=== PATIENT | male | born 1960 | race African-American/Black ===

== ENCOUNTER 2019-03-28 14:50 | Inpatient (IN) ==
[2019-03-28 16:02] LABS: BASO# 0.05 X1000 (0.0-0.2); BASO% 0.3 % (0.0-0.8); EOS# 0.19 X1000 (0.0-0.7); EOS% 1.1 % (0.0-10.0); HEMATOCRIT 25.4 % (42.0-52.0); HEMOGLOBIN 8.5 g/dL (14.0-18.0); IMM GRAN# 0.13 X1000 (0.0-0.04); IMM GRAN% 0.8 % (0.0-0.5); LYMPH# 1.99 X1000 (1.2-3.4); LYMPH% 11.5 % (20.5-51.1); MCHC 33.5 g/dL (33-37); MCV 86.7 FL (81-99); MONO# 2.18 X1000 (0.11-0.59); MONO% 12.7 % (1.7-9.3); NEUT# 12.69 X1000 (1.4-6.5); NEUT% 73.6 % (42.2-75.2); PLT 163 X1000 (130-400); RBC 2.93 XMIL (4.7-6.1); RDW 16.9 % (11.5-14.5); WBC 17.23 X1000 (4.8-10.8)
[2019-03-28 16:07] LABS: INR 1.44; PROTIME 17.9 Seconds (11.0-16.0)
[2019-03-28 16:08] LABS: PTT 43.6 Seconds (22.3-41.8)
[2019-03-28 16:23] LABS: ALB/GLOB RATIO 0.5; ALBUMIN 2.4 g/dL (3.5-5.0); CALCIUM 8.2 mg/dL (8.8-10.2); CREATININE 2.6 mg/dL (0.7-1.2); POTASSIUM 3.9 mmol/L (3.5-5.1); TOTAL BILIRUBIN 4.07 mg/dL (0.20-1.00)
[2019-03-28] MEDS ORDERED: NS 1,000 ML IV ONE (16:36)
[2019-03-28 16:54] LABS: AMYLASE 28 U/L (20-200); LIPASE 11 U/L (13-60)
--- NOTE | 2019-03-28 17:18 | Diag Imaging Result Doc PS360 ---
EXAM: CT HEAD W/O CONTRAST HISTORY: AMS TECHNIQUE: CT head without contrast COMPARISON: None. FINDINGS: No parenchymal hemorrhage. No epidural or subdural hematoma. No subarachnoid hemorrhage. There are mild chronic microvascular ischemic changes. No mass identified on this noncontrasted exam. No hydrocephalus. No sinus opacification. IMPRESSION: 1.No hemorrhage 2.Chronic microvascular ischemic changes This exam was performed using automated exposure control, adjustment of mA or kV according to patient size, and/or use of iterative reconstruction technique. Electronically signed by Andre Toro 03/28/2019 5:16 PM
--- NOTE | 2019-03-28 17:27 | Diag Imaging Result Doc PS360 ---
CT ABDOMEN AND PELVIS WITHOUT CONTRAST HISTORY: AMS TECHNIQUE: CT abdomen and pelvis without contrast COMPARISON: None. FINDINGS: There is basilar atelectasis and pulmonary edema. Small hiatal hernia versus mild thickening to the wall of the distal esophagus. The gallbladder has been removed. There is a drain in the right upper quadrant. Hyperdense debris or tiny stones in the gallbladder fossa. Trace fluid about the liver. The spleen is enlarged. No inflammation about the pancreas. Normal adrenal glands. No renal stones. No hydronephrosis. Moderate atherosclerosis. No aortic aneurysm. No bowel obstruction. There are scattered colonic diverticula. Small to moderate amount of fluid in the paracolic gutters and pelvis. The urinary bladder is distended and appears normal. The prostate is not enlarged. Small pelvic nodes. There are also small para-aortic nodes. IMPRESSION: 1. Basilar atelectasis with pulmonary edema 2. Small hiatal hernia versus thickening to the distal esophagus 3. Cholecystectomy with a surgical drain in the right upper quadrant and debris or tiny stones in the gallbladder fossa. No abscess. 4. Splenomegaly 5. Colonic diverticulosis 6. Atherosclerosis 7. Small amount of fluid about the liver and spleen and in each paracolic gutter This exam was performed using automated exposure control, adjustment of mA or kV according to patient size, and/or use of iterative reconstruction technique. Electronically signed by Andre Toro 03/28/2019 5:25 PM
[2019-03-28 17:56] LABS: URINE SOURCE CATH
[2019-03-28 17:58] LABS: BILIRUBIN URINE MODERATE (NEGATIVE); BLOOD URINE NEGATIVE (NEGATIVE); COLOR YELLOW; GLUCOSE URINE NEGATIVE (NEGATIVE); KETONE URINE NEGATIVE (NEGATIVE); LEUKOCYTES URINE NEGATIVE (NEGATIVE); NITRITE URINE NEGATIVE (NEGATIVE); PH URINE 5.5; PROTEIN URINE 30 mg/dL (NEGATIVE); SP GRAVITY URINE 1.025; TURBIDITY URINE HAZY (CLEAR); UROBILINOGEN URINE >12 mg/dL (NORMAL)
--- NOTE | 2019-03-28 17:58 | PROVIDER DOCUMENTATION ---
This chart was entered by Maryuri Miranda Scribe, acting as scribe for Yang Olsen MD. HPI-Neurological Disorder - General Chief Complaint: Altered Mental Status Stated Complaint: AMS Time Seen by Provider: 03/28/19 15:30 Source: patient, family Allergies/Adverse Reactions: Patient Allergies Allergy/AdvReac Type Severity Reaction Status Date / Time No Known Allergies Allergy Verified 02/01/19 15:42 Home Medications: Home Medication List Medication Instructions Recorded Confirmed Last Taken Type Amlodipine [Norvasc] 5 mg PO DAILY 01/12/19 03/22/19 03/22/19 05:30 History Cyclobenzaprine [Flexeril] 10 mg PO BID 01/12/19 03/22/19 03/22/19 05:30 History Lisinopril [Zestril] 40 mg PO DAILY 01/12/19 03/22/19 03/22/19 05:30 History Metoprolol [Lopressor] 100 mg PO DAILY 01/12/19 03/22/19 03/22/19 05:30 History Spironolactone 25 mg PO DAILY 01/12/19 03/22/19 03/22/19 05:30 History Indomethacin [Indocin] 25 mg PO DAILY 02/10/19 03/22/19 03/22/19 05:30 History Dexlansoprazole [Dexilant] 60 mg PO DAILY 03/01/19 03/22/19 03/22/19 05:30 History Dicyclomine [Bentyl] 10 mg PO TID AC 03/01/19 03/22/19 03/22/19 05:30 History Hydrochlorothiazide 25 mg PO DAILY 03/01/19 03/22/19 03/22/19 05:30 History Hydrocodone/Acetaminophen [[place] 1 ea PO TID 03/01/19 03/22/19 03/22/19 05:30 History 7.5-325 Tablet] Isosorbide Mononitrate E.r. [Imdur] 30 mg PO DAILY 03/01/19 03/22/19 03/22/19 05:30 History Hydrocodone/Acetaminophen [[place] 1 ea PO Q6H PRN PRN #30 tab 03/22/19 Unknown Rx 10-325 Tablet] - History of Present Illness-Neuro Nature of Presenting Problem: 58 y/o male presents to ED with AMS onset last night. of pt is at bedside and reports he has been refusing po food and fluids. states he is unable to urinate and experiencing decreased ability to walk/stand. She reports he is "talking out of his head." states last bowel movement was yesterday. Pt denies chest pain. Pt reports SOB and abdominal pain. Pt is 6 days post op cholecystectomy. Pt is alert and oriented x 1. Severity: reports: moderate, severe Onset/Duration: reports: last night Timing: reports: still present Context: reports: other (AMS) Character of Altered Mental Status: reports: disoriented, confused, decreased responsiveness Any recent trauma/injury?: reports: none Character of Deficits: reports: decreased ability to stand, decreased ability to walk New weakness or altered sensation location:: reports: general (diffuse) Cognitive Baseline: alert, oriented x3 Gait Baseline: walks without assistance Associated Symptoms: reports: short of breath, decreased ability to walk or s tand, confusion, trouble walking, weakness, other (AMS; refusing po food and fluids; unable to urinate; abdominal pain). denies: chest pain Similar Symptoms Previously?: No Recently seen or treated by another doctor?: Yes (cholecystectomy 6 days ago) Review of Systems - Adult - REVIEW OF SYSTEMS - ADULT ROS:: limited per condition Constitutional: reports: other (AMS). denies: chills, fever Eyes: reports: no symptoms reported Ears, Nose, Mouth & Throat: reports: no symptoms reported Cardiovascular: denies: chest pain, palpitations Respiratory: reports: shortness of breath. denies: cough Gastrointestinal: reports: abdominal pain, poor appetite, other (refusing po food/fluids). denies: diarrhea, vomiting Genitourinary: reports: other (unable to urinate). denies: incontinence Musculoskeletal: reports: no symptoms reported Integumentary: reports: no symptoms reported Neurological: reports: other (AMS; decreased ability to walk/stand). denies: dizziness/vertigo, seizure Psychiatric: reports: no symptoms reported Endocrine: reports: no symptoms reported Hematologic/Lymphatic: reports: no symptoms reported Allergic/Immunologic: reports: no symptoms reported All Other Systems: Reviewed and Negative Past History - Adult - PAST MEDICAL HISTORY-ADULT Review of Records: reports: Old Records Reviewed, Nursing Assessment Review, M edications Reviewed Major Childhood Illnesses: reports: denies history Cardiovascular: reports: CAD, CHF, HTN, [place] Respiratory: reports: COPD, sleep apnea Gastrointestinal: reports: cancer (rectal) Obstetrical/Gynecological: reports: denies history Genitourinary: reports: denies history Musculoskeletal: reports: arthritis (gout), other (gout) Neurological: reports: denies history Endocrine/Immune: reports: denies history Other Conditions: reports: denies history - PRIOR SURGERIES/PROCEDURES Surgical/Procedure History: reports: recent surgery (cholecystectomy 6 days ago) , cholecystectomy - IMMUNIZATION STATUS Childhood Immunizations: See Nurse Assessment Flu Vaccine: See Nurse Assessment - FAMILY HISTORY Family History: reviewed, not pertinent - SOCIAL HISTORY Smoking: quit greater than 1 year Substance Use: none/never Alcohol Use Frequency: never Living Situation: family Physical Exam- Neurological - Physical Exam-Neuro Initial Vital Signs Reviewed: Yes General Appearance: alert, no apparent distress, slow to respond, other (altered; attempts to follow commands and answer questions; oriented x 1) Eye Exam: bilateral eye: normal inspection, PERRL, EOMI HENMT: normocephalic/atraumatic. negative: moist mucous membranes (dry) Head Injury: no evidence of injury Neck: non-tender, full range of motion Respiratory: chest non-tender, lungs clear, normal breath sounds Cardiovascular: tachycardia Abdominal Exam: soft, abnormal bowel sounds (decreased), distended, tenderness (diffuse), other (drain placed in RUQ; pt is 6 days post op cholecystectomy: skin surrounding incision healing good.) Extremity: normal range of motion, non-tender, pedal edema printing manager Exam: normal hearing, normal speech, PERRL Coordination/Gait: other (altered; attempts to follow commands and answer questions) Motor/Sensory: other (altered; attempts to follow commands and answer questions; oriented x 1) Neurologic: other (altered; attempts to follow commands and answer questions; oriented x 1) Integumentary: normal color, warm/dry Psych/Mental Status: other (altered; attempts to follow commands and answer questions; oriented x 1). negative: oriented x 3 Progress - PLAN OF CARE/RESULTS Progress/Plan/Lab Results: Vital Signs - 8 hr 03/28/19 15:01 03/28/19 15:03 03/28/19 15:10 Temperature 101.0 F H Pulse Rate 116 H 115 H 115 H Respiratory Rate 19 13 15 Blood Pressure 107/71 107/71 O2 Sat by Pulse Oximetry 89 L 89 L 03/28/19 15:15 03/28/19 15:30 03/28/19 15:38 Temperature Pulse Rate 113 H 114 H 116 H Respiratory Rate 13 13 17 Blood Pressure 139/72 O2 Sat by Pulse Oximetry 91 L 90 L 92 L 03/28/19 15:45 03/28/19 16:00 03/28/19 16:15 Temperature Pulse Rate 115 H 115 H 117 H Respiratory Rate 15 15 20 Blood Pressure 144/79 O2 Sat by Pulse Oximetry 93 L 97 97 03/28/19 16:30 Temperature Pulse Rate 115 H Respiratory Rate 15 Blood Pressure 151/78 O2 Sat by Pulse Oximetry 97 Laboratory Results - last 24 hr 03/28/19 03/28/19 03/28/19 15:34 15:34 15:34 WBC 17.23 H RBC 2.93 L Hgb 8.5 L Hct 25.4 L MCV 86.7 MCH 29.0 MCHC 33.5 RDW Std Deviation 16.9 H Plt Count 163 MPV Not Reportable Immature Gran % (Auto) 0.8 H Neut % (Auto) 73.6 Lymph % (Auto) 11.5 L [place] % (Auto) 12.7 H Eos % (Auto) 1.1 Baso % (Auto) 0.3 Immature Gran # (Auto) 0.13 H Neut # (Auto) 12.69 H Lymph # (Auto) 1.99 [place] # (Auto) 2.18 H Eos # (Auto) 0.19 Baso # (Auto) 0.05 PT 17.9 H INR 1.44 PTT (Actin FS) 43.6 H Sodium 140 Potassium 3.9 Chloride 105 Carbon Dioxide 17 L Anion Gap 18 BUN 66 H Creatinine 2.6 H Estimated GFR/1.73 m2 31 BUN/Creatinine Ratio 25 Glucose 108 H POC Glucose Calculated Osmolality 299 Calcium 8.2 L Total Bilirubin 4.07 H AST 22 ALT 11 Alkaline Phosphatase 162 H Ammonia Creatine Kinase 111 Troponin T Total Protein 7.0 Albumin 2.4 L Globulin 4.6 Albumin/Globulin Ratio 0.5 Amylase Lipase Plasma Lactate Urine Source Urine Color Urine Turbidity Urine pH Ur Specific [place] Urine Protein Ur Glucose (Stick) Ur Ketones (Stick) Urine Blood Urine Nitrite Urine Bilirubin Urobilinogen Dipstick Urine Leukocytes Urine WBC (Auto) Urine RBC (Auto) U Epithel Cells (Auto) Urine Bacteria (Auto) Urine Crystals Small Round Cells Urine Casts Urine Yeast-like Cells 03/28/19 03/28/19 03/28/19 15:34 15:34 15:34 WBC RBC Hgb Hct MCV MCH MCHC RDW Std Deviation Plt Count MPV Immature Gran % (Auto) Neut % (Auto) Lymph % (Auto) [place] % (Auto) Eos % (Auto) Baso % (Auto) Immature Gran # (Auto) Neut # (Auto) Lymph # (Auto) [place] # (Auto) Eos # (Auto) Baso # (Auto) PT INR PTT (Actin FS) Sodium Potassium Chloride Carbon Dioxide Anion Gap BUN Creatinine Estimated GFR/1.73 m2 BUN/Creatinine Ratio Glucose POC Glucose Calculated Osmolality Calcium Total Bilirubin AST ALT Alkaline Phosphatase Ammonia Creatine Kinase Troponin T < 0.010 Total Protein Albumin Globulin Albumin/Globulin Ratio Amylase 28 Lipase 11 L Plasma Lactate 1.6 Urine Source Urine Color Urine Turbidity Urine pH Ur Specific [place] Urine Protein Ur Glucose (Stick) Ur Ketones (Stick) Urine Blood Urine Nitrite Urine Bilirubin Urobilinogen Dipstick Urine Leukocytes Urine WBC (Auto) Urine RBC (Auto) U Epithel Cells (Auto) Urine Bacteria (Auto) Urine Crystals Small Round Cells Urine Casts Urine Yeast-like Cells 03/28/19 03/28/19 03/28/19 15:44 16:41 17:47 WBC RBC Hgb Hct MCV MCH MCHC RDW Std Deviation Plt Count MPV Immature Gran % (Auto) Neut % (Auto) Lymph % (Auto) [place] % (Auto) Eos % (Auto) Baso % (Auto) Immature Gran # (Auto) Neut # (Auto) Lymph # (Auto) [place] # (Auto) Eos # (Auto) Baso # (Auto) PT INR PTT (Actin FS) Sodium Potassium Chloride Carbon Dioxide Anion Gap BUN Creatinine Estimated GFR/1.73 m2 BUN/Creatinine Ratio Glucose POC Glucose 106 H Calculated Osmolality Calcium Total Bilirubin AST ALT Alkaline Phosphatase Ammonia 52 Creatine Kinase Troponin T Total Protein Albumin Globulin Albumin/Globulin Ratio Amylase Lipase Plasma Lactate Urine Source CATH Urine Color YELLOW Urine Turbidity HAZY Urine pH 5.5 Ur Specific [place] 1.025 Urine Protein 30 A Ur Glucose (Stick) NEGATIVE Ur Ketones (Stick) NEGATIVE Urine Blood NEGATIVE Urine Nitrite NEGATIVE Urine Bilirubin MODERATE A Urobilinogen Dipstick >12 A Urine Leukocytes NEGATIVE Urine WBC (Auto) <10 Urine RBC (Auto) 10-20 A U Epithel Cells (Auto) <10 Urine Bacteria (Auto) NEGATIVE Urine Crystals NONE SEEN Small Round Cells Not Reportable Urine Casts NONE SEEN Urine Yeast-like Cells NONE SEEN Orders Category Date Time Status Cardiac Monitoring DIRECTED Care 03/28/19 15:14 Active IV Insertion ORDERED Care 03/28/19 15:14 Completed Notify MD of + Sepsis Screen NOW Care 03/28/19 15:14 Active Notify Physician As Ordered Care 03/28/19 15:14 Active Nursing [Misc. NRSG Communication Order] DIRECTED Care 03/28/19 18:28 Active Nursing- MD Consult Request ROUTINE Care 03/28/19 18:25 Active Nursing- MD Consult Request ROUTINE Care 03/28/19 18:26 Active Physician/Provider Consults Routine Cons 03/28/19 18:24 Ordered Physician/Provider Consults Routine Cons 03/28/19 18:24 Ordered Physician/Provider Consults Routine Cons 03/28/19 18:25 Ordered Physician/Provider Consults Routine Cons 03/29/19 08:[address] ABDOMEN/PELVIS W/O CONTRAST [CT] Stat Exams 03/28/19 16:[address] HEAD W/O CONTRAST [CT] Stat Exams 03/28/19 16:00 Completed US ABDOMEN-COMPLETE [US] Routine Exams 03/28/19 18:26 Ordered cxr [CHEST-PORTABLE] [RAD] Routine Exams 03/29/19 06:00 Ordered AMMONIA [CHEM] Routine Lab 03/29/19 06:00 Ordered AMMONIA [CHEM] Stat Lab 03/28/19 16:41 Completed AMYLASE [CHEM] Stat Lab 03/28/19 15:34 Completed BLOOD CULTURE [BLDCUL] Stat Lab 03/28/19 16:28 Results CBC WITH DIFF [HEME] DAILY Lab 03/29/19 06:00 Ordered CBC WITH DIFF [HEME] DAILY Lab 03/30/19 06:00 Ordered CBC WITH DIFF [HEME] Routine Lab 03/28/19 22:00 Ordered CBC WITH DIFF [HEME] Stat Lab 03/28/19 15:34 Completed CK PROFILE [SP CHEM] Stat Lab 03/28/19 15:34 Completed COMPREHENSIVE METABOLIC PANEL [CHEM] Routine Lab 03/29/19 05:00 Ordered COMPREHENSIVE METABOLIC PANEL [CHEM] Stat Lab 03/28/19 15:34 Completed LACTATE, PLASMA [CHEM] Lab 03/28/19 18:15 Uncollected LACTATE, PLASMA [CHEM] Lab 03/28/19 21:15 Uncollected LACTATE, PLASMA [CHEM] Q3H Lab 03/28/19 15:34 Completed LIPASE [CHEM] Stat Lab 03/28/19 15:34 Completed PROTIME WITH INR [COAG] DAILY Lab 03/29/19 06:00 Ordered PROTIME WITH INR [COAG] DAILY Lab 03/30/19 06:00 Ordered PROTIME WITH INR [COAG] Stat Lab 03/28/19 15:34 Completed PTT [COAG] Stat Lab 03/28/19 15:34 Completed RENAL PROFILE [CHEM] Timed Lab 03/28/19 22:00 Ordered TROPONIN T Stat Lab 03/28/19 15:34 Completed URINALYSIS W/POSS RFLX CULT [URINALYSIS] Stat Lab 03/28/19 17:47 Completed URINE MANUAL MICROSCOPIC [URINALYSIS] Stat Lab 03/28/19 17:47 Completed 0.9% Sodium Chloride Inj [Ns] 1,000 ml Med 03/28/19 18:30 Ordered IV 125 mls/hr 0.9% Sodium Chloride Inj [Ns] 1,000 ml Med 03/28/19 16:36 Discontinued IV 999 mls/hr Ceftaroline Fosamil [Teflaro] 400 mg Med 03/28/19 18:15 Ordered 0.9% Sodium Chloride Inj [Ns] 250 ml IV Q12H Meropenem [Merrem] 500 mg Med 03/28/19 18:15 Ordered 0.9% Sodium Chloride Inj [Ns] 50 ml IV Q8H Morphine Med 03/28/19 18:31 Ordered 2 mg IV Q3H PRN PRN Pantoprazole [Protonix] Med 03/28/19 18:30 Ordered 40 mg IV Q12H Piperacillin/Tazobactam [Zosyn] 4.5 gm Med 03/28/19 18:10 Active 0.9% Sodium Chloride Inj [Ns] 100 ml IV NOW Sodium Chloride 0.9% Med 03/28/19 18:30 Ordered 10 ml INJ DIRECTED Oxygen Device Stat Oth 03/28/19 15:14 Completed Echo Spec/Color Doppler Routine Ther 03/28/19 18:12 Ordered Transfer/Admit Order [TRANSFER] Routine Transfer 03/28/19 18:34 Ordered Result Diagrams: 03/28/19 15:34 03/28/19 15:34 - EKG 1 Time of EKG reading by physician:: 16:31 EKG Read and Signed by:: Yang Olsen EKG Interpretation (*Must complete 3 of following elements*): Abnormal Rate: 114 Rhythm: Sinus tach [place]: left QRS: LBB IA Interval: normal ST Wave: normal - CT/MRI 1 CT Study: Abdomen, Pelvis Impression: See EMR Report ([facility] - [address] , [address], [place] [address] [facility] - [address] [place] [address] Department of Imaging Patient: BRITTNI SKAGGS Date: 03/28/19MR#: [id number] : 9ADM Status: REG ERAcct#: [id number] Age/Sex: 58/MRoom/Bed: Loc: ED Ordering Physician: Yang Olsen MD Family Physician: Armani Bender MD Reason for Procedure: AMS ___ Signed CT ABDOMEN AND PELVIS WITHOUT CONTRAST HISTORY: AMS TECHNIQUE: CT abdomen and pelvis without contrast COMPARISON: None. FINDINGS: There is basilar atelectasis and pulmonary edema. Small hiatal hernia versus mild thickening to the wall of the distal esophagus. The gallbladder has been removed. There is a drain in the right upper quadrant. Hyperdense debris or tiny stones in the gallbladder fossa. Trace fluid about the liver. The spleen is enlarged. No inflammation about the pancreas. Normal adrenal glands. No renal stones. No hydronephrosis. Moderate atherosclerosis. No aortic aneurysm. No bowel obstruction. There are scattered colonic diverticula. Small to moderate amount of fluid in the paracolic gutters and pelvis. The urinary bladder is distended and appears normal. The prostate is not enlarged. Small pelvic nodes. There are also small para-aortic nodes. IMPRESSION: 1. Basilar atelectasis with pulmonary edema 2. Small hiatal hernia versus thickening to the distal esophagus 3. Cholecystectomy with a surgical drain in the right upper quadrant and debris or tiny stones in the gallbladder fossa. No abscess. 4. Splenomegaly 5. Colonic diverticulosis 6. Atherosclerosis 7. Small amount of fluid about the liver and spleen and in each paracolic gutter This exam was performed using automated exposure control, adjustment of mA or kV according to patient size, and/or use of iterative reconstruction technique. Electronically signed by Andre Toro 03/28/2019 5:25 PM 03/28/19 1720 Interpreting Physician: Andre Toro MD Dictated Date/Time: 03/28/19 1713 cc: Yang Olsen MD; Armani Bender MD) 2 CT Study: Head Impression: See EMR Report ([facility] - [address] [place] [address] [address], [place] [address] [facility] - [address] [place] [address] Department of Imaging Patient: BRITTNI SKAGGS Date: 03/28/19#: [id number] : 9ADM Status: [facility]#: [id number] Age/Sex: 58/MRoom/Bed: Loc: ED Ordering Physician: Yang Olsen MD Family Physician: Armani Bender MD Reason for Procedure: AMS Signed EXAM: CT HEAD W/O CONTRAST HISTORY: AMS TECHNIQUE: CT head without contrast COMPARISON: None. FINDINGS: No parenchymal hemorrhage. No epidural or subdural hematoma. No subarachnoid hemorrhage. There are mild chronic microvascular ischemic changes. No mass identified on this noncontrasted exam. No hydrocephalus. No sinus opacification. IMPRESSION: 1.No hemorrhage 2.Chronic microvascular ischemic changes This exam was performed using automated exposure control, adjustment of mA or kV according to patient size, and/or use of iterative reconstruction technique. Electronically signed by Andre Toro 03/28/2019 5:16 PM 03/28/19 1716 Interpreting Physician: Andre Toro MD Dictated Date/Time: 03/28/19 1713 cc: Yang Olsen MD; Armani Bender MD) - CONSULTS/PCP/HOSPITALIST Notification #1 *Consult/PCP/Hospitalist*: NERIS Montes for hospitalist Time Discussed: 17:41 Reason/Comments: Acute renal failure, AMS, weakness, leukocytosis, hyperbilirubinemia Consult Disposition: Admit Departure - Departure Date of Disposition Decision: 03/28/19 Time of Disposition Decision: 17:41 DIAGNOSIS: Generalized weakness, Hyperbilirubinemia, Sepsis Acute renal failure Qualifiers: Acute renal failure type: unspecified Qualified Code(s): N17.9 - Acute kidney failure, unspecified Altered mental status Qualifiers: Altered mental status type: unspecified Qualified Code(s): R41.82 - Altered mental status, unspecified Leukocytosis Qualifiers: Leukocytosis type: unspecified Qualified Code(s): D72.829 - Elevated white blood cell count, unspecified Disposition: ADMITTED INPATIENT 09 Certified Medical Emergency: Emergent Condition: Stable Referrals and Follow-Ups: Armani Bender MD [Primary Care Provider] - - Critical Care Note This patient required my direct & personal management of CC.: No Attestation - Physician/ MAIKEL Attestation Patient care was provided by Advanced Practice Provider:: No The physician spent face to face time with patient:: Yes Advanced Practice Provider documentation review:: Supervising physician onsite and consulted in the evaluation and care of this patient. The physician did have a face to face encounter with the patient. This chart was documented by the indicated scribe, (Maryuri Miranda Scribe) and accurately reflects the services I performed and decisions made by me, Yang Olsen MD, as attested by the provider's signature.
[2019-03-28 18:00] LABS: UR EPITHELIAL CELLS <10 /HPF (<10); URINE BACTERIA NEGATIVE /HPF; URINE WBC <10 /HPF (<10)
[2019-03-28] MEDS ORDERED: ZOSYN 4.5 GM in NS 100 ML IV ONE (18:10)
[2019-03-28 18:16] LABS: URINE CASTS NONE SEEN; URINE CRYSTALS NONE SEEN; URINE YEAST NONE SEEN
[2019-03-28] MEDS: MORPHINE IV PRN ×2 (19:19→22:39)
[2019-03-28] MEDS: PROTONIX IV SCH (19:49)
--- NOTE | 2019-03-28 19:54 | HISTORY AND PHYSICAL ---
PRIMARY CARE PROVIDER: Armani Bender. ONCOLOGIST: Dr. Gaurav Jacobs. CHIEF COMPLAINT: Altered mental status, abdominal distention. HPI: This is a 58-year-old gentleman with a history of cirrhosis, squamous cell cancer of the anus, diabetes mellitus type 2, ischemic heart disease, who presents to the emergency room status post cholecystectomy with laparoscopic liver biopsy on 03/22/2019. He presented with his who stated that the patient has been refusing food and fluids for the last 3 days. She states when he came home from the hospital on Friday he was a little sore and Friday and Friday she was have to help him stand up but he was able to walk through the house, on Friday afternoon to morning he started attempting to drink a little fluid, by he had started refusing any of food and he was just taking sips of fluids, however he did take his medication with the sips of fluid. They denied any vomiting, any diarrhea or constipation, any fevers or chills. The patient has a WOODY drain in. The states that the drainage has not increased, when he 1st was discharged that it was a bile color that over the last 5 days it has been a thick secretions that are about tomato juice colored in fact she feels that the drainage has decreased some in the last 24 to 36 hours. During the day prior to coming to the emergency room he was unable to stand or walk and his speech has been garbled. PAST MEDICAL HISTORY: Ischemic heart disease, diabetes mellitus type 2 with hyperglycemia, squamous cell cancer of the anus, hypertension, sleep apnea, COPD. PAST SURGICAL HISTORY: Cholecystectomy. SOCIAL HISTORY: He drinks liquor 1 to 2 drinks it was daily up until the last few weeks. He has had none in the last 2 weeks. He is . He lives with his . He has children that are close by and active in his care. ALLERGIES: No known drug allergies. HOME MEDICATIONS: Allopurinol, Norvasc, Sharon, lisinopril, lorazepam, metoprolol, omeprazole, spironolactone, tramadol. REVIEW OF SYSTEMS: Unable to obtain from the patient due to his altered mental status. PHYSICAL EXAMINATION: GENERAL: This is a 58-year-old gentleman who is lying on the stretcher in the emergency room in mild distress. VITAL SIGNS: Blood pressure is 151/78 with a heart rate 115, respirations are 18 to 22, temperature is 101 degrees with O2 saturations 93 to 97 percent. HEENT: Head is normocephalic, atraumatic. Mucous membranes are moist. NECK: Supple with trachea midline. CARDIOVASCULAR: Regular rate and rhythm. He is tachycardic. S1 and S2 are appreciated. He has bilateral lower extremity edema with peripheral pulses palpable x4 extremities. PULMONARY: Breath sounds are clear with no increased work of breathing noted. Chest rises and falls symmetric with respiration. GASTROINTESTINAL: Abdomen distended with diffuse tenderness. He has decreased bowel sounds throughout. Has a right upper quadrant drain is intact, is draining tomato juice colored thick secretions. NEUROLOGIC: He is alert. He attempts to follow commands and he attempts to answer all questions although speech is garbled. He does not consistently answer yes and no. LABS: WBC is 17.2 with a hemoglobin of 8.5, hematocrit 25.4, platelets of 163,000. INR is 1.44, PT is 17.9 with a PTT of 43.6. Chemistry. Sodium is 140, potassium 3.9, BUN 66 with a creatinine of 2.6, glucose of 108. Total bilirubin is 4.07, ammonia is 52 with amylase of 28, lipase of 11. Urinalysis is pending. CT of the head reveals no hemorrhage, chronic microvascular ischemic changes. CT of the abdomen and pelvis reveals basilar atelectasis with pulmonary edema, small hiatal hernia versus thickening to the distal esophagus, cholecystectomy with a surgical drain in the right upper quadrant and debris or tiny stones in the gallbladder fossa. No abscess. Small amount of fluid about the liver and spleen in each pericolic gutter. ASSESSMENT AND PLAN: 1. Sepsis. Blood cultures have been obtained. Urine culture will be ordered, order culture from his Ghanshyam-Adorno drain and with antibiotic coverage of Merrem and Teflaro. 2. Status post cholecystectomy with liver biopsy on 03/22. We have notified Dr. Jan Jacob as he performed the procedure. 3. Acute kidney injury presumed secondary to dehydration and medication as the patient continued to take his hydrochlorothiazide, Indocin, spironolactone and lisinopril as prescribed all week. We will hold all these medications. Will rehydrate, repeat labs tonight and daily. We will renal dose any medications as appropriate. 4. Anal cancer aware. 5. Anemia. repeat labs tonight at o'clock and then again in the morning. 6. Hypertension aware. 7. Coronary artery disease status post myocardial infarction 5 years ago, aware. Order echocardiogram. 8. Chronic obstructive pulmonary disease. 9. Diabetes mellitus type 2. Be placed on pattern blood glucose with sliding scale insulin. admit the patient to ICU for close monitoring. Consult Dr. Bill aJcob and Dr. Golden Cuba in Gastroenterology. CBC, CMP, ammonia, PT, INR in the morning. echocardiogram and a abdominal ultrasound, CXR in the morning Further treatments pending hospital course. Patient was examined and plan was discussed with Dr. Espinoza. Dictated by NERIS Cabrera for Clive Beauchamp MD Addendum: Patient seen and examined by myself. Agree with NERIS note. It reflects my assessment and plan. Patient is being admitted for sepsis of unknown source at this time. Will start broad spectrum antibiotics and panculture him. Will also start IV fluids for GERDA. He may have hepatic encephalopathy so will provide Lactulose enemas. Will send him to ICU for better monitoring. cc: NERIS Cabrera MD [facility]
[2019-03-28] MEDS ORDERED: TYLENOL PR PRN (21:16)
[2019-03-28] MEDS: NS 1,000 ML IV SCH (21:40)
[2019-03-28] MEDS: MERREM 500 MG in NS 50 ML IV SCH (21:40)
[2019-03-28] MEDS: TEFLARO 400 MG in NS 250 ML IV SCH (21:41)
[2019-03-28] MEDS: HUMALOG SUBQ SCH (21:47)
[2019-03-28 22:24] LABS: BASO# 0.07 X1000 (0.0-0.2); BASO% 0.4 % (0.0-0.8); EOS# 0.12 X1000 (0.0-0.7); EOS% 0.6 % (0.0-10.0); HEMATOCRIT 25.4 % (42.0-52.0); HEMOGLOBIN 8.5 g/dL (14.0-18.0); IMM GRAN# 0.15 X1000 (0.0-0.04); IMM GRAN% 0.8 % (0.0-0.5); LYMPH# 2.27 X1000 (1.2-3.4); MCH 28.8 PG (27-31); MCHC 33.5 g/dL (33-37); MCV 86.1 FL (81-99); MONO# 2.35 X1000 (0.11-0.59); MONO% 12.4 % (1.7-9.3); MPV 12.7 FL (7.4-10.4); NEUT# 13.96 X1000 (1.4-6.5); NEUT% 73.8 % (42.2-75.2); PLT 192 X1000 (130-400); RBC 2.95 XMIL (4.7-6.1); RDW 17.1 % (11.5-14.5); WBC 18.92 X1000 (4.8-10.8)
[2019-03-28 22:40] LABS: ALBUMIN 2.2 g/dL (3.5-5.0); CALCIUM 8.4 mg/dL (8.8-10.2); CREATININE 2.2 mg/dL (0.7-1.2); LYMPHS 13 % (21-51); MONO 11 % (1-9); PHOSPHORUS 4.1 mg/dL (2.7-4.5); POTASSIUM 3.6 mmol/L (3.5-5.1); SEGS 76 % (42-75)
[2019-03-28 22:41] LABS: HYPOCHROM 1+
[2019-03-29] MEDS: MERREM 500 MG in NS 50 ML IV SCH ×3 (01:26→18:19)
[2019-03-29] MEDS: MORPHINE IV PRN ×6 (01:26→23:26)
[2019-03-29] MEDS: NS 1,000 ML IV SCH ×5 (03:56→20:05)
[2019-03-29] MEDS: TEFLARO 400 MG in NS 250 ML IV SCH (05:26)
[2019-03-29] MEDS: PROTONIX IV SCH ×3 (05:27→18:19)
--- NOTE | 2019-03-29 06:07 | Diag Imaging Result Doc PS360 ---
EXAM: CHEST-PORTABLE HISTORY: pulmonary edema TECHNIQUE: Single view COMPARISON: 02/02/2019 FINDINGS: Poor inspiratory effort. No cardiomegaly. Mild increased interstitial markings. No consolidation. Mild central vascular prominence. Tiny left effusion. No change in the right jugular portacatheter. No pneumothorax. IMPRESSION: Increased interstitial markings believed to be pulmonary fibrosis. Electronically signed by Andre Toro 03/29/2019 6:05 AM
[2019-03-29 06:20] LABS: INR 1.47; PROTIME 18.1 Seconds (11.0-16.0)
[2019-03-29 06:27] LABS: BASO# 0.02 X1000 (0.0-0.2); BASO% 0.1 % (0.0-0.8); EOS# 0.09 X1000 (0.0-0.7); EOS% 0.6 % (0.0-10.0); HEMATOCRIT 23.9 % (42.0-52.0); IMM GRAN# 0.11 X1000 (0.0-0.04); IMM GRAN% 0.7 % (0.0-0.5); LYMPH# 1.77 X1000 (1.2-3.4); MCH 28.9 PG (27-31); MCHC 33.5 g/dL (33-37); MCV 86.3 FL (81-99); MONO% 13.1 % (1.7-9.3); NEUT# 11.95 X1000 (1.4-6.5); NEUT% 74.5 % (42.2-75.2); PLT 165 X1000 (130-400); RBC 2.77 XMIL (4.7-6.1); RDW 16.9 % (11.5-14.5); WBC 16.04 X1000 (4.8-10.8)
[2019-03-29] MEDS: HUMALOG SUBQ SCH ×4 (06:42→21:25)
[2019-03-29 06:44] LABS: ALB/GLOB RATIO 0.4; ALBUMIN 2.1 g/dL (3.5-5.0); CALCIUM 8.2 mg/dL (8.8-10.2); CREATININE 1.8 mg/dL (0.7-1.2); POTASSIUM 3.6 mmol/L (3.5-5.1); TOTAL BILIRUBIN 3.84 mg/dL (0.20-1.00)
--- NOTE | 2019-03-29 07:31 | GENERAL SURGERY CONSULTATION ---
DATE: 03/29/2019 REQUESTING PHYSICIAN: Dr. Espinoza REASON FOR CONSULTATION: Abdominal distention. HISTORY OF PRESENT ILLNESS: A 58-year-old gentleman well known to me with a history of cirrhosis, squamous cell cancer of the anus, diabetes mellitus type 2, ischemic heart disease, and recent cholecystectomy done on the of last month by me, who is presenting with altered mental status and poor p.o. intake and distention. He was seen in the emergency department for this, had a CT scan that did not show any real acute issues. Intraabdominally he had some fluid but nothing dramatic. He has had a WOODY drain in that has not changed in color and is not bilious at this moment. He is feeling a little bit better, not having as much abdominal pain. He was admitted to the ICU. PAST MEDICAL HISTORY: Ischemic heart disease, diabetes mellitus type 2, squamous cell cancer of the anus, hypertension, sleep apnea, COPD, cirrhosis. PAST SURGICAL HISTORY: Includes port placement and cholecystectomy. SOCIAL HISTORY: Drinks liquor. ALLERGIES: None. HOME MEDICATIONS: Reviewed. FAMILY HISTORY: Reviewed with the patient and noncontributory. REVIEW OF SYSTEMS: Full 14 systems reviewed, negative except as specified in HPI. PHYSICAL EXAMINATION: Vital Signs: Patient is currently afebrile. He does have a tachycardia in the 1 teens. Blood pressure stable. General: No acute distress. More alert. male, looks stated age. HEENT: Normocephalic, atraumatic. Pupils equal, round, reactive to light. Some scleral icterus noted. Oropharynx benign. Neck: Supple. Trachea midline. Cardiovascular: Some tachycardia. Lungs: Grossly clear. Abdomen: Soft, but distended. No real peritoneal signs. WOODY drain has serosanguineous output. Extremities: Moves all extremities. Neurologic: Grossly intact. Skin: No signs of jaundice. Vascular: All extremities perfused. LABORATORY: White blood cell count 16, hematocrit 23, platelet count 165,000. Remainder of labs reviewed. His bilirubin is 4, which is down from previous times. Imaging reviewed and noted above. ASSESSMENT AND PLAN: A 58-year-old gentleman with abdominal distention and altered mental status. 1. Altered mental status: At this time, we will defer to the hospitalist. Workup is underway. CT scan of his head has been normal. 2. Abdominal distention, status post cholecystectomy. At this time, I do not think he has a bile leak. I do not think he has got any acute issues. We did drain some stones into his abdomen, which is likely where they are seen in the gallbladder fossa. The Ghanshyam-Adorno drain does not seem to suggest a bile leak or a significant amount of ascites fluid, but he might have some degree of decompensation from his cirrhosis. We will have gastrointestinal see him also in followup with their recommendations, but at this point we will continue to monitor. cc: Bill Jacob MD
--- NOTE | 2019-03-29 07:59 | EKG Report ---
Test Performed on : 03/28/2019 4:31:11 PM Test Reason : ED. NO EKG ORDER FOR MUSE Blood Pressure : / mmHG Vent. Rate : 114 BPM Atrial Rate : 114 BPM P-R Int : 142 ms QRS Dur : 146 ms QT Int : 372 ms P-R-T Axes : 044 -31 094 degrees QTc Int : 512 ms Sinus tachycardia. Left axis deviation Left bundle branch block Abnormal ECG When compared with ECG of 12-JAN-2019 14:01, T wave inversion no longer evident in Inferior leads Unconfirmed Result
[2019-03-29] MEDS ORDERED: VITAMIN K 10 MG in NS 50 ML IV ONE (11:10)
[2019-03-29] MEDS ORDERED: NS 500 ML IV ONE (12:51)
[2019-03-29] MEDS ORDERED: LOPRESSOR IV SCH (13:00)
[2019-03-29 13:02] LABS: HEMATOCRIT 25.9 % (42.0-52.0); HEMOGLOBIN 8.8 g/dL (14.0-18.0)
[2019-03-29] MEDS ORDERED: VANCOMYCIN IV PER PHARMACY MISC SCH (13:15)
--- NOTE | 2019-03-29 13:27 | EKG Report ---
Test Performed on : 03/29/2019 2:23:03 PM Test Reason : tachycardia Blood Pressure : / mmHG Vent. Rate : 130 BPM Atrial Rate : 130 BPM P-R Int : 112 ms QRS Dur : 144 ms QT Int : 370 ms P-R-T Axes : -18 -18 082 degrees QTc Int : 544 ms Sinus tachycardia. Left bundle branch block Abnormal ECG No previous ECGs available Unconfirmed Result
[2019-03-29] MEDS: LOPRESSOR PO SCH (13:34)
[2019-03-29] MEDS ORDERED: VANCOMYCIN 1,800 MG in NS 500 ML IV ONE (14:00)
[2019-03-29] MEDS ORDERED: LOPRESSOR IV PRN (14:45)
--- NOTE | 2019-03-29 14:51 | GASTROENTEROLOGY CONSULTATION ---
DATE: 03/29/2019 ATTENDING PHYSICIAN: Dr. Mcconnell. PRIMARY CARE DOCTOR: Dr. Bender. REASON FOR CONSULTATION: Liver cirrhosis, ascites, status post gallbladder removal 1 week ago. HISTORY OF PRESENT ILLNESS: Mr. Calixto is a 58-year-old male who was admitted on 03/28/2019 for abdominal distention. He had a history of alcoholism. He quit about 1 month ago. He had a recent gallbladder resection last Friday with Dr. Jacob. Postoperatively, he did well until about a few days ago when he started experiencing abdominal distention and altered mental status, poor oral intake, and was admitted to the hospital. He had imaging done on admission in the form of a CT scan of the abdomen and pelvis which showed bibasilar atelectasis and pulmonary edema. Small hiatal hernia versus mild thickening to the wall of the distal esophagus. The gallbladder has been removed. There is a drain in the right upper quadrant. Hyperdense debris or tiny stones in the gallbladder fossa. Trace fluid about the liver. The spleen is enlarged. No inflammation about the pancreas. Normal adrenal glands. No renal stones. No hydronephrosis. Moderate atherosclerosis. No aortic aneurysm. There are scattered colonic diverticula. There is small to moderate amount of fluid in the paracolic gutters and the pelvis. The urinary bladder is distended and appears normal. The prostate is not enlarged. Small pelvic nodes are noted. There are also small paraaortic nodes noted. The patient was seen by Dr. Jacob and he is following along. The WOODY drain in the right upper quadrant did not appear to have any significant amount of bile. I spoke to the patient's at bedside as well. The patient has a history of heavy alcoholism which he quit about a month ago. The patient had a liver biopsy done at the time of gallbladder resection which showed periportal chronic active inflammation with piecemeal necrosis grade 2/4, bridging fibrosis consistent with cirrhosis stage 4/4, and the gallbladder pathology showed cholelithiasis and chronic cholecystitis with mucosal erosion and early fibrosis. PAST MEDICAL HISTORY: Ischemic heart disease, type 2 diabetes, squamous cell cancer of the anus, hypertension, sleep apnea, COPD, liver cirrhosis, and gallstones. PAST SURGICAL HISTORY: Cholecystectomy, liver biopsy, attempted ERCP on 03/02/[address] Fisher. SOCIAL HISTORY: He drinks liquor, 1 to 2 drinks daily up until 1 month ago when he quit. He is . His is present at bedside. He has children who also participate in his care. ALLERGIES: No known drug allergies. MEDICATIONS: In the hospital include morphine, Tylenol, ceftaroline, Humalog, meropenem, normal saline at 125 mL per hour, Protonix, given a dose of vitamin K. He is currently NPO. REVIEW OF SYSTEMS: The patient denies any fevers, rigors, chills, chest pain, shortness of breath, dyspnea at rest. Denies any vomiting blood. Denies any blood in the stools. He does complain of abdominal discomfort and abdominal distention, and decreased p.o. intake. PHYSICAL EXAMINATION: Vital Signs: Temperature 98.7 degrees, pulse rate of 123, respiratory rate of 16, blood pressure 137/73, saturating 96% on room air. Body weight of 163 pounds, BMI 24.8 kg/m2. General Appearance: Moderately built, moderately nourished, lying in bed, in no acute distress. HEENT: Positive pallor. Positive icterus. Pupils equal, reactive to light. Neck: Supple. Abdomen: Distended. Positive ascites. Drain noted in the right upper quadrant, draining serosanguineous fluid. Tenderness in the periumbilical region. No rebound. Extremities: No cyanosis or clubbing. Neurologic: He is alert and answers some simple questions. LABS: His hemoglobin and hematocrit are 8 and 23.9, white count of 16.04, platelet count of 165,000, MCV of 86.3. INR 1.47, PT of 18.1, PTT of 43.6. Sodium of 139, potassium 3.6, chloride of 107, bicarb of 17, anion gap 15, BUN of 16, creatinine 1.8, glucose of 123, calcium is 8.2, phosphorus 4.1. Total bilirubin is 3.84, AST 22, ALT 9, alkaline phosphatase is 140, total protein is 7, albumin of 2.1, lipase of 11, lactate of 1.6, amylase of 28. Urinalysis is showing protein of 30, positive urobilinogen, 10-20 red cells. Blood culture x2 were drawn and are currently pending from yesterday. A CT scan is as described in the HPI. IMPRESSION AND PLAN: 1. Abdominal distention, likely secondary to ascites. 2. Alcoholic liver cirrhosis. Quit alcohol about 2 to 4 weeks ago. 3. History of anal cancer. 4. Small hiatal hernia. 5. Likely esophagitis and reflux disease. 6. Bibasilar atelectasis and pulmonary edema on CT scan. 7. Recent cholecystectomy a week ago with Dr. Jacob. 8. Liver biopsy done one week ago showed evidence of stage 4/4 liver cirrhosis and grade 2-4 of inflammation. 9. Splenomegaly. 10. Colonic diverticulosis. 11. Arthrosclerosis. 12. Anemia. 13. Coronary artery disease, status post myocardial infarction 5 years ago. 14. Chronic obstructive pulmonary disease. 15. Type 2 diabetes. 16. Acute kidney injury. 17. Altered mental status, need to rule out hepatic encephalopathy. RECOMMENDATIONS: 1. We will schedule him for ultrasound-guided paracentesis to evaluate for SBP and to give him some therapeutic relief. We will continue on empiric antibiotics for now. We will start him on Protonix twice daily for GI prophylaxis. The patient is anemic. We will transfuse 1 unit of packed cells if his hemoglobin falls below 7 g/dL. He has coagulopathy so we will give him one dose of vitamin K. Continue to follow him closely with serial abdominal exams. 2. He is on IV morphine for pain control and Tylenol as needed. Continue sliding scale and Humalog for diabetes control. 3. He may need a chronic liver disease workup as well as the patient has liver cirrhosis which is being attributed to alcoholism. Patient counseled to quit alcohol completely. 4. The patient's ammonia is normal. We will start him on lactulose for possible hepatic encephalopathy. 5. We will follow along. The above plans were discussed with the patient and family, and all questions were answered. I also spoke with the nursing staff and all questions were answered. Please call with any further questions. cc: MD Som Posadas MD Gregory S. Cheatham, MD Matthew L. Figh, MD
--- NOTE | 2019-03-29 15:09 | PROGRESS NOTE ---
DATE: 03/29/2019 SUBJECTIVE: The patient has no major complaints. He does not feel great though. OBJECTIVE: Vital Signs: Blood pressure is 137/73, heart rate of 123 (as far as up in the 130s, sinus), respiratory rate 16, temperature 98.7 degrees (had a temp last night of 101.1). PROBLEM LIST: 1. Fever, sepsis. Not really clear what this is. He is on Merrem and Teflaro, which is somewhat overlap in coverage for carbapenem and a fourth-generation cephalosporin, but I guess the Teflaro has some Staphylococcal coverage, maybe for soft tissue infections. All his cultures are negative. They did culture his Ghanshyam-Adorno drain, and that is still pending, and urine looked pretty clear. I do not have a great explanation for his tachycardia unless his hemoglobin and hematocrit have dropped. We will continue antibiotics, and follow up on culture. He does have some irritation around his Ghanshyam-Adorno site, and some whitish drainage which may be nonspecific. I agree with Dr. Reynaga pursuing ascites workup. He has got coverage for that right now. He also has a port, so I think we need to put him on vancomycin despite his renal insufficiency. If we do not have an answer, then I think the next thing will be an Infectious Disease consult. He has had a CT of the abdomen and pelvis, but he has not had a CT of the chest at this point. 2. Cirrhosis. Aware. Will continue to follow closely. Gastroenterology is involved. 3. Acute kidney injury. Will continue intravenous fluids, and monitor carefully because of his ability to retain water. 4. History of anal cancer. Will continue treatment and follow. 5. Disposition. Pending his clinical status. Tachycardia may be relative to multiple things, but one of the main things I think would be the sepsis. Additionally, he could have some concurrent issues, anxiety, developing fever, so we will look at that. He has also been off his Toprol, which is a usual medication for him. cc: Som Mcconnell MD
--- NOTE | 2019-03-29 15:51 | Diag Imaging Result Doc PS360 ---
US GB < RUQ (LIMITED) - 03/29/2019 INDICATION: distended abdomen TECHNIQUE: COMPARISON: CT from 03/28/2019 FINDINGS: There is a pre-existing peritoneal drainage catheter in the right abdomen. There is some trace ascites in the left abdomen. Drainage was not attempted. IMPRESSION: Trace ascites in the left abdomen. Drainage was not attempted. Electronically signed by Tl Irizarry 03/29/2019 3:49 PM
--- NOTE | 2019-03-29 16:04 | PROGRESS NOTE ---
DATE: 03/29/2019 Advance Directive Note I think Dr. Jacobs had talked to the patient about no code status but I think the and I think there was brother who had questions about that, because they were concerned about him, I guess making decisions. In any case they do want ventilator at this time and CPR but we had a lengthy discussion that he does have cirrhosis which apparently is a new diagnosis. We do not know how long he had cirrhosis, but his describes that he has been told he had fibrosis on his liver previously, and still, he drank alcohol up until about a month ago when he got his rectal cancer or anal cancer diagnosis. I think they understand the poor prognosis. I explained that if he deteriorates or does not look like he is turning around very quickly then I think we really do need to push a full DNR status knowing that his chances of recovery are very small and he has a terminal diagnosis of cirrhosis. I do not think he will be a transplant candidate in this setting of having rectal cancer at the same time and he is still drinking, so I think they understand a little bit more about his prognosis overall, but for the time being, he will be full code. We will get a palliative care consult as well. cc: Som Mcconnell MD
[2019-03-29] MEDS: ZOFRAN IV PRN ×2 (16:07→21:08)
--- NOTE | 2019-03-29 18:14 | HEMO/ONC CONSULTATION ---
DATE: 03/29/2019 REASON FOR CONSULTATION: This is a known patient of ours for the treatment of anal squamous cell carcinoma. HISTORY OF PRESENT ILLNESS: This is a 58-year-old male with a history of cirrhosis, squamous cell cancer of the anus, type 2 diabetes, ischemic heart disease. He presented to the ER per his , who states he has been refusing food and fluids for the last 3 days. She states since Friday he has been taking sips of fluid, but refusing any food. The patient was admitted just last week for a cholecystectomy and a liver biopsy. He had same-day surgery on the . He was discharged home, and the states that since being home he has continued to digress throughout the week. The patient has a WOODY drain in place. The states his drainage has not increased. She states yesterday prior to coming to the emergency room he was unable to stand or walk, and his speech has been garbled. Upon my assessment this morning, the patient was able to talk to me, answer questions, and was awake and aware. He denies any pain. PAST MEDICAL HISTORY: Ischemic heart disease, type 2 diabetes, anal squamous cell carcinoma, hypertension, sleep apnea, COPD. PAST SURGICAL HISTORY: Cholecystectomy. SOCIAL HISTORY: He drinks liquor 1 to 2 drinks normally daily, except for the last 2 weeks. ALLERGIES: No known drug allergies. HOME MEDICATIONS: Allopurinol, Norvasc, Rozel, lisinopril, lorazepam, metoprolol, omeprazole, spironolactone, tramadol. REVIEW OF SYSTEMS: Pertinent positives are noted in the HPI. PHYSICAL EXAMINATION: Vital Signs: Temperature 99.2 degrees, pulse rate 108, respiratory rate 18, blood pressure 139/84, O2 saturation 97% on room air. Pain score: He is in 0/10 pain. General: The patient is in no acute distress. HEENT: Sclerae are anicteric. PERRLA. Oral mucosa is normal. Cardiovascular: Tachycardic rate and rhythm. Normal S1, S2. No murmurs, rubs, or gallops noted. Respiratory: Breath sounds are clear to auscultation. Normal respiratory effort. Gastrointestinal: Abdomen is distended, taut. Decreased bowel sounds. Mild pain with palpation. Neurological: Awake and alert. Following commands. Answering questions appropriately. Extremities: No lower extremity edema noted. Skin: Warm, dry, and intact. LABORATORY: WBC 16.04, hemoglobin 8.8, hematocrit 25.9, platelet count 165,000. Alkaline phosphatase 142. RADIOLOGY: Abdominal ultrasound: Trace ascites left in the abdomen. The patient has pre- existing peritoneal drainage catheter in the right abdomen. Chest x-ray: Mild increased interstitial markings, tiny left effusion. Head CT: Chronic microvascular ischemic changes. ASSESSMENT AND PLAN: 1. Sepsis with AMS. Continue treatment per medical management. 2. Anal squamous cell carcinoma. Holding treatment until liver recovery. 3. Microcytic anemia. Patient is status post 1 dose IV Injectafer on 02/10/2019. His iron profile in the clinic on 03/26/2019 remained low. The patient also has a folate deficiency. We will replace. 4. Do Not Resuscitate status. Dr. Kelly had a long discussion with the patient and family, and they are agreeable to considering DNR. 5. Alcoholic liver disease Dictated by NERIS Stout for Gaurav Kelly MD As above. Tense ascitis - proceed with large volume paracentesis. He is not a candidate for chemoradiation until he improves from his liver standpoint. He has alcoholic cirrhosis. Recently LFT's worsened. He underwent cholecystectomy and liver biopsy. I discussed DNR with patient and his . They agreed with DNR. Gaurav kelly MD cc: Gaurav Kelly MD [facility]
--- NOTE | 2019-03-29 18:31 | Diag Imaging Result Doc PS360 ---
ABDOMEN FLAT/UPRIGHT - 03/29/2019 INDICATION: pain COMPARISON: None FINDINGS: There are some moderately abnormally gas-distended loops of small bowel. These measure up to 3.9 cm. There is constipation and mild rectal stool impaction. No free air. There are cholecystectomy clips. IMPRESSION: 1. Abnormal small bowel gas pattern. Partial small bowel obstruction is suggested. 2. Constipation with rectal stool impaction. Electronically signed by Tl Irizarry 03/29/2019 6:29 PM
--- NOTE | 2019-03-29 18:53 | ECHO REPORT ---
ORDER DATE: 03/28/2019 INTERPRETING PHYSICIAN: Dr. Tucker CLINICAL INDICATIONS: Ischemic heart disease. COPD. M-MODE MEASUREMENTS: Left ventricle end diastole: 4.5 cm. Left ventricle end systole: 3.5 cm. Posterior wall: 0.9 cm. Interventricular septum: 0.9 cm. Left atrium: 3.9 cm. Aortic diameter: 3.2 cm. SUMMARY OF 2-DIMENSIONAL IMAGIN. The left ventricular chamber appears to be enlarged. The patient is tachycardic. The study is very difficult. Optison was added to optimize visualization of the endocardium. There is atypical motion of the interventricular septum and I believe there is hypokinesis to akinesis of the apical septal portion of the left ventricle, consistent with a previous septal OR. Ejection fraction is probably in the order of 40% to 45%. If more accurate estimation is warranted, then the study should be repeated when the patient is not acutely ill. 2. Left atrium is probably at the upper limits of normal. 3. The aortic valve looks normal. Color flow mapping unremarkable. 4. Mitral valve showed mild degree of regurgitation. 5. Pulsed wave Doppler of mitral inflow showed fusion of the E and the A ratio. 6. The tricuspid valve shows mild to moderate degree of regurgitation. 7. Pulmonary pressure is estimated at 50 to 55 mmHg. The pulmonic valve is unremarkable. 8. There is no pericardial effusion, mass, and no thrombus. As I said, Optison was added to optimize visualization of endocardium. CONCLUSIONS: In summary, this study shows: 1. Enlargement of left ventricular chamber with impairment of the interventricular septum. Global ejection fraction in the range of 40% to 45%. The study is really suboptimal. 2. Mild degree of mitral and pulmonic regurgitation with mild to moderate degree of tricuspid regurgitation. 3. Unremarkable aortic valve. 4. Diastolic dysfunction is probably present. Mild enlargement of the left atrium is noted. Clinical correlation is recommended. cc: MD Clive Szymanski MD
[2019-03-29] MEDS ORDERED: FLEET MINERAL OIL ENEMA PR ONE (19:06)
[2019-03-29] MEDS ORDERED: LACTULOSE PO ONE (19:07)
[2019-03-29] MEDS: ICAR-C PO SCH (20:50)
[2019-03-29] MEDS: CULTURELLE PO SCH (20:50)
[2019-03-29] MEDS: DULCOLAX PR SCH (21:24)
[2019-03-30] MEDS: MERREM 500 MG in NS 50 ML IV SCH ×3 (01:17→17:38)
[2019-03-30] MEDS: MORPHINE IV PRN ×5 (02:08→21:18)
[2019-03-30] MEDS: ZOFRAN IV PRN ×2 (05:04→09:57)
[2019-03-30] MEDS: LACTULOSE PO SCH ×2 (05:04→17:38)
[2019-03-30 05:11] LABS: INR 1.33; PROTIME 16.7 Seconds (11.0-16.0)
[2019-03-30 05:14] LABS: BASO# 0.05 X1000 (0.0-0.2); BASO% 0.2 % (0.0-0.8); EOS# 0.04 X1000 (0.0-0.7); EOS% 0.2 % (0.0-10.0); HEMATOCRIT 28.9 % (42.0-52.0); HEMOGLOBIN 9.6 g/dL (14.0-18.0); IMM GRAN# 0.24 X1000 (0.0-0.04); IMM GRAN% 0.9 % (0.0-0.5); LYMPH# 1.83 X1000 (1.2-3.4); LYMPH% 7.2 % (20.5-51.1); MCH 28.4 PG (27-31); MCHC 33.2 g/dL (33-37); MCV 85.5 FL (81-99); MONO# 2.26 X1000 (0.11-0.59); MONO% 8.9 % (1.7-9.3); MPV 12.4 FL (7.4-10.4); NEUT# 20.92 X1000 (1.4-6.5); NEUT% 82.6 % (42.2-75.2); PLT 225 X1000 (130-400); RBC 3.38 XMIL (4.7-6.1); WBC 25.34 X1000 (4.8-10.8)
[2019-03-30 06:00] LABS: ALB/GLOB RATIO 0.4; ALBUMIN 2.2 g/dL (3.5-5.0); DIRECT BILIRUBIN 2.4 mg/dL (0.00-0.20); TOTAL BILIRUBIN 3.71 mg/dL (0.20-1.00); TOTAL PROTEIN 7.6 g/dL (6.3-8.3)
[2019-03-30 06:07] LABS: LYMPHS 4 % (21-51); SEGS 94 % (42-75)
[2019-03-30] MEDS: PROTONIX IV SCH ×2 (06:31→17:38)
[2019-03-30] MEDS: HUMALOG SUBQ SCH ×4 (06:33→21:20)
--- NOTE | 2019-03-30 08:31 | GENERAL SURGERY PROGRESS NOTE ---
DATE: 03/30/2019 SUBJECTIVE: The patient has been agitated through the night, per the nursing staff. OBJECTIVE: Vital Signs: The patient is currently afebrile. He has a tachycardia in the 110s. Blood pressure 159/87. General Examination: Somewhat altered and confused gentleman. Cardiovascular: Somewhat tachycardic. Lungs: Grossly clear. Abdomen: Distended but nontender. WOODY drain in place with only 30 mL recorded out. Laboratory: White blood cell count is up to 25, platelet count 225,000, hematocrit 28.9. INR is 1.33. Bilirubin is trending down. ASSESSMENT/PLAN: A 58-year-old gentleman with multiple medical comorbidities, squamous cell cancer of the anus, and recent cholecystectomy, now with altered mental status. 1. Altered mental status. At this time, it might be multifactorial and it could be related to his liver. He could have an acute decompensation of his liver function. We will continue supportive care. 2. Leukocytosis. At this time, he had a recent CT scan of his abdomen which really did not show an acute intra-abdominal process. I agree with antibiotics just to cover. He is on vancomycin and meropenem. 3. Recent cholecystectomy. At this time, a Ghanshyam-Adorno drain is in place and does not seem to have bilious output. We will continue to monitor him. cc: Bill Jacob MD
[2019-03-30] MEDS: NS 1,000 ML IV SCH (08:50)
[2019-03-30] MEDS ORDERED: NORVASC PO SCH (09:00)
[2019-03-30] MEDS: ICAR-C PO SCH ×2 (09:15→21:00)
[2019-03-30] MEDS: CULTURELLE PO SCH ×2 (09:15→21:00)
[2019-03-30] MEDS: CENTRUM SILVER PO SCH (09:15)
[2019-03-30] MEDS: FLOMAX PO SCH (09:15)
[2019-03-30] MEDS: IMDUR PO SCH (09:16)
[2019-03-30] MEDS: LOPRESSOR PO SCH (09:16)
[2019-03-30] MEDS: DULCOLAX PR SCH ×2 (09:17→21:00)
--- NOTE | 2019-03-30 09:58 | PROGRESS NOTE ---
DATE: 03/30/2019 SUBJECTIVE: The patient continues to be confused at times. Complains sometimes of abdominal pain. , who is at bedside, reports that he is not able to sleep. OBJECTIVE: Vital Signs: Temperature 97.8 degrees, heart rate 116, respiratory rate 17, blood pressure 136/78, O2 saturation 98% on room air. General: This is a chronically ill-appearing, 58- year-old, male, lying in bed in no acute distress. Cardiovascular: S1, S2 heard. Tachycardic, but no murmurs, gallops, or rubs noted. Respiratory: Clear bilaterally to auscultation. No work of breathing or using accessory muscles. Abdomen: Very distended and firm. I would say a little bit worse in comparing with admission 2 days ago. Bowel sounds are present, but decreased. He had a right upper quadrant drain that is intact. Extremities: No clubbing, cyanosis, or edema. Peripheral pulses present in both legs. Neurological: The patient is awake, alert, but gets confused sometimes. Sometimes his speech is garbled. He consistently answers yes or no to my questions. LABORATORY DATA: White cell count 25.35, hemoglobin 9.6, hematocrit 28.8, platelets 225,000. The BMP is still pending. ASSESSMENT AND PLAN: 1. Sepsis. The patient continues to be tachycardic, and white cell count continues to be elevated. So far, blood cultures are negative after 48 hours, and the culture from Ghanshyam- Adorno drain fluid is still pending. The patient continues to be on vancomycin and meropenem. I do not have any results of kidney function today. 2. Status post colectomy with liver biopsy on 03/22/2019. The patient has been evaluated by General Surgery. They do not think the patient is having any bile leaking. No surgical approach needed at this time. Unfortunately, this patient continues to have worsening abdominal distention. The abdomen is definitely more firm. Will continue to monitor. Will follow recommendations from General Surgery. 3. Acute kidney injury, most likely secondary to dehydration. That has been getting better since admission. His creatinine at admission was 2.2, 1.8 yesterday, and today it is still pending. Will continue to monitor. 4. Squamous cell carcinoma of the anus. That condition has been diagnosed recently like 1 to 2 months ago, but has not received any treatment. Dr. Jacobs from Oncology has been consulted, but they are not planning to start, of course, any treatment at this time because the patient is not a candidate. 5. Anemia of chronic disease. Hemoglobin is 9.6. Will continue to monitor. 6. Hypertension. Blood pressure is under control. Will continue with the same management. 7. Coronary artery disease, status post myocardial infarction 5 days ago. Will continue to monitor. Continue home medications. Echocardiogram has been ordered, and that showed ejection fraction reduced to the range of 40% to 45% with unremarkable aortic valve, possible diastolic dysfunction. 8. Diabetes mellitus type 2. Will continue with sliding scale insulin and Accu-Chek before meals and also at bedtime. 9. Disposition. At this point, I do not know why this patient's abdomen continues to get distended. We have ordered an abdominal ultrasound to do a paracenteses, but apparently they did not find enough ascitic fluid. At this point, will transfer this patient to our intermediate care unit in [facility]. Will monitor this patient closely. Gastroenterology and General Surgery are following this patient. cc: Clive Beauchamp MD
[2019-03-30 10:00] LABS: AGAP 13; ALBUMIN 2.2 g/dL (3.5-5.0); BUN 43 mg/dL (8-22); CALCIUM 8.1 mg/dL (8.8-10.2); CHLORIDE 112 mmol/L (98-107); COSMO 296; CREATININE 1.1 mg/dL (0.7-1.2); ESTIMATED GFR > 60; GLUCOSE 144 mg/dL (70-104); PHOSPHORUS 3.8 mg/dL (2.7-4.5); SODIUM 142 mmol/L (136-145); TCO2 17 mmol/L (25-35)
[2019-03-30 11:40] LABS: HEPATITIS PROFILE ACUTE SEE COMMENTS
[2019-03-30] MEDS ORDERED: VANCOMYCIN 1,800 MG in NS 250 ML IV ONE (12:00)
[2019-03-30] MEDS ORDERED: BLISTEX MEDICATED BERRY LIP BALM TOP PRN (12:27)
--- NOTE | 2019-03-30 12:30 | Diag Imaging Result Doc PS360 ---
CHEST-PORTABLE - 03/30/2019 INDICATION: NGT placement confirmation COMPARISON: 03/29/2019 FINDINGS: There is a nasogastric tube in good position in the stomach. IMPRESSION: Nasogastric tube in good position in the stomach. Electronically signed by Tl Irizarry 03/30/2019 12:28 PM
--- NOTE | 2019-03-30 13:40 | HEMO/ONC PROGRESS NOTE ---
DATE: 03/30/2019 SUBJECTIVE: The patient is awake and alert this morning. He is answering my questions better than yesterday. He states that his stomach hurts. His stomach continues to be significantly distended and taut. He states his WOODY drain is not draining very much. He seems to be slightly confused but willing to listen and follow commands. OBJECTIVE: Vital Signs: Temperature 98.7 degrees, pulse rate 116, respiratory rate 17, blood pressure 136/78, O2 saturation 98%, 10/10 abdominal pain. Physical Examination: General: This is a chronically ill-appearing, elderly gentleman in no acute distress. Cardiovascular: Normal S1, S2. Tachycardic rate and rhythm. No murmurs noted. Respiratory: Lungs are clear to auscultation. Normal respiratory effort. Abdomen: Very distended and firm. Painful to palpation. Decreased bowel sounds. WOODY drain to the upper right quadrant. Extremities: No lower extremity edema noted. Neurological: Awake and alert, but easily confused. Garbled speech. Moves all 4 extremities at will. Laboratory: WBCs 25.34, hemoglobin 9.6, hematocrit 28.9, platelet count 225,000, ANC 20.92. Creatinine 1.1. Bilirubin 3.71, alkaline phosphatase 172, albumin 2.2. Radiology: Chest x-ray shows nasogastric tube in good position. ASSESSMENT AND PLAN: 1. Sepsis with altered mental status. The patient continues to have confusion. It is most likely multifactorial and could be related to his liver, could be related to acute infectious process. WBC elevated. Consult ID. Continue supportive care per medical management. 2. Anal squamous cell carcinoma. We are holding treatment until liver recovery. 3. Microcytic anemia. The patient is status post one dose of intravenous iron on 02/10/2019. We will most likely infuse another dose of intravenous iron and replete his folic acid deficiency. 4. Leukocytosis. The patient's most recent CT scan does not show an acute intra-abdominal process. Antibiotics for coverage, vancomycin and meropenem. Consult ID. 5. Alcoholic liver disease. The patient is currently not a candidate for chemotherapy or radiation until he improves from his liver standpoint. Bilirubin is slightly decrease since cholecystectomy. Asked Dr. Jacob to follow. Continue medical management. 6. Rectal Impaction: Discussed with nurse regarding suppositories and enema. 7. Dehadration and Nutrition: Continue IVF. Start clinimix. Dictated by NERIS Stout for Gaurav Jacobs MD cc: Gaurav Jacobs MD [facility]
[2019-03-30] MEDS ORDERED: VANCOMYCIN 1,250 MG in NS 250 ML IV SCH (14:00)
[2019-03-30] MEDS ORDERED: FLEET MINERAL OIL ENEMA PR ONE (14:20)
[2019-03-30] MEDS: CLINIMIX E 4.25%-5% SOLUTION 1,000 ML IV SCH (15:31)
[2019-03-30] MEDS: MYCAMINE 100 MG in NS 100 ML IV SCH (17:15)
[2019-03-30] MEDS: LIPOSYN 20% 250 ML IV SCH (17:15)
[2019-03-30] MEDS: SODIUM CHLORIDE 0.9% INJ SCH (17:38)
--- NOTE | 2019-03-30 18:16 | GASTROENTEROLOGY PROGRESS NOTE ---
DATE: 03/30/2019 SUBJECTIVE: Mr. Calixto is a 58-year-old male lying in bed, and complained of abdominal pain. Family at the bedside. He was a little bit confused. OBJECTIVE: Vital signs: Temperature 98.7 degrees, pulse 113, respirations 16, blood pressure 152/60, oxygen saturation 98%. He is on room air. The patient's weight is 171, BMI is 26.2 kg/m2. General: He is alert, oriented x2, but has periods of confusion, in no acute distress. Abdomen is distended, firm, non tender Hypoactive bowel sounds heard in all 4 quadrants. HEENT: Pale conjunctivae, scleral icterus. PERRL. Neck is supple. Lungs: clear to auscultation. Cardiovascular: The patient is tachycardic. Extremities: No clubbing, no cyanosis, no edema. Pedal pulses 2+ present bilaterally. Neurologic: The patient is alert and oriented x2. LABORATORY DATA: WBCs 25.34, RBCs 3.38, hemoglobin 9.6, hematocrit 28.9, platelet count is 295,000. PT is 16.7, INR 1.33. Sodium 142, potassium 4.0, chloride 112, carbon dioxide 79, anion gap 13, BUN 43, creatinine 1.1, glucose 144, calcium 8.1, phosphorus 3.8, total bilirubin 3.71, AST 22, ALT 9, alkaline phosphatase 172, albumin 2.2. Hepatitis B surface antigen nonreactive. Hepatitis B core antigen and hepatitis profile was nonreactive. The patient's occult blood was positive. Blood culture showed no growth. DIAGNOSTIC DATA: Abdominal x-ray showed abnormal small bowel gas pattern; partial small-bowel obstruction is suggested. Constipation with rectal stool impaction. Abdominal ultrasound showed trace ascites in the left abdomen. Drainage was not attempted. Abdominal x-ray showed increased interstitial markings believed to be pulmonary fibrosis. IMPRESSION: Alcoholic liver cirrhosis Ascites Leukocytosis Postop Ileus Hx of anal cancer Esophagitis and reflux disease Type 2 diabetes GERDA AMS PLAN: Liver biopsy done 1 week ago showed evidence of stage IV liver cirrhosis and grade 2 inflammation. A paracentesis was ordered to evaluate for SBP, but not able to get any fluid out He is on Protonix for GI prophylaxis. The patient is receiving antibiotics vancomycin. He is on normal saline 75 mL per IV fluids. We have ordered an NG tube placement on low intermittent suction for his postoperative ileus. We will continue to monitor the patient's liver function tests, CBC, BMP, and follow the plan of care per PCP. This plan was discussed with Dr. Cuba. Please call us for any further questions or concerns. Dictated by NERIS Smallwood for Golden Cuba MD Physician Attestation I have seen and examined the patient. I have discussed and reviewed the the note by Etta CORDON and agree with findings and plan as documented. In brief, Mr. Dustin Calixto is a 58 year old man with recent diagnosis of rectal cancer who underwent lab cholecystectomy last week c/b sepsis, post-operative ileus, and decompensation of his ETOH cirrhosis with PSE, trace ascites, and worsening anemia. Spoke to surgery about removing WOODY drains as there has been minimal output and are nidus for infection. Also, recommended NGT decompression of ileus as patient has N/V with notably distended abdomen and pain. No BM or flatus in last 4 days. He does have mild PSE. If he has worsening, then recommend lactulose enemas. Continue broad spectrum antibiotics for presumable secondary peritonitis. Will follow with you. Please call with questions. MTDD
--- NOTE | 2019-03-30 19:59 | INFECTIOUS DISEASE CONSULT REP ---
DATE: 03/30/2019 CONCLUSION: The patient is status post cholecystectomy approximately a week ago. The patient has an increasing white blood cell count. The exact cause of this is uncertain to me. RECOMMENDATIONS: I have ordered a urine culture and placed the patient on micafungin. DISCUSSION: The patient unable to provide a history. Most of the history was taken from the patient's and the computer. As mentioned above, the patient had a cholecystectomy 1 week ago. Since that time he has had abdominal swelling, pain and fever. Also the patient's white blood cell count is increasing. Today the CBC had a white count of 25,340, hemoglobin 9.6, and platelet count 225,000. Creatinine is 1.1. GFR is greater than 60. Alkaline phosphatase is 172. Hepatitis panel is nonreactive. Urinalysis showed no white cells or bacteria. Blood cultures are negative. Ghanshyam-Adorno drainage culture is pending. X-ray of the abdomen showed possible small bowel obstruction. Ultrasound the gallbladder showed trace ascites. Abdominal CT scan showed bibasilar atelectasis, pulmonary edema, but no abscess. PAST MEDICAL HISTORY/REVIEW OF SYSTEMS: This was unobtainable from the patient. PREVIOUS HOSPITALIZATIONS AND OPERATIONS: Patient has had biopsies of his liver which was read as cirrhosis and also a biopsy from his rectum which showed the patient had cancer. The patient a year ago had incision and drainage of a rectal abscess. MEDICAL DISEASES: Positive for rectal cancer, cirrhosis of the liver, myocardial infarction, chronic obstructive pulmonary disease, sarcoidosis. INFECTIOUS DISEASE HISTORY: Negative for pneumonia and UTI. FAMILY HISTORY: The patient's did not know what illnesses the patient's family had. SOCIAL HISTORY: The patient is . The says that the patient stopped drinking alcohol years ago but in the chart it says that the patient is continually drinking alcohol. The patient stopped cigarette smoking years ago. He does not use illicit drugs. There are no pets at home. The patient is disabled. PHYSICAL EXAMINATION: Vital Signs: Temperature is 97.6 degrees, pulse 103, respirations 12, blood pressure 111/41. The patient is 5 feet 8 inches tall, weighs 172 pounds. General: This is an ill-appearing middle-aged male. He is in no acute distress. Head/eyes/ears/nose/throat: It was difficult for me to determine how well he could see or hear. I just got a small view of the patient's mouth. I did not see any white patches on the tongue. Neck: No meningismus. Lungs: Clear to auscultation. Cardiovascular: Heart rate is regular. Rectal: I did not see any purulence coming from the rectum. There was no odor. There was some liquid brownish stool that came out. A limited digital examination I did not feel any fluctuant areas or any hard masses. Neurologic: The patient was awake. When I would ask him questions he was unable to give an answer. He did follow request to move his extremities. There was no tremor. Thank you for the consult. cc: Shree Hagen MD
[2019-03-30] MEDS: HALDOL IV SCH (21:00)
[2019-03-31] MEDS: VANCOMYCIN 1 GM/NS 1 GM/250 ML IVPB IV SCH ×2 (00:36→14:59)
[2019-03-31] MEDS: MORPHINE IV PRN ×7 (00:36→22:22)
[2019-03-31] MEDS: MERREM 500 MG in NS 50 ML IV SCH ×3 (02:01→18:05)
[2019-03-31] MEDS: CLINIMIX E 4.25%-5% SOLUTION 1,000 ML IV SCH ×2 (05:32→18:47)
[2019-03-31] MEDS: PROTONIX IV SCH ×2 (05:33→18:05)
[2019-03-31 06:05] LABS: AGAP 5; ALB/GLOB RATIO 0.4; ALBUMIN 1.9 g/dL (3.5-5.0); ALKALINE PHOSPHATASE 115 U/L (32-122); BUN 45 mg/dL (8-22); CALCIUM 8.4 mg/dL (8.8-10.2); CHLORIDE 115 mmol/L (98-107); COSMO 301; CREATININE 1.2 mg/dL (0.7-1.2); ESTIMATED GFR > 60; GLUCOSE 151 mg/dL (70-104); GOT 17 U/L (10-34); GPT 8 U/L (10-44); POTASSIUM 3.5 mmol/L (3.5-5.1); SODIUM 144 mmol/L (136-145); TCO2 24 mmol/L (25-35); TOTAL BILIRUBIN 2.41 mg/dL (0.20-1.00); TOTAL PROTEIN 7.2 g/dL (6.3-8.3)
[2019-03-31] MEDS: HUMALOG SUBQ SCH ×4 (06:47→20:00)
[2019-03-31 07:22] LABS: BASO# 0.03 X1000 (0.0-0.2); BASO% 0.2 % (0.0-0.8); EOS# 0.22 X1000 (0.0-0.7); EOS% 1.4 % (0.0-10.0); HEMATOCRIT 25.8 % (42.0-52.0); HEMOGLOBIN 8.2 g/dL (14.0-18.0); IMM GRAN# 0.14 X1000 (0.0-0.04); IMM GRAN% 0.9 % (0.0-0.5); LYMPH# 1.67 X1000 (1.2-3.4); LYMPH% 10.4 % (20.5-51.1); MCH 28.1 PG (27-31); MCHC 31.8 g/dL (33-37); MCV 88.4 FL (81-99); MONO# 1.45 X1000 (0.11-0.59); NEUT# 12.52 X1000 (1.4-6.5); NEUT% 78.1 % (42.2-75.2); PLT 188 X1000 (130-400); RBC 2.92 XMIL (4.7-6.1); RDW 17.6 % (11.5-14.5); WBC 16.03 X1000 (4.8-10.8)
--- NOTE | 2019-03-31 07:45 | Diag Imaging Result Doc PS360 ---
EXAM: KUB ABDOMEN 03/31/2019 HISTORY: f/u ileus TECHNIQUE: KUB COMMENT: There is dilatation of multiple small bowel loops. There is some stool in the ascending colon. There is no evidence organomegaly or mass. There has been previous cholecystectomy. There is an NG tube with its tip in the stomach. IMPRESSION: Ileus versus partial small bowel obstruction. Electronically signed by Baltazar Dougherty 03/31/2019 7:42 AM
--- NOTE | 2019-03-31 08:07 | GENERAL SURGERY PROGRESS NOTE ---
DATE: 03/31/2019 SUBJECTIVE: The patient is a little more alert today, less confused. Nursing staff reports no major changes. OBJECTIVE: Vital Signs: The patient's current temperature is 97.9 degrees, pulse 113, blood pressure 199/67. General: More alert. Cardiovascular: Regular rate and rhythm. Lungs: Grossly clear. Abdomen: Distended. WOODY drain in place with minimal serosanguineous output. NG tube in place with almost 1500 mL out, looks bilious. LABORATORY DATA: Pending from this morning. Reviewed from yesterday. ASSESSMENT AND PLAN: A 58-year-old gentleman with multiple medical comorbidities, squamous cell cancer of the anus, and recent cholecystectomy, now with altered mental status and leukocytosis. 1. Altered mental status. At this time, it seems to be improved. It is likely multifactorial. Will continue to monitor. 2. Leukocytosis at this time. Labs are pending this morning, but his white blood cell count went up to 25. He is on antibiotics, and they have added antifungals. May need to consider repeat CT scan. He does have some gallstones that dropped out during the procedure, which could be a source of infection, but he is on appropriate antibiotics to cover this, and a drain is sitting in the area so that it probably would catch any abscess. 3. Recent cholecystectomy. At this time, Ghanshyam-Adorno drain is in place. It does not seem to have bilious output. We will keep in place for right now. cc: Bill Jacob MD
--- NOTE | 2019-03-31 08:49 | PROGRESS NOTE ---
DATE: 03/31/2019 SUBJECTIVE: The patient continues to be confused on and off. He reports that his abdominal pain is basically the same. He looks confused. He is not a good historian. According to nursing staff, the patient has been very restless. It looks like that is because of abdominal pain. OBJECTIVE: Vital Signs: Temperature 98.8 degrees, heart rate 114, respiratory rate 14, blood pressure 108/48, O2 saturation 96% on room air. General: This is a chronically ill-appearing, 58- year-old, male, lying in bed in no acute distress. Cardiovascular: S1, S2 heard. Tachycardic. Definitely more than yesterday, but no murmurs, gallops, or rubs noted. Respiratory: Clear bilaterally to auscultation. No work of breathing or using accessory muscles. Abdomen: Continues to be very distended and firm, a little bit better in comparing with yesterday. Bowel sounds are absent. He has a right upper quadrant drain that is intact. Extremities: No clubbing, cyanosis, or edema. Peripheral pulses present in both legs. Neurological: The patient is awake, but gets confused at times. Sometimes his speech continues to be garbled, and he constantly answered yes or no to my questions. Apparently, he moves all 4 extremities spontaneously. LABORATORY DATA: White cell count 16.03, hemoglobin 8.2, hematocrit 25.8, platelets 188,000. BMP reveals creatinine back to normal, chloride is 115, glucose 151, calcium 8.4. Total bilirubin 241, albumin 1.9. ASSESSMENT AND PLAN: 1. Sepsis of unknown source. The patient continues to be tachycardiac. Actually, heart rate is a little bit higher in comparing with yesterday. He has been in the range of 120s most of the time. White cell count started to get better. Microbiology reports the culture from Ghanshyam- Adorno drain fluid shows gram-negative rods. He is on good antibiotic coverage with meropenem. Two blood cultures from 03/28/2019 are negative. The urine culture that we have ordered yesterday is still pending. Dr. Hagen from Infectious Disease is following this patient. Will follow recommendations. 2. Status post colectomy with liver biopsy on 03/14/2019. The patient continues to be followed by General Surgery. Even though they think that there are no signs of bile leaking and they do not recommend any surgical approach at this time, they recommend to repeat the CT of the abdomen. Considering that his renal function is back to normal, will order a CT of the abdomen and pelvis with intravenous contrast and see what it shows. 3. Acute kidney injury secondary to dehydration. Resolved. 4. Squamous cell carcinoma of the anus. Condition, as we mentioned before, was diagnosed 1 to 1- 1/2 months ago. He has not received any treatment yet. He is not, of course, a candidate to receive any treatment from Oncology standpoint until this patient is more stable. 5. Anemia of chronic disease. Hemoglobin is 8.2 today. It has dropped 1 point. Will continue to monitor. There are no overt signs of gastrointestinal bleeding. 6. Hypertension. Blood pressure is in the range of 100 to 110. I do not think we need to restart any blood pressure medications yet. 7. Coronary artery disease, status post myocardial infarction 5 years ago. Will continue to monitor. The patient is not experiencing any chest pain. Will continue home medications. 8. Diabetes mellitus type 2. Will continue with sliding scale insulin and Accu-Cheks before meals and also at bedtime. 9. Disposition. As we mentioned before, after nasogastric tube placed yesterday, we have removed so far 15 to 20 mL. We are going to repeat the CT of the abdomen and pelvis, but this time with intravenous contrast because of improvement in renal function, and will see what it shows. The patient is going to P[facility] today. cc: Clive Beauchamp MD
[2019-03-31] MEDS: IMDUR PO SCH (09:46)
[2019-03-31] MEDS: LOPRESSOR PO SCH (09:46)
[2019-03-31] MEDS: FLOMAX PO SCH (09:46)
[2019-03-31] MEDS: CENTRUM SILVER PO SCH (09:46)
--- NOTE | 2019-03-31 10:18 | Diag Imaging Result Doc PS360 ---
EXAM: CT ABD/PELVIS W/IV CONT ONLY 03/31/2019 HISTORY: worsening abdominal distension TECHNIQUE: This exam was performed using automated exposure control, adjustment of mA or kV according to patient size, and/or use of iterative reconstruction technique. COMMENT: The current study is compared with the previous examination of 03/28/2019. There are platelike opacities in both lung bases. This is worsened in the right lower lobe most likely due to atelectasis. The opacities in the left lower lobe are not significantly changed and are probably fibrotic. There is an NG tube passing through the esophagus into the stomach. There is hepatosplenomegaly as there was previously. The spleen measures over 18.6 cm in AP dimension which is slightly increased from the 17.8 cm previously. There is a drain exiting the right abdominal wall with its tip in the anterior subhepatic space. This was also present at the time the previous study. There has been cholecystectomy. There is a fairly large amount of ascites present particularly in the flanks. The proximal small bowel is distended with multiple air-fluid levels. This is worse than on the previous examination. The colon is not distended. The distal small bowel is not distended. The transitional point would appear to be around image 117 of the arterial series slightly to the right of the midline anteriorly. There is some stool and gas in the colon. The aorta is not distended. The mesenteric and renal vessels appear to be patent. There are gastric varices. The kidneys are without evidence of hydronephrosis or mass. Pelvis: The dependent peritoneal surfaces enhance slightly and the possibility of peritonitis and/or peritoneal implants cannot be excluded. There is some stool in the distal colon and particularly in the rectum where there appears to be fecal impaction. The urinary bladder is not distended. There is a large amount of free fluid. The regional skeleton is stable in appearance. IMPRESSION: Increasing splenomegaly. Worsened ascites. Dilatation of the proximal small bowel which may be due to partial small bowel obstruction or ileus. Fecal impaction. The possibility of peritonitis cannot be excluded. Electronically signed by Baltazar Dougherty 03/31/2019 10:16 AM
--- NOTE | 2019-03-31 10:45 | HEMO/ONC PROGRESS NOTE ---
DATE: 03/31/2019 SUBJECTIVE: The patient is awake and alert this morning. His is helping him brush his teeth. The patient states that he is not particularly in pain but his stomach is very uncomfortable. It continues to be extremely distended and tight. He has an NG tube in place this morning. It appears to be suctioning green bile-like fluid. He appears to be answering questions appropriately and following commands. He denies any significant complaint, although he is aware that he has a fecal impaction and he is requesting to get up and walk around in order to help his bowels move. OBJECTIVE: Vital Signs: Temperature 98.8 degrees, pulse rate 114, respiratory rate 14, blood pressure 108/48, O2 saturation 96% on room air. He states he is in 8/10 abdominal pain. Physical Examination: General: This is a chronically ill-appearing gentleman in no acutendistress. HEENT: Sclerae are icteric. PERRLA. Oral mucosa is normal. Cardiovascular: Normal S1, S2. Heart rate and rhythm tachycardic and regular. Respiratory: Lung sounds are clear to auscultation. Normal respiratory effort. Abdomen: Very distended and firm, painful to palpation. Decreased to absent bowel sounds noted. WOODY drain to the upper right quadrant noted. Extremities: No lower extremity edema noted. Neurological: Awake and alert. Answers questions appropriately. Moves all 4 extremities at will. Laboratory: WBCs 16.03, hemoglobin 8.2, hematocrit 25.8, platelet count 198,000. Creatinine 1.2. Bilirubin 2.41, albumin of 1.9. Abdominal x-ray shows dilation of multiple small bowel loops, stool in the ascending colon, suggests ileus versus partial small bowel obstruction. Abdomen/Pelvis CT: Increasing splenomegaly at 18.6cm. Worsened ascites. Fecal impaction. Possible peritonitis. Dilatation of the proximal small bowel. ASSESSMENT AND PLAN: 1. Altered mental status. The patient's mental status has greatly improved. It is most likely due to infection. He has gram negative bacteria from the WOODY drain culture. WBCs have been elevated. Infectious disease has been consulted. Continue antibiotics and supportive care per medical management. 2. Anal squamous cell carcinoma. We are holding the patient's treatment until he has recovered from his liver disease. 3. Normocytic anemia. The patient is status post one dose intravenous iron on 02/10/2019. We are considering another dose of intravenous iron. We will replete his folic acid deficiency. Continuing to monitor at this time. 4. Leukocytosis. Continue antibiotics for coverage with vancomycin and meropenem. Consult infectious disease. CT from this morning reveals some finding suggestive of peritonitis. 5. Alcoholic liver disease. The patient is currently not a candidate for any chemotherapy or radiation until he is improved from his liver standpoint. Bilirubin has slightly decreased since his cholecystectomy. We have asked Dr. Jacob to continue to follow. Continue medical management. 6. Rectal impaction. Discussed this with the nursing staff regarding the suppositories and enema. The patient is requesting to get up and walk to help move his bowels. 7. Dehydration and nutrition. Continue intravenous fluids. Start Clinimix. Dictated by NERIS Stout for Gaurav Jacobs MD cc: Gaurav Jacobs MD MTDD
[2019-03-31] MEDS ORDERED: SODIUM CHLORIDE 0.9% 10 ML ONE (12:17)
--- NOTE | 2019-03-31 12:24 | INFECTIOUS DISEASE PROGRESS NO ---
DATE: 03/31/2019 PRESENT ILLNESS: The patient has leukocytosis following a cholecystectomy. MEDICATIONS: The patient is on vancomycin now for 2 days, meropenem now for 3 days, and micafungin for 1 day, which I started last night. PHYSICAL EXAMINATION: Vital Signs: Temperature is 98.8 degrees, pulse 126, respirations 16, blood pressure 90/30. General: This is an ill-appearing, middle-aged male. He does not appear to be in any acute distress today. Head, Eyes, Ears, Nose, and Throat: I was not able to get a good view of his mouth. I did not see any drainage from his nose or ears. Neck: The patient moved his neck without seeming to be having pain. Lungs: Clear to auscultation. Cardiovascular: Heart rate is regular. Abdomen: Soft but still distended. The patient has a WOODY drain in place. Neurologic: The patient is awake. He did talk but it was very difficult for me to understand what he was saying. He can move his extremities. LAB AND X-RAY: The patient's CBC shows a white count of 16,030, hemoglobin 8.2, platelet count 188,000. Creatinine is 1.2. GFR is greater than 60. Liver function studies are normal. Hepatitis panel was nonreactive. Culture from the patient's WOODY drain is growing a gram-negative radha. A urine culture is pending. Blood cultures are sterile. ASSESSMENT AND PLAN: The patient has leukocytosis following a cholecystectomy. I plan on continuing the patient's current antibiotics at this time. COMORBIDITIES: The patient has rectal cancer, cirrhosis of the liver, chronic obstructive pulmonary disease, and sarcoidosis. cc: Shree Hagen MD
[2019-03-31] MEDS: MYCAMINE 100 MG in NS 100 ML IV SCH (16:47)
[2019-03-31] MEDS: SODIUM CHLORIDE 0.9% INJ SCH (18:05)
[2019-03-31] MEDS: DULCOLAX PR SCH (18:06)
[2019-03-31] MEDS: LIPOSYN 20% 250 ML IV SCH (18:06)
--- NOTE | 2019-03-31 18:56 | GASTROENTEROLOGY PROGRESS NOTE ---
DATE: 03/31/2019 SUBJECTIVE: Mr. Calixto is a 58-year-old male lying in bed. He complained of feeling abdominal tightness and pain all over his abdomen. Family at the bedside. The patient knew who we was and where he was, he still is confused at times. OBJECTIVE: Vital Signs: Temperature 98.8 degrees, pulse is 100, respirations 15, blood pressure 128/51, oxygen saturation 96% on room air. The patient's weight is 170 pounds. BMI is 25.9 kg/m2. General: Patient is alert, oriented x3, and in no acute distress. HEENT: Pale conjunctivae. Sclerae anicteric. PERRL. Neck: Supple. Lungs: Clear to auscultation in the anterior guo. Cardiovascular: Patient is tachycardic. Abdomen: Abdomen is distended, hard, tender and hypoactive bowel sounds heard in all 4 quadrants. Extremities: No cyanosis, no clubbing, no edema. Pedal pulses 2+ present bilaterally. Neurologic: He is alert, oriented x2. IMAGING AND LABORATORY DATA: WBCs is 60.03, RBCs 2.92, hemoglobin 8.2, hematocrit 25.8, platelet count is 188,000. PT is 116.7, INR is 1.33. Sodium 144, potassium 3.5, chloride 115, carbon dioxide 24, anion gap 5, BUN 45, creatinine 1.2, glucose 151, calcium 8.4, total bilirubin is 2.41, AST 17, ALT 8, alkaline phosphatase is 115, albumin is 1.9. His hepatitis profile was nonreactive. MARCELINO screen with reflex A/B was negative. Abdomen and pelvis CT showed increasing splenomegaly, worsened ascites, dilation of the proximal small bowel which may be due to the partial small-bowel obstruction or ileus and fecal impaction with possibility of peritonitis. Abdominal x-ray showed ileus versus partial small bowel obstruction. Chest x-ray showed nasogastric tube in good position in the stomach. IMPRESSION AND PLAN: 1. Alcoholic liver cirrhosis. 2. Ascites. 3. Leukocytosis. 4. Postoperative ileus. 5. History of rectal cancer. 6. Esophagitis and reflux disease. 7. Type 2 diabetes. 8. GERDA 9. Hepatic encephalopathy PLAN: Liver biopsy that was done 1 week ago showed evidence of stage IV liver cirrhosis and stage II inflammation. The patient is currently having NG tube for ileus decompression. Output from the NG tube was 945 ml. The patient is still complaining of nausea, vomiting and abdominal pain. He has denied any bowel movements for the last 3 to 4 days. The patient is on broad-spectrum antibiotic Merrem and vancomycin for presumable secondary peritonitis. He is on Clinimix and Lipids for his for his nutrition. He is on gastrointestinal prophylaxis, Protonix 40 mg twice a day. We will continue to monitor patient's CBC, BMP, and follow the plan of care per primary care physician. The patient has mild PSE, if it worsens, we will start him on lactulose enemas. This plan was discussed with Dr. Cuba. Please call us for any further questions or concerns. Dictated by NERIS Smallwood for Golden Cuba MD Physician Attestation I have seen and examined the patient. I have discussed and reviewed the the note by Etta CORDON and agree with findings and plan as documented. MTDMynor
[2019-03-31] MEDS: HALDOL IV SCH (20:00)
[2019-03-31] MEDS ORDERED: MELATONIN PO ONE (22:52)
[2019-04-01] MEDS: MORPHINE IV PRN ×3 (01:39→10:29)
[2019-04-01] MEDS: VANCOMYCIN 1 GM/NS 1 GM/250 ML IVPB IV SCH (01:59)
[2019-04-01] MEDS: MERREM 500 MG in NS 50 ML IV SCH ×2 (01:59→08:24)
[2019-04-01] MEDS: HUMALOG SUBQ SCH ×4 (06:06→21:28)
[2019-04-01 06:13] LABS: BASO# 0.03 X1000 (0.0-0.2); BASO% 0.2 % (0.0-0.8); EOS# 0.24 X1000 (0.0-0.7); EOS% 1.5 % (0.0-10.0); HEMATOCRIT 26.1 % (42.0-52.0); HEMOGLOBIN 8.3 g/dL (14.0-18.0); IMM GRAN# 0.16 X1000 (0.0-0.04); LYMPH# 1.61 X1000 (1.2-3.4); LYMPH% 10.3 % (20.5-51.1); MCH 28.3 PG (27-31); MCHC 31.8 g/dL (33-37); MCV 89.1 FL (81-99); MPV 12.7 FL (7.4-10.4); NEUT# 12.19 X1000 (1.4-6.5); PLT 186 X1000 (130-400); RBC 2.93 XMIL (4.7-6.1); RDW 17.9 % (11.5-14.5); WBC 15.63 X1000 (4.8-10.8)
[2019-04-01 06:28] LABS: AGAP 13; ALB/GLOB RATIO 0.4; ALBUMIN 1.9 g/dL (3.5-5.0); ALKALINE PHOSPHATASE 115 U/L (32-122); BUN 42 mg/dL (8-22); CALCIUM 8.6 mg/dL (8.8-10.2); CHLORIDE 115 mmol/L (98-107); COSMO 301; CREATININE 1.2 mg/dL (0.7-1.2); ESTIMATED GFR > 60; GLUCOSE 129 mg/dL (70-104); GOT 21 U/L (10-34); GPT 9 U/L (10-44); POTASSIUM 3.6 mmol/L (3.5-5.1); SODIUM 145 mmol/L (136-145); TCO2 17 mmol/L (25-35); TOTAL BILIRUBIN 2.82 mg/dL (0.20-1.00); TOTAL PROTEIN 7.3 g/dL (6.3-8.3)
[2019-04-01 06:40] LABS: LYMPHS 10 % (21-51); SEGS 78 % (42-75)
[2019-04-01] MEDS: PROTONIX IV SCH ×2 (08:24→21:03)
[2019-04-01] MEDS: CENTRUM SILVER PO SCH (08:25)
[2019-04-01] MEDS: FLOMAX PO SCH (08:25)
[2019-04-01] MEDS: LOPRESSOR PO SCH (08:25)
[2019-04-01] MEDS: IMDUR PO SCH (08:25)
[2019-04-01] MEDS: DULCOLAX PR SCH ×4 (08:26→23:43)
--- NOTE | 2019-04-01 10:05 | PROGRESS NOTE ---
DATE: 04/01/2019 SUBJECTIVE: The patient reports feeling fine. Confused on and off. is at bedside. Reports he is not sleeping at night. OBJECTIVE: Vital Signs: Temperature 99.2 degrees, heart rate 127, respiratory 18 blood pressure 140/60, O2 saturation 95% on room air. General Examination: This is a chronically ill- appearing, 58-year-old male, lying in bed, in no acute distress. Cardiovascular: S1, S2 heard. Tachycardic. No murmurs, gallops, or rubs. Respiratory: Clear bilaterally to auscultation. No work of breathing or using accessory muscles. Abdomen: Soft. A little bit less distended. Bowel sounds present but distant. No organomegaly noted. Extremities: No clubbing, cyanosis, or edema. Peripheral pulses present. Neurologic: Patient is awake, but he is confused. Moves 4 extremities spontaneously. His speech is sometimes garbled. LABORATORY DATA: White cell count 15.3, hemoglobin 8.3, hematocrit 26.1, platelets 186,000. BMP remarkable for chloride 115, BUN 42, normal creatinine 1.2. Bilirubin 2.8. ASSESSMENT AND PLAN: 1. Sepsis. Probably the source of this infection is the E. coli that we have isolated from Ghanshyam-Adorno drain. Dr. Hagen is following this patient. They are planning to stop vancomycin and meropenem and start this patient on ceftriaxone. Considering that this patient started getting better with Micafungin we will continue with the same management. 2. Status post colectomy with liver biopsy on 03/14/2019. General Surgery following this patient. They do not think that this patient needs any surgical intervention at this time. 3. Acute kidney injury secondary to that condition resolved. 4. Squamous cell carcinoma of the anus. Oncology is following this patient. Of course, he is not a candidate to receive any treatment. 5. Anemia of chronic disease. Hemoglobin is stable. We will continue to monitor. 6. Hypertension. Blood pressure is under control. We will continue to monitor. 7. Coronary artery disease status post myocardial infarction 5 years ago. We will continue home medications. He is not complaining of any chest pain. 8. Disposition. As we mentioned before, we will continue with NG tube. We will continue with continue with Clinimix. Yesterday the CT of the abdomen shows large amount of ascites so will are going to do a diagnostic and therapeutic paracentesis. cc: Cilve Beauchamp MD MTDD
[2019-04-01] MEDS: SOLU-MEDROL IV SCH ×2 (10:28→17:01)
[2019-04-01] MEDS: ROCEPHIN 2 GM in NS 50 ML IV SCH (10:28)
--- NOTE | 2019-04-01 10:42 | Diag Imaging Result Doc PS360 ---
US ABD PARACENTESIS W S/I - 04/01/2019 INDICATION: large ascites noted in CT abdomen COMPARISON: None FINDINGS: The preprocedural scan showed complex ascites with multiple internal septations. The risks and benefits of the procedure were discussed with the patient. All questions were answered. Written and verbal consent was obtained. Ultrasound scanning demonstrated ascites. Overlying skin was prepped and draped in sterile fashion. Local anesthesia was achieved with injection of 10 cc 1% lidocaine. The paracentesis catheter was advanced until the return of ascites fluid. 1.6 L of dark radha fluid was aspirated. The catheter was withdrawn intact. There was still a significant amount of ascites that cannot be aspirated due to its multiloculated character. There were no known complications. IMPRESSION: Technically successful ultrasound-guided paracentesis with no known complications. Electronically signed by Bola Humphries 04/01/2019 10:40 AM
--- NOTE | 2019-04-01 10:49 | GENERAL SURGERY PROGRESS NOTE ---
DATE: 04/01/2019 SUBJECTIVE: Patient seems to be doing okay. He did have a CT scan done yesterday which showed increasing splenomegaly, worsening ascites, fecal impaction and what appeared to be ileus. They could not rule out peritonitis though on the CT scan. His WOODY drain does not have much output. OBJECTIVE: Vital signs: Patient is currently afebrile. He has a tachycardia in the 130s reported. Blood pressure remained stable. General exam: No acute distress. Cardiovascular: Some tachycardia. Lungs: Grossly clear. Abdomen: More protuberant. WOODY drain with old blood stripped and not a significant amount came out. He has had very minimal output in the last several days. I removed it. NG tube in place with significant output. LABORATORY: Currently pending, but his white blood cell count yesterday decreased. ASSESSMENT AND PLAN: A 58-year-old gentleman with multiple medical comorbidities, squamous cell cancer of the anus and recent cholecystectomy, now with altered mental status and leukocytosis. 1. Altered mental status. At this time seems to be improved, but was likely multifactorial. 2. Leukocytosis. At this time, recent CT scan did not show any obvious abscess intra- abdominally, but they could not rule out peritonitis. He does have worsening ascites. So far, he has had nothing grow in his cultures, except his Ghanshyam-Adorno drain had some gram- negative rods. He is on appropriate antibiotics. We removed his Ghanshyam-Adorno drain because I think it was clotted off. At this time, agree with continued antibiotics and coverage. 3. Small bowel obstruction at this time. Continue nasogastric tube. 4. Recent cholecystectomy. At this time, Ghanshyam-Adorno drain did not have any bilious output; removed it without complication. cc: Bill Jacob MD
--- NOTE | 2019-04-01 13:28 | HEMO/ONC PROGRESS NOTE ---
DATE: 04/01/2019 SUBJECTIVE: The patient is awake this morning. He appears more comfortable. He is currently out of the ICU, and on the floor. His and another family member are at bedside. He states he does feel better. His abdomen distention has decreased some. His NG tube is continuing to suction. His WOODY drain was removed this morning. The patient states he is wanting help getting up out of the bed this morning. No other complaints. OBJECTIVE: Vital Signs: Temperature 99.4 degrees, pulse rate 127, respiratory rate 18, blood pressure 140/60, O2 saturation 91% on room air. He is in 0/10 pain. General: This is a chronically-ill gentleman in no acute distress. HEENT: Sclerae are icteric. PERRLA. Oral mucosa is normal. Cardiovascular: Normal S1, S2. Heart rate and rhythm regular. Respiratory: Lung sounds are clear to auscultation. Normal respiratory effort. Abdomen: Remains distended, but softer. Tender to palpation. Decreased to absent bowel sounds noted. Dressing over previous WOODY drain site. Extremities: No lower extremity noted. Neurological: Awake and alert. Answers yes/no questions appropriately. Moves all 4 extremities at will. LABORATORY DATA: WBCs 15.63, hemoglobin 8.3, hematocrit 26.1, platelet count 186,000. Total bilirubin 2.82. Creatinine 1.2. Alkaline phosphate 115. ASSESSMENT AND PLAN: 1. Altered mental status. The patient's mental status does wax and wane according to the nursing staff. However, it has improved since his first day here. Most likely due to infection. He has gram-negative bacteria from the Ghanshyam-Adorno drain culture, which has grown Escherichia coli. White blood cells are elevated. Infectious Disease has been consulted. Continue antibiotics and supportive care per medical management. 2. Anal squamous cell carcinoma. We are holding the patient's treatment until he has recovered. 3. Normocytic anemia. We are continuing to monitor. 4. Leukocytosis. Continue antibiotic coverage as directed per Infectious Disease. 5. Alcoholic liver disease. The patient is currently not a candidate for any chemotherapy or radiation until he improves from his liver standpoint. Bilirubin is slightly decreased since his cholecystectomy. Dr. Jacob is following. Continue medical management. The patient had a paracentesis this morning, in which 1.6 liters of dark radha fluid was aspirated. Awaiting cultures. 6. Rectal impaction. We ordered suppositories 3 times a day. As of yesterday, the patient is requesting help to get up and walk around to help move his bowels. 7. Dehydration and nutrition. Continue intravenous fluids. Start Clinimix. 8. Deep venous thrombosis prophylaxis. Please get the patient up out of bed 3 times a day. Have Physical Therapy help get the patient up as necessary. Dictated by NERIS Stout for Gaurav Jacobs MD cc: Gaurav Jacobs MD
[2019-04-01 13:32] LABS: ALBUMIN BODY FLUID 1.3 g/dL; AMYLASE BODY FLUID 9 U/L; TOTAL PROT BODY FLUID 3.4 g/dL
[2019-04-01 13:35] LABS: BODY FLUID SOURCE PERITONEAL FLUID; WBC BF 43 /cumm
[2019-04-01 13:50] LABS: MONOS 23 %; POLYS 77 %
[2019-04-01] MEDS: LIPOSYN 20% 250 ML IV SCH (13:59)
[2019-04-01] MEDS: CLINIMIX E 4.25%-5% SOLUTION 1,000 ML IV SCH (14:01)
--- NOTE | 2019-04-01 14:07 | INFECTIOUS DISEASE PROGRESS NO ---
DATE: 04/01/2019 PRESENT ILLNESS: The patient had leukocytosis following cholecystectomy. He has a drain in place in his abdomen and culture from the drain grew E coli, so the patient may have an element of limited peritonitis as well. Yesterday, the patient was started on micafungin because of increasing white blood cell count, and today the white blood cell count is coming down. This may mean that the patient has a fungal infection somewhere. MEDICATION: The patient is on Rocephin and micafungin. PHYSICAL EXAMINATION: Vital Signs: Temperature is 99.4 degrees, pulse 127, respirations 18, blood pressure 140/60. General: This is an ill-appearing, middle-aged male. He is in no acute distress. Head/eyes/ears/nose/throat: He can hear my spoken words and see near objects. I did not see any white patches in his mouth. Neck: No pain with movement. Lungs: Clear to auscultation. Cardiovascular: Heart rate is regular. Abdomen: Distended and soft, and the patient said it was not painful to light palpation. The patient had a Ghanshyam- Adorno drain in his abdomen, but that was removed this morning. Neurologic: The patient is awake. He can move his extremities. There is no tremor. He was speaking much better today, and I could understand what he was saying. LAB AND X-RAY: CBC shows a white count of 15,630, hemoglobin 8.3, and platelet count 186,000. Creatinine is 1.2. GFR is greater than 60. Bilirubin is 2.82. Hepatitis panel is nonreactive. Culture from the Ghanshyam-Adorno drain grew E coli. ASSESSMENT AND PLAN: Patient has leukocytosis which may be secondary to a limited area of peritonitis where the Ghanshyam-Adorno drain was which grew Escherichia coli. I think it is also possible that the patient has some type of fungal infection because after he was placed on micafungin his white blood cell count came down a little bit. I have discontinued meropenem and vancomycin and started instead Rocephin to cover the Escherichia coli isolated from the Ghanshyam- Adorno drain. COMORBIDITIES: The patient has rectal cancer, cirrhosis of the liver, chronic obstructive pulmonary disease, and sarcoidosis. cc: MD MACO Ugalde
[2019-04-01] MEDS: MYCAMINE 100 MG in NS 100 ML IV SCH (17:01)
--- NOTE | 2019-04-01 19:23 | GASTROENTEROLOGY PROGRESS NOTE ---
DATE: 04/01/2019 ATTENDING PHYSICIAN: Dr. Espinoza. PRIMARY DOCTOR: Dr. Bender. SUBJECTIVE: Patient resting in bed. I spoke to the patient's son and his at bedside. The patient just came for paracentesis today. He had 1.6 L of dark radha fluid aspirated. He was noted to have a significant amount of ascites still present in the abdomen, which could not be aspirated due to its multiloculated character. This is per the radiology report. He has an NG tube in place. OBJECTIVE: Vital signs: Temperature 99.4, pulse rate of 127, respiratory of 18, blood pressure 140/60, saturating 94% room air. Body weight of 168 pounds 9 ounces. BMI 25.6 kg. GENERAL: Moderately built, moderately nourished, lying in bed, in no acute distress.HEENT: Positive pallor. Positive NG tube. Positive icterus. Neck: Supple. Abdomen: Distended slightly less than before because he had a recent paracentesis. Discomfort in the periumbilical region. No rebound or guarding. Extremities: No cyanosis, clubbing. Neurologic: He is alert awake oriented x3. LABS: Hemoglobin and hematocrit are 8.3 and 26.1. White count is 15.63 platelet count 186. Sodium is 145, potassium 3.8, chloride 115, bicarb of 79, BUN of 42, creatinine 1.2, glucose of 129. Calcium is 8.6. Total bilirubin is 2.82. AST 21, ALT 9, alkaline phosphatase 115. Total protein 7.3, albumin 1.9. Ceruloplasmin level is 40.5. MARCELINO is negative. Antimitochondrial antibody is less than 0.1. Hepatitis panel is nonreactive. Blood cultures were negative 48 hours from 03/28/2019. Urine culture showed no growth from 03/28/2019. Stool was Hemoccult positive on 03/30/2019. ASSESSMENT: 1. Alcoholic liver cirrhosis. 2. Ascites. 3. Leukocytosis. 4. Postoperative ileus. 5. History of anal cancer. 6. Esophagitis and reflux disease. 7. Type 2 diabetes. 8. Hepatic encephalopathy causing altered mental status among other factors like sepsis. This is improving. 9. Acute kidney injury which is improving. 10. Anemia. 11. Jaundice. Negative chronic liver disease workup. PLAN: The patient is getting antibiotics with ceftriaxone per Dr. Hagen. The patient grew E coli in the WOODY drain from the site of previous surgery. The patient has liver cirrhosis on the liver biopsy, which was discussed with the patient and family at bedside. The patient quit alcohol a month ago. The patient has been following with Oncology as an outpatient for a history of squamous cell carcinoma of the anus his. He is anemic. Will need to watch hematocrit and transfuse as needed. He is on morphine for pain control. He will continue on Dulcolax 3 times daily per the primary care team. He is receiving Clinimix for nutrition support. He has an NG tube in place for upper abdominal distention. We may have to consider hepatic encephalopathy for altered mental status., and we may start him on lactulose and help titrate to having 3 bowel movements in 24 hours. We will follow along. The above plans were discussed with the patient and family at bedside. All questions answered. Please call with any further questions. Also ordered the fluid studies from the ascitic fluid tap today. cc: MD Armani Posadas MD Naveen T. Lobo, MD Cesar Garcia-Rodriguez, MD MTDD
[2019-04-01] MEDS: ATIVAN IV SCH (21:03)
[2019-04-01] MEDS: SODIUM CHLORIDE 0.9% INJ SCH (21:03)
[2019-04-01] MEDS: LACTULOSE PO SCH (21:03)
[2019-04-01] MEDS: HALDOL IV SCH (23:43)
[2019-04-02] MEDS: CLINIMIX E 4.25%-5% SOLUTION 1,000 ML IV SCH ×3 (00:43→16:27)
[2019-04-02] MEDS: HALDOL IV SCH ×2 (00:50→21:59)
[2019-04-02] MEDS: SOLU-MEDROL IV SCH ×3 (01:12→16:33)
[2019-04-02] MEDS: MORPHINE IV PRN ×4 (03:51→21:56)
[2019-04-02] MEDS ORDERED: ATIVAN IV PRN (04:14)
[2019-04-02 06:01] LABS: BASO# 0.01 X1000 (0.0-0.2); BASO% 0.1 % (0.0-0.8); EOS# 0.01 X1000 (0.0-0.7); EOS% 0.1 % (0.0-10.0); HEMATOCRIT 24.1 % (42.0-52.0); HEMOGLOBIN 7.7 g/dL (14.0-18.0); IMM GRAN# 0.08 X1000 (0.0-0.04); IMM GRAN% 0.6 % (0.0-0.5); LYMPH# 0.66 X1000 (1.2-3.4); LYMPH% 5.3 % (20.5-51.1); MCH 28.3 PG (27-31); MCV 88.6 FL (81-99); MONO# 0.36 X1000 (0.11-0.59); MONO% 2.9 % (1.7-9.3); NEUT# 11.42 X1000 (1.4-6.5); PLT 146 X1000 (130-400); RBC 2.72 XMIL (4.7-6.1); RDW 17.3 % (11.5-14.5); WBC 12.54 X1000 (4.8-10.8)
[2019-04-02 06:29] LABS: AGAP 12; ALB/GLOB RATIO 0.4; ALBUMIN 2.1 g/dL (3.5-5.0); ALKALINE PHOSPHATASE 106 U/L (32-122); BUN 41 mg/dL (8-22); CALCIUM 8.8 mg/dL (8.8-10.2); CHLORIDE 115 mmol/L (98-107); COSMO 304; CREATININE 0.9 mg/dL (0.7-1.2); ESTIMATED GFR > 60; GLUCOSE 221 mg/dL (70-104); GOT 20 U/L (10-34); GPT 9 U/L (10-44); SODIUM 144 mmol/L (136-145); TCO2 17 mmol/L (25-35); TOTAL BILIRUBIN 2.43 mg/dL (0.20-1.00); TOTAL PROTEIN 7.3 g/dL (6.3-8.3)
[2019-04-02] MEDS: HUMALOG SUBQ SCH ×4 (06:38→21:56)
--- NOTE | 2019-04-02 07:10 | GENERAL SURGERY PROGRESS NOTE ---
DATE: 04/02/2019 SUBJECTIVE: Patient is resting. Reviewed notes from other providers. He did have a paracentesis yesterday, and they got 1.6 L off, but apparently is pretty loculated. He has been doing okay. OBJECTIVE: Vital Signs: Patient is currently afebrile with pulse 114, and blood pressure 136/67. General: Resting comfortably. Cardiovascular: Some mild tachycardia. Lungs: Grossly clear. Abdomen: Distended but essentially unchanged. LABORATORY: Pending for this morning. ASSESSMENT AND PLAN: A 58-year-old gentleman with multiple medical comorbidities, squamous cell cancer of the anus and recent cholecystectomy now with altered mental status and leukocytosis. 1. Altered mental status at this time seems to be improved, but is most likely multifactorial. 2. Leukocytosis. At this time, we will continue to monitor. He is on antibiotics. His labs from this morning are pending. 3. Small bowel obstruction versus ileus. At this time, continue nasogastric tube decompression. He still having some drainage, but he has had a bowel movement. 4. Recent cholecystectomy. At this time, Ghanshyam-Adorno drain has been removed. We will continue to monitor. cc: Bill Jacob MD
[2019-04-02] MEDS: LOPRESSOR PO SCH (09:07)
[2019-04-02] MEDS: CENTRUM SILVER PO SCH (09:07)
[2019-04-02] MEDS: FLOMAX PO SCH (09:07)
[2019-04-02] MEDS: LACTULOSE PO SCH (09:07)
[2019-04-02] MEDS: IMDUR PO SCH (09:08)
[2019-04-02] MEDS: DULCOLAX PR SCH (09:08)
[2019-04-02] MEDS: SODIUM CHLORIDE 0.9% INJ SCH (09:08)
[2019-04-02] MEDS: PROTONIX IV SCH ×2 (09:08→21:59)
[2019-04-02] MEDS: ROCEPHIN 2 GM in NS 50 ML IV SCH (09:13)
--- NOTE | 2019-04-02 11:30 | PROGRESS NOTE ---
DATE: 04/02/2019 SUBJECTIVE: The patient continues to be confused at times. is at bedside, reports that he is still confused. OBJECTIVE: Vital Signs: Temperature 98.0 degrees, heart rate 109, respiratory 16, blood pressure 139/69, and O2 saturation 94% on room air. General: This is a chronically ill-appearing 58-year- old male lying in bed in no acute distress. Cardiovascular: S1, S2 heard. No murmurs, gallops, or rubs. Regular rate and rhythm. Respiratory: Clear bilaterally to auscultation. No work of breathing or using accessory muscles. Abdomen: Soft. A little bit less distended in comparing with yesterday. Bowel sounds present but distant. No organomegaly noted. Extremities: No clubbing, cyanosis, or edema. Peripheral pulses present in both legs. Neurological: Patient is awake, but continues to be confused. Moves 4 extremities spontaneously. His speech is sometimes garbled. LABORATORY DATA: White cell count 12.54, hemoglobin 7.7, hematocrit 24.1, and platelets 146,000. BMP that shows chloride 115. Creatinine 0.9. Glucose 221. Bilirubin 243. ASSESSMENT AND PLAN: 1. Sepsis secondary to Escherichia coli. That is what we found in the Ghanshyam Adorno drain. That has been removed by Dr. Jacob from General Surgery. At this point, this patient is on ceftriaxone day #2 of the treatment. Patient is also on micafungin. White cell count continues to improve so we will continue with the same management. As we mentioned before, general surgery and ID following this patient. 2. Status post cholecystectomy with liver biopsy. General Surgery following this patient. 3. Ileus. Patient continues to be with NG tube. That tube is still removing some drainage. We will continue to monitor. 4. Hepatic encephalopathy. At this point, patient is not able to get anything by mouth. So, we will provide lactulose enema, and we will see if that helps. 5. Acute kidney injury secondary to dehydration. That condition is completely resolved. 6. Squamous cell carcinoma of the anus. Oncology following this patient, but because of his current comorbidities he is not a candidate for any active treatment for that condition. 7. Anemia of chronic disease. Hemoglobin is dropping some. If he reaches 7 or below, we will transfuse 1 unit of blood. 8. Hypertension. Blood pressure is under control. We will continue to monitor. 9. Coronary artery disease. Stable, not complaining of any chest pain. We will continue with home medications. 10. Disposition. As we mentioned before, we will continue with NG tube. Yesterday, we were able to remove 1.6 L of ascitic fluid. Preliminary result did not show any infection. At this point, we will continue to monitor this patient closely. 11. Nutritional status. We will continue with Clinimix for this patient because he is not able to eat by himself. cc: Clive Beauchamp MD
--- NOTE | 2019-04-02 15:30 | GASTROENTEROLOGY PROGRESS NOTE ---
DATE: 04/02/2019 SUBJECTIVE: Mr. Calixto is a 58-year-old male resting in bed. Family at the bedside. He is alert, oriented x3, and in no acute distress. OBJECTIVE: Temperature 98.0 degrees, pulse 109, respirations 16, blood pressure 139/69, oxygen saturation 94%. He is on room air. His weight is 166 pounds. BMI is 25.1 kg/m2. General: He is alert, oriented x3, and in no acute distress. HEENT: Pale conjunctivae, sclerae icteric. PERRL. Neck is supple. Lungs: Clear to auscultation. Cardiovascular: The patient is tachycardic. Abdomen: Distended, firm, tender. Hypoactive bowel sounds heard in all 4 quadrants. His WOODY drain has been removed, and dressing is intact. There were few smaller dressings where the paracentesis was done yesterday, it was dry and intact. Extremities: No clubbing, no cyanosis, no edema noted. Pedal pulses 2+ present bilaterally. Neurological: Alert, oriented x3. LABORATORY DATA: WBCs 12.54, RBCs 2.72, hemoglobin is 7.7, hematocrit is 24.1, platelet count is 146,000. PT 16.7, INR 1.3, sodium 144, potassium 4.0, chloride 115, carbon dioxide 17, anion gap 12, BUN 41, creatinine 0.9, glucose 46, calcium 8.8, total bilirubin 2.43, AST 20, ALT is 9, alkaline phosphatase is 106. The patient's peritoneal fluid showed WBCs of 43, polynuclear WBC 77, mononuclear WBC 23, total protein is 3.4, albumin 1.3. Fluid amylase is 9. His MARCELINO screen was negative. Antimitochondrial AB was negative and his antismooth muscle AB was negative. Hepatitis profile was nonreactive. Peritoneal fluid MARCELINO culture showed no anaerobes noted and routine culture showed no growth. ASSESSMENT AND PLAN: Alcoholic liver cirrhosis Ascites Leukocytosis Postop Ileus History of anal cancer Esophagitis/Reflux disease Hepatic encephalopathy Anemia Jaundice Type 2 diabetes GERDA PLAN: Patient's liver disease workup was negative. The patient is currently getting antibiotics Rocephin per Infectious Disease for Ecoli and antifungal Mycamine for fungus infection in the WOODY drain from the previous surgery. He has alcoholic liver cirrhosis and he states that he quit alcohol a month ago. He has been followed by oncologists for squamous cell carcinoma of the anus. The patient is anemic. His hemoglobin and hematocrit today was 7.7 and 24.1. He is currently on a bowel regimen Dulcolax 3 times a day for the PCP. The patient is currently receiving lactulose 30 ml, hold the lactulose for bowel movements more than 3 in 24 hours He is receiving Clinimix for nutrition. His NG tube was taken out and he is currently on clear liquids, we will advance as tolerated. We will continue to monitor his CBC, BMP, and follow the plan of care for PCP, oncologist and ID. This plan was discussed with Dr. Cuba. Please call us for any further questions. Dictated by NERIS Smallwood for Golden Cuba MD Physician Attestation I have seen and examined the patient. I have discussed and reviewed the the note by Etta CORDON and agree with findings and plan as documented. In brief, Mr. Calixto is a 58 year old man with rectal cancer who was admitted with newly decompensated ETOH cirrhosis with ascites and PSE in setting of recent CCY, post-operative ileus, and secondary peritonitis with E coli. Diagnostic paracentesis showed low PMNs. However, patient has been on abx. PSE has improved with lactulose and supportive care. No further N/V. Patient has an appetite. Will d/c NGT and start clear liquid diet. Appreciate surgery recs. Will follow with you. MACO
--- NOTE | 2019-04-02 15:30 | INFECTIOUS DISEASE PROGRESS NO ---
DATE: 04/02/2019 PRESENT ILLNESS: Mr. Calixto had a leukocytosis status post cholecystectomy. The WOODY drain grew an Escherichia coli. It appears that he may have a fungal infection somewhere as well, because his white count has improved after the addition of micafungin. There may be an element of peritonitis as well. MEDICATIONS: He is receiving Rocephin 2 g IV every 24 hours and micafungin 100 mg IV every 24 hours. PHYSICAL EXAMINATION: Vital Signs: Temperature is 98 degrees, pulse rate 109, respiratory rate 16, blood pressure 139/69, O2 saturation 94% on room air. General: This is a chronically ill- appearing middle-aged male. He is lying in bed, currently in no acute distress. HEENT: Atraumatic, normocephalic. Oral mucous membranes are pink and moist. Conjunctivae are pale. There is an NG tube in place to low intermittent suction putting out quite a bit of clear green fluid. Neck: Supple. Trachea is midline. There is an NG tube in place. Cardiovascular: Heart rate and rhythm are regular and fast. Sinus tachycardia on the monitor, with a systolic murmur. Respiratory: Lung sounds are clear to auscultation bilaterally. No work of breathing is noted. Abdomen: Protuberant and soft with multiple dressings in place. Extremely tender and bowel sounds are active. Neurologic: He is awake, alert, and appropriate, able to follow commands with generalized weakness noted to his extremities. LABORATORY AND X-RAY: Today his white count is 12.54, hemoglobin 7.7, platelet count 146,000, creatinine is 0.9. Estimated GFR is greater than 60. Total bilirubin is 2.43. AST 20, ALT 9, alkaline phosphatase 106. Peritoneal fluid has cultures pending. Previously there was an Escherichia coli in the WOODY drain fluid. No imaging reports today. ASSESSMENT AND PLAN: Mr. Calixto is being treated for a leukocytosis status post cholecystectomy. He is receiving Rocephin for the Escherichia coli that grew in his Ghanshyam-Adorno drain, which we will continue. We also think that there may be a fungal infection somewhere because he has improved since the addition of micafungin, which we will continue. We will await the results of the peritoneal fluid cultures. We are awaiting the results of the peritoneal fluid. These plans have been discussed with and recommended by Dr. Hagen. COMORBIDITIES: For the patient include anal cancer, cirrhosis of the liver, COPD, and sarcoidosis. Dictated by NERIS Harper for Shree Hagen MD cc: Shree Hagen MD MTDD
[2019-04-02] MEDS: LIPOSYN 20% 250 ML IV SCH (16:27)
[2019-04-02] MEDS: MYCAMINE 100 MG in NS 100 ML IV SCH (16:33)
--- NOTE | 2019-04-02 21:06 | HEMO/ONC PROGRESS NOTE ---
DATE: 04/02/2019 SUBJECTIVE: The patient is resting in bed this morning with family members at bedside. He appears much more comfortable. Today it is obvious that his abdomen is less distended and softer. He states he feels much better. He was able to have a bowel movement yesterday, which relieved a lot of uncomfortableness. He continues to have an NG tube in place. It is suctioning clear greenish fluid. The patient states he did try to get up out of bed yesterday, but it made him very tired and he felt too weak to walk, but he is willing to try again today. The patient has requested to advance his diet from more than ice chips. OBJECTIVE: Vital signs: Temperature 97.6 degrees, pulse rate 91, respiratory rate 18, blood pressure 117/60, O2 saturation 97% on room air. He has an 8/10 pain to his leg and foot. General: This is a chronically ill-appearing gentleman in no acute distress.HEENT: Sclerae are icteric. PERRLA. Oral mucosa is normal. Cardiovascular: Normal S1, S2. Heart rate and rhythm are regular, although fast. Respiratory: Lungs are clear to auscultation. Normal respiratory effort. Abdomen remains slightly distended, much softer. Slightly tender to palpation in the upper quadrants. Decreased bowel sounds, but definitely audible. Extremities: No lower extremity edema noted. Neurological: Awake and alert. Answers questions appropriately. Moves all 4 extremities at will. LABORATORY DATA: WBCs 12.54, hemoglobin 7.7, hematocrit 24.1, platelet count 146,000. Creatinine 0.9, bilirubin 2.43, albumin 2.1. ASSESSMENT AND PLAN: 1. Sepsis with altered mental status. The patient's mental status is very much improving. This is most likely due to infection with Escherichia coli from the Ghanshyam-Adorno drain culture. White blood cells have been elevated. Infectious Disease is on board. Continue antibiotics and supportive care per medical management. 2. Anal squamous cell carcinoma. We are holding the patient's treatment until he is recovered. 3. Normocytic anemia. We are continuing to monitor. 4. Alcoholic liver disease. Bilirubin remains slightly decreased since his cholecystectomy but still elevated. Dr. Jacob is following. Continue medical management. The patient has improved since his paracentesis. We are awaiting cultures from the fluid. 6. Rectal impaction. The patient was ordered suppository 3 times a day. We understand he has had a bowel movement. Continue to assist to help him continue to evacuate his bowels. 7. Dehydration and nutrition. Continue intravenous fluid. Continue Clinimix. 8. Deep venous thrombosis prophylaxis. Please get the patient up out of bed 3 times a day, have Physical Therapy help as needed. Dictated by NERIS Stout for Gaurav Jacobs MD cc: Gaurav Jacobs MD [facility]
[2019-04-02] MEDS: ATIVAN IV SCH (21:59)
[2019-04-03] MEDS: SOLU-MEDROL IV SCH ×3 (00:30→16:24)
[2019-04-03] MEDS: CLINIMIX E 4.25%-5% SOLUTION 1,000 ML IV SCH ×5 (00:31→21:45)
[2019-04-03 06:13] LABS: AGAP 11; ALB/GLOB RATIO 0.4; ALBUMIN 2.1 g/dL (3.5-5.0); ALKALINE PHOSPHATASE 118 U/L (32-122); BUN 44 mg/dL (8-22); CALCIUM 8.8 mg/dL (8.8-10.2); CHLORIDE 110 mmol/L (98-107); COSMO 296; CREATININE 0.8 mg/dL (0.7-1.2); ESTIMATED GFR > 60; GLUCOSE 222 mg/dL (70-104); GOT 25 U/L (10-34); GPT 13 U/L (10-44); POTASSIUM 4.2 mmol/L (3.5-5.1); SODIUM 139 mmol/L (136-145); TCO2 18 mmol/L (25-35); TOTAL PROTEIN 7.1 g/dL (6.3-8.3)
[2019-04-03 06:31] LABS: IMM GRAN# 0.06 X1000 (0.0-0.04); IMM GRAN% 0.5 % (0.0-0.5); LYMPH# 0.54 X1000 (1.2-3.4); LYMPH% 4.6 % (20.5-51.1); MCH 28.3 PG (27-31); MCV 88.3 FL (81-99); MONO# 0.38 X1000 (0.11-0.59); MONO% 3.3 % (1.7-9.3); NEUT# 10.68 X1000 (1.4-6.5); NEUT% 91.6 % (42.2-75.2); PLT 171 X1000 (130-400); RBC 2.83 XMIL (4.7-6.1); RDW 17.3 % (11.5-14.5); WBC 11.66 X1000 (4.8-10.8)
[2019-04-03] MEDS: HUMALOG SUBQ SCH ×4 (06:31→21:02)
[2019-04-03] MEDS: MORPHINE IV PRN ×4 (06:31→19:42)
[2019-04-03 07:40] LABS: BANDS 2 % (0-1); LYMPHS 16 % (21-51); SEGS 82 % (42-75)
[2019-04-03] MEDS: PROTONIX IV SCH ×2 (08:07→21:02)
[2019-04-03] MEDS: FLOMAX PO SCH (08:07)
[2019-04-03] MEDS: IMDUR PO SCH (08:07)
[2019-04-03] MEDS: CENTRUM SILVER PO SCH (08:07)
[2019-04-03] MEDS: ROCEPHIN 2 GM in NS 50 ML IV SCH (08:07)
[2019-04-03] MEDS: LOPRESSOR PO SCH (08:07)
[2019-04-03] MEDS: XIFAXAN PO SCH ×2 (09:32→21:02)
--- NOTE | 2019-04-03 13:52 | PROGRESS NOTE ---
DATE: 04/03/2019 Dustin Calixto is status post laparoscopic cholecystectomy per Dr. Jacob. He seems to be doing well status post cholecystectomy. He is still on clear liquid diet secondary to ileus. His NG tube is removed. He has had a bowel movement. His abdomen is mostly soft. PLAN: I agree with advancing his diet. He is up out of bed this morning and clinically looks like he is improving. His heart rate is 94 to 107, blood pressure 134/69, O2 saturation 100%. He is afebrile. His white blood cell count is trending towards normal. It is 11.6, hematocrit is 25%. BUN and creatinine are 44 and 0.8. Liver function tests are almost normal. His total bilirubin is coming down. It is 1.9. His AST and ALT is normal. His trocar sites are healing well. cc: Jazlyn Gorman MD
--- NOTE | 2019-04-03 14:53 | PROGRESS NOTE ---
DATE: 04/03/2019 SUBJECTIVE: The patient reports feeling fine. He is more awake and alert. Sitting in the chair. NG tube has been removed yesterday. Definitely mentation is much better. OBJECTIVE: Vital Signs: Temperature 97.9 degrees, heart rate 107, respiratory rate 16, blood pressure 134/69, O2 saturation 100% on room air. General Examination: This is a chronically ill-appearing, 58-year-old male, lying in bed, in no acute distress. Cardiovascular: S1, S2 heard. No murmurs, gallops, or rubs. Regular rate and rhythm. Respiratory: Clear bilaterally to auscultation. No work of breathing or using accessory muscles. Abdomen: Soft. Definitely less distended in comparing with yesterday. Bowel sounds present but distant. No organomegaly noted. Extremities: No clubbing, cyanosis, or edema. Peripheral pulses present in both legs. Neurological: Patient is awake, alert, more alert. Moves 4 extremities spontaneously. His speech is much better. He is coherent. LABORATORY DATA: White cell count 11.66, hemoglobin 8.0, hematocrit 25.0, platelets 171,000 with BMP that is normal. Glucose 222. The total bilirubin 1.9. ASSESSMENT AND PLAN: 1. This is secondary to Escherichia coli found in Ghanshyam-Adorno drain. We will continue with ceftriaxone day #3 for the treatment. Patient is on micafungin. Antibiotics have been directed by Dr. Shree Hagen, who is monitoring this patient. White cell count is almost back to normal. So, we will continue with the same management. 2. Status post colectomy with liver biopsy. Patient being followed by General Surgery. The patient is stable. NG tube has been removed. We will continue to monitor. 3. Hepatic encephalopathy, much better today. I think at this point we will add rifaximin to continue treating this condition. 4. Acute kidney injury secondary to dehydration. That condition is completely resolved. 5. Squamous cell carcinoma of the anus. Oncology is following this patient but the patient is not going to receive any active treatment for that condition. 6. Anemia of chronic disease. The hemoglobin is stable at 8.0 today so we will continue to monitor CBC. 7. Coronary artery disease. Stable, not complaining of any chest pain. 8. Nutritional status. Patient is on Clinimix. We will try GI soft diet today so we will continue with clear liquid diet and he tolerated, will advance diet as tolerated. 9. Disposition. Will continue to monitor this patient in [facility]. He is definitely getting better. cc: Clive Beauchamp MD MTDD
[2019-04-03] MEDS: MYCAMINE 100 MG in NS 100 ML IV SCH (16:24)
[2019-04-03] MEDS: LIPOSYN 20% 250 ML IV SCH (17:26)
[2019-04-03] MEDS: ATIVAN IV SCH (21:02)
[2019-04-03] MEDS: HALDOL IV SCH (21:40)
--- NOTE | 2019-04-03 22:37 | GASTROENTEROLOGY PROGRESS NOTE ---
DATE: 04/03/2019 ATTENDING PHYSICIAN: Dr. Espinoza. PRIMARY CARE DOCTOR: Dr. Bender. SUBJECTIVE: Patient resting in bed. He is feeling better today, his NG tube has been removed. He is eating slightly better. He had bowel movement which were initially hard and formed but now they are becoming softer. He denies any fevers, rigors or chills. Denies any nausea, vomiting today. VITALS: Temperature 97.8 degrees, pulse of 70, respiratory rate 18, blood pressure 127/70, saturating 100% room air, body weight of 167 pounds 2 ounces, BMI 25.4 kg meter square. Moderate built lying in bed in no acuteHEENT: Pale conjunctivae. Mild icterus. Pupils equal, reactive to light. Neck: Supple. Abdomen: Protuberant, mild distention noted, mild discomfort epigastric and periumbilical region. No rebound, no guarding. Extremities: No cyanosis, clubbing. Neuro: He is alert, awake, oriented. LAB: Hemoglobin and hematocrit is 8 and 25, white count of 11.66, platelet count of 171,000. Sodium 129, potassium 4.2, chloride 110, bicarb of 18, anion gap 11, BUN of 44, creatinine 1, glucose of 222, calcium is 8.8, total bilirubin is 1.9, AST 25, ALT 13, alkaline phosphatase 118, total protein 7, albumin of 2.1. Peritoneal fluid was drawn on 04/01 which showed white cells of 43% neutrophils or poly nuclear white cells 77%, albumin of 1.3. SAAG was less than 1.1 suggesting ?peritonitis. The patient has recent cholecystectomy. Peritoneal culture show no anaerobes. WOODY drain culture grew E coli. IMPRESSION AND PLAN: 1. Alcoholic liver cirrhosis. 2. Ascites. 3. Leukocytosis. 4. Postoperative ileus. 5. Recent cholecystectomy 2 weeks ago. 6. Reflux disease . 7. Hepatic encephalopathy. 8. Anemia. 9. Jaundice. 10. Type 2 diabetes. 11. Acute kidney injury. 12. ?Secondary peritonitis. RECOMMENDATIONS: Patient currently continue antibiotics per ID team. He has been on Rocephin and micafungin per Dr. Hagen. He was also started on Xifaxan 550 mg p.o. b.i.d. for hepatic encephalopathy. He continues on pain control with morphine. He is on TPN for malnutrition. He is on sliding scale Humalog for diabetes, continues on Protonix twice daily for GI prophylaxis and chronic anemia in the setting of liver disease. He is also receiving multivitamins daily for anemia. Patient quit alcohol about a month ago. We will continue to follow his liver enzymes and other labs. The patient also has a history of anal cancer. He follows up with oncologist Dr. Jacobs. Above plan discussed with patient and family and all questions answered. Please call us with any further questions. cc: MD Dr. Alexis Bertrand
[2019-04-04] MEDS: SOLU-MEDROL IV SCH ×3 (00:50→17:39)
[2019-04-04] MEDS: MORPHINE IV PRN ×5 (05:28→21:47)
[2019-04-04 06:21] LABS: HEMATOCRIT 25.9 % (42.0-52.0); HEMOGLOBIN 8.4 g/dL (14.0-18.0); IMM GRAN# 0.03 X1000 (0.0-0.04); IMM GRAN% 0.4 % (0.0-0.5); LYMPH# 0.47 X1000 (1.2-3.4); MCH 28.4 PG (27-31); MCHC 32.4 g/dL (33-37); MCV 87.5 FL (81-99); MONO# 0.28 X1000 (0.11-0.59); MONO% 3.6 % (1.7-9.3); NEUT# 7.01 X1000 (1.4-6.5); PLT 183 X1000 (130-400); RBC 2.96 XMIL (4.7-6.1); RDW 16.8 % (11.5-14.5); WBC 7.79 X1000 (4.8-10.8)
[2019-04-04] MEDS: HUMALOG SUBQ SCH ×4 (06:41→21:29)
[2019-04-04 06:51] LABS: AGAP 11; ALB/GLOB RATIO 0.5; ALBUMIN 2.4 g/dL (3.5-5.0); ALKALINE PHOSPHATASE 136 U/L (32-122); BUN 40 mg/dL (8-22); CHLORIDE 106 mmol/L (98-107); COSMO 291; CREATININE 0.8 mg/dL (0.7-1.2); ESTIMATED GFR > 60; GLUCOSE 291 mg/dL (70-104); GOT 25 U/L (10-34); GPT 20 U/L (10-44); SODIUM 135 mmol/L (136-145); TCO2 18 mmol/L (25-35); TOTAL BILIRUBIN 1.96 mg/dL (0.20-1.00); TOTAL PROTEIN 7.3 g/dL (6.3-8.3)
[2019-04-04 07:07] LABS: BANDS 2 % (0-1); LYMPHS 2 % (21-51); MONO 2 % (1-9); SEGS 94 % (42-75)
[2019-04-04] MEDS: LOPRESSOR PO SCH (08:34)
[2019-04-04] MEDS: IMDUR PO SCH (08:34)
[2019-04-04] MEDS: PROTONIX IV SCH ×2 (08:34→21:30)
[2019-04-04] MEDS: FLOMAX PO SCH (08:34)
[2019-04-04] MEDS: CENTRUM SILVER PO SCH (08:35)
[2019-04-04] MEDS: XIFAXAN PO SCH ×2 (08:35→21:36)
--- NOTE | 2019-04-04 08:37 | PROGRESS NOTE ---
DATE: 04/04/2019 SUBJECTIVE: The patient is noted to be more alert and awake. He reports feeling fine. OBJECTIVE: Vital Signs: Temperature 97.4 degrees, heart rate 90, respiratory rate 16, blood pressure 136/84, O2 saturation 100% on room air. General Examination: This is a chronically ill- appearing, 58-year-old, male, lying in bed, in no acute distress. Cardiovascular Examination: S1 and S2 heard. No murmurs, gallops, or rubs. Regular rate and rhythm. Respiratory Examination: Clear bilaterally to auscultation. No work of breathing or using accessory muscles. Abdomen: Soft. Definitely less distended in comparing with yesterday. Bowel sounds present but distant. No organomegaly noted. Extremities: No clubbing, cyanosis, or edema. Peripheral pulses present in both legs. Neurological Examination: The patient is alert and oriented x3. Moves 4 extremities. Laboratory Data: White cell count 7.79, hemoglobin 8.4, hematocrit 25.9, platelets 183,000. Normal BMP. Total bilirubin 1.96. ASSESSMENT AND PLAN: 1. Sepsis secondary to Escherichia coli found in Ghanshyam-Adorno drain. Today is day #4 of ceftriaxone. The patient is also on micafungin. Dr. Hagen from infectious disease started antibiotics. White cell count is completely back to normal today. We will continue with the same management. 2. Status post colectomy with liver biopsy. Patient is stable. The patient is being followed by general surgery. We will continue to monitor. 3. Hepatic encephalopathy. We will continue with lactulose and rifaximin. I think this condition is resolved. 4. Acute kidney injury secondary to dehydration, resolved. 5. Squamous cell carcinoma of the anus. Oncology is following this patient but he has not a candidate for any active treatment for that condition yet. 6. Anemia of chronic disease. Hemoglobin today is 8.4. We will continue to monitor. 7. Coronary artery disease, stable. Not complaining of any chest pain. We will continue with home medications. 8. Nutritional status. The patient is on a gastrointestinal soft diet. If he can tolerate it, we will stop Clinimix. 9. Disposition. I think this patient is much more stable so will transfer him out of the [facility] today. cc: Clive Beauchamp MD
--- NOTE | 2019-04-04 09:07 | GENERAL SURGERY PROGRESS NOTE ---
DATE: 04/04/2019 SUBJECTIVE: Doing well. He is tolerating a diet. No fevers. OBJECTIVE: Pulse 90, blood pressure 136/84. LABORATORY DATA: I reviewed his labs. White count is normal hematocrit 25 creatinine 0.8. His bilirubin is trending down to 1.96. AST and ALT about the same. Alkaline phosphatase is mildly elevated. ASSESSMENT AND PLAN: A 58-year-old gentleman status post lap cholecystectomy by Dr. Garcia. Abdomen is soft. His incisions are intact. He is tolerating a diet. We will begin to continue advancing this and out of bed and physical therapy. cc: Delgado Thibodeaux MD
[2019-04-04] MEDS ORDERED: LACTULOSE PO SCH (09:30)
--- NOTE | 2019-04-04 11:53 | GASTROENTEROLOGY PROGRESS NOTE ---
DATE: 04/04/2019 SUBJECTIVE: Patient resting in bed. He is feeling better. He denies any new complaints. PHYSICAL EXAMINATION: Vitals: Temp 97.4 degrees, pulse of 90, respiratory 16, blood pressure 136/84, saturating 100% on room air. Body weight of 169 pounds 1 ounces. BMI 25.7. General: Lying in bed, in no acute distress. HEENT: Positive pallor, mild icterus. Pupils equal, react to light. Neck: Supple. Abdomen: Mildly protuberant, mild distention noted. No guarding. No rebound. Mild discomfort in the abdomen. Extremities: No cyanosis, clubbing. Neurologic: Alert, awake, oriented. DIAGNOSTIC DATA: H H is 8.4 and 25.9, white count of 7.79, platelet count of 183,000. Sodium 139, potassium 4, chloride 106, bicarb of 18, anion gap 11, BUN of 40, creatinine 0.8, glucose of 291. Calcium 7.4, total bilirubin is 1.96, AST 25, ALT 20, alkaline phosphatase 136, total protein 7.3, albumin of 2.4. REVIEW OF SYSTEMS: Denies any fevers, rigors, or chills. Denies any nausea, vomiting, vomiting blood, or passing blood in the stools. IMPRESSION AND PLAN: 1. Alcoholic liver cirrhosis. 2. Ascites. 3. Leukocytosis. 4. Postoperative ileus which is improving. 5. Recent cholecystectomy 2 weeks ago. 6. Escherichia coli sepsis which is improving with antibiotics. 7. Reflux disease. 8. Hepatic encephalopathy. 9. Anemia. 10. Jaundice, improving. 11. Type 2 diabetes. 12. Acute kidney injury. RECOMMENDATIONS: 1. We will continue antibiotics per the ID team. We will continue Xifaxan 550 mg p.o. b.i.d. We will start on lactulose 30 mL p.o. b.i.d. to help move his bowels. He will continue on sliding-scale Humalog for diabetes. He is on TPN for malnutrition. Continue on Protonix twice daily for GI prophylaxis. For chronic anemia in the setting of liver disease, he is also receiving centrum silver once daily for anemia. The patient quit alcohol about a month ago. I encourage complete alcohol abstinence with the patient. 2. Above plan discussed with the patient and the family members, and all questions were answered. Please call us with any further questions. cc: MD Clive Posadas MD Gregory S. Cheatham, MD MTDD
[2019-04-04] MEDS: CLINIMIX E 4.25%-5% SOLUTION 1,000 ML IV SCH ×2 (12:51→16:25)
[2019-04-04 13:26] LABS: CALCIUM 9.9 mg/dL (8.8-10.2)
[2019-04-04] MEDS: LIPOSYN 20% 250 ML IV SCH (16:25)
[2019-04-04] MEDS: MYCAMINE 100 MG in NS 100 ML IV SCH (17:30)
[2019-04-04] MEDS: ROCEPHIN 2 GM in NS 50 ML IV SCH (18:46)
[2019-04-04] MEDS: HALDOL IV SCH (21:30)
[2019-04-04] MEDS: ATIVAN IV SCH (21:30)
[2019-04-05] MEDS: SOLU-MEDROL IV SCH ×2 (01:13→09:32)
[2019-04-05] MEDS: MORPHINE IV PRN ×2 (01:47→06:10)
[2019-04-05] MEDS: CLINIMIX E 4.25%-5% SOLUTION 1,000 ML IV SCH (01:48)
[2019-04-05 05:40] LABS: HEMATOCRIT 24.8 % (42.0-52.0); IMM GRAN# 0.02 X1000 (0.0-0.04); IMM GRAN% 0.3 % (0.0-0.5); LYMPH# 0.43 X1000 (1.2-3.4); LYMPH% 6.1 % (20.5-51.1); MCHC 32.3 g/dL (33-37); MCV 86.7 FL (81-99); MONO# 0.34 X1000 (0.11-0.59); MONO% 4.8 % (1.7-9.3); NEUT# 6.23 X1000 (1.4-6.5); NEUT% 88.8 % (42.2-75.2); PLT 161 X1000 (130-400); RBC 2.86 XMIL (4.7-6.1); RDW 16.4 % (11.5-14.5); WBC 7.02 X1000 (4.8-10.8)
[2019-04-05 05:44] LABS: AGAP 8; ALB/GLOB RATIO 0.5; ALBUMIN 2.3 g/dL (3.5-5.0); ALKALINE PHOSPHATASE 133 U/L (32-122); BUN 34 mg/dL (8-22); CALCIUM 8.3 mg/dL (8.8-10.2); CHLORIDE 103 mmol/L (98-107); COSMO 276; CREATININE 0.7 mg/dL (0.7-1.2); ESTIMATED GFR > 60; GLUCOSE 233 mg/dL (70-104); GOT 25 U/L (10-34); GPT 23 U/L (10-44); POTASSIUM 4.6 mmol/L (3.5-5.1); SODIUM 130 mmol/L (136-145); TCO2 19 mmol/L (25-35); TOTAL BILIRUBIN 1.75 mg/dL (0.20-1.00); TOTAL PROTEIN 6.7 g/dL (6.3-8.3)
[2019-04-05] MEDS: HUMALOG SUBQ SCH ×2 (06:03→12:20)
--- NOTE | 2019-04-05 06:40 | GENERAL SURGERY PROGRESS NOTE ---
DATE: 04/05/2019 SUBJECTIVE: Patient seems to be more alert. OBJECTIVE: Vital signs: Patient is currently afebrile. His vital signs are stable. General: No acute distress. Cardiovascular: Regular rate and rhythm. Lungs: Grossly clear. Abdomen: Soft, and somewhat distended, but essentially the same. LABORATORY: White blood cell count is normal. Hematocrit 24.8 and platelet count 161,000. ASSESSMENT AND PLAN: A 58-year-old gentleman with multiple medical comorbidities, squamous cell cancer of the anus, recent cholecystectomy, now with altered mental status and leukocytosis. 1. Altered mental status at this time improved, and is likely multifactorial. 2. Leukocytosis. At this time seems to be improving. He is on antibiotics. 3. Small bowel obstruction versus ileus. He seems to be improving from this and also having bowel movements. 4. Recent cholecystectomy. At this time, he is doing well. We will continue to monitor. cc: Bill Jacob MD
[2019-04-05 06:57] LABS: LYMPHS 6 % (21-51); MONO 2 % (1-9); SEGS 92 % (42-75)
[2019-04-05 06:58] LABS: ANISOCYTOSIS 1+; MICROCYTOSIS 1+
--- NOTE | 2019-04-05 07:08 | INFECTIOUS DISEASE PROGRESS NO ---
DATE: 04/05/2019 PRESENT ILLNESS: The patient, post cholecystectomy, had leukocytosis, and a culture from the drain that was in the abdomen grew Escherichia coli. Therefore, I think that the patient had a limited peritonitis. Repeat peritoneal fluid culture, which was obtained after the Ghanshyam-Adorno drainage, was sterile. The patient seemed to improve when he was put on micafungin. Therefore, I think the patient may well have had a fungal infection possibly in the abdomen that did not grow out. MEDICATIONS: Currently, the patient is on a combination of Rocephin and micafungin. PHYSICAL EXAMINATION: Vital Signs: Temperature is 98.3 degrees, pulse 86, respirations 17, blood pressure 129/70. General: This is an ill-appearing, middle-aged male. He is in no acute distress. HEENT: He can hear my spoken words and see near objects. I did not see any white patches in his mouth. Neck: No pain with movement. Lungs: Clear to auscultation. Cardiovascular: Heart rate is regular. Abdomen: Soft and not tender to light palpation. The patient's drain is out. Both incisions are intact. Neurologic: The patient is alert. He can move his extremities. There is no tremor. IMAGING AND LABORATORY DATA: There is no new radiographic study. The patient's CBC shows a white count of 7020, hemoglobin 8, and platelet count 161,000. Creatinine is 0.7, GFR is greater than 60, alkaline phosphatase is 133. ASSESSMENT AND PLAN: The patient had postoperatively leukocytosis, which I think was due to a limited peritonitis from Escherichia coli and possibly a fungus that did not grow out. For now, I am going to continue the patient's Rocephin and micafungin, but if the patient is going to go home, I could switch him over to a combination of Keflex 500 mg by mouth every 8 hours and fluconazole 400 mg by mouth daily, both for an additional week. COMORBIDITIES: Include the following: Rectal cancer, cirrhosis of the liver, chronic obstructive pulmonary disease, and sarcoidosis. cc: Shree Hagen MD
[2019-04-05 08:35] VITALS: BP 138/63
[2019-04-05] MEDS: PROTONIX IV SCH (09:31)
[2019-04-05] MEDS: FLOMAX PO SCH (09:32)
[2019-04-05] MEDS: CENTRUM SILVER PO SCH (09:32)
[2019-04-05] MEDS: XIFAXAN PO SCH (09:32)
[2019-04-05] MEDS: IMDUR PO SCH (09:32)
[2019-04-05] MEDS: LOPRESSOR PO SCH (09:32)
--- NOTE | 2019-04-05 10:20 | GASTROENTEROLOGY PROGRESS NOTE ---
DATE: 04/05/2019 SUBJECTIVE: Mr. Calixto 58-year-old male sitting in bed. Family at the bedside. He has denied any nausea, vomiting. He has not had a bowel movement today, but he did have one yesterday, and he stated that he was feeling much, much better. OBJECTIVE: Vital Signs: Temperature 97.6 degrees, pulse 95, respirations 13, blood pressure 138/63, oxygen saturation 100% on room air. The patient's weight is 170. BMI is 25.9 kg/m2. General: He is alert, oriented x3, and in no acute distress. HEENT: Pale conjunctivae. Mild icterus. SYDNI. Neck: Supple. Abdomen: Mildly protuberant. Mild distention. Generalized abdominal tenderness. Hypoactive Bowel sounds heard in all 4 quadrants. Extremities: No cyanosis, no clubbing, no edema. Pedal pulses 2+ present bilaterally. Neurologic: Alert and oriented x3. LABORATORY DATA: WBC 7.02, RBC 2.86, hemoglobin 8.0, hematocrit is 24.8, platelet count is 161,000. Sodium 130, potassium 4.6, chloride 103, carbon dioxide 19, anion gap 8, BUN 34, creatinine 0.7, glucose 233, total bilirubin 1.75, AST 25, ALT 23, alkaline phosphatase 133, albumin 2.3. IMPRESSION AND PLAN: Alcoholic liver cirrhosis Ascites Sepsis Anemia Hepatic encephalopathy GERD Post operative ileus Jaundice Type II diabetes GERDA PLAN: The patient is on Rocephin antibiotics as per the Infectious Disease team for his sepsis. The patient is on Xifaxan 550 mg twice a day for his hepatic encephalopathy. He is receiving Clinimix and lipids for his nutrition. We will continue with Protonix twice a day and for his anemia, he is receiving Centrum Silver once a day. The patient is on clear liquid diet will advance as tolerated per PCP. Patient is receiving insulin on a sliding scale per PCP. We will continue to monitor patient's CBC and BMP and follow the plan of care for PCP, surgeon, infectious disease team and oncologist. This plan was discussed with Dr. Reynaga. Please call us for any further questions or concerns. Dictated by NERIS Smallwood for Bob Reynaga MD cc: Bob Reynaga MD I have seen and examined the patient myself. I agree with the above plan of care. I have discussed the above with the patient and all questions were answered. Please call us with any further questions. MACO
--- NOTE | 2019-04-05 14:16 | HEMO/ONC PROGRESS NOTE ---
DATE: 04/05/2019 SUBJECTIVE: The patient reports that he is feeling better. He is eager to go home. Bowels are moving normally. He denies any abdominal pain. He has been out of bed in a chair. He has been tolerating advanced diet well. OBJECTIVE: Vital Signs: Temperature 97.6 degrees, pulse 95, blood pressure 138/63. Eyes: EOMI. PERRLA. Anicteric. Mucous membranes are moist. Cardiac Exam: Regular rate and rhythm. Normal S1, S2. Chest is clear to auscultation. Abdomen is soft, protuberant, nontender without hepatosplenomegaly. Extremities: No cyanosis, clubbing, edema. LABORATORY DATA: White count 7.0, hemoglobin 8, platelets 161. BUN 34, creatinine 0.7. Bilirubin 1.75, AST 25, ALT 23, alkaline phosphatase 133. ASSESSMENT AND PLAN: 1. Anal squamous cell carcinoma: The patient has recovered nicely from his hospitalization. He is okay for discharge from my standpoint. I plan to see him back in a week to re-evaluate him for chemoradiotherapy. 2. Cirrhosis of the liver. 3. Elevated LFTs status post cholecystectomy: His LFT and bilirubin elevations have much improved since cholecystectomy. 4. Peritonitis with Escherichia coli infection, possibly fungal infection: Appreciate Dr. Hagen' input. With antibiotics, he has significantly improved over the last 4 to 5 days. His plans are to send him out on Keflex and fluconazole for an additional week. 5. Stool impaction: This has resolved. Patient has been advised regarding bowel regimen. 6. Anemia: This was multifactorial. He is status post IV iron x1 in the clinic. We will reevaluate this and give him IV iron if needed. He is also on folic acid daily. cc: Gaurav Jacobs MD
[2019-04-05] MEDS ORDERED: LIPOSYN 20% 500 ML IV SCH (15:00)
--- NOTE | 2019-04-07 07:44 | DISCHARGE SUMMARY ---
ADMISSION DATE: 03/28/2019 DISCHARGE DATE: 04/05/2019 ADMISSION DIAGNOSES: 1. Sepsis. 2. Abdominal distention in a patient who is status post cholecystectomy with liver biopsy on 03/22/2019. 3. Altered mental status. 4. Acute kidney injury, presumed secondary to dehydration and continued use of medications. 5. Anal squamous cell carcinoma. 6. Anemia. 7. Hypertension. 8. History of coronary artery disease. 9. Chronic obstructive pulmonary disease. 10. Diabetes mellitus type 2. DISCHARGE DIAGNOSES: 1. Sepsis secondary to Escherichia coli found in Ghanshyam-Adorno drain. 2. Status post cholecystectomy with liver biopsy. 3. Hepatic encephalopathy, resolved. 4. Acute kidney injury, resolved. 5. Squamous cell carcinoma of the anus. Oncology is following, but the patient is not a candidate for treatment at this time. 6. Anemia of chronic disease. 7. Coronary artery disease, stable. 8. Cirrhosis of the liver. CONSULTS: 1. Dr. Bill Jacob, General Surgery. 2. Dr. Bob Reynaga, Gastroenterology. 3. Dr. Golden [place]. 4. Dr. Gaurav Jacobs. 5. Dr. Shree Hagen. DIAGNOSTICS: 1. On 03/28/2019, CT of the abdomen and pelvis revealed bilateral atelectasis with pulmonary edema, small hiatal hernia, cholecystectomy with a surgical drain in the right upper quadrant with debris or tiny stones in the gallbladder fossa. No abscess, splenomegaly, colonic diverticulosis, atherosclerosis, a small amount of fluid about the liver and spleen and in each pericolic gutter. 2. On 03/28/2019, CT of the head revealed no hemorrhage, chronic microvascular ischemic changes. 3. On 03/28/2019, echocardiogram revealed enlargement of the left ventricular chamber, with impairment of the interventricular septum, global ejection fraction in the range of 40% to 45%, mild degree of mitral and pulmonic regurgitation with [id number] degree of tricuspid regurgitation, unremarkable aortic valve, diastolic dysfunction is probably present, mild enlargement of the left atrium is noted. 4. On 03/29/2019, chest x-ray revealed increased interstitial markings, believed to be pulmonary fibrosis. 5. On 03/29/2019, abdominal ultrasound revealed trace ascites in the left abdomen. 6. On 03/29/2019, abdominal x-ray: Abnormal small gas pattern, partial small- bowel obstruction is suggested, constipation with rectal stool impaction. 7. On 03/30/2019, chest x-ray reveals NG tube in good position in the stomach. 8. On 03/31/2019, abdominal x-ray: Ileus versus partial small-bowel obstruction. 9. On 03/31/2019, CT of the abdomen and pelvis with IV contrast reveals increasing splenomegaly, worsened ascites, dilatation of the proximal small bowel, which may be due to partial small- bowel obstruction or ileus, fecal impaction, the possibility of peritonitis cannot be excluded. 10. On 04/01/2019, ultrasound-guided paracentesis: Technically successful ultrasound-guided paracentesis with no known complications, with return of 1.6 L of dark radha fluid aspirated. MICROBIOLOGY: 1. WOODY drainage revealed ESBL-negative Escherichia coli. 2. Blood cultures x2 revealed no growth after 5 days. 3. Stool was positive for occult blood. 4. Urine culture revealed no growth. 5. Peritoneal fluid status post paracentesis, culture revealed no growth, no anaerobes isolated on the final day. HOSPITAL COURSE: Mr. Calixto presented to the emergency room with family members approximately a week postop from a laparoscopic cholecystectomy and liver biopsy. He was found to be septic. WOODY drainage ultimately grew out ESBL-negative Escherichia coli. He was initially placed on Merrem and vancomycin. Once cultures returned, he was placed on Rocephin. His white count peaked at 25. He was placed on micafungin along with antibiotics. White count did start to normalize, and on the day of discharge, white count is 7. He was found to be in acute kidney injury with a creatinine of 2.6. It was noted that Mr. Calixto had very little oral intake during the week he was home after surgery. He did continue to take his Lisinopril, colchicine, hydrochlorothiazide, spironolactone as directed. These medicines were held. He was rehydrated, medications were renally dosed, and creatinine did return back to normal, being 0.7 on the day of discharge. He does have a history of squamous cell anal cancer. Dr. Jacobs followed the patient during the hospitalization. The plan is for the patient to follow up a week after discharge with Dr. Jacobs for re-evaluation and to discuss chemoradiation. He was initially placed on pattern blood glucose with sliding scale insulin to cover his blood sugars, and prior to discharge, they were in the 170 to 200 range. In regards to hepatic encephalopathy, he was given lactulose and rifaximin, and this did resolve. He was placed on Clinimix initially as his nutrition status was very poor. Once he started improving, he was placed on Ensure Clear, and advanced to a GI soft diet, which he did tolerate. He did have a stool impaction and a partial small-bowel obstruction. With bowel regimen, this was relieved. Initially, it was discussed that the patient would go to rehab, although as he improved, it was decided that the patient would be discharged home with home health. On 04/04/2019, he was able to walk 420 feet with a gait belt, and thankfully he is ready to be discharged home with family members with [facility]. DISCHARGE VITAL SIGNS: Blood pressure is 138/63, with a heart rate of 90, respirations are 16, temperature 97.6 degrees oral, with room air saturations 100%. DISCHARGE PHYSICAL EXAMINATION: Cardiovascular: Regular rate and rhythm. S1 and S2 appreciated. Extremities: He has no lower extremity edema. Calves are nontender bilaterally, with peripheral pulses palpable x4 extremities. Pulmonary: Breath sounds are clear. No increased work of breathing noted. Chest rises and falls symmetric with respiration. Gastrointestinal: Abdomen is soft, protuberant, nontender, with no hepatosplenomegaly, with bowel sounds in all 4 quadrants. Neurologic: He is alert and oriented x3. DISCHARGE FOLLOWUP: 1. Dr. Gaurav Jacobs, 04/12/2019 at 3:[address] Bill Jacob as previously scheduled. 3. Dr. Shree Hagen, 04/19/2019 at 9:[address] Armani Bender, 04/13/2019 at 9 a.m. DISPOSITION: He is being discharged home in stable condition with family members with [facility] in stable condition. TIME SPENT: This is a greater than 30-minute discharge. DISCHARGE INSTRUCTIONS: He was instructed to call to be seen sooner or return to the ER for any syncope, dizziness, chest pain, palpitations, shortness of breath, cough, temperature greater than 101, any chills, any nausea, vomiting, diarrhea, constipation, black or bloody vomitus or stools, any increasing abdominal distention, abdominal pain, any purulent or bloody drainage from his WOODY site, any foul-smelling drainage from his WOODY site or his previous surgical incision, or for any questions or concerns that they may have. DISCHARGE MEDICATIONS: 1. Ambien 10 mg p.o. at bedtime. 2. Flomax 0.4 p.o. daily. 3. Spironolactone 25 mg p.o. daily. 4. Prilosec 40 mg p.o. daily. 5. Morphine sulfate 15 mg p.o. every 6 hours. 6. Lopressor 100 mg p.o. daily. 7. Medrol Dosepak as directed. 8. Lisinopril 40 mg p.o. daily. 9. Imdur 30 mg p.o. daily. 10. Napavine 10 every 6 hours p.r.n. pain, #30 prescription given with no refills. 11. Hydrochlorothiazide 25 mg p.o. daily. 12. Flexeril 10 mg p.o. t.i.d. 13. Colchicine 0.6 p.o. as directed. 14. Norvasc 5 mg p.o. daily. 15. Ventolin inhaler 2 puffs p.r.n. wheezing. Dictated by NERIS Cabrera for Clive Beauchamp MD cc: NERIS Cabrera MD [facility]
== END 2019-04-05 13:15 | disposition home health service (06) | DRG 871 ==
LOC: SUPCPDRO → ED 14:50 → ICU 20:28 → SUATTDRO 20:28 → 2N 03-31 11:50 → 1N 04-04 10:57
PROVIDERS: ATTEND Internal Medicine

== ENCOUNTER 2019-04-16 11:18 | Inpatient (IN) ==
[2019-04-16 12:29] LABS: INR 1.21
[2019-04-16 12:30] LABS: PTT 43.7 Seconds (22.3-41.8)
[2019-04-16 12:33] LABS: BASO# 0.04 X1000 (0.0-0.2); BASO% 0.3 % (0.0-0.8); RDW 18.7 % (11.5-14.5)
[2019-04-16 12:35] LABS: AGAP 11; ALBUMIN 2.2 g/dL (3.5-5.0); ALKALINE PHOSPHATASE 372 U/L (32-122); BUN 22 mg/dL (8-22); CALCIUM 8.5 mg/dL (8.8-10.2); CHLORIDE 109 mmol/L (98-107); COSMO 281; CREATININE 1.1 mg/dL (0.7-1.2); ESTIMATED GFR > 60; GLUCOSE 139 mg/dL (70-104); GOT 29 U/L (10-34); GPT 22 U/L (10-44); MAGNESIUM 1.2 mg/dL (1.5-2.7); POTASSIUM 4.1 mmol/L (3.5-5.1); SODIUM 138 mmol/L (136-145); TCO2 18 mmol/L (25-35); TOTAL PROTEIN 6.9 g/dL (6.3-8.3)
[2019-04-16 12:37] LABS: INFLUENZA A NEGATIVE (NEGATIVE); INFLUENZA B NEGATIVE (NEGATIVE)
--- NOTE | 2019-04-16 12:44 | Diag Imaging Result Doc PS360 ---
EXAM: CHEST-PORTABLE HISTORY: SOB, TACHYCARDIA TECHNIQUE: Single view of the chest was performed portably. COMPARISON: 03/30/2019 FINDINGS: There is a right-sided portacatheter. There are coarse interstitial markings similar to prior studies. This been a suboptimal inspiratory result. The cardiomediastinal silhouette is within normal limits. No effusion is identified. IMPRESSION: Essentially stable coarse interstitial opacities likely related to fibrosis. No acute cardiopulmonary abnormality is identified. Electronically signed by Neyda Del Rio 04/16/2019 12:42 PM
[2019-04-16 12:50] LABS: EOS% 0.7 % (0.0-10.0); HEMATOCRIT 26.9 % (42.0-52.0); HEMOGLOBIN 8.8 g/dL (14.0-18.0); IMM GRAN# 0.07 X1000 (0.0-0.04); IMM GRAN% 0.5 % (0.0-0.5); LYMPH# 2.58 X1000 (1.2-3.4); LYMPH% 17.9 % (20.5-51.1); MCH 28.5 PG (27-31); MCHC 32.7 g/dL (33-37); MCV 87.1 FL (81-99); MONO% 12.5 % (1.7-9.3); NEUT# 9.85 X1000 (1.4-6.5); NEUT% 68.1 % (42.2-75.2); PLT 79 X1000 (130-400); RBC 3.09 XMIL (4.7-6.1); WBC 14.44 X1000 (4.8-10.8)
[2019-04-16 14:11] LABS: URINE SOURCE CLEAN CATCH
[2019-04-16 14:13] LABS: BILIRUBIN URINE SMALL (NEGATIVE); BLOOD URINE NEGATIVE (NEGATIVE); COLOR YELLOW; GLUCOSE URINE NEGATIVE (NEGATIVE); KETONE URINE NEGATIVE (NEGATIVE); LEUKOCYTES URINE MODERATE (NEGATIVE); NITRITE URINE NEGATIVE (NEGATIVE); PH URINE 6.5; PROTEIN URINE TRACE mg/dL (NEGATIVE); SP GRAVITY URINE 1.022; TURBIDITY URINE HAZY (CLEAR); UROBILINOGEN URINE 8 mg/dL (NORMAL)
[2019-04-16 14:19] LABS: URINE BACTERIA 1+ /HPF; URINE RBC <10 /HPF (<10)
[2019-04-16 14:23] LABS: UR AMPHETAMINES QUAL NONE DETECTED (NONE DETECT); UR BARBITUATES QUAL NONE DETECTED (NONE DETECT); UR BENZODIAZEPIN QUAL NONE DETECTED (NONE DETECT); UR OPIATES QUAL PRESUMPTIVE POSITIVE (NONE DETECT); UR TCA QUAL PRESUMPTIVE POSITIVE (NONE DETECT)
[2019-04-16 14:24] LABS: UR CANNABINOIDS QUAL NONE DETECTED (NONE DETECT); UR COCAINE QUAL NONE DETECTED (NONE DETECT); UR METHADONE QUAL NONE DETECTED (NONE DETECT); UR METHAMPHETAMINE QUAL NONE DETECTED (NONE DETECT); UR OXYCODONE QUAL NONE DETECTED (NONE DETECT); UR PCP QUAL NONE DETECTED (NONE DETECT); UR PROPOXYPHENE QUAL NONE DETECTED (NONE DETECT)
--- NOTE | 2019-04-16 14:38 | EKG Report ---
Test Performed on : 04/16/2019 1:16:46 PM Test Reason : TACHYCARDA Blood Pressure : / mmHG Vent. Rate : 104 BPM Atrial Rate : 104 BPM P-R Int : 142 ms QRS Dur : 140 ms QT Int : 386 ms P-R-T Axes : 048 -32 087 degrees QTc Int : 507 ms Sinus tachycardia. Left axis deviation Left bundle branch block Abnormal ECG When compared with ECG of 29-MAR-2019 14:23, No significant change was found Unconfirmed Result
[2019-04-16] MEDS ORDERED: ZOSYN 4.5 GM in NS 100 ML IV ONE (14:42)
[2019-04-16] MEDS ORDERED: VANCOMYCIN 1 GM/NS 1 GM/250 ML IVPB IV ONE ×2 (14:42→17:00)
--- NOTE | 2019-04-16 15:43 | PROVIDER DOCUMENTATION ---
This chart was entered by Kayce Morales Scribe, acting as scribe for Toni Jin MD. HPI-General Adult - General Chief Complaint: Fever Stated Complaint: FEVER, SENT BY DR. BENDER Time Seen by Provider: 04/16/19 11:43 Source: patient Allergies/Adverse Reactions: Patient Allergies Allergy/AdvReac Type Severity Reaction Status Date / Time No Known Allergies Allergy Verified 04/16/19 13:08 Home Medications: Home Medication List Medication Instructions Recorded Confirmed Last Taken Type Amlodipine [Norvasc] 5 mg PO DAILY 01/12/19 03/28/19 03/22/19 05:30 History Cyclobenzaprine [Flexeril] 10 mg PO TID 01/12/19 03/28/19 03/22/19 05:30 History Lisinopril [Zestril] 40 mg PO DAILY 01/12/19 03/28/19 03/22/19 05:30 History Metoprolol [Lopressor] 100 mg PO DAILY 01/12/19 03/28/19 03/22/19 05:30 History Spironolactone 25 mg PO DAILY 01/12/19 03/28/19 03/22/19 05:30 History Hydrochlorothiazide 25 mg PO DAILY 03/01/19 03/28/19 03/22/19 05:30 History Isosorbide Mononitrate E.r. [Imdur] 30 mg PO DAILY 03/01/19 03/28/19 03/22/19 05 :30 History Albuterol Sulfate Inhaler 2 puff INH PRN PRN 03/28/19 03/28/19 Unknown History [Ventolin Hfa] Colchicine 0.6 mg PO 4XDAY 03/28/19 03/28/19 Unknown History Omeprazole [Prilosec] 40 mg PO DAILY 03/28/19 03/28/19 Unknown History Tamsulosin HCl [Flomax] 0.4 mg PO DAILY 03/28/19 03/28/19 Unknown History Zolpidem [Ambien] 10 mg PO HS 03/28/19 03/28/19 Unknown History Morphine Sulfate 15 mg PO Q6H 03/31/19 03/31/19 Unknown History Hydrocodone/Acetaminophen [[place] 1 tab PO Q6H PRN PRN #30 tab 04/05/19 Unknown Rx 10-325 Tablet] Methylprednisolone [Medrol Dosepak] 4 mg PO DIRECTED #1 pkg 04/05/19 Unknown Rx - History of Present Illness -Gen Adult Nature of Presenting Problems: Patient is a 58 year old male who presents with fever. Reports being seen at Dr. Bender's office prior to arrival and was informed to come to [place]. Denies shortness of breath and chest pain. Family states patient had his gallbladder removed two weeks ago. Family reports being diagnosed with cirrhosis after having gallbladder removed. Location of Pain/Injury: reports: none Quality of Pain: reports: none Severity: reports: mild Onset/Duration: reports: gradual Timing: reports: still present Context/Activities at Onset: reports: light activity Associated Symptoms: reports: fever/chills (fever) Similar Symptoms Previously?: Yes Recently seen or treated by another doctor?: Yes Review of Systems - Adult - REVIEW OF SYSTEMS - ADULT ROS:: ROS per family Constitutional: reports: see HPI, fever. denies: chills, fatique Eyes: reports: no symptoms reported Ears, Nose, Mouth & Throat: reports: no symptoms reported Cardiovascular: reports: no symptoms reported Respiratory: reports: no symptoms reported Gastrointestinal: reports: no symptoms reported Genitourinary: reports: no symptoms reported Musculoskeletal: reports: no symptoms reported Integumentary: reports: no symptoms reported Neurological: reports: no symptoms reported Psychiatric: reports: no symptoms reported Endocrine: reports: no symptoms reported Hematologic/Lymphatic: reports: no symptoms reported Allergic/Immunologic: reports: no symptoms reported All Other Systems: Reviewed and Negative Past History - Adult - PAST MEDICAL HISTORY-ADULT Review of Records: reports: Old Records Reviewed, Nursing Assessment Review, Medications Reviewed, Social history reviewed & non-contributory. Major Childhood Illnesses: reports: denies history Cardiovascular: reports: CAD, CHF, HTN, [place] Respiratory: reports: COPD, sleep apnea Gastrointestinal: reports: cancer (rectal), liver disease Obstetrical/Gynecological: reports: denies history Genitourinary: reports: denies history Musculoskeletal: reports: arthritis (gout), other (gout) Neurological: reports: denies history Psychiatric: reports: denies history Endocrine/Immune: reports: denies history Other Conditions: reports: denies history - PRIOR SURGERIES/PROCEDURES Surgical/Procedure History: reports: recent surgery (cholecystectomy 6 days ago) , cholecystectomy - IMMUNIZATION STATUS Childhood Immunizations: See Nurse Assessment Flu Vaccine: See Nurse Assessment - FAMILY HISTORY Family History: reviewed, not pertinent - SOCIAL HISTORY Smoking: cigarettes (former) Substance Use: denies Living Situation: family Physical Exam-General - PHYSICAL EXAM-ADULT Initial Vital Signs Reviewed: Yes - CONSTITUTIONAL General Appearance: alert, no apparent distress. negative: lethargic - EYES Eyes: scleral icterus. negative: subconjunctival hemorrhage, sunken eyes - HEAD, EARS, NOSE, MOUTH & THROAT HENMT: normocephalic/atraumatic, moist mucous membranes. negative: angioedema - RESPIRATORY Respiratory: chest non-tender, rales (right base). negative: respiratory distress, increased rate - CARDIOVASCULAR Cardiovascular: normal peripheral pulses, tachycardia. negative: systolic murmur - GASTROINTESTINAL (ABDOMEN) Abdominal Exam: non tender, soft, distended (moderate ascites). negative: rigid - MUSCULOSKELETAL Extremity: non-tender, normal inspection. negative: pedal edema - SKIN Integumentary: normal color, normal turgor, warm/dry. negative: diaphoresis - NEUROLOGIC Neurologic: grossly normal. negative: aphasia, facial droop - PSYCHIATRIC Psych/Mental Status: normal mood/affect, oriented x 3. negative: disheveled Progress - PLAN OF CARE/RESULTS Progress/Plan/Lab Results: Vital Signs - 8 hr 04/16/19 11:25 Temperature 99.2 F Pulse Rate 108 H Respiratory Rate 20 Blood Pressure 119/80 O2 Sat by Pulse Oximetry 96 Result Diagrams: 04/16/19 11:52 04/16/19 11:52 - EKG 1 Time of EKG reading by physician:: 13:16 EKG Read and Signed by:: Toni Jin EKG Interpretation (*Must complete 3 of following elements*): Abnormal Rate: 104 Rhythm: sinus tachycardia [place]: left QRS: LBB [place] Interval: normal Comments: abnormal ECG - XRAY 1 XRAY Study: Chest Impression: See EMR Report ( EXAM: CHEST-PORTABLE HISTORY: SOB, TACHYCARDIA TECHNIQUE: Single view of the chest was performed portably. COMPARISON: 03/30/2019 FINDINGS: There is a right-sided portacatheter. There are coarse interstitial markings similar to prior studies. This been a suboptimal inspiratory result. The cardiomediastinal silhouette is within normal limits. No effusion is identified. IMPRESSION: Essentially stable coarse interstitial opacities likely related to fibrosis. No acute cardiopulmonary abnormality is identified. Electronically signed by Neyda Del Rio 04/16/2019 12:42 PM 04/16/19 1242 Interpreting Physician: Neyda Del Rio MD Dictated Date/Time: 04/16/19 1239 cc: Toni Jin MD; Armani Bender MD) - CONSULTS/PCP/HOSPITALIST Notification #1 *Consult/PCP/Hospitalist*: DR BENDER Time Discussed: 15:21 Consult Disposition: Admit Departure - Departure Date of Disposition Decision: 04/16/19 Time of Disposition Decision: 15:38 DIAGNOSIS: Hypomagnesemia, Leukocytosis, unspecified, Anemia, Hyperammonemia, UTI (urinary tract infection), Weakness, Ascites of liver, Cirrhosis of liver Disposition: ADMITTED INPATIENT 09 Certified Medical Emergency: Emergent Condition: Stable Referrals and Follow-Ups: Armani Bender MD [Primary Care Provider] - - Critical Care Note This patient required my direct & personal management of CC.: No Attestation - Physician/ MAIKEL Attestation The physician spent face to face time with patient:: Yes Advanced Practice Provider documentation review:: Supervising physician onsite and consulted in the evaluation and care of this patient. The physician did have a face to face encounter with the patient. This chart was documented by the indicated scribe, (Kayce Morales Scribe) and ac curately reflects the services I performed and decisions made by me, Toni Jin MD, as attested by the provider's signature.
[2019-04-16] MEDS ORDERED: VANCOMYCIN IV PER PHARMACY MISC SCH (16:15)
[2019-04-16] MEDS ORDERED: M.V.I.-12 10 ML, FOLIC ACID 1 MG, MAGNESIUM SULFATE 1 GM, THIAMINE 100 MG in NS 1,000 ML IV ONE (16:15)
[2019-04-16] MEDS ORDERED: MAGNESIUM SULFATE 2 GM/S.W.I. 2 GM/50 ML IVPB IV ONE (16:15)
[2019-04-16] MEDS: TYLENOL PO PRN (16:26)
[2019-04-16] MEDS: NS 1,000 ML IV SCH (16:30)
--- NOTE | 2019-04-16 18:05 | Diag Imaging Result Doc PS360 ---
EXAM: CT ABD/PELVIS W/IV CONT ONLY INDICATION: distention/fever TECHNIQUE: This exam was performed using automated exposure control, adjustment of mA or kV according to patient size, and/or use of iterative reconstruction technique. COMPARISON: 03/31/2019 FINDINGS: Fibrosis and/or atelectasis at the lung bases is essentially stable. There are stable calcified pleural plaques at both lung bases. There has been a prior cholecystectomy. The liver exhibits a vaguely nodular contour suggesting cirrhosis. There is stable splenomegaly. Moderate to large volume ascites is similar to the previous study. The adrenal glands and kidneys are stable and essentially unremarkable. The urinary bladder is unremarkable. There are multiple distended loops of small bowel with air-fluid levels that are suspicious for obstruction. This is similar but slightly less severe previous study. The distal small bowel is collapsed. The transition point is probably at midline or in the left lower quadrant. The GI tract is stable, otherwise. IMPRESSION: 1.Multiple distended loops of small bowel that are similar but probably slightly less extensive than the previous study suggesting obstruction. 2.Ascites that is similar to the previous study. 3.Evidence of cirrhosis and splenomegaly, stable. 4.Other incidental/nonacute findings detailed above. Electronically signed by Bola Humphries 04/16/2019 6:03 PM
[2019-04-16] MEDS ORDERED: NORCO-10 PO ONE (18:09)
[2019-04-16] MEDS: ZOSYN 3.375 GM in NS 50 ML IV SCH (21:30)
[2019-04-16] MEDS: NORCO-10 PO PRN (22:16)
[2019-04-17] MEDS: ZOSYN 3.375 GM in NS 50 ML IV SCH ×4 (03:27→20:59)
[2019-04-17] MEDS: NS 1,000 ML IV SCH ×2 (05:46→23:26)
[2019-04-17] MEDS: NORCO-10 PO PRN ×2 (05:49→11:07)
[2019-04-17 07:03] LABS: HEMATOCRIT 23.5 % (42.0-52.0); HEMOGLOBIN 7.7 g/dL (14.0-18.0); MCH 28.4 PG (27-31); MCHC 32.8 g/dL (33-37); MCV 86.7 FL (81-99); PLT 107 X1000 (130-400); RBC 2.71 XMIL (4.7-6.1); RDW 18.4 % (11.5-14.5); WBC 18.62 X1000 (4.8-10.8)
[2019-04-17 07:08] LABS: AGAP 10; CHLORIDE 109 mmol/L (98-107); SODIUM 135 mmol/L (136-145); TCO2 16 mmol/L (25-35)
[2019-04-17 07:09] LABS: ALBUMIN 1.8 g/dL (3.5-5.0); ALKALINE PHOSPHATASE 295 U/L (32-122); BUN 21 mg/dL (8-22); COSMO 274; CREATININE 1.1 mg/dL (0.7-1.2); ESTIMATED GFR > 60; GLUCOSE 118 mg/dL (70-104); GOT 21 U/L (10-34); GPT 16 U/L (10-44); MAGNESIUM 1.6 mg/dL (1.5-2.7)
[2019-04-17] MEDS ORDERED: M.V.I.-12 10 ML, FOLIC ACID 1 MG, MAGNESIUM SULFATE 1 GM, THIAMINE 100 MG in NS 1,000 ML IV ONE (10:00)
[2019-04-17] MEDS: ZOFRAN IV PRN (11:08)
[2019-04-17] MEDS: OXY IR PO PRN ×2 (14:35→20:55)
[2019-04-17] MEDS: VANCOMYCIN 1,750 MG in NS 250 ML IV SCH (16:41)
[2019-04-18] MEDS: OXY IR PO PRN ×4 (02:33→18:19)
[2019-04-18] MEDS: ZOSYN 3.375 GM in NS 50 ML IV SCH ×2 (02:34→08:43)
[2019-04-18 06:23] LABS: HEMATOCRIT 23.7 % (42.0-52.0); HEMOGLOBIN 7.4 g/dL (14.0-18.0); MCH 26.9 PG (27-31); MCHC 31.2 g/dL (33-37); MCV 86.2 FL (81-99); PLT 107 X1000 (130-400); RBC 2.75 XMIL (4.7-6.1); RDW 18.5 % (11.5-14.5); WBC 22.51 X1000 (4.8-10.8)
[2019-04-18 06:41] LABS: AGAP 9; ALBUMIN 1.9 g/dL (3.5-5.0); ALKALINE PHOSPHATASE 250 U/L (32-122); BUN 20 mg/dL (8-22); CALCIUM 8.1 mg/dL (8.8-10.2); CHLORIDE 110 mmol/L (98-107); COSMO 275; CREATININE 1.2 mg/dL (0.7-1.2); ESTIMATED GFR > 60; GLUCOSE 138 mg/dL (70-104); GOT 16 U/L (10-34); GPT 14 U/L (10-44); MAGNESIUM 1.7 mg/dL (1.5-2.7); POTASSIUM 3.9 mmol/L (3.5-5.1); SODIUM 135 mmol/L (136-145); TCO2 16 mmol/L (25-35)
--- NOTE | 2019-04-18 09:40 | PROGRESS NOTE ---
DATE: 04/17/2019 SUBJECTIVE: Patient notes that he still feels terrible. He is still having some abdominal pain but overall does think he is feeling better than yesterday. PHYSICAL EXAMINATION: Vital Signs: Reviewed: Temp 99.3 degrees, pulse 104, respiratory rate 18, BP 124/61. General: Patient is awake, alert. He is in no respiratory distress. He is much more alert and oriented today than he was yesterday. HEENT: Normocephalic. Neck: Supple. Cardiovascular: Regular rate. Chest: Clear. Abdomen: Distended diffusely but minimal tenderness. No guarding. No rebound. Extremities: Moves all extremities. No edema. Neurologic: No focal changes. ASSESSMENT: 1. Leukocytosis. 2. Cirrhosis. 3. Diffuse pain. 4. Anemia of chronic disease. 5. Hypertension. PLAN: We will continue patient in the hospital. Certainly appears that he may have a urinary tract infection. We are going to continue him on his home medications. We will stop his Ivor and switch to OxyIR to get rid of Tylenol. We will see if this helps his pain any better. He does not appear to have peritonitis at the moment, although his abdomen is distended, it is diffusely minimally tender. He does have a leukocytosis of unknown origin. Blood cultures urine cultures are currently pending. We will continue antibiotic. cc: Armani Bender MD
[2019-04-18] MEDS ORDERED: NS 500 ML IV ONE (10:31)
[2019-04-18] MEDS: MERREM 1 GM in NS 50 ML IV SCH ×2 (10:51→18:36)
[2019-04-18] MEDS: IMDUR PO SCH (10:52)
[2019-04-18] MEDS: PRINIVIL PO SCH (10:52)
--- NOTE | 2019-04-18 11:15 | PROGRESS NOTE ---
DATE: 04/18/2019 CHIEF COMPLAINT: Fever. HISTORY OF PRESENT ILLNESS: Patient is a 58-year-old male who presents to the hospital with fever of unknown origin. Notes he has had a small cough but denies any real shortness of breath. Denies any chest pains, palpitations. He did have his gallbladder removed approximately 2 weeks ago and has been doing well from that since but during his gallbladder surgery, he was diagnosed with cirrhosis. He does have a long-standing history of alcohol ingestion, although he has denied this over the past. He does note that he has not drank since his gallbladder surgery. Denies any dysuria or frequency. Denies coughing, congestion. Denies diarrhea. Denies any skin rashes. ALLERGIES: No known drug allergies. MEDICATIONS: Norvasc 5, Flexeril 10, Zestril 40, Lopressor 100, spironolactone 25, hydrochlorothiazide 25, Imdur 30, colchicine as needed, Flomax 0.4, omeprazole 40, and [place]. PAST MEDICAL HISTORY: Significant for known coronary artery disease, hypertension, congestive heart failure. He has had an [place] in the past. He has a history of sleep apnea. He has been diagnosed with COPD in the past. Has a history of rectal cancer. Has recently been diagnosed with cirrhosis, chronic history of alcoholism, history of gout, chronic pain. He has recently undergone cholecystectomy in the past 1 to 2 weeks. FAMILY HISTORY: Noncontributory. REVIEW OF SYSTEMS: As noted above. He has had fever last night and today. Denies any chest pain, palpitations. Denies dysuria, frequency, or urgency. Does note that his abdomen is a little more swollen than usual. Denies recent constipation, melena, hematochezia, dysuria, frequency, or urgency. Denies any skin rashes. Does not check his weight on any regular basis. Has not been drinking for the past 2 weeks. SOCIAL HISTORY: Long history of smoking, long history of alcoholism. He is and lives at home. PHYSICAL EXAMINATION: Vital Signs: Reviewed. Temperature 99.2 degrees, pulse 108, respiratory rate 20, BP 119/80, saturation 96% on room air. General: Patient is awake, alert. He is in no current respiratory distress. He is confused at times, has difficulty answering questions and following commands. HEENT: Normocephalic. Neck: Supple. Cardiovascular: Regular rate. No murmurs. Chest: Clear and nonlabored. Abdomen: Soft, although tender minimally. He has mild distention. Extremities: Moves all extremities. Neurologic: Moves all extremities well. He has no focal changes other than confusion. LABS: White count is 24, hemoglobin and hematocrit 8 and 26, platelets are 79,000. Glucose 139. Chest x-ray effectively unchanged. CT scan pending. ASSESSMENT: 1. Hypomagnesemia. 2. Leukocytosis. 3. Anemia. 4. Presumed urinary tract infection. 5. Ascites, chronic. 6. Cirrhosis, chronic. 7. Hypertension. PLAN: We are going to admit the patient to the hospital. Place him on antibiotics, fluids, replace his magnesium. Follow his ammonia levels. Check blood and urine cultures. Further orders as needed. cc: Armani Bender MD
[2019-04-18] MEDS: NS 1,000 ML IV SCH (12:30)
--- NOTE | 2019-04-18 13:44 | Diag Imaging Result Doc PS360 ---
EXAM: KUB ABDOMEN INDICATION: distention TECHNIQUE: 2 views COMPARISON: 03/31/2019 FINDINGS: There are multiple gas-distended loops of small bowel that are suspicious for obstruction. However, it is not as severe as the previous plain radiograph. No free abdominal gas is identified given the limitations of a supine radiograph. The abdomen is stable, otherwise. IMPRESSION: Gas-distended loops of small bowel as described that are not as extensive as the previous study. Electronically signed by Bola Humphries 04/18/2019 1:41 PM
--- NOTE | 2019-04-18 14:21 | PROGRESS NOTE ---
DATE: 04/18/2019 SUBJECTIVE: The patient notes he is feeling a little bit better this morning. Still having abdominal pain. Still some nausea, generally weak. Notes that he had fever yesterday. PHYSICAL EXAMINATION: Vital Signs: Reviewed: T-max 100 degrees, T current 99.2 degrees, pulse 104, respiratory rate 20, blood pressure 124/60. General: Patient is somewhat ill-appearing, although in no respiratory distress. He is awake, alert, oriented. HEENT: Normocephalic. Neck: Supple. Cardiovascular: Regular rate. Chest: Clear, nonlabored. Abdomen: Soft, diffusely minimally tender, positive distended. No fluid wave. Positive bowel sounds, although decreased. LABORATORY DATA: Albumin 1.9, total bilirubin 3.5 WBC is 22, hemoglobin and hematocrit 7 and 23, platelets 107,000. ASSESSMENT: 1. Urinary tract infection. Urine is growing gram-negative rods, yet to be determined. We will switch to [place] in case he has extended spectrum Beta lactamase positive given the fact that his white count is continuing to elevate, although thankfully his fever has declined. His bilirubin has increased as well, hopefully this is more due to infection than obstruction. If it continues to increase tomorrow, he may need an magnetic resonance cholangiopancreatography although this cannot be done on the weekend. 2. Leukocytosis. 3. Hyperbilirubinemia. 4. Severe protein-calorie malnutrition. 5. Cirrhosis. 6. Chronic history of alcoholism. 7. Known coronary artery disease. 8. Congestive heart failure. 9. Chronic obstructive pulmonary disease. 10. Rectal cancer. PLAN: As noted above we are going to change his antibiotics. Continue clear liquids and advance as tolerated. Recheck his labs in the a.m. May need an MRCP if it continues. If his bilirubin continues to elevate. Unfortunately, he is quite ill chronically. Discussed with he and his this fact. Discussed that I am not sure how well his liver is going to hold out. We stopped his Tylenol, change him to Oxy IR and will follow. TIME SPENT: Thirty-five minutes spent in total. cc: Armani Bender MD
[2019-04-18] MEDS: TYLENOL PO PRN (18:28)
[2019-04-19] MEDS: MERREM 1 GM in NS 50 ML IV SCH ×3 (00:30→16:30)
[2019-04-19] MEDS ORDERED: VANCOMYCIN 1 GM/NS 1 GM/250 ML IVPB IV ONE (01:30)
[2019-04-19] MEDS: OXY IR PO PRN ×5 (02:25→22:15)
[2019-04-19] MEDS ORDERED: VANCOMYCIN 500 MG/NS 500 MG/100 ML IVPB IV ONE (02:30)
[2019-04-19] MEDS: VANCOMYCIN 1,750 MG in NS 250 ML IV SCH (04:30)
[2019-04-19] MEDS: NS 1,000 ML IV SCH ×3 (04:31→16:21)
[2019-04-19 06:14] LABS: HEMATOCRIT 24.1 % (42.0-52.0); HEMOGLOBIN 7.7 g/dL (14.0-18.0); MCH 27.9 PG (27-31); MCV 87.3 FL (81-99); PLT 101 X1000 (130-400); RBC 2.76 XMIL (4.7-6.1); RDW 17.5 % (11.5-14.5); WBC 16.88 X1000 (4.8-10.8)
[2019-04-19 06:20] LABS: AGAP 9; ALKALINE PHOSPHATASE 217 U/L (32-122); BUN 22 mg/dL (8-22); CALCIUM 8.1 mg/dL (8.8-10.2); CHLORIDE 111 mmol/L (98-107); COSMO 278; CREATININE 1.1 mg/dL (0.7-1.2); ESTIMATED GFR > 60; GLUCOSE 116 mg/dL (70-104); GOT 19 U/L (10-34); GPT 13 U/L (10-44); MAGNESIUM 1.8 mg/dL (1.5-2.7); POTASSIUM 3.8 mmol/L (3.5-5.1); SODIUM 137 mmol/L (136-145); TCO2 17 mmol/L (25-35); TOTAL PROTEIN 5.9 g/dL (6.3-8.3)
[2019-04-19] MEDS: LOPRESSOR PO SCH ×3 (08:47→20:34)
[2019-04-19] MEDS: IMDUR PO SCH (08:49)
[2019-04-19] MEDS: PRINIVIL PO SCH (08:49)
[2019-04-19] MEDS: ALDACTONE PO SCH (11:01)
--- NOTE | 2019-04-19 14:25 | Diag Imaging Result Doc PS360 ---
EXAM: MRI MRCP (ABD W/O CONTRAST) - 04/19/2019 HISTORY: elevated t bili TECHNIQUE: MRCP without contrast. Axial and 3-D MIP images are obtained. COMPARISON: 02/25/2019 FINDINGS: There is limited detail which apparently relates to artifact from motion. The common bile/hepatic duct and visualized central intrahepatic radicles show no discrete abnormality. The gallbladder is not well evaluated due to the limited detail. There are lobulated liver contours and splenomegaly noted, which may relate to chronic hepatocellular disease/cirrhosis with portal hypertension. IMPRESSION: Limited detail, apparently due to artifacts from motion. No discrete biliary ductal abnormality. Electronically signed by Gregory Akhtar 04/19/2019 2:23 PM
[2019-04-19] MEDS: TYLENOL PO PRN (19:39)
[2019-04-19] MEDS: ZOFRAN IV PRN (19:39)
[2019-04-20] MEDS ORDERED: VANCOMYCIN 1,750 MG in NS 250 ML IV SCH ×2 (01:00→02:00)
[2019-04-20] MEDS: NS 1,000 ML IV SCH ×3 (02:30→18:44)
[2019-04-20] MEDS: MERREM 1 GM in NS 50 ML IV SCH ×2 (02:31→08:39)
[2019-04-20] MEDS: OXY IR PO PRN ×2 (03:39→20:31)
[2019-04-20] MEDS: PRINIVIL PO SCH (08:27)
[2019-04-20] MEDS: IMDUR PO SCH (08:28)
[2019-04-20] MEDS: LOPRESSOR PO SCH ×2 (08:28→20:31)
[2019-04-20] MEDS: ALDACTONE PO SCH (08:28)
--- NOTE | 2019-04-20 11:26 | Diag Imaging Result Doc PS360 ---
CHEST-PORTABLE - 04/20/2019 INDICATION: NG tube placement COMPARISON: 04/06/2019 FINDINGS: Stable right chest port in good position. There is a new nasogastric tube in good position the stomach. Lung volumes remain severely low. Stable ill-defined infiltrates mainly in the left lung base. Heart size remains top normal. No new abnormalities. IMPRESSION: Good nasogastric tube placement. Electronically signed by Tl Irizarry 04/20/2019 11:24 AM
[2019-04-20] MEDS ORDERED: MORPHINE ONE (12:57)
--- NOTE | 2019-04-20 14:05 | HEMO/ONC CONSULTATION ---
DATE: 04/20/2019 REASON FOR CONSULTATION: This is a known patient of ours for the treatment of anal squamous cell carcinoma. 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 He states he has a small cough but denies shortness of breath, chest pain or palpitations. He is approximately 3 weeks out from a cholecystectomy. He was diagnosed with cirrhosis at that admission. He was then readmitted for leukocytosis and peritonitis. The patient has a long history of alcohol abuse. Since his last hospital admission on 03/28/2019, he states he has not had a drink since. He denies any dysuria or frequency. He denies nausea, vomiting, diarrhea. PAST MEDICAL HISTORY: Ischemic heart disease, type 2 diabetes, squamous cell carcinoma of the anus, hypertension, sleep apnea, COPD and liver cirrhosis. PAST SURGICAL HISTORY: Cholecystectomy. SOCIAL HISTORY: He drank 1 to 2 drinks of liquor daily, stopped approximately the beginning of March. ALLERGIES: No known drug allergies. HOME MEDICATIONS: Allopurinol, Norvasc, [place], lisinopril, lorazepam, metoprolol, omeprazole, spironolactone, tramadol. REVIEW OF SYSTEMS: Pertinent positives are noted in the HPI. All other review of systems are negative. PHYSICAL EXAMINATION: Vital Signs: Temperature 98.1 degrees, pulse rate 115, respiratory rate 19, blood pressure 121/61, O2 saturation 98% on room air. He is in 7/10 abdominal pain. His temperature max in the last 12 hours is 100.4 degrees. General: The patient does not appear in any acute distress. HEENT: Icterus noted. PERRLA. Oral mucosa normal. Cardiovascular: Normal S1, S2. Heart rate and rhythm regular. Respiratory: Chest is clear to auscultation. Normal respiratory effort. Abdomen: Somewhat soft, distended and tender to bilateral lower quadrants. Bowel sounds are hyperactive. Extremities: No lower extremity edema noted. Neurological: He was awake and alert at the time of my exam. His states there has been some confusion. Follows commands appropriately at this time. LABORATORY DATA: No labs drawn today. Yesterday's labs, 16.88, hemoglobin 7.7, hematocrit 24.1, platelet count 101,000. Sodium 137, potassium 138, creatinine 1.1, calcium 8.1, bilirubin 3.8, alkaline phosphatase 217. Urine with leukocytes. RADIOLOGY: Chest x-ray shows nasogastric tube in good place. Abdominal x-ray shows gas distended loops of small bowel as described that are not as extensive as the previous exam. There are multiple gas distended loops of small bowel that are suspicious for obstruction. Abdominal CT and pelvis CT: 1. Multiple distended loops of small bowel that are similar but probably slightly less extensive than the previous. 2. Ascites, that is similar to previous study. 3. Evidence of cirrhosis and splenomegaly. ASSESSMENT AND PLAN: 1. Anal squamous cell carcinoma. The patient's treatments are still on hold as the patient is recovering from his cholecystectomy on most recent hospitalization for peritonitis. We were hoping to start it next week Friday. We will continue to hold therapy until the patient feels he is strong enough to initiate therapy. 2. Alcoholic cirrhosis and splenomegaly. We are aware. 3. Normocytic anemia. We are aware. The patient is status post 1 dose of IV Injectafer on 02/10/2019. The patient also has a folate deficiency. He is on replacement. 4. Urinary tract infection and leukocytosis and recent peritonitis. The patient culture shows Enterobacter aerogenes and Pseudomonas aeruginosa. Dr. Hagen knows him well. Consult placed. 5. Anorexia and weight loss. When patient is able to the eat, he needs protein shakes added to his daily meals. He has been encouraged to monitor calories and attempt adequate calorie intake daily. He needs to continue exercises while in the hospital. Dictated by NERIS Stout for Gaurav Jacobs MD cc: MD Armani Magana MD [facility]ENTERMynor
[2019-04-20 15:17] LABS: INR 1.33; PROTIME 16.7 Seconds (11.0-16.0)
[2019-04-20 15:18] LABS: AGAP 10; ALB/GLOB RATIO 0.5; ALBUMIN 1.9 g/dL (3.5-5.0); ALKALINE PHOSPHATASE 200 U/L (32-122); BUN 20 mg/dL (8-22); CALCIUM 7.8 mg/dL (8.8-10.2); CHLORIDE 108 mmol/L (98-107); CK PROFILE 10 U/L (24-204); COSMO 276; CREATININE 0.9 mg/dL (0.7-1.2); ESTIMATED GFR > 60; GLUCOSE 117 mg/dL (70-104); GOT 15 U/L (10-34); GPT 10 U/L (10-44); PTT 46.8 Seconds (22.3-41.8); SODIUM 136 mmol/L (136-145); TCO2 18 mmol/L (25-35); TOTAL BILIRUBIN 2.62 mg/dL (0.20-1.00); TOTAL PROTEIN 5.9 g/dL (6.3-8.3)
[2019-04-20 15:23] LABS: BASO# 0.03 X1000 (0.0-0.2); BASO% 0.2 % (0.0-0.8); EOS# 0.21 X1000 (0.0-0.7); EOS% 1.5 % (0.0-10.0); HEMOGLOBIN 8.2 g/dL (14.0-18.0); LYMPH# 2.17 X1000 (1.2-3.4); LYMPH% 15.4 % (20.5-51.1); MCH 29.3 PG (27-31); MCHC 32.8 g/dL (33-37); MCV 89.3 FL (81-99); MONO# 1.33 X1000 (0.11-0.59); MONO% 9.4 % (1.7-9.3); NEUT# 10.35 X1000 (1.4-6.5); NEUT% 73.5 % (42.2-75.2); PLT 116 X1000 (130-400); RDW 17.6 % (11.5-14.5); WBC 14.09 X1000 (4.8-10.8)
[2019-04-20] MEDS: MAXIPIME 2 GM in NS 100 ML IV SCH (15:41)
[2019-04-20 15:42] LABS: URINE SOURCE CLEAN CATCH
[2019-04-20 15:48] LABS: LARGE PLATELETS 2+; LYMPHS 8 % (21-51); SEGS 92 % (42-75)
[2019-04-20 15:57] LABS: BILIRUBIN URINE SMALL (NEGATIVE); BLOOD URINE NEGATIVE (NEGATIVE); COLOR YELLOW; GLUCOSE URINE NEGATIVE (NEGATIVE); KETONE URINE TRACE mg/dL (NEGATIVE); LEUKOCYTES URINE NEGATIVE (NEGATIVE); NITRITE URINE NEGATIVE (NEGATIVE); PROTEIN URINE 30 mg/dL (NEGATIVE); SP GRAVITY URINE 1.026; TURBIDITY URINE HAZY (CLEAR); UROBILINOGEN URINE 4 mg/dL (NORMAL)
[2019-04-20 16:04] LABS: UR EPITHELIAL CELLS <10 /HPF (<10); URINE BACTERIA NEGATIVE /HPF; URINE RBC <10 /HPF (<10); URINE WBC <10 /HPF (<10)
[2019-04-20] MEDS ORDERED: MERREM 1 GM in NS 50 ML IV SCH (17:30)
--- NOTE | 2019-04-20 17:39 | PROGRESS NOTE ---
DATE: 04/20/2019 SUBJECTIVE: This patient is lying in bed. He is complaining of abdominal pain but a little bit better after placing the NG tube down with suction. Gastroenterology Department evaluated this patient. Probably we need to get a paracenteses done and this has been already ordered by Gastroenterology Department. All of his p.o. medications will be on hold because of the NG tube and I have placed this patient on morphine 1 to 2 mg every 4 hours. We will try to use morphine, but not that much, and I explained to him and answered all of his questions. On the other hand, we discussed his advanced directive in front of his . He is completely awake, alert, and oriented x3. After discussing the whole situation and even though this patient has a history of rectal cancer, COPD, CHF, coronary artery disease, liver cirrhosis, he has decided to go ahead and be a full code. The at the bedside and agrees with that. We discussed his advanced directives for about 15 minutes. OBJECTIVE: Vital Signs: Temperature 98.1 degrees, pulse 115, respiratory rate 19, blood pressure 121/61, oxygen saturation 98 on room air. HEENT: Head normocephalic. No trauma. PERRLA. Neck: Supple. I can see some JVD. Central trachea. Chest: Coarse breath sounds at the bases with some crepitus. Mild rales. Abdomen: Distended. It is not soft. No signs of peritoneal irritation, but he does have ascites. Extremities: No clubbing. No cyanosis. Neurological: The patient is alert and oriented x3. No focal deficits. LABORATORY: Pending lab work today. ASSESSMENT AND PLAN: 1. Abdominal distention, which is probably related to an ileus. He does have some bowel sounds but decreased. An NG tube with suction has been placed. We will continue to monitor and we will follow the recommendations of Gastroenterology Department. 2. Rectal cancer. Followed by Dr. Jacobs, who has recommended an evaluation by Infectious Disease Department. 3. Urinary tract infection with Enterobacter and Pseudomonas. I will continue for now with the same management. Infectious Disease Department is about to see the patient. He has leukocytosis. 4. Severe protein calorie malnutrition. Aware. Hopefully, we will restart his diet once he is able to tolerate it. 5. Liver cirrhosis with elevated alkaline phosphatase and bilirubin. Will monitor for now. He will get hopefully a paracentesis done today. 6. History of alcoholism. Aware. 7. History of coronary artery disease and congestive heart failure. Aware. I believe his last echocardiogram was done recently on 03/28/2019. That showed an ejection fraction of 40 to 45% with enlargement of the left ventricular chamber and impairment of the interventricular septum. Also, he does have some pulmonary hypertension with an estimated pulmonary pressure of 50 to 55 mmHg. 8. History of chronic obstructive pulmonary disease. Aware. cc: MD Armani June MD
[2019-04-20] MEDS: MORPHINE IV PRN ×2 (18:07→22:19)
--- NOTE | 2019-04-20 18:20 | Diag Imaging Result Doc PS360 ---
US ABD PARACENTESIS W S/I - 04/20/2019 INDICATION: evaluate for ascites r/o SBP COMPARISON: MRI abdomen 04/19/2019 FINDINGS: The risks and benefits of the procedure were discussed with the patient. All questions were answered. Written and verbal consent was obtained. Ultrasound scanning demonstrated highly complex, septated ascites. Overlying skin was prepped and draped in sterile fashion. Anesthesia was achieved with injection of 10 cc 1% lidocaine. The paracentesis catheter was advanced until the return of ascites fluid. 1 L was aspirated. The catheter was withdrawn intact. The patient reported no symptoms from the procedure. IMPRESSION: Successful and uncomplicated ultrasound-guided paracentesis. Highly complex, echogenic, septated ascites. Electronically signed by Tl Irizarry 04/20/2019 6:18 PM
--- NOTE | 2019-04-20 18:35 | GASTROENTEROLOGY CONSULTATION ---
DATE: 04/20/2019 REASON FOR THE CONSULT: Elevated bilirubin and cirrhosis. HISTORY OF PRESENT ILLNESS: Mr. Calixto is a 58-year-old male with a history of cirrhosis, squamous cell cancer of the anus, diabetes mellitus, ischemic heart disease, status post cholecystectomy with laparoscopic liver biopsy, which was done on 03/22/2019. The patient was recently discharged from the hospital in March. The patient is back in the hospital with complaints of abdominal pain and distention and has been stating that the patient is refusing to eat. The patient has denied any vomiting, diarrhea, or constipation, or any fever, chills, shortness of breath, but he does complain of nausea and abdominal distention. Patient has a bandage on his right abdomen, stated that he had a tube taken out. PAST MEDICAL HISTORY: Ischemic heart disease, type 2 diabetes, squamous cell cancer of the anus, hypertension, sleep apnea, COPD, liver cirrhosis, GERD and GERDA. PAST SURGICAL HISTORY: Cholecystectomy, liver biopsy, attempted ERCP by Dr. Fisher and postop ileus. SOCIAL HISTORY: The patient used to drink alcohol 1 to 2 drinks daily until he was admitted last time in the hospital. He has done that for the last 2 weeks. He is . He lives with his . He has children that are close by and active in taking care of him. ALLERGIES: He has denied any allergies. HOME MEDICATIONS: Amlodipine 5 mg daily, Flexeril 10 mg 3 times a day, lisinopril 40 mg daily, metoprolol 100 mg daily, spironolactone 25 mg daily, hydrochlorothiazide 25 mg daily, isosorbide mononitrate 30 mg daily, albuterol sulfate 2 puffs p.r.n., colchicine 0.6 mg 4 times a day, omeprazole 40 mg daily, Flomax 0.4 mg daily, hydrocodone/acetaminophen 10/325 one tablet every 6 hours as needed for pain. REVIEW OF SYSTEMS: As per HPI. Otherwise, 12 point review of system is negative. PHYSICAL EXAMINATION: Vital Signs: Temperature 98.1, pulse 115, respirations 19, blood pressure 121/61, oxygen saturation 98% on room air. The patient's weight is 184 pounds. BMI is 29.9 kg/m2. General: He is alert, oriented x3, and in no acute distress. HEENT: Pale conjunctivae. Positive icterus. Pupils PERRL. Neck: Supple. Lungs: Diminished breath sounds heard in the anterior guo. Cardiovascular: The patient is tachycardic. Abdomen: Distended, tender. Hypoactive bowel sounds heard in all 4 quadrants. Extremities: No clubbing. No cyanosis. No edema. Pedal pulses 2+, present. Neurologic: He is alert, oriented x3. Nonfocal. Cranial nerves 2-12 grossly intact. LABORATORY DATA: WBCs 16.88, RBC 2.76, hemoglobin 7.7, platelet count 101,000. Sodium 137, potassium 3.8, chloride 111, carbon dioxide 17, anion gap 9, BUN 22, creatinine 1.1, glucose 116, calcium 8.1, magnesium 1.8. Total bilirubin 3.80, AST 19, ALT 13, alkaline phosphatase 217. Chest x-ray has shown good nasogastric tube placement. MRCP on 04/19/2019 showed limited details apparently due to artifacts from the motion. No discrete bilateral ductal abnormality. Abdomen x- ray showed gas distended loops of small bowel as described that are not as extensive as the previous study. Abdomen and pelvis CT showed multiple distended loops of small bowel that are similar, but probably slightly less extensive than the previous study, suggesting obstruction, ascites that is similar to the previous study, evidence of cirrhosis and splenomegaly and other. IMPRESSION AND PLAN: 1. Abdominal distention secondary to ascites. 2. Alcoholic liver cirrhosis. 3. History of anal cancer. 4. Acute kidney injury. 5. Anemia. 6. Hypertension. 7. Chronic obstructive pulmonary disease. 8. Diabetes type 2. 9. Coronary artery disease, status post myocardial infraction 5 years ago. 10. Recent cholecystectomy, status post cholecystectomy. PLAN: Mr. Calixto is a 58 year old male, who presented to the hospital with abdominal pain and distention, GI has been consulted for elevated bilirubin and cirrhosis. dThe patient is currently n.p.o. An NG tube has been placed for stomach decompression. We have ordered an ultrasound-guided abdominal paracentesis and will check the fluid for cell count with differential and culture. The patient's urine culture on 04/14 had shown that he has Enterobacter aerogenes and Pseudomonas aeruginosa. The patient is currently on MVI fluid at 150 mL, normal saline at 75 mL. He is on antiemetic, Zofran for his nausea and vomiting. Patient is currently on antibiotics, Merrem and vancomycin. We will continue to monitor the patient's CBC, BMP and awaiting the results of the ultrasound-guided paracentesis with fluid culture. This plan was discussed with Dr. Cuba. Thank you for your consult. Please call us for any further questions or concerns. Dictated by NERIS Smallwood for Golden Cuba MD cc: Armani Bender MD Physician Attestation I have seen and examined the patient. I have discussed and reviewed the note by Etta CORDON and agree with findings and plan as documented. In brief, Mr. Calixto is a 58 year old man with rectal cancer was recently hospitalized with newly decompensated ETOH cirrhosis with ascites and PSE in setting of post-operative ileus and secondary E coli peritonitis who represents with abdominal pain, distension, fever, and confusion found to have leukocytosis from UTI. He has been having some NBNB emesis. His abdomen is distended, tense, and tympanic concerning for obstruction vs ileus. Will make NPO and NGT for decompression and obtain diagnostic paracentesis. ID and oncology are following. On abx per ID. MRCP was negative for biliary obstruction. His abnormal LFTs are secondary to his underlying decompensated cirrhosis. Anemia; stable. No overt bleeding. Will follow with you. Please call with questions. MTDD
--- NOTE | 2019-04-20 21:03 | INFECTIOUS DISEASE PROGRESS NO ---
DATE: 04/20/2019 HISTORY OF PRESENT ILLNESS: Mr. Calixto was treated on his last admission for a postop leukocytosis, and grew Escherichia coli from his abdomen, and possibly a fungus that did not actually grow out, but he did improve on micafungin and Rocephin. On this admission, he has been found to have a urinary tract infection with Enterobacter and Pseudomonas growing as well as a leukocytosis and fever. He may have another abdominal origin of infection at this point. MEDICATIONS: He has been receiving vancomycin and meropenem, both of which we will stop today. PHYSICAL EXAMINATION: Vital Signs: Temperature 98.1, pulse rate 115, respiratory rate 19, blood pressure 121/61, O2 saturation 98% on room air. General: This is a [id number], middle-aged gentleman. He is lying in the bed currently in no acute distress. HEENT: Atraumatic, normocephalic. Oral mucous membranes are pink and moist. Sclerae are icteric. Conjunctivae are pale. There is an NG tube to the right naris, set to low intermittent suction. Respiratory: Lung sounds are clear in the upper lobes and right middle lobe. Diminished in the bases. No work of breathing is noted. Cardiovascular: Heart rate is regular and fast. He is not on a monitor at this time. Abdomen: Firm and protuberant. Bowel sounds are audible. There is a small wound to the right upper quadrant with a pink wound bed, which I believe is from the previous WOODY drain. Integumentary: Skin is warm and dry. There are other areas of eschar noted to the abdomen from his previous surgery, and 1+ pretibial edema noted bilaterally. There is a right chest Port-A-Cath site which is free from edema, erythema or drainage. LABORATORY AND X-RAY: Today his white count is 16.88, hemoglobin 7.7, platelet count 101,000. Creatinine is 1.1. Estimated GFR is greater than 60. His urine culture grew an Enterobacter and a Pseudomonas. Chest x-ray today shows stable ill-defined infiltrates to the left lung base. These were previously associated with fibrosis. ASSESSMENT AND PLAN: Mr. Calixto has been readmitted to the hospital for a leukocytosis with urinary tract infection. There may possibly be an abdominal origin of infection as well. It looks as though a paracentesis has been planned. We will add on cytology to be done. We have discontinued vancomycin and meropenem and are starting him on cefepime 2 g IV every 8 hours which will cover the Enterobacter and the Pseudomonas. We will also follow along the cultures and other tests on the paracentesis fluid. These plans have been discussed with and recommended by Dr. Hagen. COMORBIDITIES: Anal squamous cell carcinoma, anemia of chronic disease, coronary artery disease, cirrhosis of the liver, and ascites. Dictated by NERIS Harper for Shree Hagen MD cc: MD Armani Ugalde MD MTDD
[2019-04-21] MEDS: MORPHINE IV PRN ×6 (01:43→21:17)
[2019-04-21] MEDS: ZOFRAN IV PRN ×2 (01:43→09:36)
[2019-04-21] MEDS: NS 1,000 ML IV SCH (04:55)
[2019-04-21] MEDS: MAXIPIME 2 GM in NS 100 ML IV SCH ×5 (06:18→22:42)
[2019-04-21 07:40] LABS: AGAP 12; ALB/GLOB RATIO 0.4; ALBUMIN 1.7 g/dL (3.5-5.0); ALKALINE PHOSPHATASE 199 U/L (32-122); BUN 22 mg/dL (8-22); CHLORIDE 108 mmol/L (98-107); COSMO 283; CREATININE 0.8 mg/dL (0.7-1.2); ESTIMATED GFR > 60; GLUCOSE 105 mg/dL (70-104); GOT 17 U/L (10-34); GPT 10 U/L (10-44); SODIUM 140 mmol/L (136-145); TCO2 20 mmol/L (25-35); TOTAL BILIRUBIN 2.24 mg/dL (0.20-1.00)
[2019-04-21 07:49] LABS: MAGNESIUM 1.8 mg/dL (1.5-2.7); PHOSPHORUS 3.5 mg/dL (2.7-4.5)
[2019-04-21 07:53] LABS: BASO# 0.03 X1000 (0.0-0.2); BASO% 0.2 % (0.0-0.8); EOS# 0.14 X1000 (0.0-0.7); EOS% 1.1 % (0.0-10.0); HEMATOCRIT 24.1 % (42.0-52.0); HEMOGLOBIN 7.6 g/dL (14.0-18.0); IMM GRAN# 0.04 X1000 (0.0-0.04); IMM GRAN% 0.3 % (0.0-0.5); LYMPH# 2.42 X1000 (1.2-3.4); LYMPH% 18.9 % (20.5-51.1); MCH 27.6 PG (27-31); MCHC 31.5 g/dL (33-37); MCV 87.6 FL (81-99); MONO# 1.47 X1000 (0.11-0.59); MONO% 11.5 % (1.7-9.3); MPV 11.9 FL (7.4-10.4); NEUT# 8.69 X1000 (1.4-6.5); PLT 133 X1000 (130-400); RBC 2.75 XMIL (4.7-6.1); RDW 17.4 % (11.5-14.5); WBC 12.79 X1000 (4.8-10.8)
[2019-04-21] MEDS ORDERED: MISC. PHARMACY COMMUNICATION SCH (09:30)
[2019-04-21] MEDS ORDERED: ALBUMIN 25% IV ONE (10:10)
--- NOTE | 2019-04-21 10:40 | Diag Imaging Result Doc PS360 ---
KUB ABDOMEN - 04/21/2019 INDICATION: Cirrhosis and ascites COMPARISON: 04/18/2019 FINDINGS: There is mild constipation with mild rectal stool impaction. There are several abnormally distended small bowel loops stable from prior. No free air. IMPRESSION: Abnormally distended small bowel loops consistent with ileus or partial obstruction. Constipation with mild rectal stool impaction. Electronically signed by Tl Irizarry 04/21/2019 10:38 AM
[2019-04-21] MEDS: IMDUR PO SCH ×2 (10:53→15:18)
[2019-04-21] MEDS: LOPRESSOR PO SCH ×2 (10:53→19:07)
[2019-04-21] MEDS: PRINIVIL PO SCH ×2 (10:53→15:19)
[2019-04-21] MEDS: NON-FORMULARY BULK MED PR SCH ×2 (10:54→21:57)
[2019-04-21] MEDS: LOPRESSOR IV SCH ×3 (12:00→22:37)
--- NOTE | 2019-04-21 12:07 | HEMO/ONC PROGRESS NOTE ---
DATE: 04/21/2019 SUBJECTIVE: The patient is lying in bed this morning. His is helping him get cleaned up for the day prior to eating breakfast. He states that he does feel better than he did yesterday. He states he has some abdominal pain, but it has felt much better since placing the NG tube. He does have complaints of the NG tube making his throat sore. He otherwise has no complaints. He had a good night's sleep. OBJECTIVE: Vital Signs: Temperature 98.3 degrees, pulse rate 120, respiratory rate 16, blood pressure 124/60, O2 saturation 97% on room air. He is in about 5/10 abdominal pain. General: This is a chronically ill-appearing male in no acute distress. HEENT: Icterus is present. PERRLA. Oral mucosa is dry. NG tube in place. Cardiovascular: Normal S1, S2. Heart rate and rhythm is regular. Respiratory: Lungs are clear to auscultation, although diminished toward the bases. Normal respiratory effort. Gastrointestinal: Abdomen is distended, but still malleable. Slight tenderness to palpation. Bowel sounds are audible. Extremities: No lower extremity edema noted. Neurological: Awake and alert. Answers questions appropriately. LABORATORY DATA: WBCs 12.79, hemoglobin 7.6, hematocrit 24.1, platelet count 133,000. Creatinine 0.8, calcium 8.0, bilirubin 2.24, alkaline phosphatase 199. RADIOLOGY: Abdominal x-ray shows abnormally distended bowel loops consistent with ileus or partial obstruction, constipation with mild rectal stool impaction. ASSESSMENT AND PLAN: 1. Anal squamous cell carcinoma. The patient's treatments are still on hold as the patient is recovering from his cholecystectomy and hospitalization for peritonitis. We were hoping to start it next week, but may have to hold it again due to this hospitalization. 2. Alcoholic cirrhosis and splenomegaly. Will continue to monitor. 3. Normocytic anemia. We are aware. The patient is status post 1 dose of intravenous iron on 02/10/2019. He also has a folate deficiency. He is on replacement. 4. Urinary tract infection. The patient's culture shows Enterobacter aerogenes and Pseudomonas aeruginosa. Dr. Hagen is following. 5. Anorexia and weight loss. When the patient is able to eat, we will need to add protein shakes to his daily meals. He is encouraged to monitor calories and attempt an adequate calorie intake daily. He also needs to continue exercise and move about his room as allowed. 6.Possible Ileus versus Small bowel obstruction: NG tube has helped the patients pain and distention. Surgery is following. 7. Recent Cholecystectomy and peritonitis. Dictated by NERIS Stout for Gaurav Jacobs MD cc: MD Armani Magana MD [facility]
--- NOTE | 2019-04-21 12:11 | GASTROENTEROLOGY PROGRESS NOTE ---
DATE: 04/21/2019 SUBJECTIVE: Mr. Calixto is 58-year-old male, he is resting in bed, family at the bedside. The patient is alert and oriented x2. He is complaining about his abdominal pain but did mention that he is feeling a little better than yesterday.. The patient had 2 bowel movements yesterday but not today. He is having NG tube on intermittent suction, so far the fluid from the NG tube drainage is 1500 mL. OBJECTIVE: Vital Signs: Temperature 98.3 degrees, pulse is 120, respirations 16, blood pressure 124/60, oxygen saturation 97%. He is on room air. The patient's weight is 184 pounds. BMI is 24, 29.9 kg/m2. General: He is alert, oriented x2, and in no acute distress. HEENT: Pale conjunctivae. Positive icterus. PERRL. Neck: Supple. Lungs: Diminished breath sounds heard in the anterior guo. Cardiovascular: The patient is tachycardic. Abdomen: Nondistended, nontender, hypoactive bowel sounds heard in all 4 quadrants. Extremities: No clubbing, no cyanosis. Generalized edema noted in bilaterally. Pedal pulses 1+ present. Neurologic: He is alert and oriented x2. LABORATORY DATA: WBC is 12.79, RBC 2.75, hemoglobin 7.6, hematocrit 24.1, platelet count 133,000. PT 16.7, INR 1.33, sodium 140, potassium 4.0, chloride 108, carbon dioxide 20, anion gap 12, BUN 22, creatinine 0.8, glucose 105, calcium 8.0, phosphorus 3.5, magnesium 1.8, total bilirubin 2.24, AST 17, ALT 18, alkaline phosphatase 199, albumin 1.7. Urinalysis showed protein of 30, trace of ketones, and a small amount of bilirubin. MICROBIOLOGY: His urine culture on 04/16 was positive for Enterobacter aerogenes and Pseudomonas aeruginosa. IMPRESSION AND PLAN: Abdominal distention secondary to ascites Alcoholic liver cirrhosis History of anal cancer Acute Kidney Injury Anemia Malnutrition Hypertension COPD Diabetes type II CAD s/p ND S/P cholecystectomy PLAN: Mr. Calixto is a 58-year-old male who presented to the hospital with abdominal pain and distention. GI is following him for his cirrhosis and ascites. The patient is currently n.p.o. and has an NG tube on low intermittent suction, so far it has drained almost 1500 mL as documented. An ultrasound-guided abdominal paracentesis was done on 04/20/19, awaiting the results of the ascitic fluid. We ordered a KUB of the abdomen and it showed abnormally distended small bowel loops consistent with ileus or partial obstruction. Constipation with mild rectal stool impaction. Patient is getting lactulose enemas BID, we will hold it if he has >3 BM in 24 hour period.. Will order another KUB for tomorrow morning to find out the status of his constipation, rectal impaction and bowel obstruction. The patient is receiving antibiotic Maxipime for his UTI per ID. He is currently on IV fluids 75 mL and he is also receiving the MVI fluid at 150 mL. We have also ordered Albumin 50 gm one time dose. A copper tapper consult has been ordered for his malnutrition. . We will continue to monitor the patient and follow the plan of care per PCP. This plan was discussed with Dr. Cuba. Please call us for any further questions or concerns. Dictated by NERIS Smallwood for Golden Cuba MD cc: Armani Bender MD Physician Attestation I have seen and examined the patient. I have discussed and reviewed the note by Etta CORDON and agree with findings and plan as documented. In brief, Mr. Calixto is a 58 year old man with rectal cancer was recently hospitalized with newly decompensated ETOH cirrhosis with ascites and PSE in setting of post-operative ileus and secondary E coli peritonitis who represents with abdominal pain, distension, fever, and confusion found to have leukocytosis from UTI. He had NGT placed for decompression of ileus vs partial SBO. He has had 1500mL of bilious fluid suctioned in last 24 hours. Tmax 100.0. Patient had paracentesis with 1L removed; there was no fluid sent off for studies or culture unfortunately. Recommend nutrition consultation for clinimix for given protein calorie malnutrition and lactulose enemas for confusion. Continue abx as per ID. He is anemic; no overt bleeding. Will follow with you. Please call with questions. MTDD
--- NOTE | 2019-04-21 17:02 | PROGRESS NOTE ---
DATE: 04/21/2019 SUBJECTIVE: The patient is lying comfortably in bed. He seems to be feeling better. As per report, one liter of fluid has been removed with a successful and uncomplicated ultrasound guided paracentesis. Also, as per the nurse report, more than 2.5 liters of fluid has been removed with the NG tube. OBJECTIVE: Vital Signs: Temperature 98.3 degrees, pulse 120, respiratory rate 16, blood pressure 124/60, oxygen saturation 97 on room air. HEENT: Head normocephalic. No trauma. PERRLA. Neck: Supple. No JVD. No masses. Central trachea. Chest: Coarse breath sounds at the bases with some crepitus. Mild rales. Abdomen: Distended. It is not soft. No signs of peritoneal irritation, but he does have ascites. Extremities: No clubbing. No cyanosis. Some edema. Neurological: The patient is sleepy but arousable. He is following commands. No focal deficits but generalized weakness. LABORATORY: WBC 12.7, hemoglobin 7.6, hematocrit 24.1, platelets 133,000. Sodium 140, potassium 4, chloride 108, bicarbonate 20, BUN 22, creatinine 0.8, glucose 105, calcium 8, albumin 1.7. ASSESSMENT AND PLAN: 1. Abdominal distention, likely related to an ileus. Also, we have an abdomen and pelvis, chest x-ray that showed constipation with mild rectal stool impaction. Also, abnormally distended small bowel loops consistent with ileus or partial obstruction. Gastroenterology Department is following this patient. We gave him an enema. Let us see how he does with that. 2. Rectal cancer. Followed by Dr. Jacobs. 3. Urinary tract infection with Enterobacter and Pseudomonas. Continue with antibiotics per Infectious Disease Department. 4. Severe protein calorie malnutrition. Aware. Hopefully, we will restart his diet once he is able to tolerate it. 5. Liver cirrhosis with elevated alkaline phosphatase and bilirubin. Will monitor for now. 6. History of alcoholism. Aware. 7. History of coronary artery disease and congestive heart failure. Aware. Last echocardiogram was done recently on 03/28/2019. That showed an ejection fraction of 40 to 45% with enlargement of the left ventricular chamber and impairment of the interventricular septum. Also, he does have some pulmonary hypertension with an estimated pulmonary pressure of 50 to 55 mmHg. 8. History of chronic obstructive pulmonary disease. Aware. cc: MD Armani June MD
--- NOTE | 2019-04-21 17:50 | INFECTIOUS DISEASE PROGRESS NO ---
DATE: 04/21/2019 PRESENT ILLNESS: The patient has an Enterobacter and Pseudomonas urinary tract infection. MEDICATIONS: The patient is on cefepime. This is day 1 of treatment with that agent. PHYSICAL EXAMINATION: Vital Signs: Temperature is 98.3 degrees, pulse 120, respirations 16, blood pressure is 124/60. General: This is a chronically ill-appearing, middle-aged male. He is in no acute distress. Head, eyes, ears, nose, and throat: He can hear my spoken words and see near objects. There are no white patches on his tongue. He does have an NG tube in place. Neck: No meningismus. Lungs: Clear to auscultation. Cardiovascular: Regular heart rate. Abdomen: Firm and protuberant. It was not tender to light palpation. The patient has on the abdomen some wounds. None of them purulent and they look like they are clearing up well. Neurologic: The patient is alert. He is able to ambulate. There is no tremor. Thorax: The patient has a Port-A- Cath present on the right side. The site is not swollen or purulent. DIAGNOSTIC STUDIES: X-ray of the abdomen shows several distended bowel loops, which is compatible with bowel obstruction. Creatinine is 0.8 GFR is greater than 60. CBC shows a white count of 12,740, hemoglobin 7.6, and platelet count 133,000. As mentioned earlier, the patient's urine grew Enterobacter and Pseudomonas. ASSESSMENT AND PLAN: The patient has a urinary tract infection which I am treating with cefepime. I am going to continue cefepime. The patient's white count is coming down. COMORBIDITIES: The patient has anal carcinoma, anemia of chronic disease, coronary artery disease, and cirrhosis of the liver with an associated ascites. cc: MD Armani Ugalde MD
[2019-04-22] MEDS: MORPHINE IV PRN ×4 (01:51→20:48)
[2019-04-22] MEDS: MAXIPIME 2 GM in NS 100 ML IV SCH ×3 (06:50→20:48)
[2019-04-22 07:29] LABS: BASO# 0.03 X1000 (0.0-0.2); BASO% 0.3 % (0.0-0.8); EOS# 0.17 X1000 (0.0-0.7); EOS% 1.5 % (0.0-10.0); HEMATOCRIT 22.9 % (42.0-52.0); HEMOGLOBIN 7.2 g/dL (14.0-18.0); IMM GRAN# 0.03 X1000 (0.0-0.04); IMM GRAN% 0.3 % (0.0-0.5); LYMPH# 1.91 X1000 (1.2-3.4); LYMPH% 17.1 % (20.5-51.1); MCH 27.8 PG (27-31); MCHC 31.4 g/dL (33-37); MCV 88.4 FL (81-99); MONO% 11.6 % (1.7-9.3); NEUT# 7.74 X1000 (1.4-6.5); NEUT% 69.2 % (42.2-75.2); PLT 134 X1000 (130-400); RBC 2.59 XMIL (4.7-6.1); RDW 17.5 % (11.5-14.5); WBC 11.18 X1000 (4.8-10.8)
[2019-04-22 07:41] LABS: AGAP 15; ALB/GLOB RATIO 0.5; ALBUMIN 2.1 g/dL (3.5-5.0); ALKALINE PHOSPHATASE 162 U/L (32-122); BUN 21 mg/dL (8-22); CALCIUM 8.2 mg/dL (8.8-10.2); CHLORIDE 109 mmol/L (98-107); COSMO 286; CREATININE 0.9 mg/dL (0.7-1.2); ESTIMATED GFR > 60; GLUCOSE 92 mg/dL (70-104); GOT 16 U/L (10-34); GPT 8 U/L (10-44); POTASSIUM 3.5 mmol/L (3.5-5.1); SODIUM 142 mmol/L (136-145); TCO2 18 mmol/L (25-35); TOTAL BILIRUBIN 2.09 mg/dL (0.20-1.00); TOTAL PROTEIN 6.2 g/dL (6.3-8.3)
[2019-04-22 07:54] LABS: LYMPHS 18 % (21-51); MONO 2 % (1-9); SEGS 78 % (42-75)
[2019-04-22] MEDS: PRINIVIL PO SCH (08:20)
[2019-04-22] MEDS: IMDUR PO SCH (08:20)
--- NOTE | 2019-04-22 09:04 | Diag Imaging Result Doc PS360 ---
EXAM: KUB ABDOMEN HISTORY: Constipation, impaction partial obstruction. TECHNIQUE: Single view COMPARISON: 04/21/2019 FINDINGS: Air distended loops of small bowel remain. There is stool in colon. No organomegaly. The gallbladder has been removed. IMPRESSION: Persistent ileus or partial obstruction. Electronically signed by Andre Toro 04/22/2019 9:02 AM
[2019-04-22] MEDS ORDERED: NS 500 ML IV ONE (09:08)
[2019-04-22] MEDS: NON-FORMULARY BULK MED PR SCH ×2 (10:26→22:30)
[2019-04-22] MEDS: CLINIMIX E 4.25%-5% SOLUTION 1,000 ML IV SCH (10:26)
[2019-04-22] MEDS: LOPRESSOR IV SCH (12:07)
--- NOTE | 2019-04-22 13:03 | PROGRESS NOTE ---
DATE: 04/22/2019 SUBJECTIVE: This patient is lying comfortably in bed. He seems to be feeling better. He is still complaining of abdominal pain and his abdomen is still distended. Gastroenterology department has recommended to give him another enema, also start this patient on Clinimix. He received some albumin yesterday. His albumin level today input is a bit better but still low. OBJECTIVE: Vital Signs: Temperature 98.1 degrees, pulse 125, respiratory rate 16, blood pressure 137/64, oxygen saturation 96 on room air. HEENT: Head normocephalic, no trauma PERRLA. Neck: Supple. No JVD. No masses. Central trachea. Chest: Coarse breath sounds at the bases with some crepitus. Abdomen: Distended, is not soft. He does have some mild bowel sounds. No does have some ascites as well and generalized pain. Extremities: No clubbing, no cyanosis, some edema. Neurological: The patient is awake, alert. He is following commands. Generalized weakness. LABORATORY: WBC 11.1, hemoglobin 7.2, hematocrit 22.9, platelets 134,000. Sodium 142, potassium 3.5, chloride 109, bicarbonate 18, BUN 21, creatinine 0.9, glucose 92, calcium 8.2, AST 16, ALT 8, alkaline phosphatase 162, albumin 2.1. ASSESSMENT AND PLAN: 1. Abdominal distention, likely related to ileus. Gastroenterology Department on board. Apparently, he had a bowel movement yesterday and he has been getting enemas. We will continue following the recommendations of Gastroenterology Department and Dr. Jacobs. 2. Rectal cancer followed by Dr. Jacobs. 3. Urinary tract infection with Enterobacter and Pseudomonas. Continue with antibiotics per Infectious Disease Department. 4. Severe protein calorie malnutrition, aware. Today we have started this patient on Clinimix. 5. Liver cirrhosis with elevated alkaline phosphatase and bilirubin. We will monitor for now. 6. History of alcoholism. Aware. 7. History of coronary artery disease and congestive heart failure. Aware. Last echocardiogram was done recently on 03/28/2019 and showed an ejection fraction of 40 to 45 percent with enlargement of the left ventricular chamber and impairment of the interventricular septum. He also have pulmonary hypertension with a pulmonary arterial pressure estimated at 50 to 55 mmHg. 8. History of chronic obstructive pulmonary disease, aware. 9. Anemia, he will be transfused today. cc: MD Armani June MD
--- NOTE | 2019-04-22 17:07 | HISTORY AND PHYSICAL ---
CHIEF COMPLAINT: Fever. HISTORY OF PRESENT ILLNESS: The patient is a 58-year-old male who presented to the ER with a complaint of fever. He has recently been diagnosed with rectal cancer, ascites, and cirrhosis. He has recently undergone cholecystectomy. The patient denies any true abdominal pain. He has had a decreased oral intake, but denies any nausea, vomiting. Currently denies dysuria, frequency. Denies constipation, melena, hematochezia. ALLERGIES: No known drug allergies. MEDICATIONS: Norvasc 5, Flexeril, Zestril 40, Lopressor 100, spironolactone 25, hydrochlorothiazide 25, Imdur 30, Ventolin, Ambien 10, morphine. REVIEW OF SYSTEMS: Somewhat difficult to obtain from Mr. Calixto as he is somewhat confused, does not answer questions appropriately. His brother is in the room and notes that he has been confused for the past couple of days. Brother, however, denies any fever prior to yesterday. He denies any knowledge of GI or issues otherwise. PAST MEDICAL HISTORY: Significant for known coronary artery disease, congestive heart failure, hypertension, COPD, history of sleep apnea, recently diagnosed with rectal cancer, recently diagnosed with cirrhosis and ascites, history of gout, chronic pain. SURGICAL HISTORY: He has had a cholecystectomy approximately a week ago. FAMILY HISTORY: Noncontributory. SOCIAL HISTORY: He does have a long history of smoking. He has just recently stopped drinking alcohol, which apparently he was drinking daily and rather heavily. PHYSICAL EXAMINATION: VITAL SIGNS: Reviewed. Temp 99.2 degrees, pulse 108, respiratory 20, BP 119/80, saturating 96% on room air. GENERAL: Patient is awake. Currently in no respiratory distress. He is somewhat confused. Does not answer questions appropriately. HEENT: Normocephalic. NECK: Supple. CARDIOVASCULAR: Regular rate. CHEST: Clear and unlabored. ABDOMEN: Soft, distended but appears nontender. No fluid wave. Decreased but present bowel sounds. EXTREMITIES: Moves all extremities. No edema. NEUROLOGIC: No focal neurological changes. SKIN: Warm and dry. No rashes. ASSESSMENT: 1. Fever. 2. Anemia. 3. Cirrhosis with ascites. 4. Hypomagnesemia. 5. Hyperalbuminemia, which is likely causing his acute metabolic encephalopathy. 6. Urinary tract infection. 7. Rectal cancer. PLAN: We are going to continue patient in the hospital. Continue to follow his symptoms. Further orders as needed. Will place him on antibiotics, lactulose, IV fluids, and will follow. cc: Armani Bender MD
[2019-04-22] MEDS: ZOFRAN IV PRN (20:48)
--- NOTE | 2019-04-22 22:14 | PROVIDER PROGRESS NOTE ---
Progress Note S: No acute overnight events. +BMs. Continued nausea and abdominal distension. Afebrile. Last Vital Signs Temp 99.9 F H 04/22/19 20:13 Pulse 121 H 04/22/19 20:13 Resp 18 04/22/19 20:13 BP 157/77 04/22/19 20:13 Pulse Ox 98 04/22/19 20:13 Height 5 ft 6 in Weight 185 lb GEN: awake, alert, NAD HEENT: NGT in place, MMM, EOMI, anicteric NECK: supple, no JVD PULM: CTAB anteriorly CARDS: tachycardic, regular ABD: distended, tympanic, BS hypoactive, mild diffuse TTP throughout EXT: no cce NEURO: mild asterixis 04/22/19 04/22/19 04/22/19 05:59 07:00 07:00 WBC 11.18 H Hgb 7.2 L Plt Count 134 Sodium 142 Potassium 3.5 Chloride 109 H Carbon Dioxide 18 L BUN 21 Creatinine 0.9 POC Glucose 93 Total Bilirubin 2.09 H AST 16 ALT 8 L Alkaline Phosphatase 162 H Total Protein 6.2 L Albumin 2.1 L A/P: Mr. Calixto is a 58 year old man with rectal cancer was recently hospitalized with newly decompensated ETOH cirrhosis with ascites and PSE in the setting of post-operative ileus and secondary E coli peritonitis who represents with abdominal pain, distension, fever, and confusion found to have leukocytosis from UTI. He had NGT placed for decompression of ileus vs partial SBO. He has had copious amount of fluid removed via NGT. He has become progressively anemic without overt GI bleeding. Will transfuse 1 unit pRBC and repeat KUB. Will start Clinimix as well. If no improvement today, then will obtain CT A/B to reassess ileus vs evolving obstruction. His labs continue to improve. He remains tachycardic. # Decompensated ETOH cirrhosis - Cirrhosis: LFTs slightly improved - Ascites: s/p LVP with about 1L removed - PSE: receiving lactulose enemas; improved - EV screening: EGD in 02/2019; no overt GI bleeding - HCC screening: no hepatoma on imaging - OLT: not a candidate for liver transplant given malignancy # Ileus: persistent - KUB - continue NGT decompression - IVFs, correcting lytes - minimize constipating medications # Sepsis 2/2 to UTI +/- peritonitis - on abx per ID # Anemia: slightly worse today - transfusing 1 unit, transfuse prn goal hgb 7-8 - avoid blood thinners/NSAIDs - PPI once daily # Severe protein calorie malnutrition - starting clinimix Will follow with you. Please call with questions
[2019-04-23] MEDS: LOPRESSOR IV SCH ×2 (01:18→11:51)
[2019-04-23] MEDS: MORPHINE IV PRN ×2 (01:19→05:43)
[2019-04-23] MEDS: MAXIPIME 2 GM in NS 100 ML IV SCH ×3 (01:19→17:00)
[2019-04-23] MEDS: ZOFRAN IV PRN ×2 (01:19→05:43)
[2019-04-23 07:12] LABS: BASO# 0.03 X1000 (0.0-0.2); BASO% 0.3 % (0.0-0.8); EOS# 0.19 X1000 (0.0-0.7); EOS% 1.6 % (0.0-10.0); HEMATOCRIT 26.6 % (42.0-52.0); HEMOGLOBIN 8.6 g/dL (14.0-18.0); IMM GRAN# 0.03 X1000 (0.0-0.04); IMM GRAN% 0.3 % (0.0-0.5); LYMPH% 16.4 % (20.5-51.1); MCH 27.9 PG (27-31); MCHC 32.3 g/dL (33-37); MCV 86.4 FL (81-99); MONO% 12.1 % (1.7-9.3); MPV 12.1 FL (7.4-10.4); NEUT# 8.06 X1000 (1.4-6.5); NEUT% 69.3 % (42.2-75.2); PLT 146 X1000 (130-400); RBC 3.08 XMIL (4.7-6.1); RDW 16.7 % (11.5-14.5); WBC 11.61 X1000 (4.8-10.8)
--- NOTE | 2019-04-23 07:25 | Diag Imaging Result Doc PS360 ---
EXAM: CHEST/ABD TUBE PLACEMENT HISTORY: tube placement TECHNIQUE: Chest abdomen single view COMPARISON: 04/22/2019 FINDINGS: Interval placement of a nasogastric tube. This overlies the esophagus and stomach. There continue to be air distended loops of small bowel in the abdomen. The gallbladder has been removed. IMPRESSION: Nasogastric tube appears to be within the stomach Electronically signed by Andre Toro 04/23/2019 7:22 AM
[2019-04-23 07:27] LABS: AGAP 10; ALB/GLOB RATIO 0.4; ALKALINE PHOSPHATASE 157 U/L (32-122); BUN 22 mg/dL (8-22); CALCIUM 8.2 mg/dL (8.8-10.2); CHLORIDE 108 mmol/L (98-107); COSMO 284; CREATININE 0.8 mg/dL (0.7-1.2); ESTIMATED GFR > 60; GLUCOSE 154 mg/dL (70-104); GOT 17 U/L (10-34); GPT 8 U/L (10-44); POTASSIUM 3.4 mmol/L (3.5-5.1); SODIUM 139 mmol/L (136-145); TCO2 21 mmol/L (25-35); TOTAL BILIRUBIN 2.36 mg/dL (0.20-1.00); TOTAL PROTEIN 6.5 g/dL (6.3-8.3)
[2019-04-23 09:18] LABS: LYMPHS 8 % (21-51); SEGS 90 % (42-75)
[2019-04-23] MEDS: IMDUR PO SCH (09:29)
[2019-04-23] MEDS: OXY IR PO PRN ×3 (09:29→20:55)
[2019-04-23] MEDS: PRINIVIL PO SCH (09:30)
--- NOTE | 2019-04-23 09:33 | INFECTIOUS DISEASE PROGRESS NO ---
DATE: 04/23/2019 PRESENT ILLNESS: The patient has a Pseudomonas and Enterobacter urinary tract infection. MEDICATIONS: This is day 3 of treatment with cefepime. PHYSICAL EXAMINATION: Vital Signs: Earlier temperature was 100.3 degrees, now it is 98 degrees, pulse 126, respirations 18, blood pressure 143/79. General: This is a chronically ill-appearing, middle-aged male. He is in no acute distress. Head, eyes, ears, nose, and throat: He can hear my spoken words and see near objects. I did not see any white coating to the patient's tongue. The patient has a nasogastric tube in place. Neck: No pain with movement of the neck. Lungs: Clear to auscultation. Cardiovascular: Regular heart rate. Abdomen: Protuberant. The laparoscopic cholecystectomy incisions are healing well. The one in the middle near the umbilicus is slightly erythematous. The abdomen is also protuberant and there may be ascites present. Neurologic: The patient is awake. He can move his extremities. There is no tremor. LAB AND X-RAY: [place] [id number], hemoglobin 8.6, and platelet count 146,000. Creatinine 0.8, GFR is greater than 60. Bilirubin is 2.36, alkaline phosphatase is 157. Urine is growing Enterobacter and Pseudomonas. Blood culture is negative. ASSESSMENT AND PLAN: Patient has a urinary tract infection for which I plan on continuing cefepime. COMORBIDITIES: Anal carcinoma, anemia of chronic disease, coronary artery disease, cirrhosis of the liver along with ascites. cc: MD Armani Ugalde MD
[2019-04-23] MEDS: NON-FORMULARY BULK MED PR SCH (10:18)
[2019-04-23] MEDS ORDERED: POTASSIUM CHLORIDE 40 MEQ/SWI 40 MEQ/100 ML IVPB IV ONE (11:02)
--- NOTE | 2019-04-23 11:25 | PROVIDER PROGRESS NOTE ---
Progress Note S: NGT came out overnight and had to be replaced. He reports nausea and persistent abdominal distension. +BMs that are nonbloody. +flatus. No CP or SOB. His mental status has improved. O: Last Vital Signs Temp 98 F 04/23/19 07:46 Pulse 126 H 04/23/19 07:46 Resp 18 04/23/19 07:46 BP 143/79 04/23/19 07:46 Pulse Ox 93 L 04/23/19 07:46 Height 5 ft 6 in Weight 185 lb GEN: awake, alert, NAD HEENT: NGT in place, MMM, EOMI, anicteric NECK: supple, no JVD PULM: CTAB anteriorly CARDS: tachycardic, regular ABD: distended, tympanic, BS hypoactive, mild diffuse TTP throughout EXT: no cce NEURO: nonfocal; no asterixis 04/23/19 04/23/19 06:45 06:45 WBC 11.61 H Hgb 8.6 L D Plt Count 146 Sodium 139 Potassium 3.4 L Chloride 108 H Carbon Dioxide 21 L BUN 22 Creatinine 0.8 Glucose 154 H D Total Bilirubin 2.36 H AST 17 ALT 8 L Alkaline Phosphatase 157 H Total Protein 6.5 Albumin 2.0 L A/P: Mr. Calixto is a 58 year old man with rectal cancer was recently hospitalized with newly decompensated ETOH cirrhosis with ascites and PSE in the setting of post-operative ileus and secondary E coli peritonitis who represents with sepsis from UTI. He was also noted to have ileus vs partial bowel obstruction being treated with NGT decompression. Serial KUBs showed persistent SB bowel distension with stool in the colon. He has been receiving enemas well as lactulose [place]. We will repeat CT A/P W/O today since last was done 04/16 to reassess ileus. His hgb increased appropriately with transfusion and LFTs are stable. He remains tachycardic. WBC count is stable. He is on cefepime for UTI as per ID recommendations. Renal function preserved. # Decompensated ETOH cirrhosis - Cirrhosis: LFTs slightly improved - Ascites: s/p LVP with about 1L removed - PSE: improved; transition lactulose enemas to PO lactulose 30mL BID - EV screening: EGD in 02/2019; no overt GI bleeding - HCC screening: no hepatoma on imaging - OLT: not a candidate for liver transplant given malignancy # Ileus: persistent - CT today - continue NGT decompression - IVFs, correcting lytes - minimize constipating medications # Sepsis 2/2 to UTI +/- peritonitis - on abx per ID # Anemia: improved with transfusion - trending H/H, transfuse prn goal hgb 7-8 - avoid blood thinners/NSAIDs - ordered PPI once daily # Severe protein calorie malnutrition - continue clinimix - appreciate Nutrition recs Will follow with you. Please call with questions
[2019-04-23] MEDS ORDERED: ATIVAN IV ONE (11:28)
[2019-04-23] MEDS: PROTONIX IV SCH (11:51)
--- NOTE | 2019-04-23 12:55 | Diag Imaging Result Doc PS360 ---
EXAM: CT ABDOMEN/PELVIS W/O CONTRAST HISTORY: r/o obstruction. being treated for ileus TECHNIQUE: CT abdomen and pelvis without contrast COMPARISON: 04/16/2019 FINDINGS: The gallbladder has been removed. The spleen is enlarged measuring at least 7.9 x 16.7 x 16.2 cm. No focal hepatic normality identified on this noncontrasted exam. No inflammation about the pancreas. Normal adrenal glands. No renal stones. No hydronephrosis. Moderate atherosclerosis. Moderate ascites remains. A nasogastric tube enters the stomach. There are multiple dilated loops of small bowel filled with air and fluid. There is also stool within the proximal and mid colon. The urinary bladder is only mildly distended. The prostate is not enlarged. IMPRESSION: 1.Persistent small bowel obstruction as well as constipation 2.Cirrhosis with splenomegaly and ascites similar to the prior exam 3.Cholecystectomy 4.Prominent atherosclerosis This exam was performed using automated exposure control, adjustment of mA or kV according to patient size, and/or use of iterative reconstruction technique. Electronically signed by Andre Toro 04/23/2019 12:52 PM
--- NOTE | 2019-04-23 12:59 | Diag Imaging Result Doc PS360 ---
EXAM: CHEST/ABD TUBE PLACEMENT HISTORY: NG tube placement TECHNIQUE: Chest abdomen single view COMPARISON: 4:52 AM FINDINGS: The nasogastric tube overlies the esophagus and stomach. Dilated small bowel loops persist. Electronically signed by Andre Toro 04/23/2019 12:56 PM
--- NOTE | 2019-04-23 14:29 | PROGRESS NOTE ---
DATE: 04/23/2019 SUBJECTIVE: The patient is resting comfortably in bed. Apparently, he had a really tough night, but now he is sleeping. No big changes compared with yesterday. We will continue with the same management. OBJECTIVE: Vital Signs: Temperature 99.8 degrees, pulse 127, respiratory rate 16, blood pressure 147/73, oxygen saturation 94% on room air. HEENT: Head normocephalic, no trauma. PERRLA. Neck: Supple. No JVD. No masses. Central trachea. Chest: Coarse breath sounds at the bases with some crepitus. Abdomen: Distended, is not soft. He does have some bowel sounds, mild, ascites, as well as generalized pain. Extremities: Some edema. No clubbing. Neurological examination: At this moment, this patient is sleepy. LABORATORY DATA: WBC 11.6, hemoglobin 8.6, hematocrit 26.6, platelets 146,000. Sodium 139, potassium 3.4, chloride 108, bicarbonate 21, BUN 22, creatinine 0.8, glucose 154, calcium 8.2. Total bilirubin 2.3, AST 17, ALT 8, alkaline phosphatase 157, albumin 2. ASSESSMENT AND PLAN: 1. Abdominal distention, likely related to ileus. Gastroenterology Department on board. We will continue with the same management. I will continue following their recommendations. We just did a CT scan of the abdomen and pelvis that showed a persistent small bowel obstruction, as well as constipation, cirrhosis with splenomegaly and ascites similar to the prior exam, cholecystectomy, and prominent atherosclerosis. 2. Rectal cancer. Followed by Dr. Jacobs. 3. Urinary tract infection with Enterobacter and Pseudomonas. Continue antibiotics per Infectious Disease Department. 4. Severe protein-calorie malnutrition. Aware. 5. Liver cirrhosis with elevated alkaline phosphatase and bilirubin. Aware 6. History of alcoholism. Aware. 7. History of coronary artery disease and congestive heart failure. Last echocardiogram done recently on 03/28/2019, showed an ejection fraction of 40 to 45 percent with enlargement of the left ventricular chamber and impairment of the interventricular septum. He also have pulmonary hypertension with a pulmonary arterial pressure estimated at 50 to 55 mmHg. 8. History of chronic obstructive pulmonary disease. Aware. 9. Anemia. We will continue to monitor. He has been transfused with a couple units of PRBCs. The hemoglobin is 8.6, which is stable. cc: MD Armani June MD
[2019-04-23] MEDS: LACTULOSE PO SCH (20:49)
[2019-04-23] MEDS: CLINIMIX E 4.25%-5% SOLUTION 1,000 ML IV SCH (20:55)
[2019-04-24] MEDS: LOPRESSOR IV SCH (01:36)
[2019-04-24] MEDS: MAXIPIME 2 GM in NS 100 ML IV SCH ×3 (01:37→15:32)
[2019-04-24] MEDS: OXY IR PO PRN ×4 (01:59→21:31)
[2019-04-24] MEDS: TYLENOL PO PRN ×2 (01:59→21:32)
[2019-04-24 07:32] LABS: BASO# 0.06 X1000 (0.0-0.2); BASO% 0.4 % (0.0-0.8); EOS# 0.19 X1000 (0.0-0.7); EOS% 1.4 % (0.0-10.0); HEMATOCRIT 29.1 % (42.0-52.0); HEMOGLOBIN 9.2 g/dL (14.0-18.0); IMM GRAN# 0.04 X1000 (0.0-0.04); IMM GRAN% 0.3 % (0.0-0.5); LYMPH# 2.58 X1000 (1.2-3.4); LYMPH% 18.3 % (20.5-51.1); MCH 27.5 PG (27-31); MCHC 31.6 g/dL (33-37); MCV 86.9 FL (81-99); MONO# 1.85 X1000 (0.11-0.59); MONO% 13.2 % (1.7-9.3); MPV 12.7 FL (7.4-10.4); NEUT# 9.34 X1000 (1.4-6.5); NEUT% 66.4 % (42.2-75.2); PLT 191 X1000 (130-400); RBC 3.35 XMIL (4.7-6.1); RDW 16.8 % (11.5-14.5); WBC 14.06 X1000 (4.8-10.8)
[2019-04-24 07:55] LABS: AGAP 9; ALB/GLOB RATIO 0.4; ALBUMIN 2.1 g/dL (3.5-5.0); ALKALINE PHOSPHATASE 160 U/L (32-122); BUN 22 mg/dL (8-22); CALCIUM 8.8 mg/dL (8.8-10.2); CHLORIDE 105 mmol/L (98-107); COSMO 276; CREATININE 0.8 mg/dL (0.7-1.2); ESTIMATED GFR > 60; GLUCOSE 136 mg/dL (70-104); GOT 22 U/L (10-34); GPT 9 U/L (10-44); MAGNESIUM 1.6 mg/dL (1.5-2.7); PHOSPHORUS 2.7 mg/dL (2.7-4.5); POTASSIUM 3.5 mmol/L (3.5-5.1); SODIUM 135 mmol/L (136-145); TCO2 21 mmol/L (25-35); TOTAL BILIRUBIN 2.42 mg/dL (0.20-1.00); TOTAL PROTEIN 7.1 g/dL (6.3-8.3)
[2019-04-24] MEDS: LACTULOSE PO SCH ×2 (08:53→21:32)
[2019-04-24] MEDS: IMDUR PO SCH (08:53)
[2019-04-24] MEDS: PRINIVIL PO SCH (08:54)
[2019-04-24 08:55] LABS: EOS 1 % (1-10); LYMPHS 18 % (21-51); MONO 12 % (1-9); SEGS 69 % (42-75)
[2019-04-24] MEDS: LOPRESSOR PO SCH ×2 (09:59→21:32)
--- NOTE | 2019-04-24 11:35 | PROGRESS NOTE ---
DATE: 04/24/2019 SUBJECTIVE: No changes compared with yesterday. This patient is resting in bed. He is still complaining of abdominal pain, though he still has the NG tube. Yesterday we did a CT scan of the abdomen and pelvis that showed a persistent small-bowel obstruction as well as constipation. I discussed the case briefly with Gastroenterology Department and we have decided to consult Surgery to see if they have any other approach and/or opinion. Also showed cirrhosis with splenomegaly and ascites, similar to the prior exam, cholecystectomy and prominent atherosclerosis. OBJECTIVE: Vital Signs: Temperature 98.9 degrees, pulse 129, respiratory rate 20, blood pressure 145/78, oxygen saturation 96 on room air. HEENT: Head normocephalic, no trauma. PERRLA. Neck: Supple. No JVD. No masses. Central trachea. Chest: Coarse breath sounds at the bases with some crepitus. Abdomen: Distended, is not soft. He does have some bowel sounds, mild ascites and generalized pain. Extremities: Edema. No clubbing, no cyanosis. Neurological: The patient is awake, alert. He is oriented and following commands. LABORATORY DATA: WBC 14, hemoglobin 9.2, hematocrit 29.1, platelets 191,000. Sodium 135, potassium 3.5, chloride 105, bicarbonate 21, BUN 22, creatinine 0.8, glucose 136, calcium 8.8. ASSESSMENT AND PLAN: 1. Abdominal distention, likely related to ileus versus small-bowel obstruction, Gastroenterology Department following this patient. He has an NG tube in place with suction. Surgery Department has been consulted today. 2. Rectal cancer, followed by Dr. Jacobs. 3. Urinary tract infection with Enterobacter and Pseudomonas. Continue with antibiotics per Infectious Disease Department. 4. Severe protein calorie malnutrition. Aware. 5. Liver cirrhosis with elevated alkaline phosphatase and bilirubin. Aware. 6. History of alcoholism. Aware. 7. History of coronary artery disease and congestive heart failure. Echocardiogram done recently on 03/28/2019 showed an ejection fraction of 40 to 45 percent with enlargement of the left ventricular chamber and impairment of the interventricular septum. He also has pulmonary hypertension with a pulmonary arterial pressure estimated at 50 to 55 mmHg. 8. History of chronic obstructive pulmonary disease. Aware. 9. Anemia. We will continue to monitor. He has been transfused with a couple units of PRBCs and the hemoglobin has been more stable. cc: MD Armani June MD
[2019-04-24] MEDS: CLINIMIX E 4.25%-5% SOLUTION 1,000 ML IV SCH (13:40)
--- NOTE | 2019-04-24 14:26 | GENERAL SURGERY CONSULTATION ---
DATE: 04/24/2019 CHIEF COMPLAINT: Abdominal distention. REASON FOR CONSULTATION: Possible bowel obstruction. HISTORY OF PRESENT ILLNESS: This is a 58-year-old gentleman, patient of Dr. Jacob. He has anal verge squamous cell carcinoma and he is status post cholecystectomy. He was readmitted on 04/16/2019, has been at [place]. He has cirrhosis and ascites and has had an NG tube in for presumed ileus versus bowel obstruction for several days. NG tube showed persistence of this. He was transferred to [facility] and I was consulted. The patient has had liquid stools. He denies any abdominal pain. No vomiting. NG tube is in place. MEDICAL HISTORY: As noted in his HPI but also includes ischemic heart disease, diabetes, hypertension, sleep apnea, COPD, cirrhosis, GERD, acute kidney injury. SURGICAL HISTORY: He has had a recent laparoscopic cholecystectomy with liver biopsy, attempted ERCP and a rectal examination under anesthesia. SOCIAL HISTORY: Does drink. He smokes. He has attentive family. MEDICATIONS: Reviewed. REVIEW OF SYSTEMS: A 10-point review of systems is negative other than what is mentioned the HPI. FAMILY HISTORY: Reviewed and noncontributory. PHYSICAL EXAMINATION: Vital signs: Low-grade fever of 100.3 degrees, pulse 64, blood pressure 130/78, oxygen saturation 97%. General: He is an alert, chronically ill-appearing gentleman. HEENT: There is no scleral icterus but he has an NG tube in place. Cardiovascular: Normal rate. Pulmonary: No increased work of breathing. Abdomen: Protuberant, it is soft, it is nontender. His incisions are intact. Rectal: Examination shows an anal verge ulcerative skin lesion, but there is no stenosis and no evidence of distal obstruction. No palpable impacted stool. Peripheral vascular: No lower extremity edema. Psychiatric: Appropriate mood and affect. Neurologic: Generalized weakness. LABORATORY DATA: White count is 14, hematocrit 29. Creatinine is 0.8. ASSESSMENT AND PLAN: This is a 58-year-old gentleman. He has ascites. He has some dilated bowel, but he has inspissated stool noted throughout his colon. Doubtful that he has an obstruction given his history, but he is quite distended. I suspect the majority of this is colonic dilation as well as ascites. We will get a small-bowel follow-through study via his NG tube today and based off this, we will determine further management. He would be very high risk for any open exploratory laparotomy. cc: MD Armani Aponte MD
[2019-04-24] MEDS: PROTONIX IV SCH (15:32)
--- NOTE | 2019-04-24 16:48 | Diag Imaging Result Doc PS360 ---
EXAM: SMALL BOWEL SERIES ONLY - 04/24/2019 HISTORY: possible sbo TECHNIQUE: Portable small bowel series COMPARISON: 04/23/2019 CT abdomen/pelvis FINDINGS: There is gaseous small bowel distention on the combine driver view. There is gas visible in nondistended colon and rectum on the combine driver view. There is slow small bowel transit. The contrast reaches the mid small bowel by the three hour image, which is the final obtained image. There is no contrast passage into the distal most small bowel at three hours. IMPRESSION: Slow small bowel transit, with the contrast reaching the mid small bowel by the three hour image. Electronically signed by Gregory Akhtar 04/24/2019 4:45 PM
--- NOTE | 2019-04-24 22:52 | PROVIDER PROGRESS NOTE ---
Progress Note S: No acute overnight events. The patient continues to have bowel distension. He is passing flatus and small bowel movements. +nausea, no vomiting. Afebrile. O: Last Vital Signs Temp 101.0 F H 04/24/19 20:00 Pulse 124 H 04/24/19 20:00 Resp 16 04/24/19 16:18 BP 140/81 04/24/19 20:00 Pulse Ox 96 04/24/19 20:00 Height 5 ft 6 in Weight 185 lb GEN: awake, alert, NAD HEENT: NGT in place, MMM, EOMI, anicteric NECK: supple, no JVD PULM: CTAB anteriorly CARDS: tachycardic, regular ABD: distended, tympanic, BS hypoactive, mild diffuse TTP throughout EXT: no cce NEURO: nonfocal; no asterixis 04/24/19 04/24/19 06:55 06:55 WBC 14.06 H Hgb 9.2 L Plt Count 191 D Sodium 135 L Potassium 3.5 Chloride 105 Carbon Dioxide 21 L BUN 22 Creatinine 0.8 Glucose 136 H Total Bilirubin 2.42 H AST 22 ALT 9 L Alkaline Phosphatase 160 H Total Protein 7.[address] IMPRESSION: 1.Persistent small bowel obstruction as well as constipation 2.Cirrhosis with splenomegaly and ascites similar to the prior exam 3.Cholecystectomy 4.Prominent atherosclerosis A/P: Mr. Calixto is a 58 year old man with rectal cancer was recently hospitalized with newly decompensated ETOH cirrhosis with ascites and PSE in the setting of post-operative ileus and secondary E coli peritonitis who represents with sepsis from UTI. He was also noted to have ileus vs partial bowel obstruction being treated with NGT decompression. Serial KUBs showed persistent SB bowel distension with stool in the colon. CT shows persistently dilated SB and stool in the colon. He is febrile. Surgery consulted given persistent findings of obstruction on CT. # Decompensated ETOH cirrhosis - Cirrhosis: LFTs slightly improved - Ascites: s/p LVP with about 1L removed - PSE: improved; transitioned lactulose enemas to PO 30mL BID - EV screening: EGD in 02/2019; no overt GI bleeding - HCC screening: no hepatoma on imaging - OLT: not a candidate for liver transplant given malignancy # Ileus: persistent - continue NGT decompression - IVFs, correcting lytes - minimize constipating medications - f/u surgery recs # Sepsis 2/2 to UTI +/- peritonitis; febrile - on abx per ID # Anemia: improved with transfusion - trending H/H, transfuse prn goal hgb 7-8 - avoid blood thinners/NSAIDs - cont PPI once daily # Severe protein calorie malnutrition - continue clinimix - appreciate Nutrition recs Will follow with you. Please call with questions
[2019-04-25] MEDS: MAXIPIME 2 GM in NS 100 ML IV SCH ×3 (00:06→16:39)
[2019-04-25] MEDS: CLINIMIX E 4.25%-5% SOLUTION 1,000 ML IV SCH ×2 (05:16→16:34)
--- NOTE | 2019-04-25 06:11 | Diag Imaging Result Doc PS360 ---
EXAM: KUB ABDOMEN HISTORY: Small bowel follow through series TECHNIQUE: Single view COMPARISON: 04/24/2019 FINDINGS: There is oral contrast in the small bowel as well as the colon. Small bowel loops are mildly distended. Normal appearing colon. No organomegaly. Nasogastric tube overlies the stomach. Surgical clips in the right upper quadrant. IMPRESSION: No complete bowel obstruction. Possible partial small bowel obstruction. Electronically signed by Andre Toro 04/25/2019 6:08 AM
[2019-04-25 07:04] LABS: BASO# 0.04 X1000 (0.0-0.2); BASO% 0.3 % (0.0-0.8); EOS# 0.28 X1000 (0.0-0.7); EOS% 2.1 % (0.0-10.0); HEMATOCRIT 26.8 % (42.0-52.0); HEMOGLOBIN 8.4 g/dL (14.0-18.0); IMM GRAN# 0.05 X1000 (0.0-0.04); IMM GRAN% 0.4 % (0.0-0.5); LYMPH# 2.06 X1000 (1.2-3.4); LYMPH% 15.6 % (20.5-51.1); MCH 27.3 PG (27-31); MCHC 31.3 g/dL (33-37); MONO# 1.86 X1000 (0.11-0.59); MONO% 14.1 % (1.7-9.3); MPV 12.1 FL (7.4-10.4); NEUT# 8.91 X1000 (1.4-6.5); NEUT% 67.5 % (42.2-75.2); PLT 207 X1000 (130-400); RBC 3.08 XMIL (4.7-6.1); RDW 16.6 % (11.5-14.5)
[2019-04-25 07:23] LABS: ANISOCYTOSIS OCCASIONAL; EOS 1 % (1-10); LYMPHS 8 % (21-51); MONO 10 % (1-9); SEGS 79 % (42-75)
[2019-04-25 07:29] LABS: AGAP 8; ALB/GLOB RATIO 0.4; ALKALINE PHOSPHATASE 144 U/L (32-122); BUN 25 mg/dL (8-22); CALCIUM 8.5 mg/dL (8.8-10.2); CHLORIDE 104 mmol/L (98-107); COSMO 275; CREATININE 0.8 mg/dL (0.7-1.2); ESTIMATED GFR > 60; GLUCOSE 133 mg/dL (70-104); GOT 20 U/L (10-34); GPT 8 U/L (10-44); MAGNESIUM 1.6 mg/dL (1.5-2.7); PHOSPHORUS 2.8 mg/dL (2.7-4.5); POTASSIUM 3.6 mmol/L (3.5-5.1); SODIUM 134 mmol/L (136-145); TCO2 22 mmol/L (25-35); TOTAL BILIRUBIN 2.15 mg/dL (0.20-1.00); TOTAL PROTEIN 6.6 g/dL (6.3-8.3)
--- NOTE | 2019-04-25 09:10 | INFECTIOUS DISEASE PROGRESS NO ---
DATE: 04/25/2019 PRESENT ILLNESS: The patient has a Pseudomonas and Enterobacter urinary tract infection. MEDICATIONS: This is the 5 of treatment with cefepime. PHYSICAL EXAMINATION: Vital Signs: Temperature is 99.6 degrees but earlier it was 100, pulse is 110, respirations 12, blood pressure 125/64. General: This is an ill- appearing, middle-aged male. He is in no acute distress. Head, Eyes, Ears, Nose, and Throat: He can hear my spoken words and see near objects. He has a nasogastric tube in place. He does not have any white patches in his mouth. Neck: No pain with movement. Lungs: Clear to auscultation. Cardiovascular: Heart rate is rapid and regular. Abdomen: Somewhat protuberant. The incisions for his laparoscopic cholecystectomy are not purulent. There is a little bit of erythema in the middle one. Neurologic: The patient is alert. He can move his extremities. There is no tremor. Thorax: The patient has a right upper chest Port-A-Cath. The site is not purulent or tender. LAB AND X-RAY: CBC shows a white count that is down to 13,200, hemoglobin 8.4, platelet count 207,000. Creatinine is 0.8. GFR is greater than 60. Alkaline phosphatase is 144. Urine culture grew Enterobacter and Pseudomonas. Blood cultures are negative. X-ray of the abdomen showed possible partial small bowel obstruction. The patient is status post laparoscopic cholecystectomy and liver biopsy. ASSESSMENT AND PLAN: The patient has a urinary tract infection, which I plan on continuing with cefepime. COMORBIDITIES: Anal carcinoma, anemia of chronic disease, coronary artery disease, cirrhosis of the liver with ascites. cc: MD Armani Ugalde MD [facility]
[2019-04-25] MEDS: OXY IR PO PRN ×3 (10:00→20:58)
[2019-04-25] MEDS: LOPRESSOR PO SCH ×2 (10:05→20:56)
[2019-04-25] MEDS: IMDUR PO SCH (10:05)
[2019-04-25] MEDS: LACTULOSE PO SCH ×2 (10:05→20:54)
[2019-04-25] MEDS: PRINIVIL PO SCH (10:06)
--- NOTE | 2019-04-25 13:38 | PROGRESS NOTE ---
DATE: 04/25/2019 SUBJECTIVE: This patient seems to be feeling better today. He is complaining still of abdominal pain, but his NG tube has been removed, and he has been placed on a liquid diet. So far, he had 4 bowel movements between yesterday night and today per the patient and the family member. He seems to be doing better. Let us see how he does with the diet. OBJECTIVE: Vital Signs: Temperature 99.6 degrees, pulse 105, respiratory rate 18, blood pressure 173/62, oxygen saturation 97% on room air. HEENT: Head normocephalic. No trauma. PERRLA. Neck: Supple. No JVD. No masses. Central trachea. Chest: Coarse breath sounds at the bases with some crepitus. Abdomen: Distended. It is not soft. He does have some bowel sounds. Mild ascites and generalized pain. Extremities: He has some edema. No clubbing. No cyanosis. Neurological: The patient is awake. He is alert. He is following commands. LABORATORY DATA: WBC 13, hemoglobin 8.4, hematocrit 26.8, platelets 207,000. Sodium 134, potassium 3.4, chloride 104, bicarbonate 22, BUN 25, creatinine 0.8, glucose 133, calcium 8.5. AST 20, ALT 8, alkaline phosphatase 144, albumin 2. ASSESSMENT AND PLAN: 1. Abdominal distention, likely related to ileus versus small-bowel obstruction. We did a small bowel series that showed a slow small bowel transit with the contrast reaching the mid small bowel by the 3-hour image. He has been placed on a liquid diet. I have requested also Physical Therapy and Occupational Therapy to evaluate this patient. I will continue with the same management for now. 2. Rectal cancer. Followed by Dr. Jacobs. 3. Urinary tract infection with Enterobacter and Pseudomonas. Continue with antibiotics per Infectious Disease Department. 4. Severe protein calorie malnutrition. Aware. 5. Liver cirrhosis with alkaline phosphatase and bilirubin elevated. Aware. 6. History of alcoholism. Aware. 7. History of coronary artery disease and congestive heart failure. Echocardiogram done recently on 03/28/2019 showed an ejection fraction of 40% to 45% with enlargement of the left ventricular chamber, and impairment of the interventricular septum. He also has pulmonary hypertension with a pulmonary arterial pressure estimated at 50 to 55 mmHg. 8. History of chronic obstructive pulmonary disease. Aware. 9. Anemia. Will continue to monitor. He has been transfused with a couple units of packed red blood cells before, and the hemoglobin and hematocrit have been stable for now. cc: MD Armani June MD
--- NOTE | 2019-04-25 14:46 | GENERAL SURGERY PROGRESS NOTE ---
DATE: 04/25/2019 SUBJECTIVE: Feels okay. NG tube output has been minimal. He has had several bowel movements overnight. OBJECTIVE: Vital Signs: Low-grade fever, pulse in the low 100s, blood pressure 173/62. General: He is alert. Cardiovascular: Normal rate. Abdomen: Protuberant, but soft, nontender. IMAGING AND LABORATORY DATA: White count is down to 13, hematocrit 36. Creatinine 0.8. A small- bowel follow-through showed passage of contrast in the colon by this morning, but it is relatively slow transit. ASSESSMENT AND PLAN: This is a gentleman with most likely an ileus. He has had several bowel movements. Will remove his nasogastric tube. Would go slowly advancing his diet going forward. Would continue with enemas below, and stool softeners from above. cc: MD Armani Aponte MD
[2019-04-25] MEDS: PROTONIX IV SCH (16:34)
--- NOTE | 2019-04-26 00:03 | PROVIDER PROGRESS NOTE ---
Progress Note GI Progress Note 04/25/2019 S: SBFT shows contrast within the colon. NGT was removed. He reports significant improvement with NGT removal and has had multiple bowel movements some with solid stool. No rectal bleeding or melena. No vomiting. Some mild nausea and continued distension. O: Last Vital Signs Temp 99.2 F 04/26/19 00:00 Pulse 105 H 04/26/19 00:00 Resp 18 04/26/19 00:00 BP 128/66 04/26/19 00:00 Pulse Ox 96 04/26/19 00:00 Height 5 ft 6 in Weight 185 lb GEN: awake, alert, NAD HEENT: MMM, EOMI, anicteric NECK: supple, no JVD PULM: CTAB anteriorly CARDS: tachycardic, regular ABD: distended, tympanic, BS hypoactive, mild diffuse TTP throughout EXT: no cce NEURO: nonfocal; no asterixis LABS A/P: Mr. Calixto is a 58 year old man with rectal cancer was recently hospitalized with newly decompensated ETOH cirrhosis with ascites and PSE in the setting of post-operative ileus and secondary E coli peritonitis who represents with sepsis from UTI. He was also noted to have ileus vs partial bowel obstruction s/p NGT decompression. He is having bowel movements. Will start him on low sodium clear liquids. # Decompensated ETOH cirrhosis - Cirrhosis: LFTs stable - Ascites: s/p LVP with about 1L removed - PSE: improved; continue lactuloase PO 30mL BID, titrate for 2-3 BMs daily, hold for >4 BM - EV screening: EGD in 02/2019; no overt GI bleeding - HCC screening: no hepatoma on imaging - OLT: not a candidate for liver transplant given malignancy # Ileus: s/p NGT decompression - IVFs, correcting lytes - minimize constipating medications - f/u surgery recs # Sepsis 2/2 to UTI +/- peritonitis; febrile - on abx per ID # Anemia: improved with transfusion - trending H/H, transfuse prn goal hgb 7-8 - avoid blood thinners/NSAIDs - cont PPI once daily # Severe protein calorie malnutrition - continue clinimix - appreciate Nutrition recs Will follow with you. Please call with questions
[2019-04-26] MEDS: MAXIPIME 2 GM in NS 100 ML IV SCH ×3 (00:31→17:29)
[2019-04-26] MEDS: OXY IR PO PRN ×3 (02:01→21:39)
[2019-04-26 08:12] LABS: BASO# 0.06 X1000 (0.0-0.2); BASO% 0.4 % (0.0-0.8); EOS# 0.22 X1000 (0.0-0.7); EOS% 1.6 % (0.0-10.0); HEMATOCRIT 26.8 % (42.0-52.0); HEMOGLOBIN 8.4 g/dL (14.0-18.0); IMM GRAN# 0.04 X1000 (0.0-0.04); IMM GRAN% 0.3 % (0.0-0.5); LYMPH# 2.76 X1000 (1.2-3.4); LYMPH% 20.4 % (20.5-51.1); MCH 27.4 PG (27-31); MCHC 31.3 g/dL (33-37); MCV 87.3 FL (81-99); MONO% 15.5 % (1.7-9.3); MPV 12.5 FL (7.4-10.4); NEUT# 8.36 X1000 (1.4-6.5); NEUT% 61.8 % (42.2-75.2); PLT 234 X1000 (130-400); RBC 3.07 XMIL (4.7-6.1); RDW 16.5 % (11.5-14.5); WBC 13.54 X1000 (4.8-10.8)
[2019-04-26 08:32] LABS: AGAP 10; ALB/GLOB RATIO 0.4; ALBUMIN 2.1 g/dL (3.5-5.0); ALKALINE PHOSPHATASE 173 U/L (32-122); BUN 24 mg/dL (8-22); CALCIUM 8.8 mg/dL (8.8-10.2); CHLORIDE 106 mmol/L (98-107); COSMO 279; CREATININE 0.8 mg/dL (0.7-1.2); ESTIMATED GFR > 60; GLUCOSE 125 mg/dL (70-104); GOT 22 U/L (10-34); GPT 8 U/L (10-44); POTASSIUM 3.7 mmol/L (3.5-5.1); SODIUM 137 mmol/L (136-145); TCO2 21 mmol/L (25-35); TOTAL PROTEIN 7.1 g/dL (6.3-8.3)
[2019-04-26 08:35] LABS: LYMPHS 12 % (21-51); MONO 9 % (1-9); SEGS 79 % (42-75)
[2019-04-26] MEDS: CLINIMIX E 4.25%-5% SOLUTION 1,000 ML IV SCH (08:35)
[2019-04-26] MEDS: LOPRESSOR PO SCH ×2 (08:36→21:39)
[2019-04-26] MEDS: LACTULOSE PO SCH ×2 (08:36→21:39)
[2019-04-26] MEDS: PRINIVIL PO SCH (08:36)
[2019-04-26] MEDS: IMDUR PO SCH (08:36)
[2019-04-26 10:03] LABS: INR 1.66; PROTIME 19.9 Seconds (11.0-16.0)
[2019-04-26 10:04] LABS: PTT 51.3 Seconds (22.3-41.8)
--- NOTE | 2019-04-26 11:11 | GASTROENTEROLOGY PROGRESS NOTE ---
DATE: 04/26/2019 SUBJECTIVE: Mr. Calixto is a 58-year-old male. He was sitting on the side of the bed having his breakfast. Family at the bedside. The patient has denied any nausea or vomiting. The patient had 2 bowel movements yesterday; he has denied any today. OBJECTIVE: Vital Signs: Temperature 99.0 degrees, pulse 110, respirations 20, blood pressure 129/65, oxygen saturation 98% on room air. His weight is 184 pounds. BMI is 29.9 kg/m2. General: He is alert, oriented x3, in no acute distress. HEENT: Pale conjunctivae. Mild icterus. PERRL. Neck: Supple. Lungs: Clear to auscultation in the anterior and posterior guo. Cardiovascular: Patient is tachycardic. Abdomen: Distended, nontender, firm. Hypoactive bowel sounds heard in all 4 quadrants. Extremities: No clubbing, no cyanosis, no edema. Pedal pulses 2+ and present bilaterally. Neurologic: Alert and oriented x3. LABS AND X-RAYS: WBC is 13.54, RBCs 3.0, hemoglobin is 8.4, hematocrit is 26.8, platelet count is 234. Sodium 137, potassium 3.7, chloride 106 carbon dioxide 21, anion gap 10. BUN 24, creatinine 0.8, glucose 125, calcium 8.8, total bilirubin 1.90. AST 22, ALT 8, alkaline phos 173, albumin is 2.1. Abdominal x-ray on 04/25 showed no complete bowel obstruction, possible partial small-bowel obstruction. IMPRESSION AND PLAN: Decompensated alcoholic cirrhosis with ascites Ileus s/p NG tube decompression Sepsis Anemia Severe malnutrition Hepatic encephalopathy History of anal cancer being followed by Dr Jacobs. GERDA COPD Diabetes type II PLAN: Mr Calixto is a 58-year-old male, who has decompensated alcoholic cirrhosis with ascites. His NG tube has been removed. The patient is on clear liquid diet, and he was able to tolerate his diet well. The patient's abdomen is firm and distended. We have ordered an ultrasound-guided paracentesis. We have ordered the labs, PT, PTT, and INR. If the INR is <1.5 we will go ahead with the paracentesis. The patient's hemoglobin today is 8.4 and hematocrit is 26.8. The patient is currently receiving Clinimix for his nutrition. He is on GI prophylaxis of Protonix 40 mg IV daily. The patient is also on lactulose 30 mL p.o. twice a day. The patient is receiving vitamin K 10 mg IV daily for 3 days to help treat coagulopathy. He will receive his 1st dose today. We will continue to monitor his CBC, PT and INR and follow the plan of care per PCP. This plan was discussed with Dr. Reynaga. Please call us for any further questions or concerns. Dictated by NERIS Smallwood for Bob Reynaga MD cc: MD Armani Posadas MD I have seen and examined the patient myself and I agree with the above plan of care. I have discussed the above with the patient and family at bedside and all questions were answered. Please call us with any further questions. MTDMynor
[2019-04-26] MEDS: VITAMIN K 10 MG in NS 50 ML IV SCH (11:24)
--- NOTE | 2019-04-26 13:11 | HEMO/ONC PROGRESS NOTE ---
DATE: 04/26/2019 SUBJECTIVE: The patient is lying in bed on his side this morning. He has family at bedside. He states that he does feel better. He does continue to have bowel distention that is discomforting. However, he is passing flatus and has bowel movements. He denies any nausea. He states he slept fairly well. He currently does not have an NG tube in place. OBJECTIVE: Vital Signs: Temperature 98.5 degrees, pulse 103, respiratory rate 20, blood pressure 132/60, O2 saturation 98% on room air, T-max 100 degrees. He is in 0/10 pain. Physical Examination: General: He appears in no acute distress. HEENT: Sclerae are mildly icteric. PERRLA. Oral mucosa is normal. Cardiovascular: Normal S1, S2. Heart rate and rhythm normal. Respiratory: Lungs are clear to auscultation, although somewhat diminished. Slight crepitus at the bases noted. Normal respiratory effort. Gastrointestinal: Abdomen is significantly distended and tight. Mild tenderness to deep palpation. Extremities: No lower extremity edema noted. Neurological: Awake and alert. Answers questions appropriately. Laboratory: WBCs 13.54, hemoglobin 8.4, hematocrit 26.8, platelet count 234,000, ANC 8.36. PT 19.9, PTT 51.3, INR 1.6. Total bilirubin 1.9. Radiology: Abdominal x-ray shows partial small bowel obstruction. ASSESSMENT AND PLAN: 1. Abdominal distention, most likely related to ileus versus small bowel obstruction. He is continuing to be on a clear liquid diet. He is tolerating this well. Surgery and gastroenterology are following. 2. Anal squamous cell carcinoma. The patient's treatment has yet to be begun. They are waiting for him to recover from his cholecystectomy and hospitalization for peritonitis. We hope to begin his treatment upon discharge from hospital. 3. Alcoholic cirrhosis and splenomegaly. Alkaline phosphatase and bilirubin levels are slightly elevated. We are aware and are monitoring. 4. Normocytic anemia. We are aware. The patient is status post 1 dose of intravenous iron. He also has a folate deficiency. We are replacing. 5. Anorexia and weight loss. The patient is having some difficulty with appetite. He is on a clear liquid diet at this time. When he is able, he needs to have protein shakes added. 6. Recent cholecystectomy and peritonitis. Dictated by NERIS Stout for Gaurav Jacobs MD Patient seen and examined. As above. Patients urine tract infection and treated by Dr. Hagen. Appreciate help. His abdominal distention persists. He is passing gas and reports that he is having bowel movements. Surgery/GI following. Awaiting recovery from this, so that we can start therapy for his anal squamous cell carcinoma. Gaurav Jacobs M.D. cc: MD Armani Magana MD [facility]
--- NOTE | 2019-04-26 15:51 | PROGRESS NOTE ---
DATE: 04/26/2019 SUBJECTIVE: This patient seems to be feeling better. He is still complaining of abdominal pain and his abdomen is still distended and firm, his NG tube has been removed already and he is tolerating his diet, gastroenterology department has suggested to perform a paracentesis tomorrow but the INR is slightly elevated. They have placed this patient on vitamin K, I have requested a new INR and he can go he if the INR is stable around 100.5. OBJECTIVE: Vital Signs: Temperature 98.5 degrees, pulse 110, respiratory rate 20, blood pressure 129/65, oxygen saturation 98 on room air. HEENT: Head normocephalic, no trauma. PERRLA. Neck: Supple. No JVD. No masses. Central trachea. Chest: Coarse breath sounds at the bases with some crepitus. Abdomen: Distended, is firm, he does have some bowel sounds, he has generalized pain. Extremities: He has some edema, no clubbing, no cyanosis. Neurological: The patient is awake, he is alert, he is following commands. LABORATORY: WBC 13.5, hemoglobin 8.4, hematocrit 26.8, platelet 234,000. Sodium 137, potassium 3.7, chloride 106, bicarbonate 21, BUN 24, creatinine 0.8, glucose 125, calcium 8.8, AST 22, ALT 8, alkaline phosphatase 173, albumin 2.1. ASSESSMENT AND PLAN: 1. Abdominal distention likely secondary to ileus versus small bowel obstruction, I do believe this is getting better. He is having bowel movements. Nasogastric tube has been removed. He has been placed on a diet. We will continue with same management, gastroenterology department has requested an ultrasound-guided paracentesis hopefully tomorrow if the INR is around 1.5 or less. 2. Rectal cancer followed by Dr. Jacobs. 3. Urinary tract infection with Enterobacter and Pseudomonas, continue with antibiotics per infectious disease department. 4. Severe protein calorie malnutrition, aware. 5. Liver cirrhosis with alkaline phosphatase and bilirubin elevated, aware. 6. History of alcoholism, aware. 7. History of coronary artery disease and congestive heart failure, echocardiogram done recently on 03/28/2019 showed an ejection fraction of 40 to 45 percent with enlargement of the left ventricular chamber and impairment of the interventricular septum. He also has pulmonary hypertension with a pulmonary arterial pressure estimated at 50 to 55 mmHg. 8. History of chronic obstructive pulmonary disease aware. 9. Anemia. Will continue to monitor. He has been transfused with a couple units of packed red blood cells before, his hemoglobin, hematocrit has been more stable now. 10. This patient is full code. cc: MD Armani June MD
[2019-04-26] MEDS: SODIUM CHLORIDE 0.9% INJ SCH (17:29)
[2019-04-26] MEDS: PROTONIX IV SCH (17:29)
--- NOTE | 2019-04-26 19:57 | INFECTIOUS DISEASE PROGRESS NO ---
DATE: 04/26/2019 PRESENT ILLNESS: The patient has a Pseudomonas and Enterobacter urinary tract infection. The patient has been having leukocytosis, and I suspect there is something more than just a urinary tract infection causing it. MEDICATIONS: This is the 6th day of treatment with cefepime. PHYSICAL EXAMINATION: Vital Signs: Temperature is 98.5 degrees, pulse 110, respirations 20, blood pressure is 129/65. General: This is an ill appearing, cachectic, middle-aged male. He is in no acute distress. Head, eyes, ears, nose, and throat: He can hear my spoken words and see near objects. He does not have any white coating of his tongue. NG tube has been removed. Neck: No pain with movement. Lungs: Clear to auscultation. Cardiovascular: Regular heart rate. Abdomen: Much more protuberant today. There was no tenderness. The patient's laparoscopic incisions are not purulent or coming apart. Neurologic: The patient is alert. He is able to walk. He does not have a tremor. Thorax: The patient has a right upper chest Port-A-Cath. The site is not purulent or swollen. LAB AND X-RAY: CBC shows a white count of 13,540, hemoglobin 8.4, platelet count 234,000. Creatinine is 0.8. GFR is greater than 60. Alkaline phosphatase is 172. Urine grew Enterobacter and Pseudomonas. Pathology of the gallbladder showed chronic cholecystitis. The liver biopsy showed cirrhosis of the liver and inflammation of the liver. ASSESSMENT AND PLAN: The patient has a urinary tract infection. For now, I am going to continue cefepime. The patient is to have a paracentesis performed tomorrow, and I am going to go ahead and order that cultures of the peritoneal fluid be obtained as well as a cell count and cytology. COMORBIDITIES: The patient has an anal carcinoma, anemia of chronic disease, coronary artery disease, cirrhosis of the liver with ascites. cc: MD Armani Ugalde MD
--- NOTE | 2019-04-26 21:34 | GENERAL SURGERY PROGRESS NOTE ---
DATE: 04/26/2019 SUBJECTIVE: Patient seems to be doing okay. Family reports he has had bowel movements. He is NPO for potential paracentesis for tomorrow. OBJECTIVE: Vital Signs: Patient's current temperature is 100.1 degrees. Remainder of vital signs appear to be stable. General: No acute distress. Cardiovascular: Regular rate and rhythm. Lungs: Grossly clear. Abdomen: Protuberant. Some mild tenderness. ASSESSMENT AND PLAN: A 58-year-old gentleman with small bowel obstruction versus ileus with multiple medical comorbidities. Small bowel obstruction versus ileus. I think this time it is improving. I think the paracentesis will help him. We will follow up with the results of the paracentesis. cc: MD Armani Soliz MD
[2019-04-27] MEDS: MAXIPIME 2 GM in NS 100 ML IV SCH ×3 (00:46→16:45)
[2019-04-27] MEDS: CLINIMIX E 4.25%-5% SOLUTION 1,000 ML IV SCH (00:47)
[2019-04-27 08:10] LABS: BASO# 0.06 X1000 (0.0-0.2); BASO% 0.5 % (0.0-0.8); EOS# 0.23 X1000 (0.0-0.7); EOS% 1.8 % (0.0-10.0); HEMATOCRIT 25.8 % (42.0-52.0); HEMOGLOBIN 8.1 g/dL (14.0-18.0); IMM GRAN# 0.06 X1000 (0.0-0.04); IMM GRAN% 0.5 % (0.0-0.5); LYMPH# 2.37 X1000 (1.2-3.4); LYMPH% 18.4 % (20.5-51.1); MCH 27.4 PG (27-31); MCHC 31.4 g/dL (33-37); MCV 87.2 FL (81-99); MONO# 2.04 X1000 (0.11-0.59); MONO% 15.9 % (1.7-9.3); MPV 12.8 FL (7.4-10.4); NEUT# 8.11 X1000 (1.4-6.5); NEUT% 62.9 % (42.2-75.2); PLT 222 X1000 (130-400); RBC 2.96 XMIL (4.7-6.1); RDW 16.2 % (11.5-14.5); WBC 12.87 X1000 (4.8-10.8)
[2019-04-27 08:18] LABS: AGAP 10; ALB/GLOB RATIO 0.4; ALBUMIN 1.9 g/dL (3.5-5.0); ALKALINE PHOSPHATASE 213 U/L (32-122); BUN 21 mg/dL (8-22); CALCIUM 8.3 mg/dL (8.8-10.2); CHLORIDE 104 mmol/L (98-107); COSMO 272; CREATININE 0.7 mg/dL (0.7-1.2); ESTIMATED GFR > 60; GLUCOSE 121 mg/dL (70-104); GOT 20 U/L (10-34); GPT 8 U/L (10-44); INR 1.52; MAGNESIUM 1.6 mg/dL (1.5-2.7); PHOSPHORUS 2.4 mg/dL (2.7-4.5); POTASSIUM 3.5 mmol/L (3.5-5.1); PROTIME 18.6 Seconds (11.0-16.0); SODIUM 134 mmol/L (136-145); TCO2 20 mmol/L (25-35); TOTAL BILIRUBIN 1.86 mg/dL (0.20-1.00)
[2019-04-27] MEDS: VITAMIN K 10 MG in NS 50 ML IV SCH (09:15)
[2019-04-27] MEDS: LOPRESSOR PO SCH ×2 (09:17→21:27)
[2019-04-27] MEDS: IMDUR PO SCH (09:17)
[2019-04-27] MEDS: LACTULOSE PO SCH ×2 (09:17→21:27)
[2019-04-27] MEDS: PRINIVIL PO SCH (09:18)
[2019-04-27] MEDS: OXY IR PO PRN ×3 (10:03→23:11)
--- NOTE | 2019-04-27 11:13 | GENERAL SURGERY PROGRESS NOTE ---
DATE: 04/27/2019 SUBJECTIVE: Patient seems to be doing okay. He is still having bowel movements. OBJECTIVE: Vital Signs: Patient is currently afebrile. His vital signs are stable. General: No acute distress. Cardiovascular: Regular rate and rhythm. Lungs: Grossly clear. Abdomen: Soft, protuberant. ASSESSMENT AND PLAN: A 58-year-old gentleman with ileus versus bowel obstruction and multiple medical comorbidities. Small bowel obstruction versus ileus. At this time, I believe it is improving if not all the way resolved. I agree with paracentesis if his INR is acceptable. cc: MD Armani Soliz MD
[2019-04-27] MEDS: SODIUM CHLORIDE 0.9% INJ SCH (11:30)
[2019-04-27] MEDS: PROTONIX IV SCH (11:30)
--- NOTE | 2019-04-27 11:56 | Diag Imaging Result Doc PS360 ---
US ABD PARACENTESIS W S/I - 04/27/2019 INDICATION: alcoholic cirrhosis, ascites, abdominal distention COMPARISON: 04/01/2019 FINDINGS: Once again, ultrasound scanning demonstrates highly complex, septated, echogenic ascites. No free-flowing ascites. The largest pocket remains in the left lower quadrant. This pocket was successfully drained. Only about 300 mL was removed. The catheter was withdrawn intact. The patient reported no symptoms from the procedure. IMPRESSION: Once again, there is highly septated, complex ascites. There is actually only a small amount of this septated ascites overall. Percutaneous drainage is not feasible. Other techniques recommended. Electronically signed by Tl Irizarry 04/27/2019 11:54 AM
--- NOTE | 2019-04-27 12:21 | GASTROENTEROLOGY PROGRESS NOTE ---
DATE: 04/27/2019 SUBJECTIVE: Mr. Calixto is a 58-year-old, -[place] male. He was resting in bed. Family at the bedside. The patient has denied any nausea or vomiting today. He did have one bowel movement today. OBJECTIVE: Vital Signs: Temperature 98.9 degrees, pulse is 113, respirations 20, blood pressure 130/64, oxygen saturation is 96% on room air. His weight is 184 pounds. BMI is 29.9 kg/m2. General: He is alert, oriented x2, and in no acute distress. HEENT: Pale conjunctivae. Mild icterus. PERRL. Neck: Supple. Lungs: Clear to auscultation in the anterior guo. Cardiovascular: The patient is tachycardic. Abdomen: Distended, tender, firm. Hypoactive bowel sounds heard in all 4 quadrants. Extremities: No clubbing, no cyanosis, no edema. Pedal pulses 2+ present bilaterally. Neurologic: He is alert and oriented x2. Labs: WBCs of 12.87, RBCs 2.96, hemoglobin 8.1, hematocrit is 25.8, platelet count is 222,000. Coagulation: PT is 18.6, INR is 1.52. Sodium 134, potassium 3.5, chloride is 104, carbon dioxide 20, anion gap 10, BUN 21, creatinine 0.7, glucose 121, calcium 8.3, phosphorus 2.4, magnesium 1.6. Total bilirubin is 0.86, AST 20, ALT 8, alkaline phosphatase 23, albumin 1.9. IMPRESSION: 1. Decompensated alcoholic cirrhosis with ascites. 2. Ileus, s/p nasogastric tube decompression. 3. Sepsis. 4. Anemia. 5. Severe malnutrition. 6. Hepatic encephalopathy. 7. History of anal cancer, followed by Dr. Jacobs. 8. Acute kidney injury. 9. Chronic obstructive pulmonary disease. 10. Diabetes type 2. PLAN: Mr. Calixto is a 58-year-old, -[place] male who has decompensated alcoholic cirrhosis with ascites. The patient's abdomen is firm and distended. We have ordered an ultrasound-guided paracentesis today and it showed small amount septated ascites fluid. 300 mls of fluid was removed. Percutaneous drainage was not feasible. The patient is currently receiving Clinimix for his nutrition. He is on GI prophylaxis with Protonix 40 mg IV. He is also on lactulose 30 mg p.o. twice a day and we have also started him on vitamin K x3 days to treat his coagulopathy. We will order a KUB for tomorrow morning. We will continue to monitor his CBCs, PT, and INR, and follow the plan of care per PCP. This plan was discussed with Dr. Cuba. Please call us for any further questions or concerns. Dictated by NERIS Smallwood for Golden Cuba MD Physician Attestation I have seen and examined the patient. I have discussed and reviewed the note by Etta CORDON and agree with findings and plan as documented. Awaiting diagnostic paracentesis. Continue supportive care. cc: Armani Bender MD MTDD
--- NOTE | 2019-04-27 12:32 | HEMO/ONC PROGRESS NOTE ---
DATE: 04/27/2019 SUBJECTIVE: The patient appears to be doing better this morning. He is continuing to have bowel movements and feeling well. He is going to have a paracentesis today. He had a good night's rest. OBJECTIVE: Vital Signs: Temperature 98.9 degrees, pulse rate 113, respiratory rate 20, blood pressure 130/64, O2 saturation 96% on room air. He is in 7/10 abdominal pain. General: The patient is in no acute distress. HEENT: Sclerae are mildly icteric. PERRLA. Oral mucosa is normal. Cardiovascular: Normal S1, S2. Heart rate and rhythm is tachycardic. Respiratory: Lungs are clear to auscultation, although somewhat diminished at the bases. Normal respiratory effort. Gastrointestinal: Abdomen is significantly distended and tight. Mild tenderness to palpation. Extremities: No lower extremity edema noted. Neurological: Awake, alert, and oriented. Answers questions appropriately. No focal motor deficits noted. LABORATORY DATA: WBCs 12.87, hemoglobin 8.1, hematocrit 25.8, platelet count 222,000. PT 18.6, PTT 51.6. Sodium 134, total bilirubin 1.86, alkaline phosphatase 213. RADIOLOGY PROCEDURES: The patient had a paracentesis earlier this morning. Ultrasound scanning demonstrates highly complex, septated, echogenic ascites. No free flowing ascites. There were 300 mL removed from 1 pocket successfully. The patient tolerated the procedure well. ASSESSMENT AND PLAN: 1. Abdominal distention, most likely related to ileus versus small-bowel obstruction. The patient remains on a clear liquid diet. The patient had paracentesis performed today, which he tolerated well. We will review pathology for fluid. Patient is having bowel movements and passing gas. 2. Anal squamous cell carcinoma. The patient's treatment remains on hold while he is recovering from this hospitalization. 3. Alcoholic cirrhosis and splenomegaly. Alkaline phosphatase and bilirubin levels remain elevated. We are continuing to monitor. 4. Normocytic anemia. We are aware. The patient is receiving folic acid replacement. We may consider an iron infusion. 5. Anorexia and weight loss. The patient is having some difficulty with appetite. He is currently on a clear liquid diet. We will add the Ensure Clear to his diet when he is able to eat. He will need to have protein shakes added. 6. Recent cholecystectomy and peritonitis. Dictated by NERIS Stout for Gaurav Jacobs MD Patient seen and examined. As above. Patient is sitting in chair. He reports of good bowel movement. His abdominal distention is partly due to ascites and partly due to bowel distention. Paracentesis was attempted on ultrasound however multiple pockets were noted and only 300 mL was removed. Patient denies abdominal pain. Continue to advance diet as tolerated. Hopefully he will make recovery and we can consider therapy for his anal cancer. Gaurav Jacobs M.D. [facility]
[2019-04-27] MEDS ORDERED: VISINE OPH DROPS BOTH EYES PRN (12:45)
[2019-04-27 13:51] LABS: BODY FLUID SOURCE ASCETIC FLUID; WBC BF 3663 /cumm
[2019-04-27 13:53] LABS: MONOS 10 %; POLYS 90 %
[2019-04-27 14:17] LABS: ALBUMIN BODY FLUID 1.1 g/dL; TOTAL PROT BODY FLUID 3.5 g/dL
--- NOTE | 2019-04-27 17:20 | PROGRESS NOTE ---
DATE: 04/27/2019 SUBJECTIVE: Patient reports that he eating better. He did well with clear liquid diet and he wants to try something more consistent so we are going to try GI soft diet. He had a paracenteses and they removed 300 mL of ascitic fluid. OBJECTIVE: Vital Signs: Temperature 98.9 degrees, heart rate 113, respiratory rate 20, blood pressure 130/64, O2 saturation 96% on room air. General: This is a chronically ill-appearing, 58- year-old male, lying in bed, in no acute distress. Cardiovascular: S1, S2 heard. No murmurs, gallops, or rubs. Regular rate and rhythm. Respiratory: Coarse breath sounds noted in both pulmonary bases. Patient not using any accessory muscles or having work of breathing. Abdomen: Distended, firm. He does bowel sounds. Extremities: No clubbing, cyanosis, or edema. Peripheral pulses present in both legs. Neurological: Patient is alert and oriented x3. Moves 4 extremities. LABORATORY DATA: White cell count 12.97, hemoglobin 8.1 hematocrit 25.8, platelets 222,000. INR 1.52 and BMP that reveals potassium 134, normal creatinine, glucose 121, total bilirubin 1.36. ASSESSMENT AND PLAN: 1. Abdominal distention secondary to ileus versus small-bowel obstruction. Clinically, I think this patient is doing good. General surgeon think that this patient is getting better. He is having bowel movements. He is eating his clear liquid diet. Actually, he requests to have something more consistent so I am going to change to gastrointestinal soft diet. Nasogastric tube has been removed 3 days ago. At this time, we were able only to remove 300 mL of ascitic fluid because it looks like this ascites is complex loculated ascites in any case, we will continue to monitor. 2. Rectal cancer not a candidate for any treatment according to Dr. Jacobs until his medical condition resolved. 3. Urinary tract infection with Enterobacter Pseudomonas. Patient receiving IV antibiotics as per Infectious Disease. In this case, is cefepime. 4. Liver cirrhosis. Aware. Patient is to have home secondary to alcohol consumption. That condition is stable. We have done a paracentesis today. We will continue with current management. 5. History of coronary artery disease and congestive heart failure. At this point, patient is asymptomatic not having any chest pain. We will continue to monitor. 6. History of chronic obstructive pulmonary disease. Patient is not on any exacerbation. We will continue to monitor. 7. Anemia of chronic disease. Hemoglobin is stable. We will continue to monitor. DISPOSITION: I think if this patient starts tolerating diet very well, then I think he can be discharged in the next 24 to 48 hours. cc: MD Armani Mendez MD
--- NOTE | 2019-04-27 21:19 | INFECTIOUS DISEASE PROGRESS NO ---
DATE: 04/27/2019 PRESENT ILLNESS: The patient has a Pseudomonas and Enterobacter urinary tract infection. MEDICATIONS: This is the 9th day of treatment with cefepime. PHYSICAL EXAMINATION: Vital Signs: Temperature is 98.9 degrees, pulse 113, respirations 20, blood pressure 130/64. General: This is an ill-appearing, cachectic middle-aged male. He is in no acute distress, however. Head/eyes/ears/nose/throat: He can hear my spoken words and see near objects. Neck: No pain with movement. Lungs: Clear to auscultation. Cardiovascular: Regular heart rate. Abdomen: Still very protuberant today and slightly tender. The site where a paracentesis was performed has a dressing on it. Neurologic: The patient is awake. He can move his extremities. There is no tremor. Thorax: The patient has a Port-A-Cath present on the right side. The site is not purulent or bleeding. Neurologic: Patient is alert. He can move his extremities. There is no tremor. LAB AND X-RAY: The patient had a paracentesis performed today, but there are no results from it. CBC shows a white count of 12,870, hemoglobin 8.1, platelet count 222,000. Creatinine is 0.7. GFR is greater than 60, alkaline phosphatase is 213. DIAGNOSTICS: Patient this morning had a abdominal paracentesis, 300 of mL of fluid was obtained and tests have been ordered, but the results are not yet back. ASSESSMENT AND PLAN: Patient has urinary tract infection. He also has ascites, which could be due to his anal carcinoma or the patient possibly could have an infection. COMORBIDITIES: Anal carcinoma, anemia of chronic disease, cirrhosis of the liver with ascites, and coronary artery disease. cc: MD Armani Ugalde MD
[2019-04-28] MEDS: MAXIPIME 2 GM in NS 100 ML IV SCH ×4 (00:40→23:11)
[2019-04-28] MEDS: OXY IR PO PRN ×4 (05:04→23:11)
[2019-04-28] MEDS: PRINIVIL PO SCH (08:44)
[2019-04-28] MEDS: LOPRESSOR PO SCH ×2 (08:45→20:38)
[2019-04-28] MEDS: FOLIC ACID PO SCH (08:45)
[2019-04-28] MEDS: IMDUR PO SCH (08:45)
[2019-04-28] MEDS: LACTULOSE PO SCH ×2 (08:45→20:38)
[2019-04-28] MEDS: VITAMIN K 10 MG in NS 50 ML IV SCH (08:45)
--- NOTE | 2019-04-28 10:21 | Diag Imaging Result Doc PS360 ---
EXAM: KUB ABDOMEN HISTORY: Cirrhosis and ascites TECHNIQUE: Single view COMPARISON: 04/25/2019 FINDINGS: Air-filled loops of small bowel and colon. Oral contrast has passed through the small bowel and colon and is no longer present No organomegaly. No foreign body. No abnormal calcifications. Moderate atherosclerosis. IMPRESSION: Negative exam Electronically signed by Andre Toro 04/28/2019 10:19 AM
[2019-04-28] MEDS: PROTONIX IV SCH (11:12)
[2019-04-28] MEDS: SODIUM CHLORIDE 0.9% INJ SCH (11:12)
--- NOTE | 2019-04-28 11:31 | GASTROENTEROLOGY PROGRESS NOTE ---
DATE: 04/28/2019 SUBJECTIVE: Mr. Calixto is a 58-year-old male, who is resting in bed, family at the bedside. He has denied any nausea, vomiting or abdominal pain. OBJECTIVE: Vital Signs: Temperature 98.4 degrees, pulse 96, respirations 15, blood pressure 125/58, oxygen saturation 98% on room air. The patient's weight is 184 pounds. BMI is 29.9 kg/m2. General: He is alert, oriented x3, and in no acute distress. HEENT: Pale conjunctivae. Mild icterus. PERRL. Neck: Supple. Lungs: Clear to auscultation in the anterior guo. Cardiovascular: Regular rate and rhythm. Abdomen: Distended, firm, nontender. Hypoactive bowel sounds heard in all 4 quadrants. Extremities: No clubbing, no cyanosis. 2+ pitting edema in the lower extremities. Neurologic: He is alert, oriented x3. LABORATORY DATA: WBCs 12.87, RBC 2.96, hemoglobin 8.1, hematocrit 25.8, platelet count is 220,000. PT 18.6, INR 1.5. Sodium 134, potassium 3.5, chloride 104, carbon dioxide 20, anion gap 10. BUN 21, creatinine 0.7, glucose 121, calcium 8.3, phosphorus 2.4, magnesium 1.6, total bilirubin 8.86. AST 20, ALT 8, alkaline phos 213. WBCs from the ascitic fluid was 3663, polynuclear WBCs 190, mononuclear WBCs were 10. Fluid protein 3.5 and fluid albumin 1.1. IMAGING STUDIES: Abdominal x-ray was negative. IMPRESSION AND PLAN: Decompensated alcoholic cirrhosis with ascites Ileus s/p nasogastric decompression Sepsis Anemia Severe malnutrition Hepatic encephalopathy History of anal cancer Acute Kidney Injury COPD Type II diabetes UTI PLAN: Mr. Calixto is a 58-year-old male with decompensated alcoholic cirrhosis with ascites. The patient's abdomen is firm and distended. The paracentesis was done yesterday, which showed small amount of septated ascitic fluid, 300 mL of fluid was removed. Percutaneous drainage was not feasible. The patient is on GI prophylaxis, Protonix 40 mg daily. The patient is also receiving lactulose 30 mL p.o., and is getting vitamin K IV for his coagulopathy. Patient has +2 pitting edema, we have started him on Lasix 40 mg PO daily. .He is on antibiotic Maxipime for his UTI per ID. We will continue to monitor his CBCs and BMPs, and follow the plan of care per PCP. This plan was discussed with Dr. Cuba. Please call us for any further questions or concerns. Dictated by NERIS Smallwood for Golden Cuba MD cc: Armani Bender MD Physician Attestation I have seen and examined the patient. I have discussed and reviewed the note by Etta CORDON and agree with findings and plan as documented. Paracentesis showed persistent peritonitis likely from loculated ascites and secondary to recent surgery. Will await cultures and get ID to assist with antibiotic mgmt. He is having worsening LE edema. Continue lasix PO. He continues to remain distended with ileus. No PSE or GI bleeding. MTDD
[2019-04-28 12:28] LABS: BASO# 0.05 X1000 (0.0-0.2); BASO% 0.4 % (0.0-0.8); EOS# 0.14 X1000 (0.0-0.7); EOS% 1.1 % (0.0-10.0); HEMATOCRIT 25.1 % (42.0-52.0); IMM GRAN# 0.07 X1000 (0.0-0.04); IMM GRAN% 0.6 % (0.0-0.5); LYMPH# 1.74 X1000 (1.2-3.4); MCH 27.6 PG (27-31); MCHC 31.9 g/dL (33-37); MCV 86.6 FL (81-99); MONO# 2.01 X1000 (0.11-0.59); MONO% 16.2 % (1.7-9.3); MPV 12.5 FL (7.4-10.4); NEUT# 8.43 X1000 (1.4-6.5); NEUT% 67.7 % (42.2-75.2); PLT 205 X1000 (130-400); RDW 16.3 % (11.5-14.5); WBC 12.44 X1000 (4.8-10.8)
[2019-04-28 12:33] LABS: BANDS 2 % (0-1); LYMPHS 14 % (21-51); MONO 16 % (1-9); SEGS 68 % (42-75)
[2019-04-28 12:43] LABS: AGAP 10; BUN 18 mg/dL (8-22); CALCIUM 8.2 mg/dL (8.8-10.2); CHLORIDE 102 mmol/L (98-107); COSMO 266; CREATININE 0.8 mg/dL (0.7-1.2); ESTIMATED GFR > 60; GLUCOSE 130 mg/dL (70-104); POTASSIUM 3.6 mmol/L (3.5-5.1); SODIUM 131 mmol/L (136-145); TCO2 19 mmol/L (25-35)
[2019-04-28] MEDS: LASIX PO SCH (12:55)
--- NOTE | 2019-04-28 13:14 | HEMO/ONC PROGRESS NOTE ---
DATE: 04/28/2019 SUBJECTIVE: The patient is awake, sitting up in bed this morning. His is helping him get cleaned up for the day. He is awake and alert. States he feels very good today. He appears happy and talkative this morning. He denies any abdominal pain. He states that although the paracentesis did not seem to decrease his distention any, it does feel much more comfortable. The patient had a good night's sleep. He has no complaints. OBJECTIVE: Vital Signs: Temperature 98.4 degrees, pulse rate 100, respiratory rate 20, blood pressure 130/65, O2 saturation 97% on room air. He is in 0/10 abdominal pain. General: Chronically-ill male in no acute distress. HEENT: Sclerae has mild icterus. PERRLA. Oral mucosa is normal. Respiratory: Lungs are clear to auscultation. Normal respiratory effort. Cardiovascular: Normal S1, S2. Heart rate and rhythm slightly tachycardic. Abdomen: Distended, firm, tender to palpation. Hypoactive bowel sounds. Extremities: There is +1 pitting edema noted to bilateral lower extremities. Neurological: Awake, alert, and oriented x3. No focal motor deficits noted. Skin: Warm, dry, and intact. LABORATORY DATA: WBCs 12.44, hemoglobin 8.0, hematocrit 25.1, platelet count 205,000. RADIOLOGY: Abdominal x-ray shows negative exam. No foreign body. No abnormal calcifications. ASSESSMENT AND PLAN: 1. Abdominal distention. The patient had a paracentesis with 300 mL of ascitic fluid removed. He states it makes it feel much better, although his distention has not decreased much. The patient has been on a clear liquid diet, which is advancing to a GI soft diet today. We will see how the patient tolerates that. The patient is having bowel movements and passing gas. He seems to be improving from this standpoint. 2. Anal squamous cell carcinoma. The patient's treatment remains on hold as he recovers from this hospitalization. 3. Alcoholic cirrhosis and splenomegaly. We are aware and monitoring his levels. 4. Normocytic anemia. We are aware. The patient is receiving folic acid replacement. We may consider an iron infusion as well. 5. Anorexia and weight loss. The patient actually appears to be gaining some weight. He states his appetite is okay. We will add protein shakes to his diet now that he is on a GI soft diet. He knows to get up out of bed and attempt to exercise and be mobile. 6. Recent cholecystectomy and peritonitis. Aware. Dictated by NERIS Stuot for Gaurav Jacobs MD Patient seen and examined. As above. Diet is being advanced. He is spending most of the time in the chair and walking and doing some exercises. He is making good progress. Continue current management. Hopefully he will recover soon to go home. Gaurav Jaocbs M.D. cc: MD Armani Magana MD [facility]ENTER[facility]yn[facility]
--- NOTE | 2019-04-28 13:25 | GENERAL SURGERY PROGRESS NOTE ---
DATE: 04/28/2019 SUBJECTIVE: Patient seems to be doing okay. He did get a little bit of fluid off on the paracentesis. Feels a little bit better, but there was not a massive amount removed. OBJECTIVE: Vital Signs: Patient is currently afebrile. His vital signs stable. General: No acute distress. Cardiovascular: Regular rate and rhythm. Lungs: Grossly clear. Abdomen: Soft, protuberant, but no peritoneal signs. Extremities: Moves all extremities. ASSESSMENT AND PLAN: A 58-year-old gentleman with ileus that is resolving and multiple medical comorbidities. 1. Ileus at this time seems to be improving. We will agree with continue supportive care. 2. Multiple medical comorbidities currently being managed by the hospitalist. cc: MD Armani Soliz MD
--- NOTE | 2019-04-28 16:30 | PROGRESS NOTE ---
DATE: 04/28/2019 SUBJECTIVE: The patient reports eating okay. She reports some swelling in both lower extremities and in both ankles. No other complaints noted. OBJECTIVE: Vital Signs: Temperature 98.4 degrees, heart rate 100, respiratory rate 20, blood pressure 130/65, and O2 saturation 97% on room air. General: On examination, this is a 58-year- old chronically ill-appearing, male, lying in bed, in no acute distress. Cardiovascular: S1, S2 heard. No murmurs, gallops, or rubs. Regular rate and rhythm. Respiratory: Coarse breath sounds noted in both pulmonary bases. Patient not using any accessory muscles or having work of breathing. Abdomen: Distended and firm. Bowel sounds present but distant. Extremities: No clubbing, cyanosis, but there is some marked edema in both lower extremities, mostly in both ankles. Peripheral pulses present in both legs. Neurological: Patient is alert and oriented x3. Moves 4 extremities. LABORATORY DATA: Pending at the time of my dictation. ASSESSMENT AND PLAN: 1. Decompensated liver cirrhosis with ascites. We have tried to do paracentesis yesterday, but we think that all this ascites is loculated, still we were able to remove 300 mL of ascitic fluid. Patient receiving cefepime 1 gram IV every 8 hours. For his urinary tract infection, we will continue to monitor. 2. Anal cancer, aware. 3. Urinary tract infection with Enterobacter and Pseudomonas. We will continue with current antibiotics recommended by Dr. Hagen, in this case cefepime. 4. Liver cirrhosis. Aware. 5. History of coronary artery disease and congestive heart failure. We will restart Lasix and that will help with this condition and with swelling in both legs. 6. History of chronic obstructive pulmonary disease. The patient is not on any exacerbation. We will continue to monitor. 7. Anemia of chronic disease. Hemoglobin is stable. Continue to monitor CBC. 8. Disposition. I think this patient is still having infection in the perineal area. We will continue with the current management. cc: MD Armani Mendez MD
[2019-04-29] MEDS: OXY IR PO PRN ×2 (06:53→12:03)
--- NOTE | 2019-04-29 07:24 | INFECTIOUS DISEASE PROGRESS NO ---
DATE: 04/28/2019 PRESENT ILLNESS: Mr. Calixto is being treated for a Pseudomonas and Enterobacter urinary tract infection as well as peritonitis. MEDICATIONS: Today is day 9 of treatment with cefepime 2 g IV every 8 hours. PHYSICAL EXAMINATION: Vital Signs: Temperature 98.4 degrees, pulse rate 102, respiratory rate 20, blood pressure 130/65, and O2 saturations 97% on room air. General: This is a chronically ill-appearing middle-aged gentleman. He is lying in bed currently in no acute distress. HEENT: Atraumatic, normocephalic. Oral mucous membranes are pink and moist. Conjunctivae are pale. Neck: Supple. Trachea is midline. Cardiovascular: Heart rate and rhythm are regular with murmur and gallop noted. Sinus tachycardia on the monitor with a left bundle- branch block. Respiratory: Lung sounds are clear to auscultation in the upper lobes. Diminished in the mid and bases. No work of breathing is noted. Abdomen: Mildly firm and protuberant. Tender to palpation. Bowel sounds are active. Neurologic: He is awake, alert, and oriented, and able to move around in the bed independently. LABORATORY AND X-RAY: Today, his white count is 12.44, hemoglobin 8, and platelet count 205,000. Creatinine is 0.8. Estimated GFR is greater than 60. On the ascitic fluid from yesterday, the white blood cells were 3663, and polynuclear WBCs 90%, and mononuclear WBC is 10%. So far, the peritoneal fluid has no anaerobes and no growth on the preliminary report. Previously, his urine culture grew Enterobacter and Pseudomonas. Abdominal x-ray done today is negative. Previously, he had an Escherichia coli that grew in his WOODY drain, status post cholecystectomy. ASSESSMENT AND PLAN: Mr. Calixto is being treated for a urinary tract infection, and continues to have peritonitis as seen on the ascitic fluid. Cultures so far have shown no growth. Today is day 9 of treatment using cefepime for his urinary tract infection which we will continue. Cefepime will also be good coverage for the peritonitis as well, based on his previous growth of E. Coli from the abdominal WOODY drain. These plans have been discussed with and recommended by Dr. Hagen. COMORBIDITIES: For Mr. Calixto include anal squamous cell carcinoma, alcoholic cirrhosis, protein- calorie malnutrition, coronary artery disease, and anemia of chronic disease. Dictated by NERIS Harper for Shree Hagen MD cc: MD Armani Ugalde MD MTDD
[2019-04-29 08:17] LABS: BASO# 0.07 X1000 (0.0-0.2); BASO% 0.6 % (0.0-0.8); EOS# 0.21 X1000 (0.0-0.7); EOS% 1.7 % (0.0-10.0); HEMATOCRIT 25.7 % (42.0-52.0); HEMOGLOBIN 8.1 g/dL (14.0-18.0); IMM GRAN# 0.07 X1000 (0.0-0.04); IMM GRAN% 0.6 % (0.0-0.5); LYMPH% 20.4 % (20.5-51.1); MCH 27.2 PG (27-31); MCHC 31.5 g/dL (33-37); MCV 86.2 FL (81-99); MONO# 2.11 X1000 (0.11-0.59); MONO% 17.3 % (1.7-9.3); MPV 12.2 FL (7.4-10.4); NEUT# 7.27 X1000 (1.4-6.5); NEUT% 59.4 % (42.2-75.2); PLT 191 X1000 (130-400); RBC 2.98 XMIL (4.7-6.1); RDW 16.1 % (11.5-14.5); WBC 12.23 X1000 (4.8-10.8)
[2019-04-29 08:32] LABS: AGAP 13; BUN 16 mg/dL (8-22); CALCIUM 8.4 mg/dL (8.8-10.2); CHLORIDE 102 mmol/L (98-107); COSMO 270; CREATININE 0.9 mg/dL (0.7-1.2); ESTIMATED GFR > 60; GLUCOSE 113 mg/dL (70-104); POTASSIUM 3.1 mmol/L (3.5-5.1); SODIUM 134 mmol/L (136-145); TCO2 19 mmol/L (25-35)
[2019-04-29 09:03] LABS: ANISOCYTOSIS 1+; EOS 1 % (1-10); LYMPHS 13 % (21-51); MONO 6 % (1-9); SEGS 78 % (42-75)
[2019-04-29] MEDS: MAXIPIME 2 GM in NS 100 ML IV SCH (10:03)
[2019-04-29] MEDS: LOPRESSOR PO SCH (10:04)
[2019-04-29] MEDS: VITAMIN K 10 MG in NS 50 ML IV SCH (10:04)
[2019-04-29] MEDS: IMDUR PO SCH (10:04)
[2019-04-29] MEDS: LACTULOSE PO SCH (10:04)
[2019-04-29] MEDS: PRINIVIL PO SCH (10:04)
[2019-04-29] MEDS: FOLIC ACID PO SCH (10:04)
[2019-04-29] MEDS: LASIX PO SCH (10:04)
--- NOTE | 2019-04-29 11:44 | GASTROENTEROLOGY PROGRESS NOTE ---
DATE: 04/29/2019 SUBJECTIVE: Mr. Calixto is a 58-year-old, male who was sitting at the side of the bed. Family at the bedside. He has denied any nausea, vomiting, or abdominal pain. OBJECTIVE: Vital Signs: Temperature 98.4 degrees, pulse 104, respirations 16, blood pressure 111/61, oxygen saturation 98% on room air. The patient's weight is 184 pounds. BMI is 29.9 kg/m2. General: He is alert, oriented x3, and in no acute distress. HEENT: Pale conjunctivae. Mild icterus. PERRL. Neck: Supple. Lungs: Clear to auscultation in the anterior guo. Cardiovascular: The patient is tachycardic. Abdomen: Distended, firm, nontender. Hypoactive bowel sounds heard in all 4 quadrants. Extremities: No clubbing, no cyanosis. 2+ pitting edema in the lower extremities. Neurologic: Alert and oriented x3. Labs: WBCs 12.23, RBCs 2.98, hemoglobin 8.1, hematocrit 25.7, platelet count 191,000. Sodium 134, potassium 3.1, chloride 102, carbon dioxide 19, anion gap 13, BUN 16, creatinine 0.9, glucose 113, calcium 8.4. Abdominal x-ray yesterday was negative. Ascetic fluid WBC was 3663. IMPRESSION: 1. Decompensated alcoholic cirrhosis with ascites. 2. Ileus, status post nasogastric decompression. 3. Sepsis. 4. Anemia. 5. Spontaneous bacterial peritonitis 6. Hepatic encephalopathy. 7. History of anal cancer. 8. Acute kidney injury. 9. Chronic obstructive pulmonary disease. 10. Type 2 diabetes. 11. Urinary tract infection. 12. Loculated Ascites PLAN: Mr. Calixto is a 58-year-old male with decompensated alcoholic cirrhosis with ascites. The patient's abdomen is still firm and distended. The patient has lower extremity pitting 2+ edema. The patient is on Lasix 40 mg p.o. daily. The patient is receiving antibiotic, Keflex, for his SBP and UTI per infectious disease. He is also receiving lactulose 30 mL p.o. twice a day. We will continue to monitor patient's CBC and BMP, and follow the plan of care per PCP and infectious disease. This plan was discussed with Dr. Reynaga. Please call us for any further questions or concerns. Dictated by NERIS Smallwood for Bob Reynaga MD cc: MD Armani Posadas MD I have seen and examined the patient myself and I agree with the above plan of care. I have discussed the above with the patient and family and all questions were answered. Please call us with any questions or concerns. MTDD
[2019-04-29] MEDS ORDERED: KLOR-CON PO ONE (12:08)
--- NOTE | 2019-04-29 12:30 | GENERAL SURGERY PROGRESS NOTE ---
DATE: 04/29/2019 SUBJECTIVE: Patient seems to be doing about the same. He is having bowel movements. OBJECTIVE: Vital Signs: Patient is currently afebrile. His vital signs are stable. General: No acute distress. Cardiovascular: Regular rate and rhythm. Lungs: Grossly clear. Abdomen: Soft. Still protuberant, but overall appears less tight than it was on previous days. ASSESSMENT AND PLAN: A 58-year-old gentleman with ileus that seems to be resolving with multiple medical comorbidities. 1. Ileus at this time seems to be improving. We will be available if needed. We will call with any questions. 2. Multiple medical comorbidities at this time, being managed by the hospitalist and subspecialties. cc: MD Armani Soliz MD
--- NOTE | 2019-04-29 13:15 | HEMO/ONC PROGRESS NOTE ---
DATE: 04/29/2019 SUBJECTIVE: The patient is lying in bed this morning, still asleep. He awakes easily to my voice. He is feeling much better, and it shows that his demeanor is improving. The patient's abdomen continues to be distended. However, he states that it is not bothering him, and he had a good night's sleep. He denies any nausea, vomiting, abdominal pain, diarrhea, or constipation. OBJECTIVE: Vital Signs: Temperature 98.4 degrees, pulse rate 104, respiratory rate 16, blood pressure 111/61, O2 saturation 98% on room air. He is in 7/10 abdominal pain. General: This is a chronically ill-appearing male in no acute distress. HEENT: Sclerae has mild icterus. PERRLA. Oral mucosa is normal. Respiratory: Lungs are clear to auscultation. Normal respiratory effort. Cardiovascular: Normal S1, S2. Heart rate and rhythm tachycardic. Abdomen: Distended, somewhat firm, tender to palpation. Hypoactive bowel sounds. Extremities: There is +2 pitting edema noted to bilateral lower extremities. Neurological: Awake, alert, and oriented x3. No focal motor deficits noted. Skin: Warm, dry, and intact. LABORATORY DATA: WBCs 12.23, hemoglobin 8.1, hematocrit 25.7, platelet count 191,000. Sodium 134, potassium 3.1, calcium 8.4. ASSESSMENT AND PLAN: 1. Abdominal distention. The patient is status post paracentesis, which did remove some fluid, which to him did make it feel better. It has not decreased the distention much due to multiple loculated areas of fluid. The patient has done well on a gastrointestinal soft diet with protein shakes. He is tolerating it very well. He is also continuing to have bowel movements and passing gas. From this standpoint, he is improving. 2. Anal squamous cell carcinoma. Upon the patient's discharge, we will make an appointment to follow up with him as an outpatient. We will consider starting his therapy at that time. 3. Alcoholic cirrhosis and splenomegaly. We are aware, and continue to monitor his level. 4. Normocytic anemia. We are aware. The patient is receiving folic acid replacement, and we will evaluate his iron profile in the clinic. 5. Anorexia and weight loss. The patient states his appetite is improving. He is drinking protein shakes. He is attempting to get up and down out of his bed as much as he can with assistance. 6. Recent cholecystectomy and peritonitis. We will continue to monitor. 7. Aware of the patient's disposition. We will follow up with him in the clinic. Dictated by NERIS Stout for Gaurav Jacobs MD Patient seen and examined. He seems to be making good progress. Continue current management. Nothing much to add from a hematology oncology standpoint. Appreciate Dr. Hagen input.. He is hoping to start chemotherapy and radiation for his anal cancer soon. Apparently he had a CT scan today. We will follow-up on results. Gaurav Jacobs M.D. cc: MD Armani Magana MD MTDD
[2019-04-29] MEDS: PROTONIX IV SCH (13:43)
[2019-04-29] MEDS: SODIUM CHLORIDE 0.9% INJ SCH (13:43)
[2019-04-29] MEDS ORDERED: KEFLEX PO SCH (14:00)
[2019-04-29 14:49] VITALS: BP 112/57
--- NOTE | 2019-04-29 14:51 | Diag Imaging Result Doc PS360 ---
CT ABD/PELVIS W/PO AND IV CON - 04/29/2019 INDICATION: peritonitis COMPARISON: 04/23/2019 FINDINGS: There is some pulmonary edema in the lung bases. Heart size is top normal. There is a small amount of ascites. There is some thickening and enhancement of the peritoneum diffusely compatible with peritonitis. All other findings are stable. IMPRESSION: 1. Peritonitis. Small amount of ascites. 2. Pulmonary edema in the lung bases similar to prior. This exam was performed using automated exposure control, adjustment of mA or kV according to patient size, and/or use of iterative reconstruction technique Electronically signed by Tl Irizarry 04/29/2019 2:49 PM
--- NOTE | 2019-04-29 19:23 | INFECTIOUS DISEASE PROGRESS NO ---
DATE: 04/29/2019 PRESENT ILLNESS: The patient has peritonitis. He also has a Pseudomonas and Enterobacter urinary tract infection. MEDICATIONS: This is the 10th day of treatment with cefepime. PHYSICAL EXAMINATION: Vital Signs: Temperature is 98.4 degrees, pulse 104, respirations 16, blood pressure 111/61. General: This is an ill-appearing, middle-aged male. He is in no acute distress. Head, eyes, ears, nose, throat: He can hear my spoken words and see near objects. He does not have any white patches in his mouth. Neck: No pain with movement. Lungs: Clear to auscultation. Cardiovascular: Heart rate is regular. Abdomen: Protuberant, but soft and not tender. Neurologic: The patient is alert. He can move his extremities. There is no tremor. LAB AND X-RAY: Creatinine is 0.9. GFR is greater than 60. CBC shows a white count of 12,230, hemoglobin 8.1, platelet count 191,000. ASSESSMENT AND PLAN: The patient's urinary tract infection has been treated, and I am going to discontinue Pseudomonas and Enterobacter. The only culture we have had from the patient's abdomen was an E coli. It is susceptible to cefazolin. Therefore, it should be susceptible to Keflex, which I am going to switch the patient to. Some of the side effects of the antibiotic, including rash and diarrhea, have been explained to the patient who agrees with treatment. I discussed the patient's case with Dr. Jacob. He would like to have a CT scan of the abdomen to see if there is fluid in the abdomen that is causing peritonitis. It may be very difficult to drain all of the ascitic fluid that is causing the patient's peritonitis. I am switching to an oral antibiotic and it may be that we will put him on the antibiotic on an indefinite basis. COMORBIDITIES: The patient has squamous cell carcinoma, alcoholic cirrhosis, protein-calorie malnutrition, coronary artery disease, and anemia of chronic disease. cc: MD Armani Ugalde MD
--- NOTE | 2019-04-30 15:39 | DISCHARGE SUMMARY ---
ADMISSION DATE: 04/16/2019 DISCHARGE DATE: 04/29/2019 DISCHARGE DIAGNOSES: 1. Liver cirrhosis with ascites. 2. Anal cancer. 3. Urinary tract infection with Enterobacter pseudomonas. 4. Coronary artery disease. 5. Congestive heart failure. 6. Chronic obstructive pulmonary disease. 7. Anemia of chronic disease. CONSULTATIONS: 1. Dr. Gaurav Jacobs from Hematology/Oncology. 2. Dr. Bbo Reynaga from GI. 3. Dr. Shree Hagen from Infectious Disease. 4. Dr. Bill Jacob from General Surgery. PROCEDURES: 1. Chest x-ray done on admission show essentially stable course and interstitial opacities likely related to fibrosis. 2. CT of abdomen and pelvis showed multiple distended loops of small bowel that are similar but probably slightly less extensive than the previous study suggestive of obstruction and ascites that is similar to the previous study, and evidence of cirrhosis and splenomegaly. 3. Paracentesis with ultrasound done on 04/20 removed 1 L of ascitic fluid. 4. NG tube placement done on 04/22. 5. Abdominal pelvic CT done on 04/23 showed persistent small bowel obstruction as well as constipation with cirrhosis with splenomegaly and ascites similar to prior exam, and cholecystectomy and prominent atherosclerosis. 6. Abdomen and pelvis CT done on 04/29/2019 showed peritonitis with small amount of ascites, and pulmonary edema in the lung bases. HOSPITAL COURSE: This is a 58-year-old male who presented to the emergency department complaining of fever. He has been diagnosed with rectal cancer, ascites and cirrhosis. He has been admitted to the hospital before for similar conditions so because of fever we thought that he has peritonitis. The results of the first CT scan of the abdomen as we mentioned above. Patient was started on antibiotics. Basically, he developed also ileus versus small- bowel obstruction so we consulted General Surgery. They are following this patient, but because he was not feeling completely good, we decided to place an NG tube. The patient was placed on NPO. The patient was provided with IV fluids and pain medications. Gradually, this patient started getting better. We find out that this patient had a urinary tract infection. We were able to isolate Enterobacter and Pseudomonas from the urine Dr. Hagen of infectious disease was recommended antibiotics. Also nutritional status, patient was not eating okay of course when he was having the NG tube feedings, but then he was eating slowly clear liquids so we advanced to a normal diet. According to the cultures, Dr. Hagen decided to change antibiotics to Keflex that he is going to receive for at least a couple of months. There was a doubt that he may need to have this medication for a prolonged period of time considering recurrent ascites. At this time, patient is being discharged in stable condition. He is supposed to see Dr. Jacobs in the office. DISCHARGE PHYSICAL EXAMINATION: Vital Signs: Temperature 97.6 degrees, heart rate 78, respiratory rate 14, blood pressure 112/57, and O2 saturation is 94% on room air. General: This is a chronically ill-looking 58-year-old male lying in bed in no acute distress. Cardiovascular: S1, S2 heard. No murmurs, gallops, or rubs. Regular rate and rhythm. Respiratory: Clear bilaterally to auscultation. No work of breathing or using accessory muscles. Abdomen: Soft, nontender to palpation. Bowel sounds present. No organomegaly. Extremities: No clubbing or cyanosis. Abdomen: Soft and nontender to palpation. Distended but no organomegaly noted. It looks that he has some residual ascites. Extremities: No clubbing or cyanosis, but both lower extremity edema up until both legs. Neurological: The patient is alert and oriented x3. Moves 4 extremities. DISCHARGE DISPOSITION: Home to self-care. DISCHARGE MEDICATIONS: 1. Cephalexin 500 mg 1 tablet p.o. b.i.d. for 10 days. 2. Folic Acid 1 tablet p.o. daily. 3. Furosemide 40 mg 1 tablet p.o. daily. 4. Metoprolol 25 mg 1 tablet p.o. b.i.d. 5. Oxycodone IR 5 mg 1 tablet p.o. every 4 hours as needed. 6. Lactulose 30 mg 1 tablet p.o. b.i.d. 7. Spironolactone 225 mg 1 tablet p.o. daily. 8. Imdur 30 mg 1 tablet p.o. daily. 9. Ventolin 2 puffs inhalation as needed. 10. Colchicine 0.6 mg 1 tablet p.o. 4 times per day. 11. Omeprazole 40 mg 1 tablet p.o. daily. 12. Tamsulosin 0.4 mg 1 tablet p.o. daily. FOLLOWUP: Follow up with Dr. Jacobs in a week. TIME SPENT: 33 minutes. cc: MD Armani Mendez MD MTDD
== END 2019-04-29 16:46 | disposition home or self-care (01) | DRG 689 ==
LOC: P.ED 11:18 → SUATTDRO 16:14 → P.MEDSURG 18:45 → SUATTDRO 04-19 16:05 → 3N 04-21 19:15
PROVIDERS: ADMIT Family Medicine; ATTEND Internal Medicine

== ENCOUNTER 2019-05-10 17:12 | Inpatient (IN) ==
[2019-05-10 18:12] LABS: ALLEN TEST YES; BE -1.6 mmoll (-3.0-3.0); BLOOD TYPE ARTERIAL; HCO3-(ACT) 23.7 mmoll (20.0-26.0); METHB 1.1 % (0.0-1.5); O2(CT) 12.2 mL/dL (15.0-23.0); O2HB 96.4 % (95.0-99.0); PCO2(98.6) 22 mmHg (35-45); PO2(98.6) 90 mmHg (60-100); SAMPLE BLOOD; SAO2 99.1 % (95.0-100.0); THB 8.9 g/dL (11.5-17.4)
[2019-05-10 18:14] LABS: MODALITY ROOM AIR; pH(98.6) 7.56 (7.35-7.45)
[2019-05-10 18:22] LABS: BASO# 0.07 X1000 (0.0-0.2); BASO% 0.3 % (0.0-0.8); EOS# 0.04 X1000 (0.0-0.7); EOS% 0.2 % (0.0-10.0); HEMATOCRIT 27.2 % (42.0-52.0); HEMOGLOBIN 8.9 g/dL (14.0-18.0); IMM GRAN# 0.08 X1000 (0.0-0.04); IMM GRAN% 0.4 % (0.0-0.5); LYMPH# 3.53 X1000 (1.2-3.4); LYMPH% 16.5 % (20.5-51.1); MCH 27.2 PG (27-31); MCHC 32.7 g/dL (33-37); MCV 83.2 FL (81-99); MONO# 1.61 X1000 (0.11-0.59); MONO% 7.5 % (1.7-9.3); NEUT# 16.11 X1000 (1.4-6.5); NEUT% 75.1 % (42.2-75.2); PLT 223 X1000 (130-400); RBC 3.27 XMIL (4.7-6.1); RDW 16.1 % (11.5-14.5); WBC 21.44 X1000 (4.8-10.8)
[2019-05-10 18:24] LABS: INR 1.42; PROTIME 17.6 Seconds (11.0-16.0); PTT 41.5 Seconds (22.3-41.8)
--- NOTE | 2019-05-10 18:34 | Diag Imaging Result Doc PS360 ---
CT HEAD W/O CONTRAST - 05/10/2019 INDICATION: Altered Mental Status COMPARISON: 03/28/2019 FINDINGS: There is stable mild patchy cerebral white matter chronic microvascular ischemia. No intracranial mass or hemorrhage. The skull is intact. The sinuses, mastoids, and middle ears are clear. IMPRESSION: No acute disease or change from prior. This exam was performed using automated exposure control, adjustment of mA or kV according to patient size, and/or use of iterative reconstruction technique Electronically signed by Tl Irizarry 05/10/2019 6:32 PM
[2019-05-10] MEDS ORDERED: NS 1,000 ML IV ONE (18:36)
[2019-05-10 18:44] LABS: ALB/GLOB RATIO 0.4; ALBUMIN 2.4 g/dL (3.5-5.0); POTASSIUM 4.6 mmol/L (3.5-5.1); TOTAL BILIRUBIN 2.11 mg/dL (0.20-1.00)
--- NOTE | 2019-05-10 19:26 | Diag Imaging Result Doc PS360 ---
CHEST-PORTABLE - 05/10/2019 INDICATION: AMS COMPARISON: 04/20/2019 FINDINGS: Stable right chest port in good position. Stable ill-defined infiltrates or scarring centrally and throughout the left lung. No new infiltrates. Heart size remains normal. IMPRESSION: No change from prior. Electronically signed by Tl Irizarry 05/10/2019 7:23 PM
[2019-05-10] MEDS ORDERED: XYLOCAINE 1% INJ ONE (19:41)
[2019-05-10] MEDS ORDERED: ROCEPHIN 2 GM in NS 50 ML IV ONE (19:56)
--- NOTE | 2019-05-10 20:25 | PROVIDER DOCUMENTATION ---
This chart was entered by Nohemi Khan Scribe, acting as scribe for Wil Chow MD. HPI-General Adult - General Chief Complaint: Altered Mental Status Stated Complaint: ABD PAIN Time Seen by Provider: 05/10/19 17:24 Source: family Allergies/Adverse Reactions: Patient Allergies Allergy/AdvReac Type Severity Reaction Status Date / Time No Known Allergies Allergy Verified 05/10/19 19:23 Home Medications: Home Medication List Medication Instructions Recorded Confirmed Last Taken Type Amlodipine [Norvasc] 5 mg PO DAILY 01/12/19 05/10/19 03/22/19 05:30 History Cyclobenzaprine [Flexeril] 10 mg PO TID 01/12/19 05/10/19 03/22/19 05:30 History Lisinopril [Zestril] 40 mg PO DAILY 01/12/19 05/10/19 03/22/19 05:30 History Isosorbide Mononitrate E.r. [Imdur] 30 mg PO DAILY 03/01/19 05/10/19 03/22/19 05:30 History Albuterol Sulfate Inhaler 2 puff INH PRN PRN 03/28/19 05/10/19 Unknown History [Ventolin Hfa] Colchicine 0.6 mg PO 4XDAY 03/28/19 05/10/19 Unknown History Omeprazole [Prilosec] 40 mg PO DAILY 03/28/19 05/10/19 Unknown History Tamsulosin HCl [Flomax] 0.4 mg PO DAILY 03/28/19 05/10/19 Unknown History Cephalexin 500 mg PO BID #14 cap 04/29/19 05/10/19 Unknown Rx Folic Acid 1 mg PO DAILY tab 04/29/19 05/10/19 Unknown Rx Furosemide [Lasix] 40 mg PO DAILY #90 tab 04/29/19 05/10/19 Unknown Rx Lactulose 30 ml PO BID #60 udc 04/29/19 05/10/19 Unknown Rx Metoprolol [Lopressor] 25 mg PO BID #60 tab 04/29/19 05/10/19 Unknown Rx Oxycodone I.r. [Oxy Ir] 5 mg PO Q4H PRN PRN #40 tab 04/29/19 05/10/19 Unknown Rx - History of Present Illness -Gen Adult Nature of Presenting Problems: Patient is a 58 y/o male presenting to the ED today c/o altered mental status. provides history. reports onset of symptoms yesterday. Patient states patient is usually A&Ox3 at baseline. Patient was admitted 2 weeks ago. Patient has active cirrhosis and rectal cancer. Patient had a paracentesis during his last admission as well as a recent cholecystectomy. Patient exhibits confusion. states patient has complained of some abdominal pain. Patient has a history of COPD, sarcoidosis, WI and kidney problems. Patient previously consumed alcohol heavily and stopped smoking about 20 years ago. reports patient has had some SOB and shakeyness. states that patient had a fall this morning and fell back onto grass but states he may have hit his head. denies fever. denies all other signs/symptoms. Location of Pain/Injury: reports: abdomen Pain Radiation: reports: no radiation Quality of Pain: reports: fullness Onset/Duration: reports: 24 hours ago Timing: reports: still present Associated Symptoms: reports: other (altered mental status) Similar Symptoms Previously?: No Recently seen or treated by another doctor?: Yes (recent ER admission ) Review of Systems - Adult - REVIEW OF SYSTEMS - ADULT Constitutional: denies: chills, fever Eyes: reports: no symptoms reported Ears, Nose, Mouth & Throat: reports: no symptoms reported Cardiovascular: denies: chest pain Respiratory: reports: shortness of breath. denies: cough Gastrointestinal: reports: abdominal pain. denies: constipation, diarrhea, nausea, vomiting Genitourinary: reports: no symptoms reported Musculoskeletal: reports: no symptoms reported Integumentary: reports: no symptoms reported Neurological: reports: other (altered mental status) Psychiatric: reports: no symptoms reported Hematologic/Lymphatic: reports: no symptoms reported Allergic/Immunologic: reports: no symptoms reported Past History - Adult - PAST MEDICAL HISTORY-ADULT Review of Records: reports: Old Records Reviewed, Nursing Assessment Review, Medications Reviewed, Social history reviewed & non-contributory. Major Childhood Illnesses: reports: denies history Cardiovascular: reports: CAD, CHF, HTN, WI Respiratory: reports: COPD, sleep apnea Gastrointestinal: reports: cancer (rectal) Obstetrical/Gynecological: reports: denies history Genitourinary: reports: denies history Musculoskeletal: reports: arthritis (gout), other (gout) Neurological: reports: denies history Endocrine/Immune: reports: denies history Other Conditions: reports: denies history - PRIOR SURGERIES/PROCEDURES Surgical/Procedure History: reports: recent surgery (cholecystectomy 6 days ago) , cholecystectomy - IMMUNIZATION STATUS Childhood Immunizations: See Nurse Assessment Flu Vaccine: See Nurse Assessment - FAMILY HISTORY Family History: reviewed, not pertinent Physical Exam-General - PHYSICAL EXAM-ADULT Initial Vital Signs Reviewed: Yes - CONSTITUTIONAL General Appearance: lethargic, slow to respond - EYES Eyes: other (pupils dilated to 4 mm bilaterally) - HEAD, EARS, NOSE, MOUTH & THROAT HENMT: normocephalic/atraumatic, other (dry mucous membranes) - NECK Neck: supple, lymphadenopathy (one palpable) - RESPIRATORY Respiratory: no respiratory distress, no accessory muscle use, decreased breath sounds (in bases) - CARDIOVASCULAR Cardiovascular: tachycardia - GASTROINTESTINAL (ABDOMEN) Abdominal Exam: distended, tenderness (diffuse) - MUSCULOSKELETAL Extremity: normal inspection, pedal edema (trace) - SKIN Integumentary: normal color, warm/dry - NEUROLOGIC Neurologic: grossly normal, other (asterixis) - PSYCHIATRIC Psych/Mental Status: normal mood/affect, other (disoriented and limited ability to have conversation.) Progress - PLAN OF CARE/RESULTS Progress/Plan/Lab Results: Vital Signs - 8 hr 05/10/19 17:18 Temperature 98.3 F Pulse Rate 131 H Respiratory Rate 18 Blood Pressure 117/67 O2 Sat by Pulse Oximetry 99 Laboratory Results - last 24 hr 05/10/19 17:24 POC Glucose 110 H Orders Category Date Time Status Cardiac Monitoring DIRECTED Care 05/10/19 17:33 Ordered Finger Stick Blood Sugar (ED) DIRECTED Care 05/10/19 17:33 Ordered Oxygen Therapy- ED Nursing DIRECTED Care 05/10/19 17:33 Ordered Saline Loc NOW Care 05/10/19 17:33 Ordered CHEST-PORTABLE [RAD] Stat Exams 05/10/19 17:[address] HEAD W/O CONTRAST [CT] Stat Exams 05/10/19 17:34 Ordered ABG [RESP] Stat Lab 05/10/19 17:33 Ordered ALCOHOL BLOOD Stat Lab 05/10/19 17:33 Uncollected CBC WITH ELECTRONIC DIFF [HEME] Stat Lab 05/10/19 17:33 Uncollected Result Diagrams: 05/10/19 17:51 05/10/19 17:51 - REASSESSMENT Reassessment #1 Status: other (Evaluated for pocket for SBP analysis, on U/S no pocket noted. Will start abx and call hosptialist for admission.) Reassessment #2 Status: other (Discussed case with the hospitalist team who has accepted the patient.) - EKG 1 Time of EKG reading by physician:: 17:37 EKG Read and Signed by:: Wil Chow EKG Interpretation (*Must complete 3 of following elements*): Abnormal Rate: 137 Rhythm: Sinus tachycardia QRS: LBB Departure - Departure Date of Disposition Decision: 05/10/19 Time of Disposition Decision: 20:23 DIAGNOSIS: Altered mental status Qualifiers: Altered mental status type: unspecified Qualified Code(s): R41.82 - Altered mental status, unspecified Sepsis Qualifiers: Sepsis type: sepsis due to unspecified organism Sepsis acute organ dysfunction status: with acute organ dysfunction Severe sepsis acute organ dysfunction type: acute renal failure Acute renal failure type: unspecified Severe sepsis shock status: without septic shock Qualified Code(s): A41.9 - Sepsis, unspecified organism; R65.20 - Severe sepsis without septic shock; N17.9 - Acute kidney failure, unspecified Disposition: ADMITTED INPATIENT 09 Certified Medical Emergency: Emergent Condition: Serious Referrals and Follow-Ups: Armani Bender MD [Primary Care Provider] - - Critical Care Note This patient required my direct & personal management of CC.: No Attestation - Physician/ MAIKEL Attestation Patient care was provided by Advanced Practice Provider:: No The physician spent face to face time with patient:: Yes Advanced Practice Provider documentation review:: Supervising physician onsite and consulted in the evaluation and care of this patient. The physician did have a face to face encounter with the patient. This chart was documented by the indicated scribe, (Nohemi Khan Scribe) and accurately reflects the services I performed and decisions made by Claudine galeas Joshua T., MD, as attested by the provider's signature.
--- NOTE | 2019-05-10 20:34 | EKG Report ---
Test Performed on : 05/10/2019 5:37:42 PM Test Reason : AMS Blood Pressure : / mmHG Vent. Rate : 137 BPM Atrial Rate : 141 BPM P-R Int : 144 ms QRS Dur : 134 ms QT Int : 322 ms P-R-T Axes : -05 -19 137 degrees QTc Int : 486 ms Sinus tachycardia. Left bundle branch block Abnormal ECG When compared with ECG of 16-APR-2019 13:16, (Unconfirmed) No significant change was found Unconfirmed Result
[2019-05-10 20:50] LABS: URINE SOURCE CLEAN CATCH
[2019-05-10 21:05] LABS: BILIRUBIN URINE SMALL (NEGATIVE); BLOOD URINE MODERATE (NEGATIVE); COLOR YELLOW; GLUCOSE URINE NEGATIVE (NEGATIVE); KETONE URINE NEGATIVE (NEGATIVE); LEUKOCYTES URINE TRACE (NEGATIVE); NITRITE URINE NEGATIVE (NEGATIVE); PROTEIN URINE TRACE mg/dL (NEGATIVE); SP GRAVITY URINE 1.021; TURBIDITY URINE CLEAR (CLEAR); UROBILINOGEN URINE 4 mg/dL (NORMAL)
[2019-05-10 21:07] LABS: UR EPITHELIAL CELLS <10 /HPF (<10); URINE BACTERIA NEGATIVE /HPF; URINE RBC TNTC /HPF (<10)
[2019-05-10 21:08] LABS: UR AMPHETAMINES QUAL NONE DETECTED (NONE DETECT); UR BARBITUATES QUAL NONE DETECTED (NONE DETECT); UR BENZODIAZEPIN QUAL NONE DETECTED (NONE DETECT); UR CANNABINOIDS QUAL NONE DETECTED (NONE DETECT); UR COCAINE QUAL NONE DETECTED (NONE DETECT); UR METHADONE QUAL NONE DETECTED (NONE DETECT); UR OPIATES QUAL NONE DETECTED (NONE DETECT); UR OXYCODONE QUAL PRESUMPTIVE POSITIVE (NONE DETECT); UR PCP QUAL NONE DETECTED (NONE DETECT)
[2019-05-10 21:31] LABS: URINE CRYSTALS NONE SEEN
[2019-05-10] MEDS ORDERED: ZOFRAN IV PRN (22:18)
[2019-05-11] MEDS: LACTULOSE PO SCH ×3 (02:04→20:46)
[2019-05-11] MEDS ORDERED: OXY IR PO PRN (02:47)
[2019-05-11] MEDS ORDERED: VENTOLIN HFA INH PRN (02:47)
[2019-05-11] MEDS: PRILOSEC PO SCH (06:11)
[2019-05-11 06:40] LABS: INR 1.53; PROTIME 18.6 Seconds (11.0-16.0)
[2019-05-11 07:18] LABS: BASO# 0.08 X1000 (0.0-0.2); BASO% 0.6 % (0.0-0.8); EOS# 0.08 X1000 (0.0-0.7); EOS% 0.6 % (0.0-10.0); HEMATOCRIT 23.8 % (42.0-52.0); HEMOGLOBIN 7.8 g/dL (14.0-18.0); IMM GRAN# 0.04 X1000 (0.0-0.04); IMM GRAN% 0.3 % (0.0-0.5); LYMPH# 2.32 X1000 (1.2-3.4); LYMPH% 16.7 % (20.5-51.1); MCH 27.8 PG (27-31); MCHC 32.8 g/dL (33-37); MCV 84.7 FL (81-99); MONO# 1.11 X1000 (0.11-0.59); MPV 12.3 FL (7.4-10.4); NEUT# 10.24 X1000 (1.4-6.5); NEUT% 73.8 % (42.2-75.2); PLT 169 X1000 (130-400); RBC 2.81 XMIL (4.7-6.1); RDW 16.1 % (11.5-14.5); WBC 13.87 X1000 (4.8-10.8)
[2019-05-11] MEDS ORDERED: MAGNESIUM SULFATE 2 GM/S.W.I. 2 GM/50 ML IVPB IV ONE (07:24)
--- NOTE | 2019-05-11 07:32 | EKG Report ---
Test Performed on : 05/10/2019 7:08:56 PM Test Reason : ED. NO EKG ORDER FOR MUSE Blood Pressure : / mmHG Vent. Rate : 132 BPM Atrial Rate : 132 BPM P-R Int : 096 ms QRS Dur : 136 ms QT Int : 380 ms P-R-T Axes : 000 -11 108 degrees QTc Int : 563 ms Sinus tachycardia. with short AL Left bundle branch block Abnormal ECG When compared with ECG of 10-MAY-2019 17:37, (Unconfirmed) AL interval has decreased Unconfirmed Result
[2019-05-11 07:37] LABS: AGAP 18; ALB/GLOB RATIO 0.4; ALBUMIN 2.1 g/dL (3.5-5.0); ALKALINE PHOSPHATASE 299 U/L (32-122); BUN 32 mg/dL (8-22); CALCIUM 7.9 mg/dL (8.8-10.2); CHLORIDE 109 mmol/L (98-107); COSMO 295; CREATININE 1.4 mg/dL (0.7-1.2); ESTIMATED GFR > 60; GLUCOSE 90 mg/dL (70-104); GOT 18 U/L (10-34); GPT 7 U/L (10-44); POTASSIUM 3.9 mmol/L (3.5-5.1); SODIUM 145 mmol/L (136-145); TCO2 18 mmol/L (25-35); TOTAL PROTEIN 7.5 g/dL (6.3-8.3)
--- NOTE | 2019-05-11 07:39 | HISTORY AND PHYSICAL ---
PRIMARY CARE PROVIDER: Dr. Armani Bender. DATE AND TIME: 05/10/2019 at 2230. CHIEF COMPLAINT: Altered mental status. HISTORY OF PRESENT ILLNESS: Mr. Calixto is a 58-year-old male who was just recently discharged from our facility on 04/29/2019. He has a history of liver cirrhosis with ascites, anal squamous cell cancer, coronary artery disease, congestive heart failure, COPD, anemia, and most recently has had complications with spontaneous bacterial peritonitis and a urinary tract infection positive for Enterobacter, Pseudomonas. During his most recent admission, he did receive a paracentesis. He was initially placed on IV antibiotics of cefepime, though was discharged on antibiotic of Keflex. The patient's did provide some history for me, though the patient's brother was at bedside during most of my examination. He reports that he did undergo a paracentesis for which they pulled off about 300 mL of fluid. From what I understand is that normally the patient's baseline mentation is he is alert and oriented to person, place, and time, though over the last day or 2, this has reportedly declined. He is becoming more altered and confused. Reportedly from the patient's brother and as well as from him he has been complaining of some generalized abdominal pain. When he is asked to describe this he said it is "hard to do." He also has been having some nausea and vomiting as well. They deny him having any known diarrhea. He is not complaining of any chest pain, cough, or shortness of breath. He has also not been complaining of any urinary symptoms either. The patient has not reported any known fever, body aches, though has reported chills. Reports that normally he is quite active and ambulatory, though in the last few days he has not been up and about as much. He does have some generalized weakness. The brother did report to me that he did fall earlier today prior to the ER that he fell backward, landing on his buttock though did not hit his head. He had no loss of consciousness. He actually did have appointment with Dr. Hagen and Dr. Jacobs today. He went to Dr. Hagen's office and when they were at Dr. Jacobs's office they did have blood work drawn and due to the results for possible infection, they were instructed to come to the ER for further evaluation. His brother did report to me that he does have anal squamous cell carcinoma and they are trying to initiate chemotherapy treatment, though due to his recent illnesses, they have not been able to start this as of yet. Upon evaluation in the ER, he was noted to have leukocytosis with a white blood cell count 50329. He is still anemic though this does appear to be stable since his discharge. He does have an acute kidney injury with a creatinine of 2.0 and GFR 41. He also was noted to have elevated ammonia level. Urinalysis did reveal moderate blood, trace leukocyte, 10-20 white blood cells, and too numerous to count red blood cells with no bacteria noted. We did perform a CT of the head without contrast which showed no acute abnormalities. They also performed a chest x-ray which showed no acute abnormalities as well. The patient's heart rate has been elevated in the ER. It was in the 130s to 140s upon arrival though it has come down and is maintaining in the 120s at this time. Looking back at the patient's 2 previous admissions, it does appear that he remains tachycardic anywhere from the mid 100s to the mid. Though he has not been hypotensive blood pressures have remained stable. Oxygen saturation has remained good as well. The patient's arterial blood gases did show elevated pH is 7.56, pCO2 of 22, though all results were within normal limits. PO2 was 90, oxygen saturation was 99%. The patient has had blood cultures obtained. We have ordered a urine culture as well. He has been started on antibiotics for urinary tract infection and possible spontaneous bacterial peritonitis of Rocephin IV. He will be placed on PVC for close monitoring. REVIEW OF SYSTEMS: A 14 point review of systems was conducted with the patient and all were negative except for pertinent positives mentioned in the HPI. PAST MEDICAL HISTORY: 1. Liver cirrhosis. 2. Ascites. 3. Anal squamous cell carcinoma. 4. Coronary artery disease. 5. Congestive heart failure. 6. Hypertension. 7. COPD. 8. Sleep apnea. 9. Gout. 10. Chronic pain. PAST SURGICAL HISTORY: 1. Cholecystectomy. 2. Paracentesis during his last admission beginning in April 2019. SOCIAL HISTORY: The patient did have a long history of smoking, though his brother reports he has quit smoking at this time. He did have a long history of alcohol abuse as well, though reportedly stopped drinking in March. There is no known illicit drug use. He is . His was present at bedside during my examination, so was his brother as well. FAMILY HISTORY: Positive for his mother having a history of unknown cancer. His father over 40 years ago secondary to injury from a house fire. Brother did have a history of prostate cancer. ALLERGIES: Patient has no known allergies. HOME MEDICATIONS: 1. Ventolin HFA inhaler 2 puffs inhaled p.r.n. as directed. 2. Norvasc 5 mg p.o. daily. 3. Keflex 500 mg p.o. b.i.d. 4. Colchicine 0.6 mg p.o. 4 times a day. 5. Flexeril 10 mg p.o. t.i.d. 6. Folic acid 1 mg p.o. daily. 7. Lasix 40 mg p.o. daily. 8. Imdur 30 mg p.o. daily. 9. Lactulose 30 mL p.o. b.i.d. 10. Zestril 40 mg p.o. daily. 11. Lopressor 25 mg p.o. b.i.d. 12. Prilosec 40 mg p.o. daily. 13. OxyIR 5 mg p.o. q.4 hours p.r.n. for pain. 14. Flomax 0.4 mg p.o. daily. DIAGNOSTIC DATA/LABORATORY [place]ULTS: [place] [address], hemoglobin 8.9, hematocrit 27.2, platelet count is 223,000. PT 17.6, INR 1.42, PTT is 41.5. Sodium 140, potassium 4.6, chloride 104, serum bicarb is 18, BUN 38, creatinine 2, GFR 41, glucose 108, calcium 8, total bilirubin is 2.11, AST 18, ALT 7, alkaline phosphatase is 359, ammonia of 105. CK 21, troponin 0.012 with a repeat of less than 0.01. Serum alcohol was 0. Arterial blood gases were obtained on room air. The pH is 7.56, pCO2 of 22, PO2 90, HC03 of 23.7 with O2 saturation of 99.1. Urinalysis was obtained via clean catch, was positive for trace protein, moderate blood, small bilirubin, trace leukocyte, 10 to 20 white blood cells, and too numerous to count with red blood cells though was negative for glucose, ketones, nitrites, or bacteria. Urine drug screen was positive for oxycodone though the patient has a prescription for this. EKG showed sinus tachycardia with a short [place] and a left bundle branch block at a rate of 132 with a QTc of 563. When compared to previous EKG there does not appear to be any acute abnormalities at this time. Chest x-ray showed a no change from prior. There is still stable ill-defined infiltrates or scarring centrally and throughout the left lung. There were no new infiltrates. CT head with contrast did not show any acute abnormalities as well. There is just still some stable mild patchy cerebral white matter chronic microvascular ischemia. PHYSICAL EXAMINATION: Temperature 97.8 degrees, heart rate 129, respiration 18, blood pressure 124/74, oxygen saturation is 99% on room air. GENERAL: Mr. Calixto is a 58-year-old male who was resting in the ER stretcher. He was in no acute distress though does appear to be ill in appearance. HEENT: Head is atraumatic, normocephalic. Pupils are equal, round, reactive to light, were 3 mm bilaterally and brisk. There does appear to be some slight jaundice noted to the sclerae bilateral eyes. Oral mucosa is moist. Oropharynx is clear. NECK: Supple. Trachea midline. CARDIOVASCULAR: Patient has S1, S2 present. No murmurs, gallops, rubs appreciated with a tachycardic rate that is regular. PULMONARY: Patient has symmetrical chest expansion bilaterally. Lung sounds are clear to auscultation bilateral full guo. ABDOMEN: Is slightly firm, does appear to be distended. He did have generalized tenderness noted upon palpation. Bowel sounds were present though were hypoactive. EXTREMITIES: No cyanosis noted. The patient does have some trace edema noted in bilateral lower extremities. Though he does have some generalized weakness noted he does have equal hand grasps and muscle strength bilaterally. Pulse, motor and sensory is intact in all extremities. Radial and pedal pulses are 2+ bilaterally. INTEGUMENTARY: The patient's skin color does appear to be normal for his race. It is warm and dry. NEUROLOGICAL: The patient is alert and oriented to person, place, though not time. He could not tell me what month it was, though he was able to answer simple questions and follow commands. He does have some generalized weakness noted though he does have equal hand grasps and muscle strength bilaterally. ASSESSMENT AND PLAN: 1. Liver cirrhosis with ascites. For this, we have placed the order for an ultrasound abdomen and paracentesis. We have also ordered studies for peritoneal fluid as well. We will continue the patient's regularly prescribed medicines. Continue his oral Lasix. He did receive a 1 L normal saline bolus in the ER prior to admission. The patient has not reported known fever, though has had some chills. He does have leukocytosis. He is reporting abdominal pain, does have abdominal distention with tenderness. He also has associated encephalopathy as well. Given this, we did go ahead and place orders for Rocephin IV to be given as well. We are going to rule out possible spontaneous bacterial peritonitis. We have placed a consult for Gastroenterology, Dr. Huang. We will await their evaluation and further recommendations for management. 2. Possible spontaneous bacterial peritonitis. We will continue with IV Rocephin as mentioned above. Blood cultures have been obtained. We have ordered for peritoneal fluid studies to be performed if this is able to be obtained as well. We have placed a consult with Dr. Hagen, who was managing the patient's antibiotics inpatient and he has followed up with him outpatient as well. We will await his evaluation and further recommendations for management. 3. Urinary tract infection. We will continue with Rocephin as mentioned above. We have placed orders for urine culture. Most recently, the patient did have a urine culture that was as positive for Pseudomonas and Enterobacter. He was susceptible to ceftriaxone on the sensitivity. We will await his new culture results and continue to follow. 4. Encephalopathy. This could be multifactorial. The patient does have elevated ammonia level with likely hepatic encephalopathy. He also does have an acute kidney injury as well. This could also be related to medicines. We will place the patient with lactulose 30 mL p.o. b.i.d. We will adjust the frequency on his pain medicine. We will monitor him closely on the PVC unit with continuous cardiac telemetry, frequent vital signs and neurological checks. The patient did have a CT of the head in the ER, which was negative for any acute abnormalities. We will continue to follow. 5. Acute kidney injury. The patient's creatinine is elevated to 2 at this time. It could be multifactorial, could be medication related. The patient does take lisinopril. Also given his hepatic disease this could be secondary to hepatorenal syndrome. We will do strict intake and output. We will avoid nephrotoxic medications and renally dose medicines as necessary. We will continue to follow closely. 6. Hypertension. We have continued the patient's metoprolol and Norvasc. 7. Deep vein thrombosis prophylaxis. This is provided with sequential compression devices. 8. Anal squamous cell carcinoma. For this, we have placed a consult with Dr. Jacobs. We will await their evaluation and further recommendations for management. The patient has been placed on PVC for close monitoring. We will repeat a CBC, CMP, magnesium, ammonia level, and blood culture in the morning. He will be NPO except medications at this time until he has his abdominal ultrasound in the morning. Further orders and recommendations pending hospital course, diagnostic studies, and physician evaluation. Dictated by NERIS Cao for Jordan Mohr MD I have performed a face to face diagnostic evaluation. Labs/ Xrays- reviewed. Exam- Chest clear,CV- regular, Abdomen- distended. A/P Cirrhosis, Hepatic encephalopathy- Admit, GI consult, Lactulose Dr. Mohr cc: Jordan Mohr MD [facility]
[2019-05-11 07:40] LABS: LYMPHS 16 % (21-51); SEGS 82 % (42-75)
[2019-05-11] MEDS: CUBICIN 500 MG in NS 100 ML IV SCH (09:39)
[2019-05-11] MEDS: MAXIPIME 2 GM/NS 2 GM/100 ML IVPB IV SCH ×2 (09:40→20:46)
[2019-05-11] MEDS: IMDUR PO SCH (09:40)
[2019-05-11] MEDS: NORVASC PO SCH (09:41)
[2019-05-11] MEDS: LOPRESSOR PO SCH ×2 (09:41→20:46)
[2019-05-11] MEDS: LASIX PO SCH (09:41)
[2019-05-11] MEDS: FOLIC ACID PO SCH (09:41)
[2019-05-11] MEDS: FLOMAX PO SCH (09:41)
--- NOTE | 2019-05-11 11:07 | GASTROENTEROLOGY CONSULTATION ---
DATE: 05/11/2019 REASON FOR CONSULT: Cirrhosis and ascites. HISTORY OF PRESENT ILLNESS: Mr. Calixto is 58-year-old, -[place] male with a history of cirrhosis, squamous cell cancer of the anus, diabetes mellitus, ischemic heart disease, status post cholecystectomy with laparoscopic liver biopsy which was done on 03/22/2019. The patient was here, recently admitted on 04/16/2019 and GI was consulted for his elevated bilirubin and cirrhosis. The patient has been in and out of the hospital many times. The last time GI saw him was on 04/20/2019 when he had complaints of abdominal pain and distention, and his stated that the patient was refusing to eat. At that time, the patient denied any vomiting, diarrhea, or constipation. No fever or chills but he did complain of nausea and abdominal distention. The patient is currently back in the hospital with complaints of nausea, vomiting, abdominal distention. The patient is currently alert and oriented x3. He is able to tell his name, date of , and he is able to tell where he is and why he was brought to the hospital. The patient has denied any chest pain, cough, or shortness of breath. The patient's brother mentioned that on Friday, they had been to Dr. Jacobs's office to do the blood work. They were told that he has some kidney infection and some gallstones that were left out. Yesterday afternoon, the patient came to the hospital with abdominal pain, nausea, and vomiting. CT guided paracentesis is done, peritoneal fluid cultures are pending. PAST MEDICAL HISTORY: Ischemic heart disease, type 2 diabetes, squamous cell cancer of the anus, hypertension, sleep apnea, COPD, liver cirrhosis, GERD, and acute kidney injury. PAST SURGICAL HISTORY: Cholecystectomy, liver biopsy, attempted ERCP by Dr. Fisher and postoperative ileus, and paracentesis. SOCIAL HISTORY: The patient is and lives with his . His children live close by him and take active care of him. The patient is a smoker and also drinks alcohol but he mentioned that he is not having any of them now. ALLERGIES: No known drug allergies. HOME MEDICATIONS: He takes Norvasc 5 mg daily, Flexeril 10 mg 3 times a day, lisinopril 40 mg daily, isosorbide mononitrate 30 mg daily, albuterol 2 puffs as needed, colchicine 0.6 mg 4 times a day, Prilosec 40 mg daily, Flomax 0.4 mg p.o. daily, cephalexin 500 mg p.o. twice a day, folic acid 1 mg daily, Lasix 40 mg daily, metoprolol 25 mg twice a day, oxycodone 5 mg every 4 hours as needed, lactulose 30 mL p.o. REVIEW OF SYSTEMS: As per HPI. Otherwise, 12-point review of systems is negative. PHYSICAL EXAMINATION: Vital Signs: Temperature 98.9 degrees, pulse 126, respirations 18, blood pressure 128/66, oxygen saturation 98% on room air. The patient's weight is 148 pounds. BMI is 24.0 kg/m2. General: He is alert, oriented x3, and in no acute distress. HEENT: Pale conjunctivae. Mild icterus. PERRL. Neck: Supple. Lungs: Clear to auscultation in the anterior guo. Cardiovascular: The patient is tachycardic. Abdomen: Distended, firm, tender. Hypoactive bowel sounds heard in all 4 quadrants. Extremities: No clubbing, no cyanosis. Generalized edema noted bilaterally. Pedal pulses 2+ present. Neurologic: Alert and oriented x3. Nonfocal. Cranial nerves 2-12 grossly intact. LABORATORY DATA: WBCs 13.87, RBCs 2.81, hemoglobin 7.8, hematocrit 23.8, platelet count is 169,000. PT 18.6, INR 1.53. Sodium 145, potassium 3.9, chloride 109, carbon dioxide 18, anion gap 18, BUN 32, creatinine 1.4, glucose 90, calcium 7.9, magnesium 1.0. Total bilirubin 1.70, AST 18, ALT 7, alkaline phosphatase 299, ammonia 62, albumin 2.1, plasma lactate 1.3. Urinalysis showed trace of protein, moderate blood, small amount of bilirubin, and trace of leukocytes. Toxicology report showed presumptive oxycodone. The patient's chest x-ray has shown no changes from the prior. His head CT has shown no acute disease or change from the prior. IMPRESSION AND PLAN: Alcoholic liver cirrhosis with ascites Possible spontaneous bacterial peritonitis Urinary tract infection Encephalopathy Anal cancer GERDA COPD Diabetes type II Fluid volume depletion PLAN: Mr. Calixto is a 58 year old male with the history of alcoholic liver cirrhosis with ascites, GI has been consulted for his cirrhosis and ascites. An CT guided paracentesis was done, awaiting the results of the peritoneal fluid cultures. Patient is currently receiving antibiotics Cubicin and Maxipine for his SBP and UTI per ID. He is on lactulose for his encephalopathy. We will continue to provide supportive care to the patient, follow th plan of care per PCP, ID and oncologist. This plan was discussed with Dr. Cuba. Thank you for your consult. Please call us for any further questions or concerns. Dictated by NERIS Smallwood for Golden Cuba MD Physician Attestation I have seen and examined the patient. I have discussed and reviewed the note by Etta CORDON and agree with findings and plan as documented. Mr. Dustin Calixto is an unfortunate 58 year old man with recent diagnosis of untreated anal cancer, decompensated ETOH cirrhosis c/b ascites and PSE who has had recent prolonged hospitalizations recently for sepsis 2/2 UTI, E coli peritonitis, ileus, and PSE presents per oncology for abnormal labs. On presentation, he is was noted to have GERDA, leukocytosis, pyuria, PSE, worsening anemia without overt bleeding, and sepsis in the setting of persistent peritonitis s/p drain placement. He is on antibiotics per ID recommendations and surgery is following. Recommend continued lactulose and titrate to 2-3 BMs daily and hold diuretics. Trend LFTs, INR daily. Recommend palliative care consultation. Overall, prognosis is poor. Will follow with you. MTDD
--- NOTE | 2019-05-11 11:14 | PROGRESS NOTE ---
DATE: 05/11/2019 This is a patient of Dr. Armani Bender who was admitted early this morning with altered mental status. A 58-year-old, black male who just recently discharged from our facility on 04/29/2019. He has a history of liver cirrhosis with ascites, squamous cell cancer, coronary artery disease, congestive heart failure, COPD, anemia, recently complication with spontaneous bacterial peritonitis, urinary tract infection, positive for Enterobacter and Pseudomonas. During his most recent admission, he received paracentesis. He was initially placed on IV antibiotics of cefepime, which was discharged on antibiotic of Keflex. The patient's did provide some history for me and the patient's brother was brought to bedside. Reports that he did undergo paracentesis that pulled off about 300 mL. From what I understood, the patient normally has a baseline mentation of alert and oriented to person, place, and time. Over the last couple days, it has declined, become more altered and confused. The patient's brother and state that he has been complaining of generalized abdominal pain. It is hard to describe it. He also had some nausea and vomiting. In the ER, noted to have leukocytosis. White blood cell count was 21,440. PAST MEDICAL HISTORY: 1. Liver cirrhosis. 2. Ascites. 3. Anal squamous cell carcinoma. 4. Coronary artery disease. 5. Congestive heart failure. 6. Hypertension. 7. COPD. 8. Sleep apnea. 9. Gout. 10. Chronic pain. PAST SURGICAL HISTORY: 1. Cholecystectomy. 2. Paracentesis during his last admission in April 2019. Today, he says he feels a little better. PHYSICAL EXAMINATION: Vital Signs: Temperature is 98.9 degrees, pulse 120, respirations 14, blood pressure 128/66. Pupils are equal and round. Lungs are clear in all lung guo. Cardiovascular Examination: Regular rhythm and rate without murmur or S3. Abdomen is soft. Skin is warm and dry. ASSESSMENT AND PLAN: 1. Liver cirrhosis with ascites. I have placed an order for ultrasound with abdominal paracentesis. I ordered studies for peritoneal fluid. Continue his usual prescribed medications. He did receive 1 L of normal saline in the emergency room. He did not report any fever. At this point, he does not show any definite signs of peritonitis. Trying to rule out spontaneous bacterial peritonitis. 2. Possible spontaneous bacterial peritonitis. We will obtain some fluid. 3. Urinary tract infection. He is on Rocephin. 4. Encephalopathy, suspect multifactorial. Ammonia level was elevated. We will make sure he is on lactulose 30 mL twice a day. 5. Acute kidney injury. Creatinine was 2. 6. Hypertension. 7. Anal squamous cell carcinoma. I think he is followed by Dr. Jacobs. REVIEW OF HIS ORDERS: He is on amlodipine 5 mg a day, daptomycin which he gets 500 mg IV q.24 hours, folic acid 1 mg p.o. daily, Lasix 40 mg a day, isosorbide mononitrate 30 mg a day, lactulose 30 mL p.o. b.i.d., cefepime 2 g IV q.12, metoprolol 25 mg p.o. b.i.d., tamsulosin 0.4 mg a day, was given some magnesium. cc: Naren Ruffin MD
--- NOTE | 2019-05-11 14:04 | HEMO/ONC CONSULTATION ---
DATE: 05/11/2019 REASON FOR CONSULTATION: He is a known patient of ours for the treatment of anal squamous cell carcinoma. HISTORY OF PRESENT ILLNESS: Mr. Calixto is a 58-year-old man with a history of liver cirrhosis, squamous cell cancer to the anus, type 2 diabetes, and ischemic heart disease. His most recent issues began on 03/22/2019 when he had a cholecystectomy with a WOODY drain. The patient had complications with ascites. The WOODY drain was pulled, and he was infected with Escherichia coli. The patient stayed in the hospital from 03/28 to 04/05 with that admission. The patient returned to the hospital on 04/16 for admission regarding the same problems, increasing abdominal distention and confusion. When the patient's infection worsens, he gets more confused and altered. The patient was most recently discharged from the hospital on 04/29. The patient's complications include an ileus, urinary tract infection with Pseudomonas aeruginosa and Enterobacter aerogenes. His abdomen was infected with Escherichia coli. The patient came to our office yesterday for hospital follow-up. His states since his discharge on 04/29 that the patient has been doing fairly well. He is normally awake and alert, and can care for himself, and moves about without problems. She states since Friday he has been declining. He has been getting more and more confused. He has decreased appetite where he has had decreased food and fluid intake, and that he also quit taking his lactulose on Friday. It was very notable in the office that the patient is confused, and appears to be having some hallucinations although he does follow commands and is very pleasant. In the office, I found his white count to be 19.64, creatinine 1.97, and magnesium 1.1. I requested they go to the ER for further workup and admission. PAST MEDICAL HISTORY: Ischemic heart disease, type 2 diabetes, squamous cell carcinoma of the anus, hypertension, sleep apnea, COPD and liver cirrhosis. PAST SURGICAL HISTORY: Cholecystectomy. SOCIAL HISTORY: The patient has a long history of alcoholism. He drank 1 to 2 drinks of liquor daily. He stopped immediately after his cholecystectomy. ALLERGIES: No known drug allergies. HOME MEDICATIONS: Allopurinol, Norvasc, Tranquillity, lisinopril, lorazepam, metoprolol, omeprazole, spironolactone, tramadol, Ventolin inhaler, colchicine, cephalexin, Flexeril, folic acid, Lasix, lactulose, and Flomax. REVIEW OF SYSTEMS: Pertinent positives are noted in the HPI. All other review of systems are negative. PHYSICAL EXAMINATION: Vital Signs: Temperature 98.7 degrees, pulse rate 103, respiratory rate 18, blood pressure 112/68, O2 saturation 99% on room air. The patient is in 0/10 pain. PHYSICAL EXAMINATION: General: The patient is pleasant and does not appear in any acute distress. HEENT: Mild icterus noted. PERRLA. Oral mucosa is dry. Cardiovascular: Normal S1, S2. Heart rate and rhythm tachycardic. Respiratory: Lung sounds are clear to auscultation. Normal respiratory effort. Abdomen: Distended, slightly firm. No tenderness noted to palpation. Bowel sounds hypoactive. Extremities: No lower extremity edema noted. Neurological: Patient is alert and follows commands. However, he does not conversate appropriately, and having some hallucinations. No motor deficits noted. The patient is weak in the legs. LABORATORY: WBCs 13.87, hemoglobin 7.8, hematocrit 23.8, and platelet count 169,000. Creatinine 1.4. Magnesium 1.0, total bilirubin 1.7, and alkaline phosphatase 299. The patient's labs have improved from yesterday. RADIOLOGY: Chest x-ray shows stable ill-defined infiltrate for scarring centrally and throughout the left lung. No new infiltrates. Head CT showed no acute disease noted. Abdominal and pelvis CT pending. ASSESSMENT: 1. Abdominal distention secondary to ascites. 2. Alcoholic liver cirrhosis. 3. Anal squamous cell carcinoma. 4. Normocytic anemia. 5. Anorexia and weight loss. 6. Type 2 diabetes. 7. Altered mental status. PLAN: It is possible that the patient still has an infection in his abdomen. Please consult Dr. Hagen for further investigations. The patient did have an elevated ammonia level. It is noted that his magnesium is also deficient. Please replete per protocol. The patient will also need to continue getting protein shakes while in the hospital. He needs to be encouraged to get approximately 1500 calories a day. He is to continue to treat per medical management. We will continue to follow. Dictated by NERIS Stout for Gaurav Jacobs MD cc: Gaurav Jacobs MD [facility]
--- NOTE | 2019-05-11 15:08 | INFECTIOUS DISEASE PROGRESS NO ---
DATE: 05/11/2019 PRESENT ILLNESS: The patient has peritonitis. During his last admission, he also had a Pseudomonas and Enterobacter urinary tract infection. MEDICATION: The patient, at home, was taking cephalexin. He was admitted to the hospital yesterday, and he was put on Rocephin. PHYSICAL EXAMINATION: Vital Signs: Temperature is 98.9 degrees, pulse is 129, respirations 20, blood pressure 104/46. General: This is an ill-appearing and cachectic, middle-aged male. He is very lethargic. He does not appear to be in any acute distress, however. HEENT: No drainage noted from the nose or ears. He did not respond to verbal stimuli. Neck: No stiffness with passive movement. Lungs: Clear to auscultation. Cardiovascular: Heart rate is regular. Abdomen: Protuberant and very tender. Neurologic: The patient is very lethargic. He did not respond to verbal stimuli. There is no tremor. Integument: No rash noted. IMAGING AND LABORATORY DATA: The patient's chest x-ray shows stable left lung scarring/infiltrate. CT scan of the head showed chronic microvascular ischemic changes. Blood and urine cultures are pending. The patient's CBC shows a white count of 21,440, hemoglobin 8.9, and platelet count 223,000. Creatinine is 2. GFR is 41. Alkaline phosphatase is 359. Urinalysis showed trace white cells and no bacteria. Drug screen was positive for oxycodone. ASSESSMENT AND PLAN: The patient has peritonitis. My plan is to obtain a CT scan of the abdomen and pelvis with only oral contrast, and no intravenous contrast. I agree with doing a paracentesis, which has been ordered to be done under ultrasound guidance. I have put in a consult for Dr. Jacob also. COMORBIDITIES: Unfortunately, the patient has anal squamous cell carcinoma. He also has alcoholic cirrhosis of the liver, protein calorie malnutrition, coronary artery disease, and anemia of chronic disease. cc: Shree Hagen MD
--- NOTE | 2019-05-11 15:51 | Diag Imaging Result Doc PS360 ---
EXAM: CT PARACENTESIS W/CT GUIDANCE 05/11/2019 HISTORY: drainage of ascites with drain placement TECHNIQUE: CT-guided drainage of peritoneal fluid collection on the left. COMMENT: The risks and benefits of the procedure were previously discussed with the patient's family and consent was obtained prior to the patient arriving in the department. The loculated peritoneal fluid collection which was demonstrated on 04/29/2019 appears to be somewhat diminished particularly on the right side compared to the previous examination. It does extend to the right side in the pelvis. Following sterile preparation of the skin anterolaterally on the left and administration 1% lidocaine to the skin and deeper soft tissues, a 12-Hungarian pigtail catheter was inserted and the fluid collection by trocar technique and secured to the skin with the adhesive device provided with catheter as well as the self retaining ligature. There is copious drainage of yellowish, relatively serous appearing fluid. A sample of this was sent to the laboratory. IMPRESSION: Successful CT-guided peritoneal fluid collection drainage. Electronically signed by Baltazar Dougherty 05/11/2019 3:49 PM
[2019-05-11] MEDS: OXY IR PO PRN ×2 (18:05→22:40)
[2019-05-11 18:14] LABS: TOTAL PROT BODY FLUID 4.1 g/dL
--- NOTE | 2019-05-11 18:35 | GENERAL SURGERY CONSULTATION ---
DATE: 05/11/2019 REQUESTING PHYSICIAN: Dr. Shree Hagen. REASON FOR CONSULTATION: Intra-abdominal fluid collection. HISTORY OF PRESENT ILLNESS: A 58-year-old gentleman well known to me, who has had anal squamous cell carcinoma and worsening cirrhosis and ascites. He has been in the hospital several times. He has had peritoneal fluid that is concerning for peritonitis and intra-abdominal abscesses. He has had continued clinical decline and came in with altered mental status. There was an attempted paracentesis today, but the patient refused. I was asked to weigh an opinion. PAST MEDICAL HISTORY: Liver cirrhosis, ascites, anal squamous cell carcinoma, coronary artery disease, congestive heart failure, hypertension, COPD, sleep apnea, gout, chronic pain. PAST SURGICAL HISTORY: Includes cholecystectomy, previous paracentesis, anal biopsy, port placement. SOCIAL HISTORY: Former alcohol abuse. FAMILY HISTORY: Positive for cancer. ALLERGIES: None. HOME MEDICATIONS: Reviewed. REVIEW OF SYSTEMS: A full 14 points were obtained and negative, except as specified in the HPI. PHYSICAL EXAMINATION: Vital Signs: Patient is currently afebrile. He has a mild tachycardia in the 120s. General: Chronically ill, -Norwegian male, looks stated age. HEENT: Normocephalic, atraumatic. Pupils equal, round, reactive to light. Mucous membranes moist. Oropharynx benign. Neck: Supple. Trachea midline. Cardiovascular: Tachycardic. Lungs: Grossly clear. Abdomen: Distended and tight. No peritoneal signs. Extremities: Moves all extremities. Neurologic: Grossly intact. Skin: No signs of jaundice. Vascular: All extremities perfused. LABORATORY AND DIAGNOSTIC DATA: White blood cell count is 13, hematocrit is 23, platelet count 169,000. INR is 1.53. Magnesium is 1, bilirubin is 1.7, albumin is 2.1. CT scan is currently pending. ASSESSMENT AND PLAN: A 58-year-old gentleman with intra-abdominal fluid collections with peritonitis. Intra-abdominal fluid collection: At this time, patient refused paracentesis. The patient is likely not a very good surgical candidate to do anything intra-abdominally, but we may be ultimately forced. We will see what his CT scan looks like today and make further recommendations. cc: Bill Jacob MD
[2019-05-11 18:47] LABS: BODY FLUID SOURCE PERITONEAL FLUID
[2019-05-11 18:48] LABS: WBC BF 21400 /cumm
[2019-05-11 18:58] LABS: GLUCOSE BODY FLUID < 2 mg/dL; LDH BODY FLUID > 2500 U/L
[2019-05-11 19:44] LABS: MONOS 2 %; POLYS 98 %
[2019-05-11] MEDS ORDERED: ROCEPHIN 2 GM in NS 50 ML IV SCH (21:00)
[2019-05-12] MEDS: OXY IR PO PRN ×5 (02:58→21:58)
[2019-05-12 04:41] LABS: ALLEN TEST YES; BE -0.6 mmoll (-3.0-3.0); BLOOD TYPE ARTERIAL; HCO3-(ACT) 24.4 mmoll (20.0-26.0); METHB 0.7 % (0.0-1.5); O2(CT) 13.7 mL/dL (15.0-23.0); O2HB 93.9 % (95.0-99.0); PCO2(98.6) 28 mmHg (35-45); PO2(98.6) 67 mmHg (60-100); SAMPLE BLOOD; SAO2 96.6 % (95.0-100.0); THB 10.3 g/dL (11.5-17.4)
[2019-05-12 04:43] LABS: MODALITY ROOM AIR
[2019-05-12] MEDS: PRILOSEC PO SCH (06:01)
[2019-05-12 06:11] LABS: BASO# 0.04 X1000 (0.0-0.2); BASO% 0.4 % (0.0-0.8); EOS# 0.15 X1000 (0.0-0.7); EOS% 1.4 % (0.0-10.0); HEMOGLOBIN 7.8 g/dL (14.0-18.0); IMM GRAN# 0.03 X1000 (0.0-0.04); IMM GRAN% 0.3 % (0.0-0.5); LYMPH# 2.52 X1000 (1.2-3.4); MCH 26.5 PG (27-31); MCHC 31.2 g/dL (33-37); MONO# 1.07 X1000 (0.11-0.59); MONO% 10.2 % (1.7-9.3); NEUT% 63.7 % (42.2-75.2); PLT 162 X1000 (130-400); RBC 2.94 XMIL (4.7-6.1); RDW 16.1 % (11.5-14.5); WBC 10.51 X1000 (4.8-10.8)
[2019-05-12 06:25] LABS: AGAP 14; ALB/GLOB RATIO 0.4; ALBUMIN 1.9 g/dL (3.5-5.0); ALKALINE PHOSPHATASE 258 U/L (32-122); BUN 25 mg/dL (8-22); CALCIUM 8.1 mg/dL (8.8-10.2); CHLORIDE 108 mmol/L (98-107); COSMO 287; CREATININE 1.1 mg/dL (0.7-1.2); ESTIMATED GFR > 60; GLUCOSE 93 mg/dL (70-104); GOT 17 U/L (10-34); GPT 7 U/L (10-44); MAGNESIUM 1.2 mg/dL (1.5-2.7); POTASSIUM 3.6 mmol/L (3.5-5.1); SODIUM 142 mmol/L (136-145); TCO2 20 mmol/L (25-35); TOTAL BILIRUBIN 1.86 mg/dL (0.20-1.00); TOTAL PROTEIN 7.3 g/dL (6.3-8.3)
[2019-05-12] MEDS: FOLIC ACID PO SCH (08:38)
[2019-05-12] MEDS: FLOMAX PO SCH (08:38)
[2019-05-12] MEDS: IMDUR PO SCH (08:38)
[2019-05-12] MEDS: LASIX PO SCH (08:38)
[2019-05-12] MEDS: LOPRESSOR PO SCH ×2 (08:38→21:58)
[2019-05-12] MEDS: LACTULOSE PO SCH ×2 (08:38→21:58)
[2019-05-12] MEDS: NORVASC PO SCH (08:38)
[2019-05-12] MEDS: CUBICIN 500 MG in NS 100 ML IV SCH (08:39)
[2019-05-12] MEDS: MAXIPIME 2 GM/NS 2 GM/100 ML IVPB IV SCH ×2 (08:39→21:57)
--- NOTE | 2019-05-12 10:41 | PROGRESS NOTE ---
DATE: 05/12/2019 SUBJECTIVE: Mr. Calixto feels better. He is awake and alert. His family was at the bedside. He would like to go home with home health. I do not think he wants to go to rehab. He remains afebrile. OBJECTIVE: Temperature 98.1 degrees, pulse 107, respirations 18, blood pressure 110/60. Pupils are equal and round. Lungs are clear in all lung guo. Cardiovascular Examination: Regular rhythm and rate without murmur or S3. Abdomen is soft. Skin is warm and dry. Urine output is 1600 mL. ASSESSMENT AND PLAN: 1. Abdominal distention secondary to ascites, seems to be better. 2. Alcoholic liver cirrhosis. 3. Anal squamous cell carcinoma. 4. Normocytic anemia. 5. Anorexia, weight loss. His appetite and oral intake seem to be improving. 6. Diabetes mellitus type 2. 7. Altered mental status, which is improved. He is back to baseline. 8. Continue physical therapy and they would like to take him home on Friday and get home health to help. REVIEW OF ORDERS: Looking over orders, I do not see any change at this point. He has a recent diagnosis of untreated anal cancer and decompensated ethanol cirrhosis with ascites. Looking at his cultures, no growth from 05/10/2019. Urine culture, no growth from 05/10/2019 as well. cc: Naren Ruffin MD
--- NOTE | 2019-05-12 11:29 | GENERAL SURGERY PROGRESS NOTE ---
DATE: 05/12/2019 SUBJECTIVE: Patient doing a little bit better. He did have a CT-guided pigtail placement where they got over 300 out of what looks like ascites. PHYSICAL EXAMINATION: Vital Signs: Patient is currently afebrile. Vital signs are stable. General: No acute distress. Cardiovascular: Regular rate and rhythm. Lungs: Grossly clear. Abdomen: Still protuberant but overall seems to be a little bit better. LABORATORY DATA: White blood count is 10, hematocrit 25, platelet count 162,000. Labs reviewed. Microbiology reviewed. Gram stain is still without bacteria or yeast. ASSESSMENT AND PLAN: A 58-year-old gentleman status post drainage of intra-abdominal fluid collection. Status post drainage. At this time await for cultures. We will continue supportive care. cc: Bill Jacob MD
--- NOTE | 2019-05-12 13:04 | HEMO/ONC PROGRESS NOTE ---
DATE: 05/12/2019 SUBJECTIVE: Mr. Calixto is awake, sitting up in bed this morning. He is awake and alert, and he does know who I am today. He answers questions appropriately. He is oriented to time and place. His brother states that he is back "with it" since having a paracentesis yesterday. He is feeling better. He has no complaints. OBJECTIVE: Vital Signs: Temperature 98.4 degrees, pulse rate 101, respiratory rate 19, blood pressure 98/57, and O2 saturation 95% on room air. He is in 0/10 pain. General: On physical exam, this is a chronically gentleman in no acute distress. HEENT: Mild icterus noted. PERRLA. Oral mucosa is normal. Respiratory: Lungs are clear to auscultation. Normal respiratory effort. Cardiovascular: Normal S1, S2. Heart rate and rhythm is slightly tachycardic. Gastrointestinal: The abdomen is soft, mildly distended. No pain to palpation. Extremities: No lower extremity edema noted. LABORATORY DATA: WBCs 10.51, hemoglobin 7.8, hematocrit 25, platelet count 162,000. Creatinine 1.1, magnesium 1.2. Pleural fluid pending. ASSESSMENT: 1. Abdominal distention secondary to ascites. He is improving. 2. Alcoholic liver cirrhosis. 3. Anal squamous cell carcinoma. 4. Normocytic anemia. 5. Anorexia weight loss. This waxes and wanes. 6. Type 2 diabetes. 7. Altered mental status, which has improved. He is almost back to baseline. 8. Deep venous thrombosis prophylaxis. PLAN: 1. Continue to treat the patient per medical management. 2. He needs to get out of bed and do his exercises. 3. Please provide him protein shakes while he is in the hospital. 4. We will continue to follow as needed. Dictated by NEIRS Stout for Gaurav Jacobs MD cc: Gaurav Jacobs MD
--- NOTE | 2019-05-12 13:33 | GASTROENTEROLOGY PROGRESS NOTE ---
DATE: 05/12/2019 SUBJECTIVE: Mr. Calixto is a 58-year-old male. He was resting in bed. Family was at the bedside. The patient has denied any nausea, vomiting, or abdominal pain. The patient does have a tube that is on his left side of the abdomen for draining the ascitic fluids. OBJECTIVE: Vital Signs: Temperature 98.4 degrees, pulse is 101, respirations 19, blood pressure 98/57, oxygen saturation 95%. He is on room air. The patient's weight is 155 pounds. BMI is 25.1 kg/m2. General: He is alert, oriented x3, in no acute distress. HEENT: Pale conjunctivae. Mild icterus. PERRL. Neck: Supple. Lungs: Clear to auscultation in the anterior guo. Cardiovascular: The patient is tachycardic. Abdomen: Firm and distended, nontender. Active bowel sounds heard in all 4 quadrants. He has a drainage tube on the left side of the abdomen. Extremities: No clubbing, no cyanosis, no edema. Pedal pulses 2+ present bilaterally. Neurologic: He is alert, oriented x3. LABS: WBCs are 10.51, RBC 2.94, hemoglobin 7.8, hematocrit 25, platelet count is 162,000. PT is 18.6, INR is 1.53. Sodium 142, potassium 3.6, chloride 108, carbon dioxide 20, anion gap 14, BUN 25, creatinine 1.1, glucose 93, calcium 8.1, magnesium 1.2, total bilirubin 1.86, AST 17, ALT 7, alkaline phosphatase 258, ammonia 42, albumin is 1.9. The patient's peritoneal fluid showed a WBC of 21,400. Fluid polynuclear WBCs 98, mononuclear WBCs were 2, glucose was less than 2, total protein was 4.1, and fluid LDH was greater than 2500. IMPRESSION AND PLAN: 1. Alcoholic liver cirrhosis with ascites. 2. Secondary peritonitis. 3. Urinary tract infection. 4. Hepatic encephalopathy 5. Anal cancer. 6. Acute kidney injury. 7. Chronic obstructive pulmonary disease. 8. Diabetes type 2. 9. Fluid volume depletion. PLAN: Mr. Calixto is a 58-year-old male with a history of alcoholic liver cirrhosis with ascites. GI is following him for his cirrhosis and ascites. A CT-guided paracentesis was done, and it showed fluid WBCs were 21,400, polynuclear WBCs were 98, mononuclear WBCs were 2, glucose was less than 2, total protein was 4.1, and fluid LDH was greater than 2500. The patient does have persistent peritonitis, status post drain placement. He is on antibiotics per Infectious Disease. He is receiving Cubicin and Maxipine. The patient is also on lactulose for his encephalopathy. The patient is on GI prophylaxis, Prilosec 40 mg daily. We will continue to provide supportive care to the patient and follow the plan of care per PCP. This plan was discussed with Dr. Cuba. Please call us for any further questions or concerns. Dictated by NERIS Smallwood for Golden Cuba MD Physician Attestation I have seen and examined the patient. I have discussed and reviewed the note by Etta CORDON and agree with findings and plan as documented. Mr. Dustin Calixto is an unfortunate 58 year old man with recent diagnosis of untreated anal cancer, decompensated ETOH cirrhosis c/b ascites, PSE and E coli peritonitis after surgery who represents with sepsis 2/2 to persistent peritonitis s/p percutaneous drain placement. He is on antibiotics per ID recommendations and surgery is following. Recommend continued lactulose, titrate to 2-3 BMs daily, and hold diuretics. Trend LFTs, INR daily. Overall, prognosis is poor. Will follow with you. MTDD
--- NOTE | 2019-05-12 14:39 | INFECTIOUS DISEASE PROGRESS NO ---
DATE: 05/12/2019 PRESENT ILLNESS: The patient has peritonitis. MEDICATIONS: The patient is receiving a combination of daptomycin and cefepime. This is day 1 of treatment with those 2 antibiotics. PHYSICAL EXAMINATION: Vital Signs: Temperature is 98.1 degrees, pulse is 107, respirations 18, blood pressure 110/60. The patient weighs 155 pounds. General: This is an ill-appearing and cachectic middle-aged male. He is a little more alert today than he was yesterday. He does not appear to be in any acute distress. Head/eyes/ears/nose/throat: He can hear my spoken words and see near objects. I did not notice any white patches in his mouth. Neck: No pain with movement. Lungs: Clear to auscultation. Cardiovascular: Heart rate is regular. Abdomen: Protuberant and today it does not seem to be tender. Neurologic: The patient is a little more alert today. He can move his extremities. There is no tremor. He talks in a coherent fashion. LABORATORY AND RADIOLOGY: The patient's CBC shows a white count of 10,510, hemoglobin 7.8, and a platelet count of a 162,000. Blood gases show a pH of 7.5, PO2 of 67 and pCO2 of 28. Creatinine is 1.1. GFR is greater than 60. Alkaline phosphatase is 258. The patient's ascites white blood cell count was 21,400 with 98% of the white blood cells being polymorphic nuclear. Aspirate of the ascites on Gram stain showed no bacteria or yeast. Cultures of the ascites thus far are negative. Blood cultures also are negative thus far. Yesterday, the patient had a CT scan of the abdomen which showed ascites. Yesterday, the patient underwent CT-guided needle placement to remove some of the ascites. As mentioned above, the ascites white blood cell count was 21,400. ASSESSMENT AND PLAN: The patient has peritonitis. My plan is to continue daptomycin and cefepime. Dr. Jacob has seen the patient from a surgical point of view. COMORBIDITIES: The patient has anal squamous cell carcinoma. He also has alcoholic cirrhosis of the liver, protein calorie malnutrition, coronary artery disease, and anemia of chronic disease. cc: Shree Hagen MD
[2019-05-13] MEDS: OXY IR PO PRN ×4 (02:54→18:36)
[2019-05-13] MEDS: PRILOSEC PO SCH (06:13)
[2019-05-13] MEDS: CUBICIN 500 MG in NS 100 ML IV SCH (08:02)
[2019-05-13] MEDS: NORVASC PO SCH (08:02)
[2019-05-13] MEDS: MAXIPIME 2 GM/NS 2 GM/100 ML IVPB IV SCH ×2 (08:02→20:50)
[2019-05-13] MEDS: LOPRESSOR PO SCH ×2 (08:02→20:50)
[2019-05-13] MEDS: FLOMAX PO SCH (08:03)
[2019-05-13] MEDS: LACTULOSE PO SCH ×2 (08:03→20:50)
[2019-05-13] MEDS: IMDUR PO SCH (08:03)
[2019-05-13] MEDS: LASIX PO SCH (08:03)
[2019-05-13] MEDS: FOLIC ACID PO SCH (08:03)
--- NOTE | 2019-05-13 11:22 | GENERAL SURGERY PROGRESS NOTE ---
DATE: 05/13/2019 SUBJECTIVE: The patient seems to be doing and feeling a little bit better. His WOODY drain output has decreased and is very minimal at this point. White blood cell count has trended down. Microbiology has not grown anything as of this point. We will keep his Ghanshyam-Adorno drain in for another day and see what the output is and consider removing it. cc: Bill Jacob MD
--- NOTE | 2019-05-13 11:42 | GASTROENTEROLOGY PROGRESS NOTE ---
DATE: 05/13/2019 SUBJECTIVE: Mr. Calixto is a 58-year-old male. He is resting in bed with family at the bedside. The patient has denied any nausea, vomiting, or abdominal pain. He has a drainage tube on the left side of his abdomen. OBJECTIVE: Vital Signs: Temperature 98.6 degrees, pulse 106, respirations 16, blood pressure 102/55, oxygen saturation is 97% on room air. The patient's weight is 139 pounds. BMI is 22.4 kg/m2. General: He is alert, oriented x3, and in no acute distress. HEENT: Pale conjunctivae. Mild icterus. PERRL. Neck: Supple. Lungs: Clear to auscultation in the anterior guo. Cardiovascular: The patient is tachycardic. Abdomen: Firm, distended, nontender. Hypoactive bowel sounds heard in all 4 quadrants. The patient has a drainage tube on the left side of his abdomen. Extremities: No clubbing, no cyanosis, no edema. Pedal pulses 2+ and present bilaterally. Neurologic: He is alert, oriented x3. LABORATORY DATA: WBCs are 10.51, RBCs 2.94, hemoglobin is 7.8, hematocrit is 25, platelet count is 162,000. His chemistries are from 05/12/2019. Sodium is 142, potassium is 3.6, chloride 108, carbon dioxide 20, anion gap is 14, BUN is 25, creatinine is 1.1, glucose 93, calcium is 8.1, magnesium is 1.2, total bilirubin 1.86, AST 17, ALT 7, alkaline phosphatase 258. Ammonia is 42, albumin is 1.9. IMPRESSION AND PLAN: 1. Alcoholic liver cirrhosis and ascites. 2. Spontaneous bacterial peritonitis. 3. Urinary tract infection. 4. Encephalopathy. 5. Anal cancer. 6. Acute kidney injury. 7. Chronic obstructive pulmonary disease. 8. Diabetes type 2. 9. Fluid volume depletion. PLAN: Mr. Calixto is a 58-year-old male with a history of alcoholic liver cirrhosis and ascites. GI is following him for his cirrhosis and ascites. CT- guided paracentesis was done, and it showed that the patient does have persistent peritonitis, status post drain placement. The patient is currently receiving antibiotics for his UTI and his peritonitis. He is on lactulose 30 mL twice a day for his encephalopathy. We will continue to provide supportive care to the patient and follow the plan of care per PCP. This plan was discussed with Dr. Reynaga. Please call us for any further questions or concerns. Dictated by NERIS Smallwood for Bob Reynaga MD cc: Bob Reynaga MD I have seen and examined the patient myself and I agree with the above plan of care. I have discussed the above with the patient and family at bedside and all questions were answered. Please call us with any further questions. MACO
--- NOTE | 2019-05-13 12:27 | PROGRESS NOTE ---
DATE: 05/13/2019 SUBJECTIVE: Mr. Calixto feels better. He has alcoholic liver cirrhosis and ascites and there is concern about spontaneous bacterial peritonitis, urinary tract infection in the past, history of encephalopathy, anal cancer, acute kidney injury. Chronic obstructive pulmonary disease, diabetes mellitus type 2. Fluid volume overload. OBJECTIVE: Vital Signs: Temperature 98.6 degrees, pulse 106, respirations 16. HEENT: Pupils are equal and round. Lungs: Clear in all lung guo. Cardiovascular: Regular rhythm and rate without murmur or S3. Abdomen: Soft. Skin: Warm and dry. ASSESSMENT AND PLAN: 1. Acute liver cirrhosis with ascites. 2. Spontaneous bacterial peritonitis, questionable when he came in. 3. Urinary tract infection. 4. Encephalopathy. The confusion is better. 5. History of anal cancer. 6. Acute kidney injury. 7. Chronic obstructive pulmonary disease. 8. Diabetes mellitus type 2. 9. Fluid depletion. He has a history of alcoholic cirrhosis with ascites. A CT-guided paracentesis was done that showed patient had persistent peritonitis and status post drain placement. The patient is currently receiving antibiotics. Seems to be clinically improved. Also has lactulose for his ammonia level and his hepatic encephalopathy. 10. Current orders: Looks like he is on Norvasc 5 mg a day, daptomycin 500 mg IV q.24 hours, folic acid 1 mg p.o. daily, Lasix 40 mg a day, isosorbide mononitrate 30 mg daily, lactulose 30 mL p.o. b.i.d., cefepime 2 g IV q. 12 hours, and Lopressor 25 mg b.i.d., getting oxycodone IR 5 mg q.4 hours p.r.n., Flomax 0.4 mg daily, Prilosec 40 mg a day. cc: Naren Ruffin MD
[2019-05-13] MEDS: MAG-OX PO SCH ×2 (13:00→20:51)
--- NOTE | 2019-05-13 18:43 | INFECTIOUS DISEASE PROGRESS NO ---
DATE: 05/13/2019 PRESENT ILLNESS: The patient has peritonitis. MEDICATIONS: This is day 2 of treatment with daptomycin and cefepime. PHYSICAL EXAMINATION: Vital Signs: Temperature is 98.8 degrees, pulse 102, respirations 20, blood pressure 104/59. General: This is an ill-appearing, cachectic, middle- aged male. He is in no acute distress, and he looks much better today, and he says he feels much better. Head/eyes/ears/nose/throat: He can hear my spoken words and see near objects. I did not see any white coating of his tongue. Neck: No pain with movement. Lungs: Clear to auscultation. Cardiovascular: Heart rate is regular. Abdomen: Remains protuberant. It is not tender to light palpation. A Ghanshyam-Adorno drain is in, but it does not look like it is draining much today. Neurologic: He is alert today. He carries on a coherent conversation. Thorax: The patient has a right sided portacath. The site is not swollen or tender. LABORATORY AND RADIOLOGY: There is no new radiology note. The patient's CBC shows a white blood cell count, which was 21,440, now is 10,510. Hemoglobin 7.8 and platelet count is 162,000. The patient's blood gases show a pH of 7.5, a pO2 of 67, a pCO2 of 28, creatinine is 1.1. GFR is greater than 60. Blood, urine, and peritoneal fluid cultures are all negative. There seems to be very little drainage coming from the Ghanshyam-Adorno drain. ASSESSMENT AND PLAN: Patient has peritonitis. My plan is to continue daptomycin and cefepime. Dr. Jacob will be managing the Ghanshyam-Adorno drain. For right now, it does not seem like it is draining much. COMORBIDITIES: The patient has anal squamous cell carcinoma, alcoholic cirrhosis of the liver, protein calorie malnutrition, coronary artery disease, and anemia of chronic disease. cc: Shree Hagen MD [facility]yn[facility]
[2019-05-14] MEDS: OXY IR PO PRN ×3 (03:20→14:22)
[2019-05-14] MEDS: PRILOSEC PO SCH (06:29)
[2019-05-14] MEDS: MAXIPIME 2 GM/NS 2 GM/100 ML IVPB IV SCH (07:43)
[2019-05-14] MEDS: MAG-OX PO SCH (08:17)
[2019-05-14] MEDS: FOLIC ACID PO SCH (08:17)
[2019-05-14] MEDS: LACTULOSE PO SCH (08:17)
[2019-05-14] MEDS: LOPRESSOR PO SCH (08:17)
[2019-05-14] MEDS: IMDUR PO SCH (08:18)
[2019-05-14] MEDS: NORVASC PO SCH (08:18)
[2019-05-14] MEDS: LASIX PO SCH (08:18)
[2019-05-14] MEDS: CUBICIN 500 MG in NS 100 ML IV SCH (08:18)
[2019-05-14] MEDS: FLOMAX PO SCH (08:18)
--- NOTE | 2019-05-14 10:40 | GASTROENTEROLOGY PROGRESS NOTE ---
DATE: 05/14/2019 SUBJECTIVE: Mr. Calixto is a 58-year-old male. He was resting in bed and family was at his bedside. The patient has denied any nausea, vomiting, abdominal pain, and he still has a drainage tube on his left side of his abdomen. Patient mentioned that he was feeling good this morning. OBJECTIVE: Vital Signs: Temperature 98 degrees, pulse 70, respirations 16, blood pressure 110/67, oxygen saturation 98% on room air. His weight is 141 pounds. BMI is 22.8 kg/m2. General: He is alert, oriented x3, and in no acute distress. HEENT: Pale conjunctivae. Mild icterus. PERRL. Neck: Supple. Lungs: Clear to auscultation in the anterior guo. Cardiovascular: Regular rate and rhythm. Abdomen: Firm, distended, nontender. Hypoactive bowel sounds heard in all 4 quadrants. The patient has a drainage tube on the left side of the abdomen. Extremities: No clubbing, no cyanosis, no edema. Pedal pulses 2+ present bilaterally. Neurologic: Alert and oriented x3. LABORATORY DATA: WBCs are 10.51, RBC 2.94, hemoglobin 7.8, hematocrit 25.0, platelet count is 162,000. Sodium 142, potassium 3.6, chloride 108, carbon dioxide 20, anion gap 14, BUN 25, creatinine 1.1, glucose 93, calcium 8.1, magnesium 1.2, total bilirubin is 1.86, AST is 17, ALT 7, alkaline phosphatase 258, albumin 1.9. The patient's labs are from 05/12/2019. IMPRESSION AND PLAN: 1. Alcoholic liver cirrhosis with ascites. Sepsis 2. Secondary peritonitis. 3. Urinary tract infection. 4. Hepatic encephalopathy 5. Anal cancer. 6. Acute kidney injury. 7. Anemia PLAN: Mr. Calixto is a 58-year-old male with a history of alcoholic liver cirrhosis and ascites. GI has been following him for his cirrhosis and ascites. The patient is currently on lactulose 30 mL twice a day for his encephalopathy. He is receiving GI prophylaxis, Prilosec 40 mg daily. He is also on antibiotic Cubicin and Maxipime for his peritonitis and urinary tract infection per Infectious Disease. We will continue to provide supportive care and follow the plan of care per PCP. This plan was discussed with Dr. Cuba. Please call us for any further questions or concerns. Dictated by NERIS Smallwood for Golden Cuba MD Physician Attestation I have seen and examined the patient. I have discussed and reviewed the note by Etta CORDON and agree with findings and plan as documented. Mr. Dustin Calixto is an unfortunate 58 year old man with recent diagnosis of untreated anal cancer, decompensated ETOH cirrhosis c/b ascites, PSE and E coli peritonitis after surgery who represents with sepsis 2/2 to persistent peritonitis s/p percutaneous drain placement. He is on antibiotics per ID recommendations and surgery is following. Recommend continued lactulose, titrate to 2-3 BMs daily, and hold diuretics. Trend LFTs, INR daily. Patient reports some improvement in symptoms. He will likely need to be on long course of IV abx per ID. MTDD
[2019-05-14 11:49] VITALS: BP 102/61
--- NOTE | 2019-05-14 12:45 | GENERAL SURGERY PROGRESS NOTE ---
DATE: 05/14/2019 SUBJECTIVE: The patient seems to be doing okay. He has been hemodynamically stable. His pigtail drain placed. He has had little output last 24 hours. We will probably get it another 24 hours to see if he has had any kind of output and then have my partner remove it over the weekend. We will continue to follow while he is in the hospital. cc: Bill Jacob MD
--- NOTE | 2019-05-14 12:52 | HEMO/ONC PROGRESS NOTE ---
DATE: 05/14/2019 SUBJECTIVE: Mr. Calixto is sitting up in bed, awake this morning. He is feeling better. He is more awake and more alert every day. He is continuing on IV antibiotics and improving from his peritonitis standpoint. Dr. Jacob is managing his Ghanshyam-Adorno drain. Minimal drainage is noted. Abdomen appears more distended than yesterday. OBJECTIVE: Vital Signs: Temperature 97.1 degrees, pulse rate 93, respiratory rate 20, blood pressure 102/61, O2 saturation 100% on room air. He is in 0/10 pain. PHYSICAL EXAMINATION: General: He is in no acute distress. HEENT: Mild icterus noted. PERRLA. Oral mucosa normal. Lungs: Respiratory sounds are normal. Normal respiratory effort. Gastrointestinal: Abdomen is distended but soft. No pain to palpation. Extremities: No lower extremity edema noted. LABORATORY: WBCs 10.51, hemoglobin 7.8, hematocrit 25.0, creatinine 1.1, magnesium 1.2, bilirubin 1.86. ASSESSMENT: 1. Abdominal distention secondary to ascites. He is continuing to improve. 2. Alcoholic liver cirrhosis. 3. Anal squamous cell carcinoma. 4. Normocytic anemia. 5. Anorexia, weight loss, waxes and wanes. We will provide him protein shakes. 6. Type 2 diabetes. 7. Altered mental status, which has improved. He is almost back to baseline. 8. Deep venous thrombosis prophylaxis. PLAN: 1. Continue to treat the patient per medical management, continue giving him folic acid daily to replete. 2. Please transfuse him for hemoglobin under 8. The patient does appear to need a transfusion today. 3. Please give him protein shakes while he is in the hospital. 4. Provide him ability to get up out of bed and do his exercises. Please call us as needed over the weekend. Dictated by NERIS Stout for Gaurav Jacobs MD cc: Gaurav Jacobs MD [facility]
--- NOTE | 2019-05-14 13:48 | INFECTIOUS DISEASE PROGRESS NO ---
DATE: 05/14/2019 PRESENT ILLNESS: The patient has peritonitis. MEDICATIONS: This is day 3 of treatment with daptomycin and cefepime. PHYSICAL EXAMINATION: Vital Signs: Temperature is 98 degrees, pulse is 94, respirations 17, blood pressure 93/54. General: This is an ill-appearing, cachectic middle-aged male. He is in no acute distress. Head, eyes ears, nose, and throat: He can hear my spoken words and see near objects. Neck: He does not have any pain when he bends his neck. Lungs: Clear to auscultation. Cardiovascular: Heart rate is regular. Abdomen: The abdomen remains protuberant. It is not tender. A Ghanshyam-Adorno drain is still in place. Neurologic: The patient is alert. He can move his extremities. He is able to ambulate on his own. Thorax: The patient has a right-sided Port- A-Cath. The site of the Port-A-Cath is not swollen or tender. LAB AND X-RAY: There is no lab or x-ray, today, as of yet. ASSESSMENT AND PLAN: I put in a consult for social service to send the patient home on IV antibiotics namely daptomycin 500 mg daily and cefepime 2 g IV every 12 hours. I have put in a request for [employer] to supply the antibiotic and the request goes 1st to Social Service and then they set up the request for home IV antibiotics. The patient will be seen in 2 weeks at my office. The antibiotics at home will be for 2 weeks also. COMORBIDITIES: The patient has squamous cell carcinoma of the rectum. He also has alcoholic cirrhosis of the liver, protein calorie malnutrition, coronary artery disease, and anemia of chronic disease. cc: Shree Hagen MD
--- NOTE | 2019-05-14 15:47 | DISCHARGE SUMMARY ---
ADMISSION DATE: 05/10/2019 DISCHARGE DATE: 05/14/2019 HOSPITAL COURSE: He is a patient of Dr. Armani Bender a 58-year-old who presented with altered mental status. He was just recently discharged from our facility on 04/29/2019. He has a history of liver cirrhosis with ascites, squamous cell cancer, coronary artery disease, congestive heart failure, COPD, and anemia. Recently had complications with spontaneous bacteria peritonitis and urinary tract infection positive for Enterobacter and Pseudomonas. During his most recent admission, he did receive paracentesis. He was initially placed on IV antibiotics of cefepime. This was discharged on antibiotic of Keflex. History from family, reports that he did undergo paracentesis in which they pulled off 300 mL of fluid. Normally at his baseline mentation he is alert and oriented to time, person and place. Over the last couple days he has had altered mental status more lethargic and more confused. Brother states that he is complaining of some generalized abdominal pain. Asked to describe and he said it was hard to. He had some nausea and vomiting as well. Denies any known diarrhea. Not complaining of any chest pain, shortness of breath. He has not been complaining of any urinary tract symptoms either. Brother reported that earlier in the day in the emergency room he fell backward landing on his buttock but did not hit his head. He had no loss of consciousness. He had an appointment to see Dr. Hagen and Dr. Jacobs the day of admission and went to Dr. Hagen' office and when they were at Dr. Jacobs's office they did have some blood work drawn due to results will possible infection. Instructed to come to the emergency room. In the emergency room, found to have leukocytosis. White count [id number]. He was still anemic, had a creatinine of 2.0 so admitted with liver cirrhosis and ascites and concern for peritonitis. We gave him some fluid and started him on IV Rocephin and treated for possible urinary tract infection as well as confusion and acute kidney injury and renal function improved. Blood pressures were well controlled and it was felt that he could go home and get 2 more weeks of IV antibiotics at home. Infectious Disease was asked to follow. The patient has peritonitis, Pseudomonas, Enterobacter urinary tract infection. At home he was taking cephalexin and we started him on some Rocephin when he came in. Dr. Jacobs is following and felt he still might have an infection in his abdomen. He has known alcohol liver cirrhosis, so cultures were obtained and it was felt he probably had peritonitis. This is day 3 of daptomycin and cefepime, so he will go home. DISCHARGE INSTRUCTIONS: He will get daptomycin 500 mg a day, cefepime 2 g IV Q 12 hours and he will do that for 2 weeks and followed by social service. He has a port in place and will get follow up with Dr. Hagen's office. cc: Naren Ruffin MD
== END 2019-05-14 17:47 | disposition home health service (06) | DRG 441 ==
LOC: ED 17:12 → SUATTDRO 05-11 01:26 → SURHOLD 05-11 01:26 → 2N 05-11 01:29 → 1N 05-14 04:09
PROVIDERS: ATTEND Emergency Medicine

== ENCOUNTER 2019-07-07 18:21 | Day surgery (SDC) ==
[2019-07-07] MEDS ORDERED: TYLENOL PO ONE (18:44)
[2019-07-07] MEDS ORDERED: BENADRYL IV ONE (18:44)
[2019-07-07] MEDS ORDERED: NS 500 ML ONE (19:47)
[2019-07-08 02:40] VITALS: BP 94/52
== END 2019-07-08 03:00 | disposition home or self-care (01) ==
LOC: ED 07-08 03:00 → EDSTATUS 07-08 14:53
PROVIDERS: ATTEND Internal Medicine Medical Oncology